=== PATIENT | male | born 1945 | race Caucasian/White ===

== ENCOUNTER → 2016-07-14 | Outpatient (CLI) | payer OTHER, BC ==
[~2016-07-14] MED LIST: CIME1TAB7 PO; HYDR1OIN TOP; LPR25 PO; LPT/40 PO; LSN20 PO; MULT-506 PO; TYLOTC500 PO
[2016-07-14 12:29] LABS: BASO % 0.2 %; BASO ABS # 0.01 K/uL (0-0.2); COMPLETE YES; EOS % 2.6 %; HEMATOCRIT 41.9 % (42-52); IG% 0.2 %; LYMPH ABS # 1.82 K/uL (1.2-3.4); MEAN CELL VOLUME 93.9 fL (80-100); MEAN CORPUSCULAR HEMOGLOBIN 30.7 pg (25-34); MEAN CORPUSCULAR HGB CONC 32.7 g/dl (32-36); MEAN PLATELET VOLUME 9.6 fL (7.4-10.4); MONO % 6.5 %; NEUT % 62.5 %; PLATELET COUNT 185 K/uL (130-400); RED BLOOD COUNT 4.46 M/uL (4.7-6.1); WHITE BLOOD COUNT 6.49 K/uL (4.8-10.8)
[2016-07-14 12:38] LABS: CALCIUM 9.2 mg/dl (8.5-10.1)
[2016-07-14 12:42] LABS: ALT/SGPT 37 U/L (12-78); AST/SGOT 33 U/L (15-37); BLOOD UREA NITROGEN 14 mg/dl (7-18); BUN/CREATININE RATIO 12.5 (10-20); CARBON DIOXIDE 32 mmol/L (21-32); CHLORIDE 106 mmol/L (98-107); CHOLESTEROL 112 mg/dl (0-200); GLUCOSE 79 mg/dl (70-99); POTASSIUM 5.4 mmol/L (3.5-5.1); SODIUM 142 mmol/L (136-145); TRIGLYCERIDES 92 mg/dl (0-150); VERY LOW DENSITY LIPOPROT CALC 18 mg/dl
[2016-07-14 12:47] LABS: ESTIMATED AVERAGE GLUCOSE 103 mg/dl; HA1C FLAG Normal (Normal)
[2016-07-14 12:53] LABS: CHOLESTEROL/HDL RATIO 2.2; HDL CHOLESTEROL 50 mg/dl; LDL CHOLESTEROL CALCULATED 44 mg/dl
--- NOTE | 2016-07-20 08:40 | CODING QUERY MEDICAL NECESSITY ---
SUPPORTING DIAGNOSIS NEEDED Dr. Jenkins, A supporting diagnosis is required for the test/procedure performed on this patient in order for us to be reimbursed by the patient's insurance. Please provide a supporting diagnosis for the following test/procedure listed below next to the test name along with your signature. *If there is no additional diagnosis for this patient that would support the following test/procedure please document that below next to the test/procedure. Test(s)/Procedure(s) that require a supporting diagnosis: * [id number] GLYCATED HEMOGLOBIN DIAGNOSIS: DATE OF SERVICE: 07/14/16 Provider Signature: Date: Thank you Kumar Parks [facility] Information Management Once completed, please kindly fax back to [phone] For questions please call [phone]
== END | disposition home or self-care (01) ==
LOC: C.LABBFT 09:41
PROVIDERS: ATTEND Internal Medicine
DX: Z00.00 Encounter for general adult medical examination without abnormal findings (principal); I10 Essential (primary) hypertension; E78.00 Pure hypercholesterolemia, unspecified; E74.39 Other disorders of intestinal carbohydrate absorption

== ENCOUNTER → 2017-01-15 | Outpatient (CLI) | payer OTHER, BC ==
[2017-01-15 12:58] LABS: BASO % 0.3 %; BASO ABS # 0.02 K/uL (0-0.2); COMPLETE YES; EOS % 2.5 %; HEMATOCRIT 41.5 % (42-52); LYMPH % 27.5 %; LYMPH ABS # 1.65 K/uL (1.2-3.4); MEAN CELL VOLUME 94.7 fL (80-100); MEAN CORPUSCULAR HGB CONC 33.7 g/dl (32-36); MEAN PLATELET VOLUME 9.7 fL (7.4-10.4); MONO % 5.7 %; PLATELET COUNT 185 K/uL (130-400); RED BLOOD COUNT 4.38 M/uL (4.7-6.1); WHITE BLOOD COUNT 5.99 K/uL (4.8-10.8)
[2017-01-15 14:18] LABS: ALT/SGPT 26 U/L (12-78); AST/SGOT 28 U/L (15-37); BLOOD UREA NITROGEN 13 mg/dl (7-18); BUN/CREATININE RATIO 11.9 (10-20); CALCIUM 9.2 mg/dl (8.5-10.1); CARBON DIOXIDE 31 mmol/L (21-32); CHLORIDE 105 mmol/L (98-107); CREATININE 1.06 mg/dl (0.60-1.40); GLUCOSE 78 mg/dl (70-99); HDL CHOLESTEROL 54 mg/dl; POTASSIUM 4.2 mmol/L (3.5-5.1); SODIUM 138 mmol/L (136-145)
[2017-01-15 14:24] LABS: CHOLESTEROL 96 mg/dl (0-200); CHOLESTEROL/HDL RATIO 1.8; LDL CHOLESTEROL CALCULATED 25 mg/dl; TRIGLYCERIDES 87 mg/dl (0-150); VERY LOW DENSITY LIPOPROT CALC 17 mg/dl
[2017-01-16 07:00] LABS: ESTIMATED AVERAGE GLUCOSE 94 mg/dl; HA1C FLAG Normal (Normal)
== END | disposition home or self-care (01) ==
LOC: C.LABBFT 09:23
PROVIDERS: ATTEND Physician Assistant
DX: R97.20 Elevated prostate specific antigen [PSA] (principal); N40.1 Benign prostatic hyperplasia with lower urinary tract symptoms; I10 Essential (primary) hypertension; E78.00 Pure hypercholesterolemia, unspecified

== ENCOUNTER 2022-01-25 01:19 | Inpatient (IN) ==
--- NOTE | 2022-01-25 01:32 | Emergency Department Note ---
History of Present Illness General Chief complaint: Fall Time Seen by Provider: 01/25/22 01:22 History of Present Illness 76-year-old male presents via EMS reportedly this patient has had multiple falls over the past few days. Was seen in our emergency department 3 hours prior and had a full evaluation at the time had a CAT scan of the brain which was negative was also found to be COVID-positive. Patient's blood cultures 1 bottle reportedly came back positive for staph on PCR. Patient was called by Dr. Tyree muñoz and the family stated that the patient would stay home and they would monitor for symptoms. Apparently approximately 30 minutes after this phone call the patient was going to the bathroom and was weak and had fallen again. EMS states that his legs may have given out. He did not strike his head there is no loss of consciousness he has no current complaints. Patient has significant dementia and is a very poor historian as to his presentation. Home Medications Medication Instructions Recorded Confirmed Type amoxicillin 500 mg capsule 2,000 mg PO ONCE PRN Pretreat 04/02/20 01/25/22 History Dental Appointments cholecalciferol (vitamin D3) 25 25 mcg PO DAILY 08/16/20 01/25/22 History mcg (1,000 unit) capsule finasteride 5 mg tablet (Proscar) 5 mg PO DAILY #90 tabs 08/04/21 01/25/22 Rx tamsulosin 0.4 mg capsule 0.4 mg PO DAILY #90 caps 08/04/21 01/25/22 Rx metoprolol succinate 100 mg 100 mg PO BID 90 days #180 tabs 11/01/21 01/25/22 Rx tablet,extended release 24 hr lisinopril 20 mg tablet 20 mg PO DAILY #90 tabs 01/04/22 01/25/22 Rx Allergies Allergy/AdvReac Type Severity Reaction Status Date / Time Sulfa (Sulfonamide Allergy Intermediate RASH Verified 01/25/22 01:50 Antibiotics) codeine Allergy Unknown unknown Verified 01/25/22 01:50 donepezil Allergy Unknown ? sycopal Verified 01/25/22 01:50 episode oxycodone AdvReac Severe hallucinati Verified 01/25/22 01:50 ons Past Med/Surg History Medical History Benign localized prostatic hyperplasia with lower urinary tract symptoms (LUTS) Cardiac pacemaker in situ interrogated 02/16/20 no issues Dementia Dyslipidemia Elevated PSA GERD (gastroesophageal reflux disease) Hearing loss Inguinal hernia of left side with obstruction Pneumothorax, left T9 vertebral fracture Surgical History H/O hernia repair History of left inguinal hernia repair Laparoscopic left inguinal hernia repair for incarceration with obstruction, Dr. Ramirez, 03 April 2020 History of rectal surgery Anal fistulectomy History of tonsillectomy Social History Smoking Status: Unknown if ever smoked Second Hand Exposure: No; Hx Alcohol Use: No Hx Substance Use: No Preferred Language: Zimbabwean Communication Ability: Effective marital status: Current Living Situation: Spouse current occupational status: retired Feels Safe at Home: Yes Assistive Devices: None Review of Systems Unobtainable due to cognitive status Physical Exam Vital Signs Vital Signs - 24 hr 01/25/22 01:27 01/25/22 01:35 01/25/22 01:30 Temperature 36.7 C Temperature Source Oral Pulse Rate 83 Pulse Rate [Apical] 86 Pulse Rate from SpO2 Sensor 83 Respiratory Rate 24 18 Respiratory Effort / Characteristics Non-Labored Spontaneous Respiratory Depth Normal Blood Pressure 140/80 Blood Pressure [Right Arm] 140/80 Blood Pressure Mean 100 Blood Pressure Mean [Right Arm] 100 Pulse Oximetry 97 97 Oxygen Delivery Method Room Air Room Air Sepsis Recent Fever Within 48 Hours No Sepsis New/Unexplained Change in Mental Status No Sepsis Action Taken by Nursing No Action Required 01/25/22 02:00 01/25/22 02:30 Temperature Temperature Source Pulse Rate 76 73 Pulse Rate [Apical] Pulse Rate from SpO2 Sensor 75 75 Respiratory Rate 20 19 Respiratory Effort / Characteristics Respiratory Depth Blood Pressure 134/69 Blood Pressure [Right Arm] Blood Pressure Mean 90 Blood Pressure Mean [Right Arm] Pulse Oximetry 95 98 Oxygen Delivery Method Room Air Room Air Sepsis Recent Fever Within 48 Hours Sepsis New/Unexplained Change in Mental Status Sepsis Action Taken by Nursing GENERAL: Patient is awake alert in no distress no obvious signs of trauma alert to person only EYES: The conjunctivae are clear. The pupils are round and reactive. EARS, NOSE, MOUTH AND THROAT: The nose is without any evidence of any deformity. Mucous membranes are moist. Tongue is midline. NECK: The neck is nontender and supple. Patient has a nontender cervical spine patient has their neck in a flexed position RESPIRATORY: Normal respiratory effort is noted there is no evidence of wheezing rhonchi or rales CARDIOVASCULAR: Regular rate and rhythm noted there no murmurs rubs or gallops normal S1 normal S2. GASTROINTESTINAL: The abdomen is soft. Abdomen is nontender. PELVIS: The Pelvis is stable. No tenderness to palpation is noted. BACK: No midline tenderness or or step-off noted range of motion in flexion extension as well as rotation no signs of muscle spasm noted MUSCULOSKELETAL/EXTREMITIES: There is no evidence of gross deformity full range of motion is noted in the hips and shoulders. SKIN: There is no obvious evidence of any rash. There are no petechiae, pallor or cyanosis noted. NEUROLOGIC: Patient is awake alert to person only Course Reevaluation(s) Reevaluation #1: Patient is resting in no distress on repeat examination Time: 01:54 Consultations Consultation #1: Spoke with the [facility] hospitalist for admission Time: 01:54 Medical Decision Making Medical Records Attestation: I reviewed the patient's medical records. Home Medications Current Medication List: was personally reviewed by me Laboratory Data Attestation: I reviewed the patient's lab results. ECG Data Attestation: I personally reviewed and interpreted this ECG as follows: Additional Comments: EKG interpreted by me paced rhythm rate of 86, no obvious ST segment elevation or depression normal axis prior EKG is a paced rhythm as interpreted by me MDM Narrative Medical decision making differential diagnosis weakness, COVID, gram-positive sepsis, metabolic derangement. Observe, prior records were reviewed, patient had a positive staph PCR in one of the 4 bottles of blood cultures. Impression & Plan Weakness, Fall, COVID-19 Discharge Plan Visit Data Chief Complaint: Fall ED Provider: John Elizondo Discharge Problem: Weakness, Fall, COVID-19 Patient Disposition: Being Evaluated by Hospitalist Discharge Instructions Interventions: ED Discharge Assessment Last Done: 01/25/22 02:51 Forms Stand Alone Forms: My [facility] Prescriptions Prescriptions: No Action finasteride [Proscar] 5 mg tablet 5 mg PO DAILY Qty: 90 3RF Rx Instructions: for enlarged prostate tamsulosin 0.4 mg capsule 0.4 mg PO DAILY Qty: 90 3RF Rx Instructions: for enlarged prostate lisinopril 20 mg tablet 20 mg PO DAILY Qty: 90 3RF cholecalciferol (vitamin D3) 25 mcg (1,000 unit) capsule 25 mcg PO DAILY metoprolol succinate 100 mg tablet extended release 24 hr 100 mg PO BID 90 Days Qty: 180 5RF amoxicillin 500 mg capsule 2,000 mg PO ONCE PRN (Reason: Pretreat Dental Appointments) Referrals Referrals: Kumar Rodriguez DO [Primary Care Provider] -
--- NOTE | 2022-01-25 02:02 | History & Physical Report ---
Date of Service January 25, 2022 Assessment & Plan (1) Fall: Plan: Patient having multiple falls at home. Likely his dementia is being influenced by his COVID infection and presenting with metabolic encephalopathy. Supportive care PT OT evaluation. CT head will be ordered on admission (2) COVID-19: Plan: Patient's had some upper respiratory symptoms with mild cough and low-grade fever at home which began on January 20, patient be on COVID isolation. He is not hypoxic therefore will not be candidate for steroids Denies significant respiratory component diarrhea we will not initiate re mdesivir He does not have any diarrhea or complaint of loss of taste or smell to his family (3) Blood bacterial culture positive: Plan: 1 of 4 blood cultures are positive that were taken without the patient being febrile. There is no defined source although he does have BPH we will check a urine culture if the patient develops infectious etiologies we will institute antibiotics likely vancomycin to start with. Patient will have procalcitonin added to morning labs and will follow look for leukocytosis (4) Hypertension: Plan: Patient takes metoprolol 100 and lisinopril 20. He will be on telemetry to monitor for arrhythmia Pt has pacemaker, will continue medications and follow blood pressures interrogate pace maker to correlate with falls patient has not had his pacemaker interrogated for 1 year typically follows with Dr. Joyce family feels he was told he had a few years left on the battery Initially pacemaker was placed due to syncope son feels that when he does fall which is usually a position change she does have a period of time afterwards where he is conscious but not quite all there (5) BPH (benign prostatic hyperplasia): Plan: Patient continues on tamsulosin and finasteride for his BPH blood pressure is robust without concern currently for orthostatic hypotension (6) Dementia: Plan: Patient's family feels his dementia has worsened since he had his COVID symptoms thus considering consistent with metabolic encephalopathy Plan Patient will be on Lovenox for DVT prevention Patient's family confirms he is a full code Previous history of T9 compression fracture Previous history of left-sided pneumothorax associated in the past with pacemaker placement History of Present Illness Primary Care Provider: Kumar Rodriguez, DO 76-year-old male who presents to the ER after a fall at home. The patient was in the emergency room earlier for multiple falls and was found to be COVID- positive without hypoxia or pneumonia. At that time serology was unrevealing for dyscrasias this included lactic acid and troponin during the ER visit the patient also had blood cultures drawn he was not febrile but 1 of 4 bottles grew gram-positive cocci in clusters. Interestingly after that result came back after the first ER visit ER attending called the patient's home and the family stated the patient was doing fine and then 20 minutes later he was brought back after a fall via EMS. Repeat visit did not include any additional work-up. His initial ER visit included a chest x-ray and an abdominal pelvis CT scan this did not reveal pathology or concern for infection did show some constipation. He was not discharged on antibiotics and no head imaging was performed although there was no recollection of trauma by the family urinalysis earlier on 12 D ecember was not significantly abnormal and the patient does not have a significant history of previous urinary tract infections Allergies Allergy/AdvReac Type Severity Reaction Status Date / Time Sulfa (Sulfonamide Allergy Intermediate RASH Verified 01/25/22 01:50 Antibiotics) codeine Allergy Unknown unknown Verified 01/25/22 01:50 donepezil Allergy Unknown ? sycopal Verified 01/25/22 01:50 episode oxycodone AdvReac Severe hallucinati Verified 01/25/22 01:50 ons Home Medications Medication Instructions Recorded Confirmed Type amoxicillin 500 mg capsule 2,000 mg PO ONCE PRN Pretreat 04/02/20 01/25/22 History Dental Appointments cholecalciferol (vitamin D3) 25 25 mcg PO DAILY 08/16/20 01/25/22 History mcg (1,000 unit) capsule finasteride 5 mg tablet (Proscar) 5 mg PO DAILY #90 tabs 08/04/21 01/25/22 Rx tamsulosin 0.4 mg capsule 0.4 mg PO DAILY #90 caps 08/04/21 01/25/22 Rx metoprolol succinate 100 mg 100 mg PO BID 90 days #180 tabs 11/01/21 01/25/22 Rx tablet,extended release 24 hr lisinopril 20 mg tablet 20 mg PO DAILY #90 tabs 01/04/22 01/25/22 Rx Past Med/Surg History Medical History Benign localized prostatic hyperplasia with lower urinary tract symptoms (LUTS) Cardiac pacemaker in situ interrogated 02/16/20 no issues Dementia Dyslipidemia Elevated PSA GERD (gastroesophageal reflux disease) Hearing loss Inguinal hernia of left side with obstruction Pneumothorax, left T9 vertebral fracture Surgical History H/O hernia repair History of left inguinal hernia repair Laparoscopic left inguinal hernia repair for incarceration with obstruction, Dr. Ramirez, 03 April 2020 History of rectal surgery Anal fistulectomy History of tonsillectomy Social History Smoking Status: Unknown if ever smoked Second Hand Exposure: No; Hx Alcohol Use: No Hx Substance Use: No Preferred Language: Filipino Communication Ability: Effective marital status: Current Living Situation: Spouse current occupational status: retired Feels Safe at Home: Yes Assistive Devices: None Review of Systems Review of Systems: Mild distress and fatigue no headache, no visual changes no speech or swallowing issues no chest pain, pressure or palpitations no shortness of breath, cough or wheezes no abdominal pain, nausea or vomiting, diarrhea or constipation no dysuria, hematuria or frequency no focal joint pain or swelling no back pain, CVA tenderness or radicular pain no bruising, bleeding or rashes no focal signs of weakness or numbness or altered sensation no complaints of anxiety or depression.. Physical Exam Physical Exam: The patient appeared well nourished and normally developed. Vital signs as documented. Head exam is normocephalic atraumatic Neck is without JVD, thyromegaly, or carotid bruits. Lungs are clear to auscultation, no focal loss of breath sounds Cardiac exam, Rhythm is regular.. No murmurs, rubs or gallops. Abdominal exam reveals normal bowel sounds, soft non tender, no masses Extremities are nonedematous and both pedal pulses are present Neurologic exam is alert and oriented, no focal loss of strength or sensation Skin is without bruises or rashes Psychologically is without concerns for anxiety or depression.. Results & Data Results & Data ([facility]) Vital Signs (Past 12 Hours) Vital Signs Temp Pulse Resp BP Pulse Ox O2 Del Method 01/25/22 01:35 98.1 F 01/25/22 01:27 86 24 140/80 97 Room Air Diagnostic Findings CT scan abdomen pelvis without oral or IV contrast 01/23/2022 Significant suboptimal examination as no contrast was administered, no acute infectious or inflammatory findings are identified within the abdomen or pelvis. Rectosigmoid fecal retention and moderate constipation. Cholelithiasis. Chest x-ray was without pneumonia or infiltrates PG Care Time/CCT Total # of Minutes Spent Total Time Spent with Patient: Total time spent is greater than 50% in coordination of care (as documented) at patient's floor/unit and/or counseling patient: Coding Level of Care Code 71608 Initial Inpt Care Lvl 3 Diagnoses Fall W19.XXXA COVID-19 U07.1 Blood bacterial culture positive R78.81 Hypertension I10 Hypertension type: primary hypertension BPH (benign prostatic hyperplasia) N40.0 Dementia F03.90 Dementia severity: severe Dementia type: vascular dementia (1) Dementia Dementia severity: severe Dementia type: vascular dementia (2) Hypertension Hypertension type: primary hypertension Qualified Code(s): I10 - Essential (primary) hypertension
[2022-01-25] MEDS ORDERED: SODIUM CHLORIDE 0.9% 1000ML 1,000 ML IV STA (02:42)
[2022-01-25] MEDS ORDERED: POLYETHYLENE (MIRALAX) 17 GM PACK PO PRN (03:36)
[2022-01-25] MEDS ORDERED: ALUMINUM/MAGNESIUM SUSP 30 ML UDC PO PRN (03:36)
[2022-01-25 06:14] LABS: Hematocrit (blood only) 42.6 % (40.1-51.0); Hemoglobin 14.5 g/dl (14.0-18.0); Mean Corpuscular Hemoglobin 31.6 pg (25.0-34.0); Mean Corpuscular Volume 92.8 fL (80.0-100.0); Mean Platelet Volume 9.1 fL (9.4-12.4); Platelet Count 147 K/uL (130-400); RDW Coefficient of Variation 12.5 % (11.5-14.5); RDW Standard Deviation 42.5 fL (36.4-46.3); Red Blood Count 4.59 M/uL (4.63-6.08); White Blood Count 5.57 K/ul (4.8-10.8)
[2022-01-25 06:51] LABS: BUN Creatinine Ratio 17.8 (10-20); Calcium 8.6 mg/dl (8.5-10.1); Creatinine Clr Calc Pharmacy 56.8 ml/min; Est GFR (African American) 83.4 ml/min; Est GFR (Non-African American) 71.9 ml/min; Potassium 3.6 mmol/L (3.5-5.1)
[2022-01-25] MEDS ORDERED: REMDESIVIR 200 MG in SODIUM CHLORIDE 0.9% 210 ML IV STA (07:30)
[2022-01-25] MEDS: ENOXAPARIN INJ 40 MG/0.4 ML SYR SQ SCH (08:26)
[2022-01-25] MEDS: TAMSULOSIN HCL 0.4 MG CAP PO SCH (08:28)
[2022-01-25] MEDS: METOPROLOL SUCC 50MG EXT REL TAB PO SCH ×2 (08:33→20:28)
[2022-01-25] MEDS: lisinopril 20 MG TAB PO SCH (08:34)
[2022-01-25] MEDS: FINASTERIDE 5 MG TAB PO SCH (08:34)
--- NOTE | 2022-01-25 08:45 | Electrocardiogram Report ---
Test Reason : Blood Pressure : / mmHG Vent. Rate : 086 BPM Atrial Rate : 086 BPM P-R Int : 186 ms QRS Dur : 162 ms QT Int : 418 ms P-R-T Axes : 000 -85 083 degrees QTc Int : 500 ms AV dual-paced rhythm Abnormal ECG When compared with ECG of 23-JAN-2022 18:30, Vent. rate has increased BY 13 BPM Atrial sensing, ventricular pacing no longer present Confirmed by Ryan Michel ([id number]) on 01/25/2022 8:44:56 AM Referred By: REFERRED SELF Confirmed By:Ryan Michel
--- NOTE | 2022-01-25 17:46 | History & Physical Bridge Note ---
Date of Service January 25, 2022 History & Physical Bridge Note I have examined the patient, reviewed the History & Physical and in the interval since the performance of the History & Physical I have noted the following changes of clinical significance: Pt continued to be quite restless all day and jumping out of bed, ripped out his IV and heart monitor. He is confused and this is at his baseline as per his 's description. He did move his bowels and is eating. BCxs show COag neg Staph, 1/4 bottles, l ikely contaminant. Repeat BCxs obtained. definitely on board with starting antipsychotic after review of risk and benefits. Will start Seroquel. She also reports she just cannot safely take care of him currently at home, concern for falls. Pt not able to answer any questions, answers "yup" to everything. Moving all extremities constantly wringing hands, kicking legs. RRR no mgr CTAB no wcr +BS soft NT ND Skin no rashes Will start Seroquel and if less agitated, will send for CT head although I told this is low yield. Brain MRI would be better for looking for CVA, but there is no way he would hold still for brain MRI given his constant motion and restlessness. Pacer interrogation not performed that I can tell-reordered but he has been paced on tele here, no arrhythmias since admission. -transfer off tele, no need for replacement of IV as he will likely rip it out again -started Remdesivir and received one dose but now witll stop POx is> 94% so no steroids indicated -start seroquel 12.5mg po hs PT/OT recommending 24/7 care or SNF--> would like referrals to [facility] ER
[2022-01-25] MEDS: QUEtiapine FUMARATE 25 MG TABLET PO SCH (18:09)
[2022-01-25] MEDS ORDERED: hydrALAZINE HCL 20 MG/ML VIAL IV STA (23:18)
[2022-01-26 07:34] LABS: Hematocrit (blood only) 44.3 % (40.1-51.0); Hemoglobin 15.3 g/dl (14.0-18.0); Mean Corpuscular Hemoglobin 31.4 pg (25.0-34.0); Mean Corpuscular Hgb Conc 34.5 g/dL (32.0-36.0); Mean Platelet Volume 9.5 fL (9.4-12.4); Platelet Count 176 K/uL (130-400); RDW Coefficient of Variation 12.2 % (11.5-14.5); RDW Standard Deviation 40.8 fL (36.4-46.3); Red Blood Count 4.87 M/uL (4.63-6.08)
[2022-01-26 08:07] LABS: BUN Creatinine Ratio 14.2 (10-20); Calcium 8.8 mg/dl (8.5-10.1); Creatinine Clr Calc Pharmacy 27.9 ml/min; Est GFR (African American) 35.6 ml/min; Est GFR (Non-African American) 30.7 ml/min; Magnesium 1.9 mg/dl (1.7-2.4); Potassium 4.2 mmol/L (3.5-5.1)
[2022-01-26] MEDS: ENOXAPARIN INJ 40 MG/0.4 ML SYR SQ SCH (08:23)
[2022-01-26] MEDS: METOPROLOL SUCC 50MG EXT REL TAB PO SCH ×2 (08:24→20:48)
[2022-01-26] MEDS: lisinopril 20 MG TAB PO SCH (08:24)
[2022-01-26] MEDS: FINASTERIDE 5 MG TAB PO SCH (08:24)
[2022-01-26] MEDS: TAMSULOSIN HCL 0.4 MG CAP PO SCH (08:24)
[2022-01-26] MEDS: LACTATED RINGER'S 1,000 ML IV SCH ×2 (10:15→22:32)
[2022-01-26] MEDS ORDERED: REMDESIVIR 100 MG in SODIUM CHLORIDE 0.9% 230 ML IV SCH ×2 (12:00→17:00)
[2022-01-26 14:55] LABS: Appearance Urine Clear (Clear); Bacteria Urine Automated Negative (Negative); Bilirubin Urine Negative (Negative); Blood Urine 3+ (Negative); Color Urine Yellow; Glucose Urine UA Negative (Negative); Ketones Urine Trace (Negative); Leukocyte Esterase Urine Negative (Negative); Nitrite Urine Negative (Negative); Protein Urine 1+ (Negative); RBC Urine Automated >30 /hpf (0-4); Specific Gravity Urine 1.014 (1.000-1.030); Urobilinogen Urine Negative (Negative)
--- NOTE | 2022-01-26 16:48 | Hospitalist Progress Note ---
Date of Service January 26, 2022 Assessment & Plan (1) Fall: Plan: Patient having multiple falls at home. Likely his dementia is being influenced by his COVID infection and presenting with metabolic encephalopathy. Supportive care PT OT evaluation. CT head ordered but not able to be completed due to agitation and restlessness of patient will try to get CT head once more calm pacer interrogation ordered but not yet completed? tele only with paced rhythm and has since been removed from tele suspect weakness due to COVID was cause of fall-he did not lose consciousness (2) COVID-19: Plan: Patient's had some upper respiratory symptoms with mild cough and low-grade fever at home which began on January 20, tested positive here on 01/23 He is not hypoxic therefore will not be candidate for steroids no further fevers here, no PNA on CXR, no diarrhea, is eating Gave one dose Remdesivir on 01/25 but then ripped out IV-->dcd it and now with ANNAMARIA cannot restart continue isolation precautions (3) ANNAMARIA (acute kidney injury): Plan: Predatory Hunter 1.0 on arrival and now up to 2.0 found to have urinary retention of 800mL on 01/26--> placed Haley CT abd/pel on admission without stones or hydronephrosis but with evidence of chronic REECE and enlarged prostate UA neg for infection, richards shave some blood but could be from trauma from Haley -continue to monitor BMP -give IVFs with LR x 2L -renally dose meds -maintain Haley for now -hold lisinopril-did receive dose on 01/26 (4) Urinary retention: Plan: as above, Haley placed on 01/26 continue Flomax and finasteride (5) Dementia: Plan: Chronic, progressing, answers "yes" to all questions, not able to carry on conversation generally restless, very active, multiple falls recently with COVID illness feels she cannot safely take care of him on her own at home for agitation here, started on Seroquel 12.5mg po hs as d/w on phone and seems to be helping tremendously -continue Seroquel 12.5mg hs (6) Blood bacterial culture positive: Plan: was seen in ER on 01/23 for fever and falls, found to be COVID positive BCxs growing 2/4 with Coag neg Staph but no longer having fevers Procal negative, UA neg for infection no abx started -repeat BCxs 01/25 NGTD-will follow (7) Hypertension: Plan: BPs elevated possibly due to agitation but now improved as agitation resolved continue home metoprolol hold lisinopril now due to ANNAMARIA (8) BPH (benign prostatic hyperplasia): Plan: with Haley placed for urine retention -continues on tamsulosin and finasteride Plan DVT proph-hold Lovenox and start heparin SQ due to ANNAMARIA Dispo-continued stay, PT/OT recommending rehab or 04/09 care. Referral made to [facility] as per Admission and Anticipated Discharge Date Admission Date: January 25, 2022 Subjective Pt apparently was much more calm and rested through the night, able to come off the 1:1 sitter today and has been very cooperative today, eating meals on his own as per RN. He is sleeping a lot. Overall much improved. He had ANNAMARIA on labs this AM and bladder scan revealed PVR 800mL and had Haley placed. IV restarted for IVFs and he is tolerating this. When I saw him, he was resting and only briefly opened his eyes and acknowledged me then fell back asleep. Review of Systems Review of Systems: Unobtainable due to cognitive status Physical Exam Constitutional: WD/WN, vitals as above Eyes: + anicteric sclerae Neck: trachea midline, no thyromegaly Respiratory: normal respiratory effort, lungs clear to auscultation Cardiovascular: RRR, no murmur, no edema Vessels: dorsalis pedis pulses present Chest (Breasts): Chest: normal inspection of chest Gastrointestinal (Abdomen): normal bowel sounds, soft, nontender, no hepatosplenomegaly Musculoskeletal: Extremities: extremities normal to inspection; no cyanosis and no clubbing Skin: no rashes, warm and dry Neurologic: moves all extremities and + confused; + not awake Genitourinary: Haley in place Lymphatic: no lymphedema Results & Data Results & Data ([facility]) Vital Signs (Past 12 Hours) Vital Signs Temp Pulse Resp BP Pulse Ox O2 Del Method 01/26/22 14:30 37.1 C 81 20 128/76 95 Room Air 01/26/22 10:17 81 160/94 H 01/26/22 08:20 36.7 C 93 H 16 185/109 H 96 Room Air 01/26/22 06:56 116 H 18 188/126 H Laboratory Results 01/26/22 01/26/22 01/26/22 Range/Units 14:40 07:03 07:03 WBC 7.20 (4.8-10.8) K/ul RBC 4.87 (4.63-6.08) M/uL Hgb 15.3 (14.0-18.0) g/dl Hct 44.3 (40.1-51.0) % MCV 91.0 (80.0-100.0) fL MCH 31.4 (25.0-34.0) pg MCHC 34.5 (32.0-36.0) g/dL RDW Std Deviation 40.8 (36.4-46.3) fL RDW Coeff of Coco 12.2 (11.5-14.5) % Plt Count 176 (130-400) K/uL MPV 9.5 (9.4-12.4) fL Sodium 137 (136-145) mmol/L Potassium 4.2 (3.5-5.1) mmol/L Chloride 100 (98-107) mmol/L Carbon Dioxide 25 (21-32) mmol/L Anion Gap 12 H (3-11) BUN 29 H (6-23) mg/dl Creatinine 2.04 H D (0.6-1.4) mg/dl Est Cr Clr Drug Dosing 27.9 ml/min Est GFR ( Amer) 35.6 ml/min Est GFR (Non-Af Amer) 30.7 ml/min BUN/Creatinine Ratio 14.2 (10-20) Glucose 118 H (70-99(Fasting)) mg/dl Calcium 8.8 (8.5-10.1) mg/dl Magnesium 1.9 (1.7-2.4) mg/dl Urine Color Yellow Urine Appearance Clear (Clear) Urine pH 5.0 (4.5-7.5) Ur Specific Evans 1.014 (1.000-1.030) Urine Protein 1+ H (Negative) Urine Glucose (UA) Negative (Negative) Urine Ketones Trace H (Negative) Urine Blood 3+ H (Negative) Urine Nitrite Negative (Negative) Urine Bilirubin Negative (Negative) Urine Urobilinogen Negative (Negative) Ur Leukocyte Esterase Negative (Negative) Urine WBC (Auto) 1-5 (0-5) /hpf Urine RBC (Auto) >30 H (0-4) /hpf U Hyaline Cast (Auto) 1-5 (0-5) /lpf U Epithel Cells (Auto) 10-20 H (0-5) /lpf Urine Bacteria (Auto) Negative (Negative) PG Care Time/CCT Total # of Minutes Spent Total Time Spent with Patient: Total time spent is greater than 50% in coordination of care (as documented) at patient's floor/unit and/or counseling patient: Coding Level of Care Code 96033 Subseq Hosp Care Lvl 2 Diagnoses Fall W19.XXXA COVID-19 U07.1 ANNAMARIA (acute kidney injury) N17.9 Urinary retention R33.9 Dementia F03.90 Dementia severity: severe Dementia type: vascular dementia Blood bacterial culture positive R78.81 Hypertension I10 Hypertension type: primary hypertension BPH (benign prostatic hyperplasia) N40.0 (1) Hypertension Hypertension type: primary hypertension Qualified Code(s): I10 - Essential (primary) hypertension (2) Dementia Dementia severity: severe Dementia type: vascular dementia
[2022-01-26] MEDS: QUEtiapine FUMARATE 25 MG TABLET PO SCH (20:48)
[2022-01-27] MEDS: FINASTERIDE 5 MG TAB PO SCH (08:21)
[2022-01-27] MEDS: METOPROLOL SUCC 50MG EXT REL TAB PO SCH ×2 (08:21→20:59)
[2022-01-27] MEDS: TAMSULOSIN HCL 0.4 MG CAP PO SCH (08:21)
[2022-01-27 09:24] LABS: Hematocrit (blood only) 39.3 % (40.1-51.0); Hemoglobin 13.6 g/dl (14.0-18.0); Mean Corpuscular Hemoglobin 31.7 pg (25.0-34.0); Mean Corpuscular Hgb Conc 34.6 g/dL (32.0-36.0); Mean Corpuscular Volume 91.6 fL (80.0-100.0); Mean Platelet Volume 9.4 fL (9.4-12.4); Platelet Count 144 K/uL (130-400); RDW Coefficient of Variation 12.5 % (11.5-14.5); RDW Standard Deviation 41.4 fL (36.4-46.3); Red Blood Count 4.29 M/uL (4.63-6.08); White Blood Count 8.95 K/ul (4.8-10.8)
[2022-01-27 09:55] LABS: BUN Creatinine Ratio 23.1 (10-20); Calcium 8.5 mg/dl (8.5-10.1); Creatinine Clr Calc Pharmacy 47.2 ml/min; Est GFR (Non-African American) 57.8 ml/min; Magnesium 1.9 mg/dl (1.7-2.4); Potassium 4.1 mmol/L (3.5-5.1)
--- NOTE | 2022-01-27 16:24 | Hospitalist Progress Note ---
Date of Service January 27, 2022 Assessment & Plan (1) Fall: Plan: Patient having multiple falls at home. Likely his dementia is being influenced by his COVID infection and presenting with metabolic encephalopathy. Supportive care, PT OT evaluation. CT head ordered but not able to be completed due to agitation and restlessness of patient will try to get CT head once more calm-d/w nurse that this could be done today pacer interrogation ordered but not yet completed? Asked RN to please get this done today tele only with paced rhythm and has since been removed from tele suspect weakness due to COVID was cause of fall-he did not lose consciousness (2) COVID-19: Plan: Patient's had some upper respiratory symptoms with mild cough and low-grade fever at home which began on January 20, tested positive here on 01/23 He is not hypoxic therefore will not be candidate for steroids no further fevers here, no PNA on CXR, no diarrhea, is eating Gave one dose Remdesivir on 01/25 but then ripped out IV-->dcd it and now with ANNAMARIA cannot restart continue isolation precautions (3) ANNAMARIA (acute kidney injury): 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 found to have urinary retention of 800mL on 01/26--> placed Haley CT abd/pel on admission without stones or hydronephrosis but with evidence of chronic REECE and enlarged prostate UA neg for infection, richards shave some blood but could be from trauma from Haley Gave 2 L of LR Tolerating po Well Site Drilling Engineer now much improved, down to 1.2 -continue to monitor BMP -renally dose meds -maintain Haley for now -continue to hold lisinopril-did receive dose on 01/26 (4) Urinary retention: Plan: as above, Haley placed on 01/26 continue Flomax and finasteride (5) Dementia: Plan: Chronic, progressing, answers "yes" to all questions, not able to carry on conversation generally restless, very active, multiple falls recently with COVID illness feels she cannot safely take care of him on her own at home for agitation here, started on Seroquel 12.5mg po hs as d/w on phone and seems to be helping tremendously He is following commands, worked w/ PT, eats meals -continue Seroquel 12.5mg hs (6) Blood bacterial culture positive: Plan: was seen in ER on 01/23 for fever and falls, found to be COVID positive BCxs growing 2/4 with Coag neg Staph but no longer having fevers Procal negative, UA neg for infection no abx started -repeat BCxs 01/25 NGTD-will follow (7) Hypertension: Plan: BPs elevated possibly due to agitation but now improved as agitation resolved continue home metoprolol hold lisinopril now due to ANNAMARIA can add amlodipine if needed (8) BPH (benign prostatic hyperplasia): Plan: with Haley placed for urine retention -continues on tamsulosin and finasteride Plan DVT proph-ok to restart Lovenox rather than heparin SQ as ANNAMARIA improved Dispo-continued stay, PT/OT recommending rehab or 04/09 care. Referral made to [facility] as per Admission and Anticipated Discharge Date Admission Date: January 25, 2022 Subjective Pt has been calm all night and all day again as per nursing. He is eating all meals but did need to be fed today. Urine draining from Haley. He does briefly wake up to loud verbal stimulus and says "yup" but not able to answer any other questions. Review of Systems Review of Systems: All systems reviewed & are unremarkable except as noted in HPI & below Physical Exam Constitutional: WD/WN, vitals as above Eyes: + anicteric sclerae Neck: trachea midline, no thyromegaly Respiratory: normal respiratory effort, lungs clear to auscultation Cardiovascular: RRR, no murmur, no edema Vessels: dorsalis pedis pulses present Chest (Breasts): Chest: normal inspection of chest Gastrointestinal (Abdomen): normal bowel sounds, soft, nontender, no hepatosplenomegaly Musculoskeletal: Extremities: extremities normal to inspection; no cyanosis and no clubbing Skin: no rashes, warm and dry Neurologic: moves all extremities and + confused Lymphatic: no lymphedema Results & Data Results & Data ([facility]) Vital Signs (Past 12 Hours) Vital Signs Temp Pulse Resp BP Pulse Ox O2 Del Method 01/27/22 15:22 36.9 C 95 H 19 158/87 H 93 Room Air 01/27/22 08:09 37.1 C 72 16 137/75 94 Room Air PG Care Time/CCT Total # of Minutes Spent Total Time Spent with Patient: Total time spent is greater than 50% in coordination of care (as documented) at patient's floor/unit and/or counseling patient: Coding Level of Care Code 85084 Subseq Hosp Care Lvl 2 Diagnoses Fall W19.XXXA COVID-19 U07.1 ANNAMARIA (acute kidney injury) N17.9 Urinary retention R33.9 Dementia F03.90 Dementia severity: severe Dementia type: vascular dementia Blood bacterial culture positive R78.81 Hypertension I10 Hypertension type: primary hypertension BPH (benign prostatic hyperplasia) N40.0 (1) Dementia Dementia severity: severe Dementia type: vascular dementia (2) Hypertension Hypertension type: primary hypertension Qualified Code(s): I10 - Essential (primary) hypertension
--- NOTE | 2022-01-27 17:18 | CT Scan Report ---
CT OF THE HEAD WITHOUT CONTRAST CLINICAL HISTORY: Altered mental status. COMPARISON STUDY: Head CT May 30, 2014. CT DOSE: 921.40 mGy.cm TECHNIQUE: Helical axial images of the head were obtained without IV contrast. Automated exposure con trol was utilized for the study. A dose lowering technique was utilized adhering to the principles o f ALARA. FINDINGS: No acute intracranial hemorrhage, midline shift or mass effect is present. When matter hypo density suggests small vessel disease. Mild atrophy is present. The ventricular system is unremarkabl e. The basal cisterns are patent. No extra-axial collections are present. There are no findings to hawkins ggest acute dural sinus thrombosis or acute territorial infarct. No significant calvarial abnormaliti es are present. IMPRESSION: No acute intracranial findings. ACT 112: Negative or not required by law. Electronically signed by: Manish Almendarez M.D. 01/27/2022 5:16 PM
[2022-01-27] MEDS: ENOXAPARIN INJ 40 MG/0.4 ML SYR SQ SCH (18:02)
[2022-01-27] MEDS: QUEtiapine FUMARATE 25 MG TABLET PO SCH (20:58)
[2022-01-28 07:21] LABS: BUN Creatinine Ratio 26.5 (10-20); Calcium 7.9 mg/dl (8.5-10.1); Creatinine Clr Calc Pharmacy 68.9 ml/min; Est GFR (African American) 99.1 ml/min; Est GFR (Non-African American) 85.5 ml/min; Potassium 3.5 mmol/L (3.5-5.1)
[2022-01-28] MEDS: TAMSULOSIN HCL 0.4 MG CAP PO SCH (10:02)
[2022-01-28] MEDS: FINASTERIDE 5 MG TAB PO SCH (10:02)
[2022-01-28] MEDS: METOPROLOL SUCC 50MG EXT REL TAB PO SCH ×2 (10:02→20:23)
[2022-01-28] MEDS: ENOXAPARIN INJ 40 MG/0.4 ML SYR SQ SCH (18:07)
--- NOTE | 2022-01-28 18:23 | Hospitalist Progress Note ---
Date of Service January 28, 2022 Assessment & Plan (1) Fall: Plan: Patient having multiple falls at home. Likely his dementia is being influenced by his COVID infection and presenting with metabolic encephalopathy. Supportive care, PT OT evaluation. CT head initially not able to be completed due to agitation and restlessness of patient, but after a couple day sof Seroquel at bedtime, got head CT on 01/27 and negative pacer interrogation shows no events tele only with paced rhythm and has since been removed from tele suspect weakness due to COVID was cause of fall-he did not lose consciousness (2) COVID-19: Plan: Patient's had some upper respiratory symptoms with mild cough and low-grade fever at home which began on January 20, tested positive here on 01/23 He is not hypoxic therefore will not be candidate for steroids no further fevers here, no PNA on CXR, no diarrhea, is eating, doing well Gave one dose Remdesivir on 01/25 but then ripped out IV-->dcd it and then with ANNAMARIA did not restart continue isolation precautions (3) ANNAMARIA (acute kidney injury): Plan: 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 found to have urinary retention of 800mL on 01/26--> placed Haley CT abd/pel on admission without stones or hydronephrosis but with evidence of chronic REECE and enlarged prostate UA neg for infection, does have some blood but could be from trauma from Haley Gave 2 L of LR Tolerating po Field Counsel now much improved, down to 0.83 -continue to monitor BMP -renally dose meds -maintain Haley for now -continue to hold lisinopril-did receive last dose on 01/26 (4) Urinary retention: Plan: as above, Haley placed on 01/26 continue Flomax and finasteride (5) Dementia: Plan: Chronic, progressing, answers "yes" to almost all questions, not able to carry on conversation generally restless, very active, multiple falls recently with COVID illness feels she cannot safely take care of him on her own at home for agitation here, started on Seroquel 12.5mg po hs as d/w on phone and seems to be helping tremendously He is following commands, worked w/ PT, eats all meals and feeds himself sometimes, but some excessive drowsiness at times -continue Seroquel 12.5mg hs (6) Blood bacterial culture positive: Plan: was seen in ER on 01/23 for fever and falls, found to be COVID positive BCxs growing 2/ with Coag neg Staph but no longer having fevers Procal negative, UA neg for infection no abx started -repeat BCxs 01/25 NGTD-will follow (7) Hypertension: Plan: BPs elevated possibly due to agitation but now improved as agitation resolved continue home metoprolol hold lisinopril now due to ANNAMARIA can add amlodipine if needed (8) BPH (benign prostatic hyperplasia): Plan: with Haley placed for urine retention -continues on tamsulosin and finasteride Plan DVT proph-continue SQ Lovenox Dispo-continued stay, PT/OT recommending rehab or 04/09 care. Referral made to [facility] as per CM Discussed care with on phone Admission and Anticipated Discharge Date Admission Date: January 25, 2022 Subjective Doing very well today. Cooperative, follows some commands. Did feed himself some meals, had to be fed dinner but is eating and drinking. No BM. Haley in place and draining. He says "yup" to almost every question but then did actually state "nope" when I pressed on his belly and asked if he had pain. Review of Systems Review of Systems: Unobtainable due to cognitive status Physical Exam Constitutional: WD/WN, vitals as above Eyes: + anicteric sclerae Neck: trachea midline, no thyromegaly Respiratory: normal respiratory effort, lungs clear to auscultation Cardiovascular: RRR, no murmur, no edema Chest (Breasts): Chest: normal inspection of chest Gastrointestinal (Abdomen): normal bowel sounds, soft, nontender, no hepatosplenomegaly Musculoskeletal: Extremities: extremities normal to inspection; no cyanosis and no clubbing Skin: no rashes, warm and dry Neurologic: moves all extremities and awake Psychiatric: Orientation: alert and cooperative; + not oriented x 3 Lymphatic: no lymphedema Results & Data Results & Data ([facility]) Vital Signs (Past 12 Hours) Vital Signs Temp Pulse Resp BP Pulse Ox O2 Del Method 01/28/22 15:22 36.8 C 73 16 128/79 94 Room Air 01/28/22 08:09 37 C 75 16 147/82 H 94 Room Air Laboratory Results 01/28/22 Range/Units 05:49 Sodium 137 (136-145) mmol/L Potassium 3.5 (3.5-5.1) mmol/L Chloride 104 (98-107) mmol/L Carbon Dioxide 28 (21-32) mmol/L Anion Gap 5 (3-11) BUN 22 (6-23) mg/dl Creatinine 0.83 D (0.6-1.4) mg/dl Est Cr Clr Drug Dosing 68.9 ml/min Est GFR ( Amer) 99.1 ml/min Est GFR (Non-Af Amer) 85.5 ml/min BUN/Creatinine Ratio 26.5 H (10-20) Glucose 91 (70-99(Fasting)) mg/dl Calcium 7.9 L (8.5-10.1) mg/dl PG Care Time/CCT Total # of Minutes Spent Total Time Spent with Patient: Total time spent is greater than 50% in coordination of care (as documented) at patient's floor/unit and/or counseling patient: Coding Level of Care Code 53652 Subseq Hosp Care Lvl 2 Diagnoses Fall W19.XXXA COVID-19 U07.1 ANNAMARIA (acute kidney injury) N17.9 Urinary retention R33.9 Dementia F03.90 Dementia severity: severe Dementia type: vascular dementia Blood bacterial culture positive R78.81 Hypertension I10 Hypertension type: primary hypertension BPH (benign prostatic hyperplasia) N40.0 (1) Dementia Dementia severity: severe Dementia type: vascular dementia (2) Hypertension Hypertension type: primary hypertension Qualified Code(s): I10 - Essential (primary) hypertension
[2022-01-28] MEDS: QUEtiapine FUMARATE 25 MG TABLET PO SCH (20:23)
[2022-01-28] MEDS: POLYETHYLENE (MIRALAX) 17 GM PACK PO SCH (20:23)
[2022-01-28] MEDS: DOCUSATE SODIUM/SENNA 50/8.6MG TAB PO SCH (20:24)
[2022-01-29 08:30] LABS: BUN Creatinine Ratio 26.3 (10-20); Creatinine Clr Calc Pharmacy 75.2 ml/min; Est GFR (African American) 102.7 ml/min; Est GFR (Non-African American) 88.6 ml/min; Potassium 3.4 mmol/L (3.5-5.1)
[2022-01-29] MEDS: DOCUSATE SODIUM/SENNA 50/8.6MG TAB PO SCH (08:48)
[2022-01-29] MEDS: METOPROLOL SUCC 50MG EXT REL TAB PO SCH ×2 (08:49→20:31)
[2022-01-29] MEDS: FINASTERIDE 5 MG TAB PO SCH (08:49)
[2022-01-29] MEDS: TAMSULOSIN HCL 0.4 MG CAP PO SCH (08:49)
[2022-01-29] MEDS: POLYETHYLENE (MIRALAX) 17 GM PACK PO SCH (08:49)
[2022-01-29] MEDS: POTASSIUM CHLORIDE CRTAB 20 MEQ TABCR PO SCH ×3 (10:52→20:31)
--- NOTE | 2022-01-29 11:05 | Hospitalist Progress Note ---
Date of Service January 29, 2022 Assessment & Plan (1) Fall: Plan: Multiple falls prior to admission - likely were due to weakness from brewing COVID infection. CT head negative. No other obvious injuries (abrasion/skin tear right elbow noted). PT, OT. needs rehab (2) COVID-19: Plan: Initial symptoms 01/20 tested + 01/23 at [facility] Patient's illness appears largely resolved no evidence of pneumonia steroids/Remdesivir deferred PT, OT supportive care now with COVID at home but doing ok (3) ANNAMARIA (acute kidney injury): Plan: Peak Creatinine 2 on 01/26/22 this may have been due to obstruction - found to have urinary retention of 800mL on 01/26--> placed Perdomo at that time CT abd/pel on admission without stones or hydronephrosis but with evidence of chronic REECE and enlarged prostate Creatinine now normal Cont perdomo SAMUEL still on hold but if BMP tomorrow is wnl will resume as BPs are high (4) Urinary retention: Plan: Perdomo placed on 01/26 continue Flomax and finasteride for BPH (5) Dementia: Plan: Chronic, progressing Continue Seroquel 12.5mg hs for agitation/sundowning Tolerating well; nights have been calm (6) Blood bacterial culture positive: Plan: was seen in ER on 01/23 for fever and falls, found to be COVID positive BCxs 2/ with Coag neg Staph but no longer having fevers Procal negative, UA neg for infection no abx started repeat BCxs 01/25 negative 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 (7) Hypertension: Plan: cont BB resume SAMUEL tomorrow (8) BPH (benign prostatic hyperplasia): Plan: continues on tamsulosin and finasteride perdomo placed 01/26 leave for 1 week at minimum then trial of void (9) Fecal impaction: Plan: as seen on admission CT a/p s/p dulcolax suppos today with very large BM per staff now with bowel maintenance needed (10) Hypokalemia: Plan: replace repeat BMP wnl most recent mag level wnl Plan DVT proph-Lovenox updated pt's this evening she is recovering herself from COVID plan is still [facility] ( desires this) Admission and Anticipated Discharge Date Admission Date: January 25, 2022 Subjective unable to contribute significantly to any meaningful history or ROS says "yup" multiple times to various questions staff report he was able to feed himself breakfast this am no bowel movement since admission no other concerns per staff Review of Systems Review of Systems: Unobtainable due to cognitive status Physical Exam Physical Exam: gen - NAD, pleasantly confused mouth - MMM neck - no JVD heart - RRR,s1,s2, no murmur lungs- CTA b/l abd - mildly distended, bS+, NT ext - no edema, pulses 2+ b/l psych - alert, oriented to person only - perdomo in place, clear yellow urine in bag skin - healing skin tear/ulcer right elbow Results & Data Results & Data ([facility]) Vital Signs (Past 12 Hours) Vital Signs Temp Pulse Resp BP Pulse Ox O2 Del Method 01/29/22 07:42 36.5 C 77 20 165/95 H 95 Room Air 01/28/22 23:08 37.3 C 93 H 18 149/70 H 96 Room Air Laboratory Results Laboratory Results - last 24 hr 01/29/22 07:17 Sodium 141 Potassium 3.4 L Chloride 107 Carbon Dioxide 28 Anion Gap 6 BUN 20 Creatinine 0.76 Est Cr Clr Drug Dosing 75.2 Est GFR ( Amer) 102.7 Est GFR (Non-Af Amer) 88.6 BUN/Creatinine Ratio 26.3 H Glucose 87 Calcium 8.0 L PG Care Time/CCT Total # of Minutes Spent Total Time Spent with Patient: Total time spent is greater than 50% in coordination of care (as documented) at patient's floor/unit and/or counseling patient: Coding Level of Care Code 86124 Subseq Hosp Care Lvl 2 Diagnoses Fall W19.XXXA COVID-19 U07.1 ANNAMARIA (acute kidney injury) N17.9 Urinary retention R33.9 Dementia F03.90 Dementia severity: severe Dementia type: vascular dementia Blood bacterial culture positive R78.81 Hypertension I10 Hypertension type: primary hypertension BPH (benign prostatic hyperplasia) N40.0 Fecal impaction K56.41 Hypokalemia E87.6 (1) Dementia Dementia severity: severe Dementia type: vascular dementia (2) Hypertension Hypertension type: primary hypertension Qualified Code(s): I10 - Essential (primary) hypertension
[2022-01-29] MEDS ORDERED: MINERAL OIL ENEMA 133 ML BTL PR PRN (11:06)
[2022-01-29] MEDS ORDERED: bisacodyL 10 MG SUPP PR STA (11:06)
[2022-01-29] MEDS: ENOXAPARIN INJ 40 MG/0.4 ML SYR SQ SCH (17:00)
[2022-01-29] MEDS: QUEtiapine FUMARATE 25 MG TABLET PO SCH (20:31)
[2022-01-30] MEDS ORDERED: MELATONIN 3 MG TAB PO STA (02:40)
[2022-01-30 06:21] LABS: Hematocrit (blood only) 40.8 % (40.1-51.0); Hemoglobin 14.2 g/dl (14.0-18.0); Mean Corpuscular Hemoglobin 31.5 pg (25.0-34.0); Mean Corpuscular Hgb Conc 34.8 g/dL (32.0-36.0); Mean Corpuscular Volume 90.5 fL (80.0-100.0); Mean Platelet Volume 9.9 fL (9.4-12.4); Platelet Count 199 K/uL (130-400); RDW Coefficient of Variation 11.9 % (11.5-14.5); RDW Standard Deviation 39.5 fL (36.4-46.3); Red Blood Count 4.51 M/uL (4.63-6.08); White Blood Count 9.57 K/ul (4.8-10.8)
[2022-01-30 06:29] LABS: BUN Creatinine Ratio 18.6 (10-20); Calcium 8.5 mg/dl (8.5-10.1); Creatinine Clr Calc Pharmacy 66.5 ml/min; Est GFR (African American) 97.6 ml/min; Est GFR (Non-African American) 84.2 ml/min; Potassium 3.8 mmol/L (3.5-5.1)
[2022-01-30] MEDS: METOPROLOL SUCC 50MG EXT REL TAB PO SCH ×2 (08:55→20:29)
[2022-01-30] MEDS: TAMSULOSIN HCL 0.4 MG CAP PO SCH (08:56)
[2022-01-30] MEDS: FINASTERIDE 5 MG TAB PO SCH (08:56)
[2022-01-30] MEDS: DOCUSATE SODIUM/SENNA 50/8.6MG TAB PO SCH (08:56)
[2022-01-30] MEDS: POLYETHYLENE (MIRALAX) 17 GM PACK PO SCH (09:00)
[2022-01-30] MEDS: lisinopril 20 MG TAB PO SCH (10:11)
[2022-01-30] MEDS: ENOXAPARIN INJ 40 MG/0.4 ML SYR SQ SCH (16:13)
[2022-01-30] MEDS: ACETAMINOPHEN 325 MG TAB PO PRN (16:14)
--- NOTE | 2022-01-30 19:47 | Hospitalist Progress Note ---
Date of Service January 30, 2022 Assessment & Plan (1) Fever: Plan: developing UTI? bacterial superinfection/pneumonia? bacteremia? other? despite the fever he looks very good today check blood cx's x 2 sets (does have pacer device - ensure no bacteremia) check u/a and urine cx consider cxr although he remains clear and o2 sats are wnl (2) Fall: Plan: Multiple falls prior to admission - likely were due to weakness from brewing COVID infection. CT head negative. No other obvious injuries (abrasion/skin tear right elbow noted). PT, OT. needs rehab (3) COVID-19: Plan: Initial symptoms 01/20 tested + 01/23 at [facility] Patient's illness appears largely resolved no evidence of pneumonia steroids/Remdesivir deferred now with acute fever - see #1 above PT, OT supportive care now with COVID at home but doing ok (4) ANNAMARIA (acute kidney injury): Plan: Peak Creatinine 2 on 01/26/22 this may have been due to obstruction - found to have urinary retention of 800mL on 01/26--> placed Perdomo at that time CT abd/pel on admission without stones or hydronephrosis but with evidence of chronic REECE and enlarged prostate Creatinine now normal Cont perdomo resume SAMUEL today - lisinopril 20mg daily (5) Urinary retention: Plan: Perdomo placed on 01/26 continue Flomax and finasteride for BPH check u/a and urine cx due to #1 above (6) Dementia: Plan: Chronic, progressing Continue Seroquel but increase to 25mg hs for agitation/sundowning - cont to sleep poorly at HS Add melatonin 3mg HS scheduled (7) Blood bacterial culture positive: Plan: was seen in ER on 01/23 for fever and falls, found to be COVID positive BCxs 2/ with Coag neg Staph but no longer having fevers Procal negative, UA neg for infection no abx started repeat BCxs 01/25 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 however, now with new fever (see #1) - repeat blood cx's today (8) Hypertension: Plan: cont BB resume SAMUEL today (9) BPH (benign prostatic hyperplasia): Plan: continues on tamsulosin and finasteride perdomo placed 01/26 leave for 1 week at minimum then trial of void (10) Fecal impaction: Plan: as seen on admission CT a/p s/p dulcolax suppos today with very large BM per staff now with bowel maintenance needed (11) Hypokalemia: Plan: replaced resolved Plan DVT proph-Lovenox updated pt's this evening by phone she is recovering herself from COVID plan is still [facility] ( desires this) fever will delay discharge Admission and Anticipated Discharge Date Admission Date: January 25, 2022 Subjective patient with low-grade fever this afternoon despite such he was smiling, very talkative during my bedside rounds this afternoon in fact he was watching the TV and said "look how beautiful" he even said hello staff report very poor liquid intake appetite fair at best he continues to play with his perdomo Review of Systems Review of Systems: Unobtainable due to cognitive status Physical Exam Physical Exam: gen - NAD, pleasantly confused, smiling, talkative today mouth - MMM neck - no JVD heart - RRR,s1,s2, no murmur lungs- CTA b/l abd - mildly distended, bS+, NT ext - no edema, pulses 2+ b/l psych - alert, oriented to person only - perdomo in place, clear yellow urine in bag skin - healing skin tear/ulcer right elbow - no surrounding cellulitis noted Results & Data Results & Data ([facility]) Vital Signs (Past 12 Hours) Vital Signs Temp Pulse Resp BP BP Pulse Ox O2 Del Method 01/30/22 16:30 37.7 C H 109 H 19 155/92 H 96 Room Air 01/30/22 10:13 37.0 C 97 H 19 168/90 H 95 Room Air 01/30/22 09:39 Room Air 01/30/22 08:14 37.1 C 110 H 20 168/96 H 95 Room Air Laboratory Results Laboratory Results - last 24 hr 01/30/22 01/30/22 01/30/22 05:35 05:35 05:35 WBC 9.57 RBC 4.51 L Hgb 14.2 Hct 40.8 MCV 90.5 MCH 31.5 MCHC 34.8 RDW Std Deviation 39.5 RDW Coeff of Coco 11.9 Plt Count 199 MPV 9.9 Sodium 140 Potassium 3.8 Chloride 105 Carbon Dioxide 27 Anion Gap 8 BUN 16 Creatinine 0.86 Est Cr Clr Drug Dosing 66.5 Est GFR ( Amer) 97.6 Est GFR (Non-Af Amer) 84.2 BUN/Creatinine Ratio 18.6 Glucose 100 H Calcium 8.5 C-Reactive Protein 3.08 H Procalcitonin 01/30/22 05:37 WBC RBC Hgb Hct MCV MCH MCHC RDW Std Deviation RDW Coeff of Coco Plt Count MPV Sodium Potassium Chloride Carbon Dioxide Anion Gap BUN Creatinine Est Cr Clr Drug Dosing Est GFR ( Amer) Est GFR (Non-Af Amer) BUN/Creatinine Ratio Glucose Calcium C-Reactive Protein Procalcitonin 0.12 PG Care Time/CCT Total # of Minutes Spent Total Time Spent with Patient: Total time spent is greater than 50% in coordination of care (as documented) at patient's floor/unit and/or counseling patient: Coding Level of Care Code 38684 Subseq Hosp Care Lvl 2 Diagnoses Fever R50.9 Fall W19.XXXA COVID-19 U07.1 ANNAMARIA (acute kidney injury) N17.9 Urinary retention R33.9 Dementia F03.90 Dementia severity: severe Dementia type: vascular dementia Blood bacterial culture positive R78.81 Hypertension I10 Hypertension type: primary hypertension BPH (benign prostatic hyperplasia) N40.0 Fecal impaction K56.41 Hypokalemia E87.6 (1) Dementia Dementia severity: severe Dementia type: vascular dementia (2) Hypertension Hypertension type: primary hypertension Qualified Code(s): I10 - Essential (primary) hypertension
[2022-01-30] MEDS: MELATONIN 3 MG TAB PO SCH (20:29)
[2022-01-30] MEDS: QUEtiapine FUMARATE 25 MG TABLET PO SCH (21:15)
[2022-01-31] MEDS: ACETAMINOPHEN 325 MG TAB PO PRN (02:03)
[2022-01-31 07:05] LABS: Appearance Urine Cloudy (Clear); Bacteria Urine Automated 1+ (Negative); Bilirubin Urine Negative (Negative); Blood Urine Negative (Negative); Cast Urine Automated 0 /lpf (0-5); Color Urine Yellow; Glucose Urine UA Negative (Negative); Ketones Urine 1+ (Negative); Leukocyte Esterase Urine Negative (Negative); Nitrite Urine Negative (Negative); Protein Urine 2+ (Negative); RBC Urine Automated 0-4 /hpf (0-4); Specific Gravity Urine 1.017 (1.000-1.030); Urobilinogen Urine Positive (Negative); WBC Urine Automated 0 /hpf (0-5)
[2022-01-31] MEDS: METOPROLOL SUCC 50MG EXT REL TAB PO SCH ×2 (08:58→20:43)
[2022-01-31] MEDS: TAMSULOSIN HCL 0.4 MG CAP PO SCH (08:59)
[2022-01-31] MEDS: DOCUSATE SODIUM/SENNA 50/8.6MG TAB PO SCH (08:59)
[2022-01-31] MEDS: POLYETHYLENE (MIRALAX) 17 GM PACK PO SCH (09:00)
[2022-01-31] MEDS: FINASTERIDE 5 MG TAB PO SCH (09:00)
[2022-01-31] MEDS: lisinopril 20 MG TAB PO SCH (09:00)
--- NOTE | 2022-01-31 14:44 | Hospitalist Progress Note ---
Date of Service January 31, 2022 Assessment & Plan (1) Fever: Plan: developing UTI? bacterial superinfection/pneumonia? bacteremia? other? no fever in 24+ hours urine cx thus far neg blood cx's from yestserrday neg cxr today - despite the sputum - neg for infiltrates with stable O2 sats cont to monitor (2) Fall: Plan: Multiple falls prior to admission - likely were due to weakness from brewing COVID infection. CT head negative. No other obvious injuries (abrasion/skin tear right elbow noted). PT, OT. needs rehab (3) COVID-19: Plan: Initial symptoms 01/20 tested + 01/23 at [facility] Patient's illness appears largely resolved no evidence of pneumonia clinically or radiographically steroids/Remdesivir deferred now with acute fever - see #1 above PT, OT supportive care now with COVID at home but doing ok (4) ANNAMARIA (acute kidney injury): Plan: Peak Creatinine 2 on 01/26/22 this may have been due to obstruction - found to have urinary retention of 800mL on 01/26--> placed Perdomo at that time CT abd/pel on admission without stones or hydronephrosis but with evidence of chronic REECE and enlarged prostate Creatinine now normal Cont perdomo resumed SAMUEL (5) Urinary retention: Plan: Perdomo placed on 01/26 self-removed overnight placed back in at that time continue Flomax and finasteride for BPH await urine cx (6) Dementia: Plan: Chronic, progressive Continue Seroquel 25mg hs for agitation/owning Cont melatonin 3mg HS scheduled (7) Blood bacterial culture positive: Plan: was seen in ER on 01/23 for fever and falls, found to be COVID positive BCxs 2/4 with Coag neg Staph but no longer having fevers Procal negative, UA neg for infection no abx started repeat BCxs 01/25 negative the [employer] was likely contamination however, now with new fever (see #1) yesterday repeat blood cx's from 01/30 thus far negative (8) Hypertension: Plan: cont BB cont SAMUEL (9) BPH (benign prostatic hyperplasia): Plan: cont flomax & finasteride await urine cx (10) Fecal impaction: Plan: as seen on admission CT a/p s/p dulcolax suppos today with very large BM per staff now with bowel maintenance needed (11) Hypokalemia: Plan: replaced resolved Plan DVT proph-Lovenox poor PO intake - 2nd to COVID in setting of advanced dementia he looks volume depleted again -- resume IV fluids repeat BMP am update his tomorrow on 02/01 Admission and Anticipated Discharge Date Admission Date: January 25, 2022 Subjective no events per staff except he did self-remove his perdomo overnight and it had to be placed back in due to retention eating poorly drinking poorly urine output sluggish today/low and urine in perdomo bag very concentrated despite the above - during my visit - he was pleasantly confused; said a few words, smiled and laughed once Review of Systems Review of Systems: Unobtainable due to cognitive status Physical Exam Physical Exam: gen - NAD, pleasantly confused; while examining him he coughed up a large amount of yellow-tinged sputum mouth - MM dry neck - no JVD heart - RRR,s1,s2, no murmur lungs- CTA b/l abd - mildly distended, bS+, NT ext - no edema, pulses 2+ b/l psych - alert, oriented to person only - perdomo in place,; urine - concentrated skin - healing skin tear/ulcer right elbow - no surrounding cellulitis noted; left elbow skin tear - no cellulitis Results & Data Results & Data ([facility]) Vital Signs (Past 12 Hours) Vital Signs Temp Pulse Resp BP Pulse Ox O2 Del Method 01/31/22 14:33 37.2 C 87 18 118/80 93 Room Air 01/31/22 08:43 37.1 C 82 18 134/66 96 Room Air Laboratory Results Laboratory Results - last 24 hr 01/30/22 01/30/22 01/31/22 05:35 05:37 Unknown C-Reactive Protein 3.08 H Procalcitonin 0.12 Urine Color Yellow Urine Appearance Cloudy A Urine pH 7.0 Ur Specific Fithian 1.017 Urine Protein 2+ H Urine Glucose (UA) Negative Urine Ketones 1+ H Urine Blood Negative Urine Nitrite Negative Urine Bilirubin Negative Urine Urobilinogen Positive H Ur Leukocyte Esterase Negative Urine WBC (Auto) 0 Urine RBC (Auto) 0-4 U Hyaline Cast (Auto) 0 U Epithel Cells (Auto) 5-10 H Urine Bacteria (Auto) 1+ H Diagnostic Findings cxr this evening - no infiltrates PG Care Time/CCT Total # of Minutes Spent Total Time Spent with Patient: Total time spent is greater than 50% in coordination of care (as documented) at patient's floor/unit and/or counseling patient: Coding Level of Care Code 17485 Subseq Hosp Care Lvl 2 Diagnoses Fever R50.9 Fall W19.XXXA COVID-19 U07.1 ANNAMARIA (acute kidney injury) N17.9 Urinary retention R33.9 Dementia F03.90 Dementia severity: severe Dementia type: vascular dementia Blood bacterial culture positive R78.81 Hypertension I10 Hypertension type: primary hypertension BPH (benign prostatic hyperplasia) N40.0 Fecal impaction K56.41 Hypokalemia E87.6 (1) Dementia Dementia severity: severe Dementia type: vascular dementia (2) Hypertension Hypertension type: primary hypertension Qualified Code(s): I10 - Essential (primary) hypertension
[2022-01-31] MEDS: ENOXAPARIN INJ 40 MG/0.4 ML SYR SQ SCH (15:41)
[2022-01-31] MEDS: D5W AND 1/2NSS + 20MEQ KCL 20 MEQ/1,000 ML BAG IV SCH (15:41)
--- NOTE | 2022-01-31 20:13 | XRay Report ---
XR chest 1V portable CLINICAL HISTORY: cough, recent fever, COVID+ TECHNIQUE: Single frontal radiograph of the chest was obtained. Comparison: Comparison is made to chest radiograph 01/23/2022 FINDINGS: Dual lead pacemaker is seen. The cardiomediastinal silhouette is normal. The lungs are clear. No evid ence of pleural effusion or pneumothorax. IMPRESSION: No acute chest disease. ACT 112: Negative or not required by law. Electronically signed by: Luis Carlisle M.D. 01/31/2022 8:11 PM
[2022-01-31] MEDS: QUEtiapine FUMARATE 25 MG TABLET PO SCH (20:43)
[2022-01-31] MEDS: MELATONIN 3 MG TAB PO SCH (20:43)
[2022-02-01] MEDS: D5W AND 1/2NSS + 20MEQ KCL 20 MEQ/1,000 ML BAG IV SCH (03:28)
[2022-02-01 08:33] LABS: BUN Creatinine Ratio 24.2 (10-20); Calcium 8.2 mg/dl (8.5-10.1); Creatinine Clr Calc Pharmacy 61.6 ml/min; Est GFR (African American) 94.5 ml/min; Est GFR (Non-African American) 81.6 ml/min; Potassium 3.9 mmol/L (3.5-5.1)
[2022-02-01] MEDS: DOCUSATE SODIUM/SENNA 50/8.6MG TAB PO SCH (08:47)
[2022-02-01] MEDS: lisinopril 20 MG TAB PO SCH (08:47)
[2022-02-01] MEDS: METOPROLOL SUCC 50MG EXT REL TAB PO SCH ×2 (08:47→22:05)
[2022-02-01] MEDS: POLYETHYLENE (MIRALAX) 17 GM PACK PO SCH (08:48)
[2022-02-01] MEDS: FINASTERIDE 5 MG TAB PO SCH (08:48)
[2022-02-01] MEDS: TAMSULOSIN HCL 0.4 MG CAP PO SCH (08:48)
[2022-02-01] MEDS: AMOXICILLIN 500 MG CAP PO SCH ×3 (11:52→22:06)
[2022-02-01] MEDS ORDERED: HALOPERIDOL LACTATE 5 MG/ML 1 ML VIAL IM STA (15:40)
[2022-02-01] MEDS: ENOXAPARIN INJ 40 MG/0.4 ML SYR SQ SCH (15:44)
[2022-02-01] MEDS: QUEtiapine FUMARATE 25 MG TABLET PO SCH (18:02)
--- NOTE | 2022-02-01 20:22 | Hospitalist Progress Note ---
Date of Service February 01, 2022 Assessment & Plan (1) Fever: Plan: likely 2nd to enterococcal UTI amoxicillin 500mg TID started await final culture blood cx's neg cxr neg pneumonia no further fever; none in nearly 2 days (2) Fall: Plan: Multiple falls prior to admission - likely were due to weakness from brewing COVID infection. CT head negative. No other obvious injuries (abrasion/skin tear right elbow noted). PT, OT. needs rehab (3) COVID-19: Plan: Initial symptoms 01/20 tested + 01/23 at [facility] Patient's illness appears largely resolved no evidence of pneumonia clinically or radiographically steroids/Remdesivir deferred now with acute fever - see #1 above - likely due to UTI PT, OT supportive care now with COVID at home but doing ok cont airborne precautions for now (4) ANNAMARIA (acute kidney injury): Plan: Peak Creatinine 2 on 01/26/22 this may have been due to obstruction - found to have urinary retention of 800mL on 01/26--> placed Haley at that time CT abd/pel on admission without stones or hydronephrosis but with evidence of chronic REECE and enlarged prostate Creatinine now normal Resumed SAMUEL (5) Urinary retention: Plan: Haley placed on 01/26 Has self-removed multiple catheters since that time period Hopefully we can get by without a new one continue Flomax and finasteride for BPH treat UTI (6) Dementia: Plan: Chronic, progressive Continue Seroquel 25mg hs for agitation/sundowning Cont melatonin 3mg HS scheduled (7) Blood bacterial culture positive: Plan: was seen in ER on 01/23 for fever and falls, found to be COVID positive BCxs 2/ with Coag neg Staph but no longer having fevers Procal negative, UA neg for infection no abx started repeat BCxs 01/25 negative the TREE [employer] was likely contamination repeat blood cx's from 01/30 cont to remain negative (8) Hypertension: Plan: cont BB cont SAMUEL (9) BPH (benign prostatic hyperplasia): Plan: cont flomax & finasteride await final urine cx (10) Fecal impaction: Plan: as seen on admission CT a/p resolved 2 large BMs today (11) Hypokalemia: Plan: replaced resolved Plan DVT proph-Lovenox poor PO intake - 2nd to COVID in setting of advanced dementia gave IV fluids yesterday - volume status a little better updated his this evening Admission and Anticipated Discharge Date Admission Date: January 25, 2022 Subjective patient agitated this afternoon requiring use of haldol IM due to concern for injury (was pulling at IVs/tubes, trying to get out of bed, etc) haldol ineffective ultimately gave his HS seroquel early and this helped him appetite fair at best liquid intake poor during my visit he did say "thank you" and we sang Alban garcia per staff had 2 large BMs this afternoon Review of Systems Review of Systems: Unobtainable due to cognitive status Physical Exam Physical Exam: gen - NAD, pleasantly confused, tremulous mouth - MM a little more moist today neck - no JVD heart - RRR,s1,s2, no murmur lungs- CTA b/l abd - soft NT ND BS+ ext - no edema, pulses 2+ b/l psych - alert, oriented to person only skin - healing skin tear/ulcer right elbow - no surrounding cellulitis noted; left elbow skin tear - no cellulitis Results & Data Results & Data ([facility]) Vital Signs (Past 12 Hours) Vital Signs Temp Pulse Resp BP Pulse Ox O2 Del Method 02/01/22 18:09 36.8 C 101 H 20 146/86 H 96 Room Air 02/01/22 09:00 Room Air Laboratory Results Laboratory Results - last 24 hr 02/01/22 07:55 Sodium 142 Potassium 3.9 Chloride 108 H Carbon Dioxide 30 Anion Gap 4 BUN 22 Creatinine 0.91 Est Cr Clr Drug Dosing 61.6 Est GFR ( Amer) 94.5 Est GFR (Non-Af Amer) 81.6 BUN/Creatinine Ratio 24.2 H Glucose 93 Calcium 8.2 L Magnesium 2.0 Diagnostic Findings urine cx - enterococcus PG Care Time/CCT Total # of Minutes Spent Total Time Spent with Patient: Total time spent is greater than 50% in coordination of care (as documented) at patient's floor/unit and/or counseling patient: Coding Level of Care Code 89899 Subseq Hosp Care Lvl 2 Diagnoses Fever R50.9 Fall W19.XXXA COVID-19 U07.1 ANNAMARIA (acute kidney injury) N17.9 Urinary retention R33.9 Dementia F03.90 Dementia severity: severe Dementia type: vascular dementia Blood bacterial culture positive R78.81 Hypertension I10 Hypertension type: primary hypertension BPH (benign prostatic hyperplasia) N40.0 Fecal impaction K56.41 Hypokalemia E87.6 (1) Dementia Dementia severity: severe Dementia type: vascular dementia (2) Hypertension Hypertension type: primary hypertension Qualified Code(s): I10 - Essential (primary) hypertension
[2022-02-01] MEDS: MELATONIN 3 MG TAB PO SCH (22:05)
[2022-02-02] MEDS: POLYETHYLENE (MIRALAX) 17 GM PACK PO SCH (08:06)
[2022-02-02] MEDS: METOPROLOL SUCC 50MG EXT REL TAB PO SCH ×2 (08:06→20:07)
[2022-02-02] MEDS: lisinopril 20 MG TAB PO SCH (08:08)
[2022-02-02] MEDS: DOCUSATE SODIUM/SENNA 50/8.6MG TAB PO SCH (08:08)
[2022-02-02] MEDS: AMOXICILLIN 500 MG CAP PO SCH ×3 (08:08→20:08)
[2022-02-02] MEDS: TAMSULOSIN HCL 0.4 MG CAP PO SCH (08:08)
[2022-02-02] MEDS: FINASTERIDE 5 MG TAB PO SCH (08:08)
[2022-02-02] MEDS: ENOXAPARIN INJ 40 MG/0.4 ML SYR SQ SCH (16:53)
[2022-02-02] MEDS: MELATONIN 3 MG TAB PO SCH (20:06)
[2022-02-02] MEDS: QUEtiapine FUMARATE 25 MG TABLET PO SCH (20:08)
--- NOTE | 2022-02-02 21:32 | Hospitalist Progress Note ---
Date of Service February 02, 2022 Assessment & Plan (1) Catheter-associated urinary tract infection: Plan: likely cause of fever a few days ago UTI 2nd to enterococcus perdomo now removed blood cx's negative plan 7 days of Rx with amoxicillin 500 TID consider PSA check and if high then would extend course out longer to cover for prostatitis (2) Fall: Plan: Multiple falls prior to admission - likely were due to weakness from brewing COVID infection. CT head negative. No other obvious injuries (abrasion/skin tear right elbow noted). PT, OT. needs rehab (3) COVID-19: Plan: Initial symptoms 01/20 tested + 01/23 at [facility] Patient's illness appears largely resolved no evidence of pneumonia clinically or radiographically steroids/Remdesivir deferred now with acute fever - see #1 above - likely due to UTI PT, OT supportive care now with COVID at home but doing ok COVID precautions now d/c (4) ANNAMARIA (acute kidney injury): Plan: Peak Creatinine 2 on 01/26/22 this may have been due to obstruction - found to have urinary retention of 800mL on 01/26--> placed Perdomo at that time CT abd/pel on admission without stones or hydronephrosis but with evidence of chronic REECE and enlarged prostate Creatinine now normal Resumed SAMUEL (5) Urinary retention: Plan: Perdomo placed on 01/26 Has self-removed multiple catheters since that time period Hopefully we can get by without a new one continue Flomax and finasteride for BPH treat UTI (6) Dementia: Plan: Chronic, progressive Continue Seroquel 25mg hs for agitation/sundowning Cont melatonin 3mg HS scheduled (7) Blood bacterial culture positive: Plan: was seen in ER on 01/23 for fever and falls, found to be COVID positive BCxs 2/4 with Coag neg Staph but no longer having fevers Procal negative, UA neg for infection no abx started repeat BCxs 01/25 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 SNF? Admission and Anticipated Discharge Date Admission Date: January 25, 2022 Subjective no events during my visit he was resting in bed TV was off he ate fair during the day no other issues as per usual he is unable to give any history or ROS he did say "hello" today Review of Systems Review of Systems: Unobtainable due to cognitive status Physical Exam Physical Exam: gen - NAD, pleasantly confused mouth - MMM neck - no JVD heart - RRR,s1,s2, no murmur lungs- CTA b/l abd - soft NT ND BS+ ext - no edema, pulses 2+ b/l psych - alert, oriented to person only Results & Data Results & Data ([facility]) Vital Signs (Past 12 Hours) Vital Signs Temp Pulse Resp BP Pulse Ox O2 Del Method 02/02/22 17:48 Room Air 02/02/22 16:41 37.0 C 90 19 150/82 H 95 Room Air Laboratory Results urine cx - pansensitive enterococcus PG Care Time/CCT Total # of Minutes Spent Total Time Spent with Patient: Total time spent is greater than 50% in coordination of care (as documented) at patient's floor/unit and/or counseling patient: Coding Level of Care Code 31439 Subseq Hosp Care Lvl 2 Diagnoses Catheter-associated urinary tract infection T83.511A; N39.0 Fall W19.XXXA COVID-19 U07.1 ANNAMARIA (acute kidney injury) N17.9 Urinary retention R33.9 Dementia F03.90 Dementia severity: severe Dementia type: vascular dementia Blood bacterial culture positive R78.81 Hypertension I10 Hypertension type: primary hypertension BPH (benign prostatic hyperplasia) N40.0 Fecal impaction K56.41 Hypokalemia E87.6 (1) Dementia Dementia severity: severe Dementia type: vascular dementia (2) Hypertension Hypertension type: primary hypertension Qualified Code(s): I10 - Essential (primary) hypertension
[2022-02-03] MEDS: lisinopril 20 MG TAB PO SCH (08:09)
[2022-02-03] MEDS: METOPROLOL SUCC 50MG EXT REL TAB PO SCH ×2 (08:09→20:19)
[2022-02-03] MEDS: FINASTERIDE 5 MG TAB PO SCH (08:09)
[2022-02-03] MEDS: AMOXICILLIN 500 MG CAP PO SCH ×3 (08:09→20:19)
[2022-02-03] MEDS: TAMSULOSIN HCL 0.4 MG CAP PO SCH (08:10)
[2022-02-03] MEDS: DOCUSATE SODIUM/SENNA 50/8.6MG TAB PO SCH (08:10)
[2022-02-03] MEDS: POLYETHYLENE (MIRALAX) 17 GM PACK PO SCH (08:10)
[2022-02-03] MEDS: ENOXAPARIN INJ 40 MG/0.4 ML SYR SQ SCH (16:50)
[2022-02-03] MEDS: QUEtiapine FUMARATE 25 MG TABLET PO SCH (20:18)
[2022-02-03] MEDS: MELATONIN 3 MG TAB PO SCH (20:18)
--- NOTE | 2022-02-03 20:32 | Hospitalist Progress Note ---
Date of Service February 03, 2022 Assessment & Plan (1) Catheter-associated urinary tract infection: Plan: UTI 2nd to enterococcus perdomo now removed but requiring straight cathing 2-3x's / day blood cx's negative plan 7 days of Rx with amoxicillin 500 TID - however, check PSA in am if high then would extend course out longer to cover for prostatitis cont finasteride & flomax (2) Fall: Plan: Multiple falls prior to admission - likely were due to weakness from brewing COVID infection. CT head negative. No other obvious injuries (abrasion/skin tear right and left elbows noted but stable/healing). cont PT, OT. needs rehab (3) COVID-19: Plan: clinically resolved Initial symptoms 01/20 tested + 01/23 at [facility] no evidence of pneumonia clinically or radiographically steroids/Remdesivir deferred this stay cont PT, OT supportive care now with COVID at home but improving COVID precautions now d/c (4) ANNAMARIA (acute kidney injury): Plan: Peak Creatinine 2 on 01/26/22 this may have been due to obstruction - found to have urinary retention of 800mL on 01/26--> placed Perdomo at that time CT abd/pel on admission without stones or hydronephrosis but with evidence of chronic REECE and enlarged prostate Creatinine now normal Resumed SAMUEL (5) Urinary retention: Plan: Perdomo placed on 01/26 Has self-removed multiple perdomo catheters since that time period unfortunately continues to require straight cathing intermittently continue Flomax and finasteride for BPH treat UTI check PSA (6) Dementia: Plan: Chronic, progressive Continue Seroquel 25mg hs for agitation/sundowning Cont melatonin 3mg HS scheduled (7) Blood bacterial culture positive: Plan: was seen in ER on 01/23 for fever and falls, found to be COVID positive BCxs 2/4 with Coag neg Staph but no longer having fevers Procal negative, UA neg for infection no abx started repeat BCxs 01/25 negative the [employer] was likely contamination repeat blood cx's from 01/30 cont to remain negative (8) Hypertension: Plan: cont BB cont SAMUEL (9) BPH (benign prostatic hyperplasia): Plan: severe cont with urinary retention cont flomax & finasteride treat UTI check PSA (10) Fecal impaction: Plan: as seen on admission CT a/p resolved cont bowel maintenance (11) Hypokalemia: Plan: replaced resolved recheck BMP am Plan DVT proph-Lovenox PO intake finally improved updated 02/03 to rehab next week hopefully Admission and Anticipated Discharge Date Admission Date: January 25, 2022 Subjective continues to require straight cathing multiple times each day he will go 6-8 hours or more without voiding bladder scans prior to cathing -- 300cc or more each time he ate 100% of meals today continues to be pleasantly confused no other issues per staff Review of Systems Review of Systems: Unobtainable due to cognitive status Physical Exam Physical Exam: gen - NAD, pleasantly confused mouth - MMM neck - no JVD heart - RRR,s1,s2, no murmur lungs- CTA b/l abd - soft NT ND BS+ ext - no edema, pulses 2+ b/l psych - oriented to person only; he is saying more words and phrases than at any point during the stay; he will sing [employer] songs with you Results & Data Results & Data ([facility]) Vital Signs (Past 12 Hours) Vital Signs Temp Pulse Resp BP Pulse Ox O2 Del Method 02/03/22 15:31 36.8 C 93 H 18 144/96 H 96 Room Air PG Care Time/CCT Total # of Minutes Spent Total Time Spent with Patient: Total time spent is greater than 50% in coordination of care (as documented) at patient's floor/unit and/or counseling patient: Coding Level of Care Code 80245 Subseq Hosp Care Lvl 2 Diagnoses Catheter-associated urinary tract infection T83.511A; N39.0 Fall W19.XXXA COVID-19 U07.1 ANNAMARIA (acute kidney injury) N17.9 Urinary retention R33.9 Dementia F03.90 Dementia severity: severe Dementia type: vascular dementia Blood bacterial culture positive R78.81 Hypertension I10 Hypertension type: primary hypertension BPH (benign prostatic hyperplasia) N40.0 Fecal impaction K56.41 Hypokalemia E87.6 (1) Dementia Dementia severity: severe Dementia type: vascular dementia (2) Hypertension Hypertension type: primary hypertension Qualified Code(s): I10 - Essential (primary) hypertension
[2022-02-04] MEDS: lisinopril 20 MG TAB PO SCH (07:52)
[2022-02-04] MEDS: METOPROLOL SUCC 50MG EXT REL TAB PO SCH ×2 (07:52→20:05)
[2022-02-04] MEDS: DOCUSATE SODIUM/SENNA 50/8.6MG TAB PO SCH (07:52)
[2022-02-04] MEDS: FINASTERIDE 5 MG TAB PO SCH (07:52)
[2022-02-04] MEDS: POLYETHYLENE (MIRALAX) 17 GM PACK PO SCH (07:52)
[2022-02-04] MEDS: AMOXICILLIN 500 MG CAP PO SCH ×3 (07:52→20:04)
[2022-02-04] MEDS: TAMSULOSIN HCL 0.4 MG CAP PO SCH (07:52)
[2022-02-04 08:08] LABS: BUN Creatinine Ratio 26.4 (10-20); Calcium 8.4 mg/dl (8.5-10.1); Creatinine Clr Calc Pharmacy 61.6 ml/min; Est GFR (African American) 94.5 ml/min; Est GFR (Non-African American) 81.6 ml/min; Potassium 3.8 mmol/L (3.5-5.1)
[2022-02-04] MEDS: ENOXAPARIN INJ 40 MG/0.4 ML SYR SQ SCH (17:03)
[2022-02-04] MEDS: QUEtiapine FUMARATE 25 MG TABLET PO SCH (20:05)
[2022-02-04] MEDS: MELATONIN 3 MG TAB PO SCH (20:09)
--- NOTE | 2022-02-04 20:11 | Hospitalist Progress Note ---
Date of Service February 04, 2022 Assessment & Plan (1) Catheter-associated urinary tract infection: Plan: UTI 2nd to enterococcus perdomo now removed but requiring straight cathing 2-3x's / day blood cx's negative PSA is elevated at 15 - could have element of prostatitis ; previous PSA was 3 in 2020 consider 3-4 week course of amox for UTI/prostatitis cont finasteride & flomax cont straight cath 2x's/day (2) Fall: Plan: Multiple falls prior to admission - likely were due to weakness from brewing COVID infection. CT head negative. No other obvious injuries (abrasion/skin tear right and left elbows noted but stable/healing). cont PT, OT. needs rehab (3) COVID-19: Plan: clinically resolved Initial symptoms 01/20 tested + 01/23 at [facility] no evidence of pneumonia clinically or radiographically steroids/Remdesivir deferred this stay cont PT, OT supportive care now with COVID at home but improving COVID precautions now d/c (4) ANNAMARIA (acute kidney injury): Plan: Peak Creatinine 2 on 01/26/22 this may have been due to obstruction - found to have urinary retention of 800mL on 01/26--> placed Perdomo at that time CT abd/pel on admission without stones or hydronephrosis but with evidence of chronic REECE and enlarged prostate Creatinine now normal Resumed SAMUEL (5) Urinary retention: Plan: Perdomo placed on 01/26 Has self-removed multiple perdomo catheters since that time period unfortunately continues to require straight cathing intermittently continue Flomax and finasteride for BPH treat UTI ?prostatitis I do not think it is safe to place indwelling perdomo - I believe this will cause urinary tract trauma (again multiple self-removals of perdomo) cont straight cathing (6) Dementia: Plan: Chronic, progressive Continue Seroquel 25mg hs for agitation/sundowning Cont melatonin 3mg HS scheduled (7) Blood bacterial culture positive: Plan: was seen in ER on 01/23 for fever and falls, found to be COVID positive BCxs 2/4 with Coag neg Staph but no longer having fevers Procal negative, UA neg for infection no abx started repeat BCxs 01/25 negative 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 repeat blood cx's from 01/30 cont to remain negative (8) Hypertension: Plan: cont BB cont SAMUEL (9) BPH (benign prostatic hyperplasia): Plan: severe cont with urinary retention cont flomax & finasteride treat UTI PSA 15 noted (10) Fecal impaction: Plan: as seen on admission CT a/p resolved cont bowel maintenance (11) Hypokalemia: Plan: replaced resolved Plan DVT proph-Lovenox PO intake finally improved as of 2 days ago updated 02/03 to rehab next week hopefully Admission and Anticipated Discharge Date Admission Date: January 25, 2022 Subjective still requiring straight cathing about 2x's each day amount ranges 350-450cc each time he is cathed he is not spontaneously voiding he has pulled out multiple perdomo catheters during this stay he was watching a [employer] movie during my visit I said Ashleigh Phoenix and he said Ashleigh Phoenix in return, and then "thank you" eating about 25% of meals liquid intake is poor no acute issues Review of Systems Review of Systems: Unobtainable due to cognitive status Physical Exam Physical Exam: gen - NAD, pleasantly confused mouth - MMM neck - no JVD heart - RRR,s1,s2, no murmur lungs- CTA b/l abd - soft NT ND BS+ ext - no edema, pulses 2+ b/l psych - oriented to person only; very talkative today; smiling Results & Data Results & Data ([facility]) Vital Signs (Past 12 Hours) Vital Signs Temp Pulse Resp BP Pulse Ox O2 Del Method 02/04/22 15:06 36.6 C 85 16 150/88 H 96 Room Air 02/04/22 11:47 36.6 C 87 18 142/72 H 97 Room Air 02/04/22 09:57 Room Air Laboratory Results Laboratory Results - last 24 hr 02/04/22 02/04/22 07:27 07:27 Sodium 143 Potassium 3.8 Chloride 109 H Carbon Dioxide 29 Anion Gap 5 BUN 24 H Creatinine 0.91 Est Cr Clr Drug Dosing 61.6 Est GFR ( Amer) 94.5 Est GFR (Non-Af Amer) 81.6 BUN/Creatinine Ratio 26.4 H Glucose 89 Calcium 8.4 L Prostate Specific Ag 15.163 H PG Care Time/CCT Total # of Minutes Spent Total Time Spent with Patient: Total time spent is greater than 50% in coordination of care (as documented) at patient's floor/unit and/or counseling patient: Coding Level of Care Code 77297 Subseq Hosp Care Lvl 2 Diagnoses Catheter-associated urinary tract infection T83.511A; N39.0 Fall W19.XXXA COVID-19 U07.1 ANNAMARIA (acute kidney injury) N17.9 Urinary retention R33.9 Dementia F03.90 Dementia severity: severe Dementia type: vascular dementia Blood bacterial culture positive R78.81 Hypertension I10 Hypertension type: primary hypertension BPH (benign prostatic hyperplasia) N40.0 Fecal impaction K56.41 Hypokalemia E87.6 (1) Dementia Dementia severity: severe Dementia type: vascular dementia (2) Hypertension Hypertension type: primary hypertension Qualified Code(s): I10 - Essential (primary) hypertension
[2022-02-05] MEDS: FINASTERIDE 5 MG TAB PO SCH (09:02)
[2022-02-05] MEDS: METOPROLOL SUCC 50MG EXT REL TAB PO SCH ×2 (09:02→22:21)
[2022-02-05] MEDS: lisinopril 20 MG TAB PO SCH (09:02)
[2022-02-05] MEDS: AMOXICILLIN 500 MG CAP PO SCH ×3 (09:02→22:22)
[2022-02-05] MEDS: TAMSULOSIN HCL 0.4 MG CAP PO SCH (09:02)
[2022-02-05] MEDS: DOCUSATE SODIUM/SENNA 50/8.6MG TAB PO SCH (09:04)
[2022-02-05] MEDS: POLYETHYLENE (MIRALAX) 17 GM PACK PO SCH (09:04)
[2022-02-05] MEDS: ENOXAPARIN INJ 40 MG/0.4 ML SYR SQ SCH (17:24)
--- NOTE | 2022-02-05 20:22 | Hospitalist Progress Note ---
Date of Service February 05, 2022 Assessment & Plan (1) Catheter-associated urinary tract infection: Plan: UTI 2nd to enterococcus madrid now removed but requiring straight cathing 2-3x's / day blood cx's negative PSA is elevated at 15 - could have element of prostatitis ; previous PSA was 3 in 2020 consider 3-4 week course of amox for UTI/prostatitis cont finasteride & flomax cont straight cath 2x's/day AVOID MADRID CATHETER --- HE SELF-REMOVED MULTIPLE MADRID CATHETERS OVER THE LAST WEEK RISK OF SELF-INJURY IS HIGH WITH INDWELLING CATHETER THUS AVOID cont straight cathing by staff (2) Fall: Plan: Multiple falls prior to admission - likely were due to weakness from brewing COVID infection. CT head negative. No other obvious injuries (abrasion/skin tear right and left elbows noted but stable/healing). cont PT, OT. needs rehab (3) COVID-19: Plan: clinically resolved Initial symptoms 01/20 tested + 01/23 at [facility] no evidence of pneumonia clinically or radiographically steroids/Remdesivir deferred this stay cont PT, OT supportive care now with COVID at home but improving COVID precautions now d/c (4) ANNAMARIA (acute kidney injury): Plan: Peak Creatinine 2 on 01/26/22 this may have been due to obstruction - found to have urinary retention of 800mL on 01/26--> placed [place] at that time CT abd/pel on admission without stones or hydronephrosis but with evidence of chronic REECE and enlarged prostate Creatinine now normal Resumed SAMUEL (5) Urinary retention: Plan: [place] placed on 01/26 Has self-removed multiple madrid catheters since that time period unfortunately continues to require straight cathing intermittently continue Flomax and finasteride for BPH treat UTI ?prostatitis I do not think it is safe to place indwelling madrid - I believe this will cause urinary tract trauma (again multiple self-removals of madrid) cont straight cathing (6) Dementia: Plan: Chronic, progressive Continue Seroquel 25mg hs for agitation/sundowning Cont melatonin 3mg HS scheduled (7) Blood bacterial culture positive: Plan: was seen in ER on 01/23 for fever and falls, found to be COVID positive BCxs 2/4 with Coag neg Staph but no longer having fevers Procal negative, UA neg for infection no abx started repeat BCxs 01/25 negative 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 repeat blood cx's from 01/30 cont to remain negative (8) Hypertension: Plan: cont BB cont SAMUEL (9) BPH (benign prostatic hyperplasia): Plan: severe cont with urinary retention cont flomax & finasteride treat UTI PSA 15 noted (10) Fecal impaction: Plan: as seen on admission CT a/p resolved cont bowel maintenance (11) Hypokalemia: Plan: replaced resolved Plan DVT proph-Lovenox updated 02/03 and today, 02/05 to rehab next week hopefully - uncertain if [facility] / acute rehab is best option due to advanced dementia; SNF level of rehab likely best option I told pt's this Admission and Anticipated Discharge Date Admission Date: January 25, 2022 Subjective no events continues to require cathing about twice daily by staff not spontaneously voiding during the visit he was watching a [employer] movie, pointing at the TV, when I said Ashleigh Tariq he responded by saying "thank you" and "Ashleigh Xmrupinder" per staff no events and no new issues eating fair at best -- <50% of meals Review of Systems Review of Systems: Unobtainable due to cognitive status Physical Exam Physical Exam: gen - NAD, pleasantly confused, looks good mouth - MMM neck - no JVD heart - RRR, s1,s2, no murmur lungs- CTA b/l abd - soft NT ND BS+ ext - no edema, pulses 2+ b/l psych - oriented to person only; again very talkative today and interactive; smiling Results & Data Results & Data ([facility]) Vital Signs (Past 12 Hours) Vital Signs Temp Pulse Resp BP Pulse Ox O2 Del Method 02/05/22 19:43 36.9 C 89 20 184/96 H 99 Room Air 02/05/22 14:14 95 H 16 138/82 Room Air PG Care Time/CCT Total # of Minutes Spent Total Time Spent with Patient: Total time spent is greater than 50% in coordination of care (as documented) at patient's floor/unit and/or counseling patient: Coding Level of Care Code 31832 Subseq Hosp Care Lvl 1 Diagnoses Catheter-associated urinary tract infection T83.511A; N39.0 Fall W19.XXXA COVID-19 U07.1 ANNAMARIA (acute kidney injury) N17.9 Urinary retention R33.9 Dementia F03.90 Dementia severity: severe Dementia type: vascular dementia Blood bacterial culture positive R78.81 Hypertension I10 Hypertension type: primary hypertension BPH (benign prostatic hyperplasia) N40.0 Fecal impaction K56.41 Hypokalemia E87.6 (1) Dementia Dementia severity: severe Dementia type: vascular dementia (2) Hypertension Hypertension type: primary hypertension Qualified Code(s): I10 - Essential (primary) hypertension
[2022-02-05] MEDS: QUEtiapine FUMARATE 25 MG TABLET PO SCH (22:21)
[2022-02-05] MEDS: MELATONIN 3 MG TAB PO SCH (22:21)
[2022-02-06] MEDS: METOPROLOL SUCC 50MG EXT REL TAB PO SCH ×2 (09:15→22:00)
[2022-02-06] MEDS: AMOXICILLIN 500 MG CAP PO SCH ×3 (09:15→21:58)
[2022-02-06] MEDS: lisinopril 20 MG TAB PO SCH (09:15)
[2022-02-06] MEDS: TAMSULOSIN HCL 0.4 MG CAP PO SCH (09:15)
[2022-02-06] MEDS: FINASTERIDE 5 MG TAB PO SCH (09:15)
[2022-02-06] MEDS: POLYETHYLENE (MIRALAX) 17 GM PACK PO SCH (09:19)
[2022-02-06] MEDS: DOCUSATE SODIUM/SENNA 50/8.6MG TAB PO SCH (09:20)
[2022-02-06] MEDS: ENOXAPARIN INJ 40 MG/0.4 ML SYR SQ SCH (16:53)
[2022-02-06] MEDS: MELATONIN 3 MG TAB PO SCH (21:59)
[2022-02-06] MEDS: QUEtiapine FUMARATE 25 MG TABLET PO SCH (22:00)
--- NOTE | 2022-02-06 22:21 | Hospitalist Progress Note ---
Date of Service February 06, 2022 Assessment & Plan (1) Catheter-associated urinary tract infection: Plan: UTI 2nd to enterococcus perdomo now removed but requiring straight cathing 2-3x's / day blood cx's negative PSA is elevated at 15 - could have element of prostatitis ; previous PSA was 3 in 2020 consider 3-4 week course of amox for UTI/prostatitis cont finasteride & flomax cont straight cath 2x's/day AVOID PERDOMO CATHETER --- HE SELF-REMOVED MULTIPLE PERDOMO CATHETERS OVER THE LAST WEEK RISK OF SELF-INJURY IS HIGH WITH INDWELLING CATHETER THUS AVOID cont straight cathing by staff Awaiting placement. (2) Fall: Plan: Multiple falls prior to admission - likely were due to weakness from brewing COVID infection. CT head negative. No other obvious injuries (abrasion/skin tear right and left elbows noted but stable/healing). cont PT, OT. needs rehab (3) COVID-19: Plan: clinically resolved Initial symptoms 01/20 tested + 01/[address] [facility] no evidence of pneumonia clinically or radiographically steroids/Remdesivir deferred this stay cont PT, OT supportive care now with COVID at home but improving COVID precautions now d/c (4) ANNAMARIA (acute kidney injury): Plan: Peak Creatinine 2 on 01/26/22 this may have been due to obstruction - found to have urinary retention of 800mL on 01/26--> placed Perdomo at that time CT abd/pel on admission without stones or hydronephrosis but with evidence of chronic REECE and enlarged prostate Creatinine now normal Resumed SAMUEL (5) Urinary retention: Plan: Perdomo placed on 01/26 Has self-removed multiple perdomo catheters since that time period unfortunately continues to require straight cathing intermittently continue Flomax and finasteride for BPH treat UTI ?prostatitis I do not think it is safe to place indwelling perdomo - I believe this will cause urinary tract trauma (again multiple self-removals of perdomo) cont straight cathing (6) Dementia: Plan: Chronic, progressive Continue Seroquel 25mg hs for agitation/sundowning Cont melatonin 3mg HS scheduled (7) Blood bacterial culture positive: Plan: was seen in ER on 01/23 for fever and falls, found to be COVID positive BCxs 2/4 with Coag neg Staph but no longer having fevers Procal negative, UA neg for infection no abx started repeat BCxs 01/25 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 repeat blood cx's from 01/30 cont to remain negative (8) Hypertension: Plan: cont BB cont SAMUEL (9) BPH (benign prostatic hyperplasia): Plan: severe cont with urinary retention cont flomax & finasteride treat UTI PSA 15 noted (10) Fecal impaction: Plan: as seen on admission CT a/p resolved cont bowel maintenance (11) Hypokalemia: Plan: replaced resolved Plan DVT proph-Lovenox updated 02/03 and 02/05 to rehab next week hopefully - uncertain if [facility] / acute rehab is best option due to advanced dementia; SNF level of rehab likely best option I Admission and Anticipated Discharge Date Admission Date: January 25, 2022 Subjective 76 yo male reports no new symptoms. Review of Systems Review of Systems: All systems reviewed & are unremarkable except as noted in HPI & below Physical Exam Physical Exam: gen - NAD, pleasantly confused, looks good mouth - MMM neck - no JVD heart - RRR, s1,s2, no murmur lungs- CTA b/l abd - soft NT ND BS+ ext - no edema, pulses 2+ b/l psych - oriented to person only; again very talkative today and interactive; smiling Results & Data Results & Data ([facility]) Vital Signs (Past 12 Hours) Vital Signs Temp Pulse Resp BP Pulse Ox O2 Del Method O2 Flow Rate 02/06/22 22:02 36.4 C L 75 18 183/79 H 97 Room Air 02/06/22 16:28 37.0 C 77 20 164/83 H 92 Room Air 02/06/22 14:41 36.3 C L 59 L 18 108/67 95 Nasal Cannula 2 PG Care Time/CCT Total # of Minutes Spent Total Time Spent with Patient: Total time spent is greater than 50% in coordination of care (as documented) at patient's floor/unit and/or counseling patient: Coding Level of Care Code 50356 Subseq Hosp Care Lvl 2 Diagnoses Catheter-associated urinary tract infection T83.511A; N39.0 Fall W19.XXXA COVID-19 U07.1 ANNAMARIA (acute kidney injury) N17.9 Urinary retention R33.9 Dementia F03.90 Dementia severity: severe Dementia type: vascular dementia Blood bacterial culture positive R78.81 Hypertension I10 Hypertension type: primary hypertension BPH (benign prostatic hyperplasia) N40.0 Fecal impaction K56.41 Hypokalemia E87.6 Time Spent (min) 25 (1) Dementia Dementia severity: severe Dementia type: vascular dementia (2) Hypertension Hypertension type: primary hypertension Qualified Code(s): I10 - Essential (primary) hypertension
[2022-02-07 07:51] LABS: Hematocrit (blood only) 35.9 % (40.1-51.0); Hemoglobin 12.3 g/dl (14.0-18.0); Mean Corpuscular Hemoglobin 31.2 pg (25.0-34.0); Mean Corpuscular Hgb Conc 34.3 g/dL (32.0-36.0); Mean Corpuscular Volume 91.1 fL (80.0-100.0); Mean Platelet Volume 9.1 fL (9.4-12.4); Platelet Count 351 K/uL (130-400); RDW Coefficient of Variation 11.9 % (11.5-14.5); RDW Standard Deviation 39.4 fL (36.4-46.3); Red Blood Count 3.94 M/uL (4.63-6.08); White Blood Count 7.41 K/ul (4.8-10.8)
[2022-02-07 08:17] LABS: BUN Creatinine Ratio 28.4 (10-20); Calcium 8.7 mg/dl (8.5-10.1); Creatinine Clr Calc Pharmacy 63.7 ml/min; Est GFR (African American) 96.7 ml/min; Est GFR (Non-African American) 83.4 ml/min; Potassium 4.1 mmol/L (3.5-5.1)
[2022-02-07] MEDS: TAMSULOSIN HCL 0.4 MG CAP PO SCH (09:00)
[2022-02-07] MEDS: lisinopril 20 MG TAB PO SCH (09:00)
[2022-02-07] MEDS: AMOXICILLIN 500 MG CAP PO SCH ×3 (09:00→20:22)
[2022-02-07] MEDS: FINASTERIDE 5 MG TAB PO SCH (09:00)
[2022-02-07] MEDS: METOPROLOL SUCC 50MG EXT REL TAB PO SCH ×2 (09:01→20:23)
[2022-02-07] MEDS: DOCUSATE SODIUM/SENNA 50/8.6MG TAB PO SCH (09:08)
[2022-02-07] MEDS: POLYETHYLENE (MIRALAX) 17 GM PACK PO SCH (09:08)
[2022-02-07] MEDS: ENOXAPARIN INJ 40 MG/0.4 ML SYR SQ SCH (17:50)
[2022-02-07] MEDS: MELATONIN 3 MG TAB PO SCH (20:22)
[2022-02-07] MEDS: QUEtiapine FUMARATE 25 MG TABLET PO SCH (20:23)
--- NOTE | 2022-02-07 22:04 | Hospitalist Progress Note ---
Date of Service February 07, 2022 Assessment & Plan (1) Catheter-associated urinary tract infection: Plan: UTI 2nd to enterococcus perdomo now removed but requiring straight cathing 2-3x's / day blood cx's negative PSA is elevated at 15 - could have element of prostatitis ; previous PSA was 3 in 2020 consider 3-4 week course of amox for UTI/prostatitis today is day #7 of amox cont finasteride & flomax cont straight cath 2x's/day AVOID PERDOMO CATHETER --- HE SELF-REMOVED MULTIPLE PERDOMO CATHETERS OVER THE LAST WEEK RISK OF SELF-INJURY IS HIGH WITH INDWELLING CATHETER THUS AVOID cont straight cathing by staff twice daily (2) Fall: Plan: Multiple falls prior to admission - likely were due to weakness from brewing COVID infection. CT head negative. No other obvious injuries (abrasion/skin tear right and left elbows noted but stable/healing). cont PT, OT. needs rehab (3) COVID-19: Plan: resolved Initial symptoms 01/20 tested + 01/23 at [facility] no evidence of pneumonia clinically or radiographically steroids/Remdesivir deferred this stay cont PT, OT supportive care now with COVID at home but improving COVID precautions now d/c (4) ANNAMARIA (acute kidney injury): Plan: Peak Creatinine 2 on 01/26/22 this may have been due to obstruction - found to have urinary retention of 800mL on 01/26--> placed Perdomo at that time CT abd/pel on admission without stones or hydronephrosis but with evidence of chronic REECE and enlarged prostate Creatinine today wnl (5) Urinary retention: Plan: Perdomo placed on 01/26 Has self-removed multiple perdomo catheters since that time period unfortunately continues to require straight cathing intermittently continue Flomax and finasteride for BPH treat UTI ?prostatitis I do not think it is safe to place indwelling perdomo - I believe this will cause urinary tract trauma (again multiple self-removals of perdomo) cont straight cathing BID (6) Dementia: Plan: Chronic, progressive Continue Seroquel 25mg hs for agitation/sundowning Cont melatonin 3mg HS scheduled (7) Blood bacterial culture positive: Plan: was seen in ER on 01/23 for fever and falls, found to be COVID positive BCxs 2/4 with Coag neg Staph but no longer having fevers Procal negative, UA neg for infection no abx started repeat BCxs 01/25 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 Admission and Anticipated Discharge Date Admission Date: January 25, 2022 Subjective watching TV smiling saying "hello" and thank you drinking jj eduardo pleasant confusion last BM was today per staff still requiring I/O cath BID Review of Systems Review of Systems: Unobtainable due to cognitive status Physical Exam Physical Exam: gen - NAD, pleasantly confused, cooperative with the exam mouth - MMM neck - no JVD heart - RRR, s1,s2, no murmur lungs- CTA b/l abd - soft NT ND BS+ ext - no edema, pulses 2+ b/l psych - oriented to person only Results & Data Results & Data ([facility]) Vital Signs (Past 12 Hours) Vital Signs Temp Pulse Resp BP Pulse Ox O2 Del Method 02/07/22 20:16 36 C L 92 H 16 178/86 H 97 Room Air 02/07/22 14:31 36.6 C 80 16 155/79 H 100 Room Air Laboratory Results Laboratory Results - last 24 hr 02/07/22 02/07/22 07:08 07:08 WBC 7.41 RBC 3.94 L Hgb 12.3 L Hct 35.9 L MCV 91.1 MCH 31.2 MCHC 34.3 RDW Std Deviation 39.4 RDW Coeff of Coco 11.9 Plt Count 351 MPV 9.1 L Sodium 141 Potassium 4.1 Chloride 108 H Carbon Dioxide 28 Anion Gap 5 BUN 25 H Creatinine 0.88 Est Cr Clr Drug Dosing 63.7 Est GFR ( Amer) 96.7 Est GFR (Non-Af Amer) 83.4 BUN/Creatinine Ratio 28.4 H Glucose 85 Calcium 8.7 PG Care Time/CCT Total # of Minutes Spent Total Time Spent with Patient: Total time spent is greater than 50% in coordination of care (as documented) at patient's floor/unit and/or counseling patient: Coding Level of Care Code 23143 Subseq Hosp Care Lvl 1 Diagnoses Catheter-associated urinary tract infection T83.511A; N39.0 Fall W19.XXXA COVID-19 U07.1 ANNAMARIA (acute kidney injury) N17.9 Urinary retention R33.9 Dementia F03.90 Dementia severity: severe Dementia type: vascular dementia Blood bacterial culture positive R78.81 Hypertension I10 Hypertension type: primary hypertension BPH (benign prostatic hyperplasia) N40.0 Fecal impaction K56.41 Hypokalemia E87.6 (1) Dementia Dementia severity: severe Dementia type: vascular dementia (2) Hypertension Hypertension type: primary hypertension Qualified Code(s): I10 - Essential (primary) hypertension
[2022-02-08] MEDS: lisinopril 20 MG TAB PO SCH (08:35)
[2022-02-08] MEDS: DOCUSATE SODIUM/SENNA 50/8.6MG TAB PO SCH (08:35)
[2022-02-08] MEDS: TAMSULOSIN HCL 0.4 MG CAP PO SCH (08:35)
[2022-02-08] MEDS: AMOXICILLIN 500 MG CAP PO SCH ×3 (08:35→19:30)
[2022-02-08] MEDS: METOPROLOL SUCC 50MG EXT REL TAB PO SCH ×2 (08:35→19:30)
[2022-02-08] MEDS: FINASTERIDE 5 MG TAB PO SCH (08:35)
[2022-02-08] MEDS: POLYETHYLENE (MIRALAX) 17 GM PACK PO SCH (08:38)
[2022-02-08] MEDS: ENOXAPARIN INJ 40 MG/0.4 ML SYR SQ SCH (17:42)
[2022-02-08] MEDS: QUEtiapine FUMARATE 25 MG TABLET PO SCH (19:29)
[2022-02-08] MEDS: MELATONIN 3 MG TAB PO SCH (19:33)
--- NOTE | 2022-02-08 21:07 | Hospitalist Progress Note ---
Date of Service February 08, 2022 Assessment & Plan (1) Catheter-associated urinary tract infection: Plan: UTI 2nd to enterococcus had multiple foleys earlier in the stay now removed but requiring straight cathing twice a day typically blood cx's negative PSA is elevated at 15 - could have element of prostatitis ; previous PSA was 3 in 2020 consider 4 week course of amox for UTI/prostatitis today is day #8 of amox 500mg TID cont finasteride & flomax AVOID MADRID CATHETER --- HE SELF-REMOVED MULTIPLE MADRID CATHETERS OVER THE LAST WEEK RISK OF SELF-INJURY IS HIGH WITH INDWELLING CATHETER THUS AVOID cont straight cathing by staff twice daily; I did ask staff before obdulio's straight cathing, however, to put him on bedside commode and see if he can spontaneously void he will need urology f/u post-discharge (2) Fall: Plan: Multiple falls prior to admission - likely were due to weakness from brewing COVID infection. CT head negative. No other obvious injuries (abrasion/skin tear right and left elbows noted but stable/healing). cont PT, OT. needs rehab (3) COVID-19: Plan: resolved Initial symptoms 01/20 tested + 01/23 at [facility] never had evidence of pneumonia clinically or radiographically steroids/Remdesivir deferred this stay cont PT, OT supportive care had COVID at home as well COVID precautions d/c (4) ANNAMARIA (acute kidney injury): Plan: early in stay Peak Creatinine 2 on 01/26/22 this may have been due to obstruction - found to have urinary retention of 800mL on 01/26--> placed Madrid at that time CT abd/pel on admission without stones or hydronephrosis but with evidence of chronic REECE and enlarged prostate Creatinine 02/07 <1 (5) Urinary retention: Plan: Madrid placed on 01/26 Has self-removed multiple madrid catheters since that time period unfortunately continues to require straight cathing twice a day most days continue Flomax and finasteride for BPH treat UTI ?prostatitis I do not think it is safe to place indwelling madrid - I believe this will cause urinary tract trauma (again multiple self-removals of madrid) cont straight cathing BID (6) Dementia: Plan: Chronic, progressive Continue Seroquel 25mg hs for agitation/sundowning Cont melatonin 3mg HS scheduled (7) Blood bacterial culture positive: Plan: was seen in ER on 01/23 for fever and falls, found to be COVID positive BCxs 2/ with Coag neg Staph but no longer having fevers Procal negative, UA neg for infection no abx started repeat BCxs 01/25 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 repeat blood cx's from 01/30 cont to remain negative (8) Hypertension: Plan: cont BB cont SAMUEL (9) BPH (benign prostatic hyperplasia): Plan: severe cont with urinary retention cont flomax & finasteride treat UTI PSA 15 noted (10) Fecal impaction: Plan: as seen on admission CT a/p resolved cont bowel maintenance (11) Hypokalemia: Plan: replaced resolved Plan DVT proph-Lovenox updated 02/03 and 02/05 she apparently requested a podiatry consult for his toenails she specifically asked for Dr Evangelina Mallory but she is not available at this time perhaps could consult Dr Wilkes dispo - SNF - pending bed availability Admission and Anticipated Discharge Date Admission Date: January 25, 2022 Subjective like previous visits he was resting in bed watching TV smiling, making jokes offering his boost drink to me! he was calm and cooperative ate a good lunch today continues to need cathing twice daily I asked him today who his is and he said "Monae" Review of Systems Review of Systems: Unobtainable due to cognitive status Physical Exam Physical Exam: gen - NAD, pleasantly confused, cooperative mouth - MMM neck - no JVD heart - RRR, s1,s2, no murmur lungs- CTA b/l abd - soft NT ND BS+ ext - no edema, pulses 2+ b/l psych - oriented to person only neuro - mild tremor (baseline) Results & Data Results & Data ([facility]) Vital Signs (Past 12 Hours) Vital Signs Temp Pulse Resp BP BP Pulse Ox O2 Del Method 02/08/22 19:28 37.5 C 87 16 136/83 99 Room Air 02/08/22 15:17 37.1 C 81 18 137/77 99 Room Air PG Care Time/CCT Total # of Minutes Spent Total Time Spent with Patient: Total time spent is greater than 50% in coordination of care (as documented) at patient's floor/unit and/or counseling patient: Coding Level of Care Code 63858 Subseq Hosp Care Lvl 1 Diagnoses Catheter-associated urinary tract infection T83.511A; N39.0 Fall W19.XXXA COVID-19 U07.1 ANNAMARIA (acute kidney injury) N17.9 Urinary retention R33.9 Dementia F03.90 Dementia severity: severe Dementia type: vascular dementia Blood bacterial culture positive R78.81 Hypertension I10 Hypertension type: primary hypertension BPH (benign prostatic hyperplasia) N40.0 Fecal impaction K56.41 Hypokalemia E87.6 (1) Dementia Dementia severity: severe Dementia type: vascular dementia (2) Hypertension Hypertension type: primary hypertension Qualified Code(s): I10 - Essential (primary) hypertension
[2022-02-09] MEDS: AMOXICILLIN 500 MG CAP PO SCH ×3 (09:05→20:03)
[2022-02-09] MEDS: POLYETHYLENE (MIRALAX) 17 GM PACK PO SCH (09:05)
[2022-02-09] MEDS: DOCUSATE SODIUM/SENNA 50/8.6MG TAB PO SCH (09:05)
[2022-02-09] MEDS: lisinopril 20 MG TAB PO SCH (09:06)
[2022-02-09] MEDS: TAMSULOSIN HCL 0.4 MG CAP PO SCH (09:06)
[2022-02-09] MEDS: FINASTERIDE 5 MG TAB PO SCH (09:06)
[2022-02-09] MEDS: METOPROLOL SUCC 50MG EXT REL TAB PO SCH ×2 (09:06→20:02)
[2022-02-09] MEDS: ENOXAPARIN INJ 40 MG/0.4 ML SYR SQ SCH (17:48)
[2022-02-09] MEDS: QUEtiapine FUMARATE 25 MG TABLET PO SCH (20:01)
[2022-02-09] MEDS: MELATONIN 3 MG TAB PO SCH (20:06)
--- NOTE | 2022-02-09 22:18 | Hospitalist Progress Note ---
Date of Service February 09, 2022 Assessment & Plan (1) Catheter-associated urinary tract infection: Plan: UTI 2nd to enterococcus had multiple foleys earlier in the stay now removed but requiring straight cathing twice a day typically blood cx's negative PSA is elevated at 15 - could have element of prostatitis ; previous PSA was 3 in 2020 consider 4 week course of amox for UTI/prostatitis today is day #8 of amox 500mg TID cont finasteride & flomax AVOID MADRID CATHETER --- HE SELF-REMOVED MULTIPLE MADRID CATHETERS OVER THE LAST WEEK RISK OF SELF-INJURY IS HIGH WITH INDWELLING CATHETER THUS AVOID cont straight cathing by staff twice daily; I did ask staff before obdulio's straight cathing, however, to put him on bedside commode and see if he can spontaneously void he will need urology f/u post-discharge (2) Fall: Plan: Multiple falls prior to admission - likely were due to weakness from brewing COVID infection. CT head negative. No other obvious injuries (abrasion/skin tear right and left elbows noted but stable/healing). cont PT, OT. needs rehab (3) COVID-19: Plan: resolved Initial symptoms 01/20 tested + 01/23 at [facility] never had evidence of pneumonia clinically or radiographically steroids/Remdesivir deferred this stay cont PT, OT supportive care had COVID at home as well COVID precautions d/c (4) ANNAMARIA (acute kidney injury): Plan: early in stay Peak Creatinine 2 on 01/26/22 this may have been due to obstruction - found to have urinary retention of 800mL on 01/26--> placed Madrid at that time CT abd/pel on admission without stones or hydronephrosis but with evidence of chronic REECE and enlarged prostate Creatinine 02/07 <1 (5) Urinary retention: Plan: Madrid placed on 01/26 Has self-removed multiple madrid catheters since that time period unfortunately continues to require straight cathing twice a day most days continue Flomax and finasteride for BPH treat UTI ?prostatitis I do not think it is safe to place indwelling madrid - I believe this will cause urinary tract trauma (again multiple self-removals of madrid) cont straight cathing BID (6) Dementia: Plan: Chronic, progressive Continue Seroquel 25mg hs for agitation/sundowning Cont melatonin 3mg HS scheduled (7) Blood bacterial culture positive: Plan: was seen in ER on 01/23 for fever and falls, found to be COVID positive BCxs 2/ with Coag neg Staph but no longer having fevers Procal negative, UA neg for infection no abx started repeat BCxs 01/25 negative 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 repeat blood cx's from 01/30 cont to remain negative (8) Hypertension: Plan: cont BB cont SAMUEL (9) BPH (benign prostatic hyperplasia): Plan: severe cont with urinary retention cont flomax & finasteride treat UTI PSA 15 noted (10) Fecal impaction: Plan: as seen on admission CT a/p resolved cont bowel maintenance (11) Hypokalemia: Plan: replaced resolved Plan DVT proph-Lovenox updated 02/03 and 02/05 she apparently requested a podiatry consult for his toenails she specifically asked for Dr Evangelina Mallory but she is not available at this time perhaps could consult Dr Wilkes dispo - [facility] - pending bed availability Admission and Anticipated Discharge Date Admission Date: January 25, 2022 Subjective 76 yo male reports feeling well. He states no new complaints. Review of Systems Review of Systems: All systems reviewed & are unremarkable except as noted in HPI & below Physical Exam Physical Exam: gen - NAD, pleasantly confused, looks good mouth - MMM neck - no JVD heart - RRR, s1,s2, no murmur lungs- CTA b/l abd - soft NT ND BS+ ext - no edema, pulses 2+ b/l psych - oriented to person only; again very talkative today and interactive; smiling Results & Data Results & Data ([facility]) Vital Signs (Past 12 Hours) Vital Signs Temp Pulse Resp BP BP Pulse Ox O2 Del Method 02/09/22 19:58 36.6 C 75 18 133/84 97 Room Air 02/09/22 15:48 36.8 C 85 16 149/82 H 96 Room Air PG Care Time/CCT Total # of Minutes Spent Total Time Spent with Patient: Total time spent is greater than 50% in coordination of care (as documented) at patient's floor/unit and/or counseling patient: Coding Level of Care Code 38184 Subseq Hosp Care Lvl 2 Diagnoses Catheter-associated urinary tract infection T83.511A; N39.0 Fall W19.XXXA COVID-19 U07.1 ANNAMARIA (acute kidney injury) N17.9 Urinary retention R33.9 Dementia F03.90 Dementia severity: severe Dementia type: vascular dementia Blood bacterial culture positive R78.81 Hypertension I10 Hypertension type: primary hypertension BPH (benign prostatic hyperplasia) N40.0 Fecal impaction K56.41 Hypokalemia E87.6 (1) Dementia Dementia severity: severe Dementia type: vascular dementia (2) Hypertension Hypertension type: primary hypertension Qualified Code(s): I10 - Essential (primary) hypertension
[2022-02-10] MEDS: FINASTERIDE 5 MG TAB PO SCH (07:51)
[2022-02-10] MEDS: DOCUSATE SODIUM/SENNA 50/8.6MG TAB PO SCH (07:51)
[2022-02-10] MEDS: METOPROLOL SUCC 50MG EXT REL TAB PO SCH ×2 (07:52→19:37)
[2022-02-10] MEDS: lisinopril 20 MG TAB PO SCH (07:52)
[2022-02-10] MEDS: TAMSULOSIN HCL 0.4 MG CAP PO SCH (07:52)
[2022-02-10] MEDS: AMOXICILLIN 500 MG CAP PO SCH ×3 (07:52→19:38)
[2022-02-10] MEDS: POLYETHYLENE (MIRALAX) 17 GM PACK PO SCH (07:53)
[2022-02-10] MEDS: ENOXAPARIN INJ 40 MG/0.4 ML SYR SQ SCH (16:02)
[2022-02-10] MEDS: QUEtiapine FUMARATE 25 MG TABLET PO SCH (19:38)
[2022-02-10] MEDS: MELATONIN 3 MG TAB PO SCH (19:41)
--- NOTE | 2022-02-10 22:19 | Hospitalist Progress Note ---
Date of Service February 10, 2022 Assessment & Plan (1) Catheter-associated urinary tract infection: Plan: UTI 2nd to enterococcus had multiple foleys earlier in the stay now removed but requiring straight cathing twice a day typically blood cx's negative PSA is elevated at 15 - could have element of prostatitis ; previous PSA was 3 in 2020 consider 4 week course of amox for UTI/prostatitis today is day #8 of amox 500mg TID cont finasteride & flomax AVOID MADRID CATHETER --- HE SELF-REMOVED MULTIPLE MADRID CATHETERS OVER THE LAST WEEK RISK OF SELF-INJURY IS HIGH WITH INDWELLING CATHETER THUS AVOID cont straight cathing by staff twice daily; Staff will try to put him on bedside commode and see if he can spontaneously void he will need urology f/u post-discharge Discharge on Feb 13. (2) Fall: Plan: Multiple falls prior to admission - likely were due to weakness from brewing COVID infection. CT head negative. No other obvious injuries (abrasion/skin tear right and left elbows noted but stable/healing). cont PT, OT. needs rehab (3) COVID-19: Plan: resolved Initial symptoms 01/20 tested + 01/23 at [facility] never had evidence of pneumonia clinically or radiographically steroids/Remdesivir deferred this stay cont PT, OT supportive care had COVID at home as well COVID precautions d/c (4) ANNAMARIA (acute kidney injury): Plan: early in stay Peak Creatinine 2 on 01/26/22 this may have been due to obstruction - found to have urinary retention of 800mL on 01/26--> placed Madrid at that time CT abd/pel on admission without stones or hydronephrosis but with evidence of chronic REECE and enlarged prostate Creatinine 02/07 <1 (5) Urinary retention: Plan: Madrid placed on 01/26 Has self-removed multiple madrid catheters since that time period unfortunately continues to require straight cathing twice a day most days continue Flomax and finasteride for BPH treat UTI ?prostatitis I do not think it is safe to place indwelling madrid - I believe this will cause urinary tract trauma (again multiple self-removals of madrid) cont straight cathing BID (6) Dementia: Plan: Chronic, progressive Continue Seroquel 25mg hs for agitation/sundowning Cont melatonin 3mg HS scheduled (7) Blood bacterial culture positive: Plan: was seen in ER on 01/23 for fever and falls, found to be COVID positive BCxs 2/ with Coag neg Staph but no longer having fevers Procal negative, UA neg for infection no abx started repeat BCxs 01/25 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 repeat blood cx's from 01/30 cont to remain negative (8) Hypertension: Plan: cont BB cont SAMUEL (9) BPH (benign prostatic hyperplasia): Plan: severe cont with urinary retention cont flomax & finasteride treat UTI PSA 15 noted (10) Fecal impaction: Plan: as seen on admission CT a/p resolved cont bowel maintenance (11) Hypokalemia: Plan: replaced resolved Plan DVT proph-Lovenox apparently requested a podiatry consult for his toenails she specifically asked for Dr Evangelina Mallory but she is not available at this time perhaps could consult Dr Wilkes (Chung states he does not do this) dispo - SNF - pending bed availability (Feb 13) Admission and Anticipated Discharge Date Admission Date: January 25, 2022 Subjective 76 yo male reports no new symptoms. He is talkative and smiles. Review of Systems Review of Systems: All systems reviewed & are unremarkable except as noted in HPI & below Physical Exam Physical Exam: gen - NAD, pleasantly confused, looks good mouth - MMM neck - no JVD heart - RRR, s1,s2, no murmur lungs- CTA b/l abd - soft NT ND BS+ ext - no edema, pulses 2+ b/l psych - oriented to person only; again very talkative today and interactive; smiling Results & Data Results & Data ([facility]) Vital Signs (Past 12 Hours) Vital Signs Temp Pulse Resp BP BP Pulse Ox O2 Del Method 02/10/22 19:36 37.0 C 80 18 154/89 H 100 Room Air 02/10/22 14:44 37.0 C 84 18 180/85 H 192/94 H 99 Room Air PG Care Time/CCT Total # of Minutes Spent Total Time Spent with Patient: Total time spent is greater than 50% in coordination of care (as documented) at patient's floor/unit and/or counseling patient: Coding Level of Care Code 74985 Subseq Hosp Care Lvl 2 Diagnoses Catheter-associated urinary tract infection T83.511A; N39.0 Fall W19.XXXA COVID-19 U07.1 ANNAMARIA (acute kidney injury) N17.9 Urinary retention R33.9 Dementia F03.90 Dementia severity: severe Dementia type: vascular dementia Blood bacterial culture positive R78.81 Hypertension I10 Hypertension type: primary hypertension BPH (benign prostatic hyperplasia) N40.0 Fecal impaction K56.41 Hypokalemia E87.6 (1) Dementia Dementia severity: severe Dementia type: vascular dementia (2) Hypertension Hypertension type: primary hypertension Qualified Code(s): I10 - Essential (primary) hypertension
[2022-02-11] MEDS: DOCUSATE SODIUM/SENNA 50/8.6MG TAB PO SCH (08:16)
[2022-02-11] MEDS: POLYETHYLENE (MIRALAX) 17 GM PACK PO SCH (08:16)
[2022-02-11] MEDS: METOPROLOL SUCC 50MG EXT REL TAB PO SCH ×2 (08:34→19:56)
[2022-02-11] MEDS: TAMSULOSIN HCL 0.4 MG CAP PO SCH (08:34)
[2022-02-11] MEDS: lisinopril 20 MG TAB PO SCH (08:35)
[2022-02-11] MEDS: FINASTERIDE 5 MG TAB PO SCH (08:35)
[2022-02-11] MEDS: AMOXICILLIN 500 MG CAP PO SCH (08:36)
--- NOTE | 2022-02-11 15:34 | Hospitalist Progress Note ---
Date of Service February 11, 2022 Assessment & Plan (1) Catheter-associated urinary tract infection: Plan: UTI 2nd to enterococcus. Haley catheter has been removed. He still requires straight cath periodically. Today is day #9 of amox po 500mg TID . Cont finasteride & flomax . Will avoid reinsertion of Haley catheter if possible. Straight cath as needed. He will need urology follow-up after discharge (2) Fall: Plan: Multiple falls prior to admission - likely were due to weakness. CT head negative. Continue OT and P (3) COVID-19: Plan: resolved. (4) ANNAMARIA (acute kidney injury): Plan: Now resolved. Monitor intake and output. Serial labs Creatinine 02/07 <1 (5) Urinary retention: Plan: Haley catheter has been removed. We will try to avoid replacement. Straight cath as needed. Continue Flomax and finasteride for BPH . Treat UTI (6) Dementia: Plan: Chronic, progressive. Continue Seroquel 25mg hs for agitation/ing . Supportive care (7) Blood bacterial culture positive: Plan: Coag negative staph isolated. Likely contaminant. Repeat BCxs 01/25 negative (8) Hypertension: Plan: Controlled. Cont BB and ACEI (9) BPH (benign prostatic hyperplasia): Plan: With LUTS. Cont flomax & finasteride . Treat UTI. PSA 15 noted (10) Fecal impaction: Plan: as seen on admission CT a/p. Resolved. Cont bowel maintenance (11) Hypokalemia: Plan: replaced. Resolved Plan DVT proph-Lovenox SQ Disposition: Anticipate discharge to Center care on February 13 Admission and Anticipated Discharge Date Admission Date: January 25, 2022 Subjective Alert and oriented. No new problems. He remains on oral amoxicillin. Anticipate discharge to Center care on February 13 Review of Systems Review of Systems: Constitutional-no fever or chills ENT-no blurred vision, no double vision, no epistaxis, no sore throat Respiratory-no cough, no wheezing, no shortness of breath Cardiac-no palpitations, no chest pain, no syncope GI-no nausea, vomiting, diarrhea, melena, hematochezia -no urinary retention, no urinary incontinence, no dysuria, no hematuria Musculoskeletal-no joint pain, no muscle tenderness Skin-no bruising, no rashes, no pruritus Neuro-no isolated weakness, no paresthesia, no weakness Psych-no depression, no anxiety Physical Exam Physical Exam: General-alert and oriented x3, no fevers, no chills HEENT-head atraumatic and normocephalic, pupils equal and reactive to light, extraocular muscles intact Neck-no lymphadenopathy or thyromegaly, trachea midline Chest-clear to auscultation percussion. No rales wheezing or rhonchi Cardiac-regular rate and rhythm, normal S1 and S2 Abdomen-normal bowel sounds, nontender, no hepatosplenomegaly Extremities-no cyanosis, clubbing, or edema Neuro-cranial nerves II through XII intact, motor and sensory function within normal limits, strength symmetrical , no focal deficits Psych-normal affect, normal mood Results & Data Results & Data ([facility]) Vital Signs (Past 12 Hours) Vital Signs Temp Pulse Resp BP BP Pulse Ox O2 Del Method 02/11/22 14:47 36.8 C 86 18 125/84 97 Room Air 02/11/22 07:45 36.8 C 99 H 16 154/81 H 99 Room Air Laboratory Results 02/07/22 07:08 02/07/22 07:08 PG Care Time/CCT Total # of Minutes Spent Total Time Spent with Patient: Total time spent is greater than 50% in coordination of care (as documented) at patient's floor/unit and/or counseling patient: Coding Level of Care Code 77588 Subseq Hosp Care Lvl 3 Diagnoses Catheter-associated urinary tract infection T83.511A; N39.0 Fall W19.XXXA COVID-19 U07.1 ANNAMARIA (acute kidney injury) N17.9 Urinary retention R33.9 Dementia F03.90 Dementia severity: severe Dementia type: vascular dementia Blood bacterial culture positive R78.81 Hypertension I10 Hypertension type: primary hypertension BPH (benign prostatic hyperplasia) N40.0 Fecal impaction K56.41 Hypokalemia E87.6 (1) Dementia Dementia severity: severe Dementia type: vascular dementia (2) Hypertension Hypertension type: primary hypertension Qualified Code(s): I10 - Essential (primary) hypertension
[2022-02-11] MEDS: ENOXAPARIN INJ 40 MG/0.4 ML SYR SQ SCH (18:07)
[2022-02-11] MEDS: QUEtiapine FUMARATE 25 MG TABLET PO SCH (19:57)
[2022-02-11] MEDS: MELATONIN 3 MG TAB PO SCH (20:01)
[2022-02-12] MEDS: POLYETHYLENE (MIRALAX) 17 GM PACK PO SCH (07:27)
[2022-02-12] MEDS: DOCUSATE SODIUM/SENNA 50/8.6MG TAB PO SCH (07:27)
[2022-02-12] MEDS: FINASTERIDE 5 MG TAB PO SCH (08:25)
[2022-02-12] MEDS: TAMSULOSIN HCL 0.4 MG CAP PO SCH (08:25)
[2022-02-12] MEDS: lisinopril 20 MG TAB PO SCH (08:25)
[2022-02-12] MEDS: METOPROLOL SUCC 50MG EXT REL TAB PO SCH ×2 (08:25→20:31)
[2022-02-12] MEDS ORDERED: lisinopril 20 MG TAB PO STA (09:33)
--- NOTE | 2022-02-12 13:01 | Hospitalist Progress Note ---
Date of Service February 12, 2022 Assessment & Plan (1) Catheter-associated urinary tract infection: Plan: UTI 2nd to enterococcus. Haley catheter has been removed. He still requires straight cath periodically. Today is day #10 of amox po 500mg TID . Cont finasteride & flomax . Will avoid reinsertion of Haley catheter if possible. Straight cath as needed. He will need urology follow-up after discharge (2) Fall: Plan: Multiple falls prior to admission - likely were due to weakness. CT head negative. Continue OT and PT (3) COVID-19: Plan: resolved. (4) ANNAMARIA (acute kidney injury): Plan: Now resolved. Monitor intake and output. Serial labs (5) Urinary retention: Plan: Haley catheter has been removed. We will try to avoid replacement. Straight cath as needed. Continue Flomax and finasteride for BPH . (6) Dementia: Plan: Chronic, progressive. Continue Seroquel 25mg hs for agitation/ing . Supportive care (7) Blood bacterial culture positive: Plan: Coag negative staph isolated. Likely contaminant. Repeat BCxs 01/25 negative (8) Hypertension: Plan: Lisinopril dosage uptitrated today, February 12, for better blood pressure control. Cont BB therapy (9) BPH (benign prostatic hyperplasia): Plan: With LUTS. Cont flomax & finasteride . Treat UTI. PSA 15 noted (10) Fecal impaction: Plan: as seen on admission CT a/p. Resolved. Cont bowel maintenance program (11) Hypokalemia: Plan: replaced. Resolved Plan DVT proph-Lovenox SQ Disposition: Anticipate discharge to Center care on February 13 Admission and Anticipated Discharge Date Admission Date: January 25, 2022 Subjective Alert. Pleasantly confused. No new problems. He remains on oral amoxicillin, day 10. Lisinopril uptitrated today, February 12, to help with blood pressure c ontrol Review of Systems Review of Systems: Constitutional-no fever or chills ENT-no blurred vision, no double vision, no epistaxis, no sore throat Respiratory-no cough, no wheezing, no shortness of breath Cardiac-no palpitations, no chest pain, no syncope GI-no nausea, vomiting, diarrhea, melena, hematochezia -no urinary retention, no urinary incontinence, no dysuria, no hematuria Musculoskeletal-no joint pain, no muscle tenderness Skin-no bruising, no rashes, no pruritus Neuro-no isolated weakness, no paresthesia, no weakness Psych-no depression, no anxiety Physical Exam Physical Exam: General-alert and oriented x3, no fevers, no chills HEENT-head atraumatic and normocephalic, pupils equal and reactive to light, extraocular muscles intact Neck-no lymphadenopathy or thyromegaly, trachea midline Chest-clear to auscultation percussion. No rales wheezing or rhonchi Cardiac-regular rate and rhythm, normal S1 and S2 Abdomen-normal bowel sounds, nontender, no hepatosplenomegaly Extremities-no cyanosis, clubbing, or edema Neuro-cranial nerves II through XII intact, motor and sensory function within n ormal limits, strength symmetrical , no focal deficits Psych-normal affect, normal mood Results & Data Results & Data ([facility]) Vital Signs (Past 12 Hours) Vital Signs Temp Pulse Resp BP Pulse Ox O2 Del Method 02/12/22 07:42 36.7 C 70 16 167/94 H 99 Room Air Laboratory Results 02/07/22 07:08 02/07/22 07:08 PG Care Time/CCT Total # of Minutes Spent Total Time Spent with Patient: Total time spent is greater than 50% in coordination of care (as documented) at patient's floor/unit and/or counseling patient: Coding Level of Care Code 80837 Subseq Hosp Care Lvl 3 Diagnoses Catheter-associated urinary tract infection T83.511A; N39.0 Fall W19.XXXA COVID-19 U07.1 ANNAMARIA (acute kidney injury) N17.9 Urinary retention R33.9 Dementia F03.90 Dementia severity: severe Dementia type: vascular dementia Blood bacterial culture positive R78.81 Hypertension I10 Hypertension type: primary hypertension BPH (benign prostatic hyperplasia) N40.0 Fecal impaction K56.41 Hypokalemia E87.6 (1) Dementia Dementia severity: severe Dementia type: vascular dementia (2) Hypertension Hypertension type: primary hypertension Qualified Code(s): I10 - Essential (primary) hypertension
[2022-02-12] MEDS: ENOXAPARIN INJ 40 MG/0.4 ML SYR SQ SCH (17:06)
[2022-02-12] MEDS: MELATONIN 3 MG TAB PO SCH (20:31)
[2022-02-12] MEDS: QUEtiapine FUMARATE 25 MG TABLET PO SCH (20:31)
[2022-02-13] MEDS: DOCUSATE SODIUM/SENNA 50/8.6MG TAB PO SCH (08:09)
[2022-02-13] MEDS: POLYETHYLENE (MIRALAX) 17 GM PACK PO SCH (08:09)
[2022-02-13] MEDS: FINASTERIDE 5 MG TAB PO SCH (08:12)
[2022-02-13] MEDS: TAMSULOSIN HCL 0.4 MG CAP PO SCH (08:13)
[2022-02-13] MEDS: METOPROLOL SUCC 50MG EXT REL TAB PO SCH (08:13)
[2022-02-13] MEDS ORDERED: lisinopril 40 MG TAB PO SCH (09:00)
--- NOTE | 2022-02-13 10:32 | Discharge Summary ---
Date of Service February 13, 2022 Admission HPI Per Admitting Provider 76-year-old male who presents to the ER after a fall at home. The patient was in the emergency room earlier for multiple falls and was found to be COVID- positive without hypoxia or pneumonia. At that time serology was unrevealing for dyscrasias this included lactic acid and troponin during the ER visit the patient also had blood cultures drawn he was not febrile but 1 of 4 bottles grew gram-positive cocci in clusters. Interestingly after that result came back after the first ER visit ER attending called the patient's home and the family stated the patient was doing fine and then 20 minutes later he was brought back after a fall via EMS. Repeat visit did not include any additional work-up. His initial ER visit included a chest x-ray and an abdominal pelvis CT scan this did not reveal pathology or concern for infection did show some constipation. He was not discharged on antibiotics and no head imaging was performed although there was no recollection of trauma by the family urinalysis earlier on 23 January was not significantly abnormal and the patient does not have a significant history of previous urinary tract infections Principal Diagnosis Catheter associated urinary tract infection, poorly controlled essential hypertension Discharge Exam General-alert, baseline dementia, no fevers, no chills HEENT-head atraumatic and normocephalic, pupils equal and reactive to light, extraocular muscles intact Neck-no lymphadenopathy or thyromegaly, trachea midline Chest-clear to auscultation percussion. No rales wheezing or rhonchi Cardiac-regular rate and rhythm, normal S1 and S2 Abdomen-normal bowel sounds, nontender, no hepatosplenomegaly Extremities-no cyanosis, clubbing, or edema Neuro-cranial nerves II through XII intact, motor and sensory function within normal limits, strength symmetrical , no focal deficits Psych-normal affect, normal mood. Baseline dementia Discharge Data Allergies Allergy/AdvReac Type Severity Reaction Status Date / Time Sulfa (Sulfonamide Allergy Intermediate RASH Verified 01/25/22 01:50 Antibiotics) codeine Allergy Unknown unknown Verified 01/25/22 01:50 donepezil Allergy Unknown ? sycopal Verified 01/25/22 01:50 episode oxycodone AdvReac Severe hallucinati Verified 01/25/22 01:50 ons Consultations 01/25/22 01:51 ED Decision to Admit Stat 02/10/22 09:17 Consult Podiatry Routine Ordered Studies 01/27/22 16:38 CT head/brain wo con Routine Hospital Course (1) Catheter-associated urinary tract infection: UTI 2nd to enterococcus. Haley catheter has been removed. He still requires straight cath periodically. He completed his course of oral amoxicillin. Cont finasteride & flomax . Will avoid reinsertion of Haley catheter if possible. Straight cath as needed. He will need urology follow-up after discharge (2) Fall: Multiple falls prior to admission - likely were due to weakness. CT head negative. Continue OT and PT (3) COVID-19: resolved. (4) ANNAMARIA (acute kidney injury): Now resolved. Monitor intake and output. Serial labs (5) Urinary retention: Haley catheter has been removed. We will try to avoid replacement. Straight cath as needed. Continue Flomax and finasteride for BPH . (6) Dementia: Chronic, progressive. Continue Seroquel 25mg hs for agitation/owning . Supportive care (7) Blood bacterial culture positive: Coag negative staph isolated. Likely contaminant. Repeat BCxs 01/25 negative (8) Hypertension: Lisinopril dosage uptitrated on February 12. Blood pressure has improved. Cont BB therapy (9) BPH (benign prostatic hyperplasia): With LUTS. Cont flomax & finasteride . Treat UTI. PSA 15 noted (10) Fecal impaction: as seen on admission CT a/p. Resolved. Cont bowel maintenance program (11) Hypokalemia: replaced. Resolved Plan DVT proph-Lovenox SQ Disposition: discharge to [facility] care today, February 13 Total Time Total Time Spent Total Time Spent (In Minutes): 35 minutes Discharge Plan Discharge Items Patient Disposition: Transfer Nursing Home Fac Reason For Visit: FALLS, COVID, ENCENPHALOPTHY Discharge Diagnosis: Catheter associated urinary tract infection, poorly controlled essential hypertension Activity: Resume your previous activity Non-emergency contact: Primary Care Provider Call non-emergency contact if: you have any medication questions Follow-up/Referrals: Kumar Rodriguez, [Primary Care Provider] - Diet: Heart Healthy Addtl Attending Provider Instructions: Lisinopril dosage has been increased for better blood pressure control Pending Studies at Discharge: No Stand-Alone Forms: My [facility] Skilled Items Patient informed of condition?: Yes DNR: Yes Discharge Level of Care: Skilled Communicable Disease: No Discharge Prognosis: Stable Lines: None Urinary Catheter: No Medications and DC Order Prescriptions: New lisinopril [Zestril] 40 mg Tablet 40 mg PO QAM Qty: 10 0RF quetiapine 25 mg Tablet 25 mg PO HS Qty: 10 0RF Continued finasteride [Proscar] 5 mg tablet 5 mg PO DAILY Qty: 90 3RF Rx Instructions: for enlarged prostate tamsulosin 0.4 mg capsule 0.4 mg PO DAILY Qty: 90 3RF Rx Instructions: for enlarged prostate lisinopril 20 mg tablet 20 mg PO DAILY Qty: 90 3RF cholecalciferol (vitamin D3) 25 mcg (1,000 unit) capsule 25 mcg PO DAILY metoprolol succinate 100 mg tablet extended release 24 hr 100 mg PO BID 90 Days Qty: 180 5RF amoxicillin 500 mg capsule 2,000 mg PO ONCE PRN (Reason: Pretreat Dental Appointments) Discharge Orders: Discharge Order (Routine); Ordered 02/13/22 Ordered By: Rojas Elkins Admission Data Admit Date/Time: 01/25/22 02:06 Attending Provider: Rojas Elkins Admit Provider: Raphael Gray Primary Care Provider: Kumar Rodriguez Other Providers: Raphael Gray ; [place] ; [facility] ; Calixto Wilkes Coding Level of Care Code D/C DAY MANAGEMENT >30 MINS Diagnoses Catheter-associated urinary tract infection T83.511A; N39.0 Fall W19.XXXA COVID-19 U07.1 ANNAMARIA (acute kidney injury) N17.9 Urinary retention R33.9 Dementia F03.90 Dementia severity: severe Dementia type: vascular dementia Blood bacterial culture positive R78.81 Hypertension I10 Hypertension type: primary hypertension BPH (benign prostatic hyperplasia) N40.0 Fecal impaction K56.41 Hypokalemia E87.6
== END 2022-02-13 12:37 | DRG 177 ==
LOC: ED 01:19 → SUATTDRO 02:06 → 2W 02:06 → 3E 02-07 01:40

== ENCOUNTER 2022-06-07 17:44 | Inpatient (IN) ==
--- NOTE | 2022-06-07 18:31 | Emergency Department Note ---
Impression & Plan Abdominal pain, Abdominal distension ED Provider Note INFORMANT: Patient's ED PROVIDER(S): Calixto Tapia MD CHIEF COMPLAINT: Abdominal pain PLAN: Disposition: Admitted Condition: Good Outpatient prescription management: none Referral: None MEDICAL DECISION MAKING: Patient presented because of complaints of abdominal pain however he is doing well without obvious issues on initial examination. was concerned as he was not eating and drinking well. A work-up was initiated. It seemed that most of his symptoms will be postprandial. CT scan revealed moderate stool and cholelithiasis. The patient still has bilateral infiltrates. On further history the did note the patient did have a choking episode prior to this finding of pneumonia. He was treated with Augmentin however due to the issues today he was given dose of IV Zosyn. Patient's urinalysis was somewhat concerning. Patient had an unremarkable CBC and dehydration on chemistry panel. He had further imaging ordered. Right upper quadrant ultrasound imaging and CT angiography ordered. I discussed further management in the hospital since the patient is declining per the . She was in agreement. Consultation was made with the [facility] Hospitalist service. Patient was evaluated in the ER admitted for further management After review of the information above and other included data, I feel the patient requires admission. Triage Nursing notes reviewed and agree them. Vital Signs: reviewed and remarkable for no significant abnormalities Prior /Outside records reviewed: shelter records reviewed. Prior ED note reviewed. Differential diagnosis: Functional constipation, biliary pathology impaction, obstruction, volvulus, metabolic abnormality, infection, neurologic, mesenteric ischemia as well as other pathologies. Diagnostics, as interpreted by me: ECG: Twelve-lead ECG reveals paced rhythm at 101 bpm. Cardiac Monitoring: Cardiac monitoring ordered by me: The patient was placed on continuous cardiac monitoring and observed. It revealed a paced rhythm at 89 bpm. Medical decision rules: none Imaging studies: CT scan of the abdomen pelvis as noted above. HPI: The patient is a 76 year old male who presents to the Emergency Room with complaints of abdominal pain. This started last week and is worsening. Patient was seen in the ER about a week ago and diagnosed with pneumonia. He also had moderate stool burden on CT imaging but no other pathology noted. He was started on Augmentin and Zithromax. He was found to have a new oxygen requirement as well. is present helps with history. She notes that he has had decreased p.o. intake and increased abdominal distention. Patient has dementia and history is limited secondary to his mental status. No reported fev ers or vomiting. Staff at the nursing facility was concerned about decreased p.o. intake and increasing abdominal distention. He is reportedly having bowel movements. PAST MEDICAL HISTORY: See Below, dementia, pneumonia PAST SURGICAL HISTORY: See Below, SOCIAL HISTORY: See Below, HOME MEDICATIONS: See Below ALLERGIES: See Below VITALS: See Below PHYSICAL EXAMINATION: GENERAL: Awake, alert, uncomfortable-appearing, in no distress HENT: Normocephalic, atraumatic. Oropharynx unremarkable. EYES: Normal conjunctiva. Sclera non-icteric. NECK: Inspection normal. Non-tender. Supple. No nuchal rigidity. FROM. No masses. RESPIRATORY: Clear to auscultation. No wheezes. No rales. Normal respiratory effort. CARDIAC: Normal rate. Normal rhythm. No murmurs. No rubs. Extremities warm and well perfused. Pulses equal. No JVD. GI: Soft, moderately-distended. Generalized tenderness to palpation. No rebound or guarding. RECTAL: Deferred. MUSCULOSKELETAL: Atraumatic. Chest examination reveals no tenderness. The back is symmetrical on inspection without obvious abnormality. There is no CVA tenderness to palpation. No joint edema. LOWER EXTREMITIES: Calves are equal size bilaterally and non-tender. No edema. No discoloration. NEURO: Demented sensorium. Moving arms and legs independently. SKIN: No rash or jaundice noted. Past Med/Surg History Medical History (Updated 06/08/22 @ 03:49 by Giancarlo Sandoval MD) Abdominal pain Acute blood loss anemia Benign localized prostatic hyperplasia with lower urinary tract symptoms (LUTS) BPH (benign prostatic hyperplasia) Cardiac pacemaker in situ interrogated 02/16/20 no issues CHB (complete heart block) 12/2014 s/p pacer insertion COVID-19 Dementia Dyslipidemia Elevated AST (SGOT) Elevated bilirubin Elevated PSA Fecal impaction GERD (gastroesophageal reflux disease) Hearing loss History of prostatitis Hypertension Ileus, postoperative Inguinal hernia of left side with obstruction IPMN (intraductal papillary mucinous neoplasm) Pneumothorax, left T9 vertebral fracture Urinary retention Surgical History H/O hernia repair History of left inguinal hernia repair Laparoscopic left inguinal hernia repair for incarceration with obstruction, Dr. Ramirez, 03 April 2020 History of rectal surgery Anal fistulectomy History of tonsillectomy S/P left inguinal hernia repair (04/03/20) Laparoscopic left inguinal hernia repair, incarcerated Dr. 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 sycopal Verified 06/07/22 23:46 episode oxycodone AdvReac Severe hallucinati Verified 06/07/22 23:46 ons Home Meds Home Medications Medication Instructions Recorded Confirmed amoxicillin 500 mg capsule 2,000 mg PO ONCE PRN Pretreat 04/02/20 06/07/22 Dental Appointments cholecalciferol (vitamin D3) 25 25 mcg PO QAM 08/16/20 06/07/22 mcg (1,000 unit) capsule buspirone 5 mg tablet 5 mg PO TID 06/03/22 06/07/22 finasteride 5 mg tablet (Proscar) 5 mg PO QAM 06/03/22 06/07/22 lidocaine HCl 2 % mucosal jelly 5 ml topical Q6 PRN catheter 06/03/22 06/07/22 discomfort sennosides 8.6 mg-docusate sodium 1 tab-cap PO BID 06/03/22 06/07/22 50 mg tablet (Senokot-S) tamsulosin 0.4 mg capsule 0.4 mg PO QAM 06/03/22 06/07/22 Saccharomyces boulardii 250 mg 250 mg PO BID 06/07/22 06/07/22 capsule (Florastor) acetaminophen 325 mg tablet 650 mg PO Q6 PRN Fever Or Pain 06/07/22 06/07/22 (Tylenol) aluminum-mag hydroxide-simethicone 30 ml PO Q4 PRN .indigestion 06/07/22 06/07/22 400 mg-400 mg-40 mg/5 mL oral susp (Maalox Maximum Strength) metoprolol tartrate 100 mg tablet 100 mg PO BID 06/07/22 06/07/22 pantoprazole 40 mg granules 40 mg PO DAILY 06/07/22 06/07/22 delayed-release for susp in packet Previous Rx's Medication Instructions Recorded lisinopril 40 mg tablet (Zestril) 40 mg PO QAM #10 tabs 02/13/22 quetiapine 25 mg tablet 25 mg PO HS #10 tabs 02/13/22 amoxicillin 875 mg-potassium 1 tab PO Q12H #20 tabs 06/04/22 clavulanate 125 mg tablet azithromycin 250 mg tablet 250 mg PO DAILY 4 days #4 tabs 06/04/22 Results & Data (ED) Vital Signs Vital Signs - 24 hr 06/07/22 17:52 06/07/22 17:57 06/07/22 18:01 Temperature 36.9 C Temperature Source Axillary Pulse Rate 101 H 105 H 102 H Respiratory Rate 20 24 Blood Pressure 203/113 H 180/156 H Blood Pressure Mean 143 164 Blood Pressure Position Sitting Pulse Oximetry 95 94 Oxygen Delivery Method Nasal Cannula Room Air Oxygen Flow Rate 5 Sepsis Recent Fever Within 48 Hours No Sepsis New/Unexplained Change in Mental Status No Sepsis Action Taken by Nursing No Action Required 06/07/22 18:09 Temperature Temperature Source Pulse Rate 116 H Respiratory Rate 20 Blood Pressure Blood Pressure Mean Blood Pressure Position Pulse Oximetry 95 Oxygen Delivery Method Nasal Cannula Oxygen Flow Rate 5 Sepsis Recent Fever Within 48 Hours Sepsis New/Unexplained Change in Mental Status Sepsis Action Taken by Nursing Laboratory Data 06/07/22 18:06 06/07/22 18:06 Lab Results 06/07/22 06/07/22 06/07/22 Range/Units 18:06 18:06 18:38 WBC 9.25 (4.8-10.8) K/ul RBC 4.68 L (4.70-6.10) M/uL Hgb 14.1 (14.0-18.0) g/dl Hct 42.7 (42.0-52.0) % MCV 91.2 (80.0-100.0) fL MCH 30.1 (25.0-34.0) pg MCHC 33.0 (32.0-36.0) g/dL RDW Std Deviation 44.6 (36.4-46.3) fL RDW Coeff of Coco 13.4 (11.5-14.5) % Plt Count 168 (130-400) K/uL MPV 10.8 (9.4-12.4) fL Immature Gran % (Auto) 0.3 % Neut % (Auto) 64.0 % Lymph % (Auto) 25.3 % [place] % (Auto) 7.7 % Eos % (Auto) 2.4 % Baso % (Auto) 0.3 % Neut # (Auto) 5.92 (1.40-6.50) K/uL Lymph # (Auto) 2.34 (1.2-3.4) K/uL [place] # (Auto) 0.71 H (0.11-0.59) K/uL Eos # (Auto) 0.22 (0-0.50) K/uL Baso # (Auto) 0.03 (0-0.2) K/uL Immature Gran # (Auto) 0.03 (0.01-0.20) K/uL Sodium TNP Potassium TNP Chloride 109 H (98-107) mmol/L Carbon Dioxide 25 (21-32) mmol/L Anion Gap TNP BUN 28 H (6-23) mg/dl Creatinine 1.08 (0.6-1.4) mg/dl Est Cr Clr Drug Dosing 56.3 ml/min Est GFR ( Amer) 76.9 ml/min Est GFR (Non-Af Amer) 66.3 ml/min BUN/Creatinine Ratio 25.9 H (10-20) Glucose 81 (70-99(Fasting)) mg/dl Lactate 1.7 (0.4-2.0) mmol/L Calcium 9.3 (8.6-10.3) mg/dl Total Bilirubin 0.6 (0.2-1.0) mg/dl AST TNP ALT 10 (7-52) U/L Alkaline Phosphatase TNP Troponin I High Sens 15.7 (0-20) pg/ml Total Protein 7.5 (6.0-8.3) gm/dl Albumin TNP Globulin TNP Albumin/Globulin Ratio TNP Lipase 36 (11-82) U/L Urine Color Urine Appearance (Clear) Urine pH (4.5-7.5) Ur Specific Milo (1.000-1.030) Urine Protein (Negative) Urine Glucose (UA) (Negative) Urine Ketones (Negative) Urine Blood (Negative) Urine Nitrite (Negative) Urine Bilirubin (Negative) Urine Urobilinogen (Negative) Ur Leukocyte Esterase (Negative) Urine WBC (Auto) (0-5) /hpf Urine RBC (Auto) (0-4) /hpf U Hyaline Cast (Auto) (0-5) /lpf U Epithel Cells (Auto) (0-5) /lpf Urine Bacteria (Auto) (Negative) Urine Crystals Calcium Oxalate Crystal (None Prsent) SARS-CoV-2, RNA, NAAT (NEGATIVE) 06/07/22 06/07/22 06/07/22 Range/Units 19:00 20:25 21:21 WBC (4.8-10.8) K/ul RBC (4.70-6.10) M/uL Hgb (14.0-18.0) g/dl Hct (42.0-52.0) % MCV (80.0-100.0) fL MCH (25.0-34.0) pg MCHC (32.0-36.0) g/dL RDW Std Deviation (36.4-46.3) fL RDW Coeff of Coco (11.5-14.5) % Plt Count (130-400) K/uL MPV (9.4-12.4) fL Immature Gran % (Auto) % Neut % (Auto) % Lymph % (Auto) % [place] % (Auto) % Eos % (Auto) % Baso % (Auto) % Neut # (Auto) (1.40-6.50) K/uL Lymph # (Auto) (1.2-3.4) K/uL [place] # (Auto) (0.11-0.59) K/uL Eos # (Auto) (0-0.50) K/uL Baso # (Auto) (0-0.2) K/uL Immature Gran # (Auto) (0.01-0.20) K/uL Sodium 145 Potassium 4.2 Chloride (98-107) mmol/L Carbon Dioxide (21-32) mmol/L Anion Gap BUN (6-23) mg/dl Creatinine (0.6-1.4) mg/dl Est Cr Clr Drug Dosing ml/min Est GFR ( Amer) ml/min Est GFR (Non-Af Amer) ml/min BUN/Creatinine Ratio (10-20) Glucose (70-99(Fasting)) mg/dl Lactate (0.4-2.0) mmol/L Calcium (8.6-10.3) mg/dl Total Bilirubin (0.2-1.0) mg/dl AST 18 ALT (7-52) U/L Alkaline Phosphatase 77 Troponin I High Sens (0-20) pg/ml Total Protein (6.0-8.3) gm/dl Albumin 3.8 Globulin Albumin/Globulin Ratio Lipase (11-82) U/L Urine Color Yellow Urine Appearance Cloudy A (Clear) Urine pH 6.5 (4.5-7.5) Ur Specific Milo 1.020 (1.000-1.030) Urine Protein 1+ H (Negative) Urine Glucose (UA) Negative (Negative) Urine Ketones Negative (Negative) Urine Blood 3+ H (Negative) Urine Nitrite Negative (Negative) Urine Bilirubin Negative (Negative) Urine Urobilinogen Negative (Negative) Ur Leukocyte Esterase Trace H (Negative) Urine WBC (Auto) 10-30 H (0-5) /hpf Urine RBC (Auto) >30 H (0-4) /hpf U Hyaline Cast (Auto) 1-5 (0-5) /lpf U Epithel Cells (Auto) 10-20 H (0-5) /lpf Urine Bacteria (Auto) Negative (Negative) Urine Crystals Not Reportable Calcium Oxalate Crystal Present A (None Prsent) SARS-CoV-2, RNA, NAAT NEGATIVE (NEGATIVE) Administered Medications Acetaminophen (Acetaminophen 500 Mg Tab) 1,000 mg PO Q8H PRN PRN Reason: pain or fever Stop: 07/08/22 03:46 Last Admin: 06/08/22 03:58 Dose: 1,000 mg Documented By: NAB Buspirone HCl (Buspirone 5 Mg Tab) 5 mg PO TID JACKSON Stop: 07/08/22 08:59 Last Admin: 06/08/22 20:06 Dose: 5 mg Documented By: Admin: 04/27/23 14:17 Dose: 5 mg Documented By: Admin: 06/08/22 09:56 Dose: 5 mg Documented By: Heparin Sodium (Porcine) (Heparin Sod 5,000 Unit/0.5 Ml Vial) 5,000 units SQ Q8 JACKSON Stop: 07/08/22 21:59 Last Admin: 06/08/22 22:55 Dose: 5,000 units Documented By: ERNESTO Potassium Chloride/Sodium Chloride (Normal Saline W/20 Meq Kcl) 20 meq in 1,000 mls @ 60 mls/hr IV .[id number] [facility] Stop: 07/08/22 00:37 Last Admin: 06/08/22 20:11 Dose: 60 mls/hr Documented By: Infusion: 06/08/22 20:11 Dose: 60 mls/hr Documented By: Infusion: 06/08/22 15:00 Dose: 60 mls/hr Documented By: Infusion: 06/08/22 14:51 Dose: 0 mls/hr Documented By: Infusion: 06/08/22 11:11 Dose: 0 mls/hr Documented By: Infusion: 06/08/22 09:50 Dose: 60 mls/hr Documented By: Infusion: 06/08/22 08:42 Dose: 0 mls/hr Documented By: Admin: 06/08/22 01:24 Dose: 60 mls/hr Documented By: SUMEET Piperacillin Sod/Tazobactam (Sod 4.5 gm/ Dextrose) 120 mls @ 30 mls/hr IV Q8H [facility]; Protocol Stop: 06/18/22 03:59 Last Infusion: 06/09/22 00:12 Dose: 0 mls/hr Documented By: Admin: 06/08/22 20:12 Dose: 30 mls/hr Documented By: Infusion: 06/08/22 19:17 Dose: 0 mls/hr Documented By: Infusion: 06/08/22 15:00 Dose: 30 mls/hr Documented By: Infusion: 06/08/22 14:51 Dose: 0 mls/hr Documented By: Admin: 06/08/22 13:07 Dose: 30 mls/hr Documented By: Infusion: 06/08/22 07:52 Dose: 0 mls/hr Documented By: Admin: 06/08/22 03:37 Dose: 30 mls/hr Documented By: SUMEET Famotidine 20 mg/ Syringe 5 mls @ 2.5 mls/min IV BID JACKSON Stop: 07/08/22 20:59 Last Admin: 06/08/22 21:58 Dose: 2.5 mls/min Documented By: ERNESTO Lisinopril (Lisinopril 10 Mg Tab) 10 mg PO BID J[place]SON Stop: 07/08/22 20:59 Last Admin: 06/08/22 20:06 Dose: 10 mg Documented By: ERNESTO Metoprolol Tartrate (Metoprolol Tartrate 1 Mg/Ml Vial) 5 mg IV Q4 PRN PRN Reason: Hypertension Stop: 07/08/22 03:59 Last Admin: 06/08/22 20:03 Dose: 5 mg Documented By: Admin: 06/08/22 16:36 Dose: 5 mg Documented By: Metoprolol Tartrate (Metoprolol Tartrate 100 Mg Tab) 100 mg PO BID [place] Stop: 07/08/22 20:59 Last Admin: 06/08/22 20:06 Dose: 100 mg Documented By: ERNESTO Quetiapine Fumarate (Quetiapine Fumarate 25 Mg Tablet) 25 mg PO HS JACKSON Stop: 07/08/22 20:59 Last Admin: 06/08/22 20:06 Dose: 25 mg Documented By: ERNESTO Tamsulosin HCl (Tamsulosin Hcl 0.4 Mg Cap) 0.4 mg PO QAM [place] Stop: 07/08/22 08:59 Last Admin: 06/08/22 09:56 Dose: 0.4 mg Documented By: Discontinued Medications Hydralazine HCl (Hydralazine Hcl 20 Mg/Ml Vial) 5 mg IV NOW ONE Stop: 06/08/22 03:48 Last Admin: 06/08/22 03:59 Dose: 5 mg Documented By: SUMEET Hydralazine HCl (Hydralazine Hcl 20 Mg/Ml Vial) 5 mg IV NOW ONE Stop: 06/08/22 23:35 Last Admin: 06/08/22 23:40 Dose: 5 mg Documented By: ERNESTO Sodium Chloride (Nss 1000ml) 500 mls @ 999 mls/hr IV .Q31M ONE Stop: 06/07/22 19:45 Last Infusion: 06/07/22 20:14 Dose: 0 mls/hr Documented By: Admin: 06/07/22 19:39 Dose: 999 mls/hr Documented By: Sodium Chloride (Nss 1000ml) 1,000 mls @ 125 mls/hr IV .Q8H JACKSON Stop: 07/07/22 19:14 Last Infusion: 06/08/22 01:16 Dose: 0 mls/hr Documented By: Admin: 06/07/22 19:40 Dose: 125 mls/hr Documented By: Piperacillin Sod/Tazobactam Sod (Zosyn) 4.5 gm in 120 mls @ 240 mls/hr IV 2131 ONE Stop: 06/07/22 22:00 Last Infusion: 06/07/22 23:27 Dose: 0 mls/hr Documented By: Admin: 06/07/22 22:44 Dose: 240 mls/hr Documented By: QGV Sincalide 1.5 mcg/ Sodium (Chloride) 101.5 mls @ 200 mls/hr IV NOW ONE Stop: 06/08/22 12:30 Last Infusion: 06/08/22 12:31 Dose: 0 mls/hr Documented By: Admin: 06/08/22 12:00 Dose: 200 mls/hr Documented By: MITESH Ioversol (Optiray 320 500ml) 115 ml IV ONCE ONE Stop: 06/07/22 22:10 Last Admin: 06/07/22 22:09 Dose: 115 ml Documented By: ABHAY Labetalol HCl (Labetalol Hcl Iv 5 Mg/Ml 20ml) 10 mg IV NOW STA Stop: 06/07/22 19:45 Last Admin: 06/07/22 19:56 Dose: 10 mg Documented By: QGV Co-signed By: MAXIMUS Labetalol HCl (Labetalol Hcl Iv 5 Mg/Ml 20ml) 10 mg IV NOW STA Stop: 06/07/22 20:53 Last Admin: 06/07/22 21:18 Dose: 10 mg Documented By: QGV Co-signed By: Metoprolol Succinate (Metoprolol Succ 50mg Ext Rel Tab) 100 mg PO NOW STA Stop: 06/07/22 22:42 Last Admin: 06/07/22 23:11 Dose: 100 mg Documented By: QGV Quetiapine Fumarate (Quetiapine Fumarate 25 Mg Tablet) 25 mg PO ONE ONE Stop: 06/07/22 22:43 Last Admin: 06/07/22 23:11 Dose: 25 mg Documented By: QGV Discharge Plan Visit Data Chief Complaint: Abdominal Pain ED Provider: Calixto Tapia Discharge Problem: Abdominal pain, Abdominal distension Patient Disposition: Admitted As Inpatient Discharge Instructions Interventions: ED Discharge Assessment Last Done: 06/07/22 23:27
[2022-06-07 18:41] LABS: Alanine Aminotransferase 10 U/L (7-52); BUN Creatinine Ratio 25.9 (10-20); Bilirubin,Total 0.6 mg/dl (0.2-1.0); Blood Urea Nitrogen 28 mg/dl (6-23); Calcium 9.3 mg/dl (8.6-10.3); Carbon Dioxide 25 mmol/L (21-32); Chloride 109 mmol/L (98-107); Creatinine Clr Calc Pharmacy 56.3 ml/min; Est GFR (African American) 76.9 ml/min; Est GFR (Non-African American) 66.3 ml/min; Glucose 81 mg/dl (70-99(Fasting)); Lipase 36 U/L (11-82); Total Protein 7.5 gm/dl (6.0-8.3)
[2022-06-07 18:46] LABS: Troponin I High Sensitivity 15.7 pg/ml (0-20)
[2022-06-07 19:05] LABS: Basophils # (auto) 0.03 K/uL (0-0.2); Basophils % (auto) 0.3 %; Eosinophils # (auto) 0.22 K/uL (0-0.50); Eosinophils % (auto) 2.4 %; Hematocrit (blood only) 42.7 % (42.0-52.0); Hemoglobin 14.1 g/dl (14.0-18.0); Immature Granulocytes # (auto) 0.03 K/uL (0.01-0.20); Immature Granulocytes % (auto) 0.3 %; Lymphocytes # (auto) 2.34 K/uL (1.2-3.4); Lymphocytes % (auto) 25.3 %; Mean Corpuscular Hemoglobin 30.1 pg (25.0-34.0); Mean Corpuscular Volume 91.2 fL (80.0-100.0); Mean Platelet Volume 10.8 fL (9.4-12.4); Monocytes # (auto) 0.71 K/uL (0.11-0.59); Monocytes % (auto) 7.7 %; Neutrophils # (auto) 5.92 K/uL (1.40-6.50); Platelet Count 168 K/uL (130-400); RDW Coefficient of Variation 13.4 % (11.5-14.5); RDW Standard Deviation 44.6 fL (36.4-46.3); Red Blood Count 4.68 M/uL (4.70-6.10); White Blood Count 9.25 K/ul (4.8-10.8)
[2022-06-07] MEDS ORDERED: SODIUM CHLORIDE 0.9% 1000ML 1,000 ML IV SCH (19:15)
[2022-06-07] MEDS ORDERED: SODIUM CHLORIDE 0.9% 1000ML 500 ML IV ONE (19:15)
[2022-06-07 19:30] LABS: Albumin Level 3.8 gm/dl (3.4-5.0); Potassium 4.2 mmol/L (3.5-5.1)
[2022-06-07] MEDS ORDERED: LABETALOL HCL IV 5 MG/ML 20ML IV STA ×2 (19:44→20:52)
--- NOTE | 2022-06-07 20:14 | CT Scan Report ---
CT OF THE ABDOMEN AND PELVIS WITHOUT CONTRAST CLINICAL HISTORY: Abdominal pain. Evaluate for obstruction. COMPARISON STUDY: CT of the abdomen and pelvis June 03, 2022 and January 23, 2022. TECHNIQUE: Axial images of the abdomen and pelvis were obtained without IV contrast. Images were revi ewed in the axial, sagittal, and coronal planes. Automated exposure control was utilized for the bro dy. A dose lowering technique was utilized adhering to the principles of ALARA. FINDINGS: Small right and trace left pleural effusions are partially imaged on this exam. There are a ssociated subpleural opacities which are shown on prior CT. Evaluation of the abdomen and pelvis is s uboptimal on this unenhanced exam. There is no pneumatosis, free air or portal venous gas. Gallstones within the gallbladder are present. There is no evidence for acute cholecystitis. Spleen, adrenal gl ands, right kidney are unremarkable. There is a left renal cyst. There is no hydronephrosis. A modera te amount of poorly formed stool within the colon and rectum is present. Colonic diverticulosis is no bayron. No evidence for acute diverticulitis. There is no fluid collection. The prostate is enlarged and indents the bladder. A Haley balloon within the bladder is present. IMPRESSION: 1. No acute process within the abdomen or pelvis on unenhanced exam. 2. Moderate amount of poorly formed stool within the colon and rectum. No bowel obstruction. 3. Small right and trace left pleural effusions with subpleural opacities which could reflect consoli dation or atelectasis. 4. Cholelithiasis. ACT 112: Negative or not required by law. Electronically signed by: Manish Almendarez M.D. 06/07/2022 8:11 PM
[2022-06-07 20:50] LABS: Appearance Urine Cloudy (Clear); Bacteria Urine Automated Negative (Negative); Bilirubin Urine Negative (Negative); Blood Urine 3+ (Negative); Color Urine Yellow; Glucose Urine UA Negative (Negative); Ketones Urine Negative (Negative); Leukocyte Esterase Urine Trace (Negative); Nitrite Urine Negative (Negative); Protein Urine 1+ (Negative); RBC Urine Automated >30 /hpf (0-4); Urobilinogen Urine Negative (Negative); pH Urine 6.5 (4.5-7.5)
[2022-06-07 21:06] LABS: Calcium Oxalate Crystals Urine Present (None Prsent)
[2022-06-07] MEDS ORDERED: PIPERACILLIN/TAZOBACTAM 4.5 GM in DEXTROSE 5% 100 ML IV ONE (21:31)
[2022-06-07] MEDS ORDERED: PIPERACILLIN/TAZOBACTAM 4.5 GM/120 ML BAG IV ONE (21:31)
[2022-06-07] MEDS ORDERED: OPTIRAY 320 500ml IV ONE (22:09)
--- NOTE | 2022-06-07 22:29 | CT Scan Report ---
Exam(s): CTA ABDOMEN + PELVIS With Contrast IV Amt: 115ml Optiray 320 EXAM: CT Angiography Abdomen and Pelvis With Intravenous Contrast CLINICAL HISTORY: Reason for exam: post prandial pain. TECHNIQUE: Axial computed tomographic angiography images of the abdomen and pelvis with intravenous contrast. CTDI is 15.23 mGy and DLP is 846.88 mGy-cm. Automated exposure control was utilized for the study. A dose lowering technique was utilized adhering to the principles of ALARA. MIP reconstructed images were created and reviewed. CONTRAST: Patient received 115ml Optiray 320 of IV contrast COMPARISON: No relevant prior studies available. FINDINGS: VASCULATURE: Aorta: Atherosclerotic changes of the aorta a major branch vessels. No focal occlusion of the celiac axis or superior mesenteric artery. No abdominal aortic aneurysm. No dissection. Celiac trunk and mesenteric arteries: See above. Renal arteries: No acute findings. No occlusion or significant stenosis. Iliac arteries: No acute findings. No occlusion or significant stenosis. Lung bases: Airspace consolidations at the lung bases, correlate for aspiration pneumonia. Small right parapneumonic effusion. ABDOMEN: Liver: Unremarkable. No focal hepatic lesion. Gallbladder and bile ducts: Cholelithiasis. No ductal dilation. Pancreas: Unremarkable. No ductal dilation. No mass. Spleen: Unremarkable. No splenomegaly. Adrenals: Unremarkable. No mass. Kidneys and ureters: No hydronephrosis or delayed nephrogram. Large left lower pole renal cyst measures 7.7 x 7.7 cm. Stomach and bowel: Diverticulosis, without acute diverticulitis. No small bowel obstruction. No free intraperitoneal air. Small semisolid stool in the colon, correlate for diarrheal disease. PELVIS: Appendix: No findings to suggest acute appendicitis. Bladder: Haley catheter terminates in a decompressed urinary bladder, which demonstrates mild wall thickening. Correlate for UTI. Urinalysis recommended. Reproductive: Unremarkable as visualized. ABDOMEN and PELVIS: Intraperitoneal space: Unremarkable. No significant fluid collection. No free air. Bones/joints: Degenerative changes of the spine. No acute fracture. No dislocation. Soft tissues: Unremarkable. Lymph nodes: Unremarkable. No enlarged lymph nodes. IMPRESSION: 1. Atherosclerotic changes of the aorta a major branch vessels. No focal occlusion of the celiac axis or superior mesenteric artery. 2. Airspace consolidations at the lung bases, correlate for aspiration pneumonia. Small right parapneumonic effusion. 3. Haley catheter terminates in a decompressed urinary bladder, which demonstrates mild wall thickening. Correlate for UTI. Urinalysis recommended. 4. Diverticulosis, without acute diverticulitis. No small bowel obstruction. No free intraperitoneal air. 5. Cholelithiasis. 6. Small semisolid stool in the colon, correlate for diarrheal disease. Electronically signed by: Viraj Dalal MD 06/07/22 22:28 PM
[2022-06-07] MEDS ORDERED: METOPROLOL SUCC 50MG EXT REL TAB PO STA (22:41)
[2022-06-07] MEDS ORDERED: QUEtiapine FUMARATE 25 MG TABLET PO ONE (22:42)
--- NOTE | 2022-06-07 22:53 | History & Physical Report ---
Date of Service June 07, 2022 Assessment & Plan (1) Dementia: (2) Constipation: (3) Abdominal distension: (4) Benign localized prostatic hyperplasia with lower urinary tract symptoms (LUTS): (5) GERD (gastroesophageal reflux disease): (6) Abdominal pain: (7) History of prostatitis: (8) Cholelithiasis: (9) Weakness: (10) Hypertension: (11) Dementia: Plan Abdominal pain/history of prostatitis/cholelithiasis- Patient symptoms have been worsening with food intake CT scan notes cholelithiasis Ultrasound of abdomen pelvis has been ordered Will order HIDA scan Placed on Zosyn 4.5 g IV every 8 hours, to cover both cholecystitis and prostatitis Pantoprazole 40 mg IV daily NSS + KCl 20 mEq at 80 mils per hour Zofran 4 mg IV every 6 hours as needed Dementia- Patient has had some mild worsening of his mental status due to likely trigger of infection on top of underlying dementia We will continue his usual medications of: Buspirone 5 mg p.o. 3 times daily and quetiapine 25 mg at bedtime Hypertension- Hold lisinopril Give metoprolol succinate 100 mg dosing this evening, Continue metoprolol tartrate 100 mg p.o. twice daily Lopressor 5 mg IV every 4 hours as needed for systolic blood pressure greater than 160 BPH with LUTS/recent prostatitis- Follow urine culture and sensitivity Continue tamsulosin 0.4 mg daily History of Present Illness Chief Complaint: The patient presents to the emergency department as a referral from [facility], with his daughter, with complaint of abdominal discomfort worse with eating. Primary Care Provider: Tacos Richardson MD The patient is a 76-year-old male with a past medical history including dementia, constipation, prostatitis, catheter associated UTI, generalized weakness, COVID-19 infection 03/06, BPH with LUTS, dyslipidemia, pancreatic cyst, anemia, GERD, history of left inguinal hernia repair and hearing loss. Patient had been seen in the emergency department pneumonia. He was seen in the emergency department on 06/04/2022, and was diagnosed with pneumonia, fortunately he was started on Augmentin and Zithromax. His daughter also reports that he had been diagnosed with prostatitis a month or so ago. His daughter also reports that he said decreased oral intake and increased abdominal distention over the past week. Allergies Allergy/AdvReac Type Severity Reaction Status Date / Time Sulfa (Sulfonamide Allergy Intermediate RASH Verified 06/07/22 23:46 Antibiotics) codeine Allergy Unknown unknown Verified 06/07/22 23:46 donepezil Allergy Unknown ? sycopal Verified 06/07/22 23:46 episode oxycodone AdvReac Severe hallucinati Verified 06/07/22 23:46 ons Home Medications Medication Instructions Recorded Confirmed Type amoxicillin 500 mg capsule 2,000 mg PO ONCE PRN Pretreat 04/02/20 06/07/22 History Dental Appointments cholecalciferol (vitamin D3) 25 25 mcg PO QAM 08/16/20 06/07/22 History mcg (1,000 unit) capsule lisinopril 40 mg tablet (Zestril) 40 mg PO QAM #10 tabs 02/13/22 06/07/22 Rx quetiapine 25 mg tablet 25 mg PO HS #10 tabs 02/13/22 06/07/22 Rx buspirone 5 mg tablet 5 mg PO TID 06/03/22 06/07/22 History finasteride 5 mg tablet (Proscar) 5 mg PO QAM 06/03/22 06/07/22 History lidocaine HCl 2 % mucosal jelly 5 ml topical Q6 PRN catheter 06/03/22 06/07/22 History discomfort sennosides 8.6 mg-docusate sodium 1 tab-cap PO BID 06/03/22 06/07/22 History 50 mg tablet (Senokot-S) tamsulosin 0.4 mg capsule 0.4 mg PO QAM 06/03/22 06/07/22 History amoxicillin 875 mg-potassium 1 tab PO Q12H #20 tabs 06/04/22 06/07/22 Rx clavulanate 125 mg tablet azithromycin 250 mg tablet 250 mg PO DAILY 4 days #4 tabs 06/04/22 06/07/22 Rx Saccharomyces boulardii 250 mg 250 mg PO BID 06/07/22 06/07/22 History capsule (Florastor) acetaminophen 325 mg tablet 650 mg PO Q6 PRN Fever Or Pain 06/07/22 06/07/22 History (Tylenol) aluminum-mag hydroxide-simethicone 30 ml PO Q4 PRN .indigestion 06/07/22 06/07/22 History 400 mg-400 mg-40 mg/5 mL oral susp (Maalox Maximum Strength) metoprolol tartrate 100 mg tablet 100 mg PO BID 06/07/22 06/07/22 History pantoprazole 40 mg granules 40 mg PO DAILY 06/07/22 06/07/22 History delayed-release for susp in packet Past Med/Surg History Medical History (Updated 06/08/22 @ 03:49 by Giancarlo Sandoval MD) Abdominal pain Acute blood loss anemia Benign localized prostatic hyperplasia with lower urinary tract symptoms (LUTS) BPH (benign prostatic hyperplasia) Cardiac pacemaker in situ interrogated 02/16/20 no issues CHB (complete heart block) 12/2014 s/p pacer insertion COVID-19 Dementia Dyslipidemia Elevated AST (SGOT) Elevated bilirubin Elevated PSA Fecal impaction GERD (gastroesophageal reflux disease) Hearing loss History of prostatitis Hypertension Ileus, postoperative Inguinal hernia of left side with obstruction IPMN (intraductal papillary mucinous neoplasm) Pneumothorax, left T9 vertebral fracture Urinary retention Surgical History H/O hernia repair History of left inguinal hernia repair Laparoscopic left inguinal hernia repair for incarceration with obstruction, Dr. Ramirez, 03 April 2020 History of rectal surgery Anal fistulectomy History of tonsillectomy S/P left inguinal hernia repair (04/03/20) Laparoscopic left inguinal hernia repair, incarcerated Dr. 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 Beliefs That Will Affect Care: None marital status: Current Living Situation: Personal Care Facility current occupational status: retired Other Information That Helps Us Care for You: Yes (Dementia) Feels Safe at Home: Declines to Answer Assistive Devices: Glasses and Walker Review of Systems Review of Systems: The patient denies chest pain, palpitations, shortness of breath, dyspnea on exertion, cough, lower extremity swelling, sore throat, fevers, chills, sweats, vomiting, blood in urine or stool, dysuria, urinary frequency or urgency, lightheadedness, dizziness, headache, loss of consciousness, rash, abnormal bruising or bleeding, focal weakness, numbness or tingling in arms or legs, generalized arthralgias or myalgias, back or neck pain, or night sweats. The review of systems is otherwise negative other than for that already noted above, and at least 10 systems have been reviewed. Physical Exam Physical Exam: The patient is awake, alert and oriented 3, well developed and well nourished, normocephalic and atraumatic, lying in bed and in no acute distress. HEENT--PERRL, EOMI, mucous membranes and oropharynx dry. Neck--supple. No JVD. No bruits. Thyroid normal, trachea midline, no adenopathy. Heart--normal S1 and S2. No murmurs, rubs or gallops. Lungs--clear bilaterally, no respiratory distress, no accessory muscle use. Abdomen--normal bowel sounds and soft. Mildly distended and tympanitic. No hernias or masses, no organomegaly. Extremities--no cyanosis or clubbing. No edema. Dermatologic--normal skin turgor, normal color, no abnormal lymph nodes, no rash. Neurologic--cranial nerves II through XII grossly intact. Rheumatologic--normal range of motion. Psychiatric--normal affect. Results & Data Results & Data Vital Signs (Past 12 Hours) Vital Signs Temp Pulse Resp BP Pulse Ox O2 Del Method O2 Flow Rate 06/07/22 22:29 98 H 06/07/22 20:13 89 24 204/110 H 97 Nasal Cannula 3 06/07/22 20:00 94 H 22 204/103 H 97 Nasal Cannula 3 06/07/22 19:59 98 H 25 H 193/105 H 96 Nasal Cannula 3 06/07/22 20:00 95 Nasal Cannula 5 06/07/22 19:41 98 H 20 210/117 H 93 Nasal Cannula 5 06/07/22 19:38 99 H 18 216/127 H 96 Nasal Cannula 5 06/07/22 19:00 98 H 22 214/125 H 94 Nasal Cannula 5 06/07/22 18:30 95 H 22 206/114 H 97 Nasal Cannula 5 06/07/22 18:09 116 H 20 95 Nasal Cannula 5 06/07/22 18:01 102 H 24 180/156 H 94 Room Air 06/07/22 17:57 36.9 C 105 H 20 203/113 H 95 Nasal Cannula 5 06/07/22 17:52 101 H Laboratory Results Laboratory Results WBC 9.25 K/ul (4.8-10.8) 06/07/22 18:06 RBC 4.68 M/uL (4.70-6.10) L 06/07/22 18:06 Hgb 14.1 g/dl (14.0-18.0) 06/07/22 18:06 Hct 42.7 % (42.0-52.0) 06/07/22 18:06 MCV 91.2 fL (80.0-100.0) 06/07/22 18:06 MCH 30.1 pg (25.0-34.0) 06/07/22 18:06 MCHC 33.0 g/dL (32.0-36.0) 06/07/22 18:06 RDW Std Deviation 44.6 fL (36.4-46.3) 06/07/22 18:06 RDW Coeff of Coco 13.4 % (11.5-14.5) 06/07/22 18:06 Plt Count 168 K/uL (130-400) 06/07/22 18:06 MPV 10.8 fL (9.4-12.4) 06/07/22 18:06 Immature Gran % (Auto) 0.3 % 06/07/22 18:06 Neut % (Auto) 64.0 % 06/07/22 18:06 Lymph % (Auto) 25.3 % 06/07/22 18:06 [place] % (Auto) 7.7 % 06/07/22 18:06 Eos % (Auto) 2.4 % 06/07/22 18:06 Baso % (Auto) 0.3 % 06/07/22 18:06 Neut # (Auto) 5.92 K/uL (1.40-6.50) 06/07/22 18:06 Lymph # (Auto) 2.34 K/uL (1.2-3.4) 06/07/22 18:06 [place] # (Auto) 0.71 K/uL (0.11-0.59) H 06/07/22 18:06 Eos # (Auto) 0.22 K/uL (0-0.50) 06/07/22 18:06 Baso # (Auto) 0.03 K/uL (0-0.2) 06/07/22 18:06 Immature Gran # (Auto) 0.03 K/uL (0.01-0.20) 06/07/22 18:06 Sodium 145 mmol/L (136-145) 06/07/22 19:00 Potassium 4.2 mmol/L (3.5-5.1) 06/07/22 19:00 Chloride 109 mmol/L (98-107) H 06/07/22 18:06 Carbon Dioxide 25 mmol/L (21-32) 06/07/22 18:06 Anion Gap TNP 06/07/22 18:06 BUN 28 mg/dl (6-23) H 06/07/22 18:06 Creatinine 1.08 mg/dl (0.6-1.4) 06/07/22 18:06 Est Cr Clr Drug Dosing 56.3 ml/min 06/07/22 18:06 Est GFR ( Amer) 76.9 ml/min 06/07/22 18:06 Est GFR (Non-Af Amer) 66.3 ml/min 06/07/22 18:06 BUN/Creatinine Ratio 25.9 (10-20) H 06/07/22 18:06 Glucose 81 mg/dl (70-99(Fasting)) 06/07/22 18:06 Lactate 1.7 mmol/L (0.4-2.0) 06/07/22 18:38 Calcium 9.3 mg/dl (8.6-10.3) 06/07/22 18:06 Total Bilirubin 0.6 mg/dl (0.2-1.0) 06/07/22 18:06 AST 18 U/L (13-39) 06/07/22 19:00 ALT 10 U/L (7-52) 06/07/22 18:06 Alkaline Phosphatase 77 U/L (34-104) 06/07/22 19:00 Troponin I High Sens 15.7 pg/ml (0-20) 06/07/22 18:06 Total Protein 7.5 gm/dl (6.0-8.3) 06/07/22 18:06 Albumin 3.8 gm/dl (3.4-5.0) 06/07/22 19:00 Globulin TNP 06/07/22 18:06 Albumin/Globulin Ratio TNP 06/07/22 18:06 Lipase 36 U/L (11-82) 06/07/22 18:06 Urine Color Yellow 06/07/22 20:25 Urine Appearance Cloudy (Clear) A 06/07/22 20:25 Urine pH 6.5 (4.5-7.5) 06/07/22 20:25 Ur Specific [place] 1.020 (1.000-1.030) 06/07/22 20:25 Urine Protein 1+ (Negative) H 06/07/22 20:25 Urine Glucose (UA) Negative (Negative) 06/07/22 20:25 Urine Ketones Negative (Negative) 06/07/22 20:25 Urine Blood 3+ (Negative) H 06/07/22 20:25 Urine Nitrite Negative (Negative) 06/07/22 20:25 Urine Bilirubin Negative (Negative) 06/07/22 20:25 Urine Urobilinogen Negative (Negative) 06/07/22 20:25 Ur Leukocyte Esterase Trace (Negative) H 06/07/22 20:25 Urine WBC (Auto) 10-30 /hpf (0-5) H 06/07/22 20:25 Urine RBC (Auto) >30 /hpf (0-4) H 06/07/22 20:25 U Hyaline Cast (Auto) 1-5 /lpf (0-5) 06/07/22 20:25 U Epithel Cells (Auto) 10-20 /lpf (0-5) H 06/07/22 20:25 Urine Bacteria (Auto) Negative (Negative) 06/07/22 20:25 Urine Crystals Not Reportable 06/07/22 20:25 Calcium Oxalate Crystal Present (None Prsent) A 06/07/22 20:25 SARS-CoV-2, RNA, NAAT NEGATIVE (NEGATIVE) 06/07/22 21:21 Impressions Abdomen/Pelvis CT 06/07/22 18:10 CT OF THE ABDOMEN AND PELVIS WITHOUT CONTRAST CLINICAL HISTORY: Abdominal pain. Evaluate for obstruction. COMPARISON STUDY: CT of the abdomen and pelvis June 03, 2022 and January 23, 2022. TECHNIQUE: Axial images of the abdomen and pelvis were obtained without IV contrast. Images were reviewed in the axial, sagittal, and coronal planes. Automated exposure control was utilized for the study. A dose lowering technique was utilized adhering to the principles of ALARA. FINDINGS: Small right and trace left pleural effusions are partially imaged on this exam. There are associated subpleural opacities which are shown on prior CT. Evaluation of the abdomen and pelvis is suboptimal on this unenhanced exam. There is no pneumatosis, free air or portal venous gas. Gallstones within the gallbladder are present. There is no evidence for acute cholecystitis. Spleen, adrenal glands, right kidney are unremarkable. There is a left renal cyst. There is no hydronephrosis. A moderate amount of poorly formed stool within the colon and rectum is present. Colonic diverticulosis is noted. No evidence for acute diverticulitis. There is no fluid collection. The prostate is enlarged and indents the bladder. A Haley balloon within the bladder is present. IMPRESSION: 1. No acute process within the abdomen or pelvis on unenhanced exam. 2. Moderate amount of poorly formed stool within the colon and rectum. No bowel obstruction. 3. Small right and trace left pleural effusions with subpleural opacities which could reflect consolidation or atelectasis. 4. Cholelithiasis. ACT 112: Negative or not required by law. Electronically signed by: Manish Almendarez M.D. 06/07/2022 8:11 PM Abdomen/Pelvis CTA 06/07/22 21:29 Exam(s): CTA ABDOMEN + PELVIS With Contrast IV Amt: 115ml Optiray 320 EXAM: CT Angiography Abdomen and Pelvis With Intravenous Contrast CLINICAL HISTORY: Reason for exam: post prandial pain. TECHNIQUE: Axial computed tomographic angiography images of the abdomen and pelvis with intravenous contrast. CTDI is 15.23 mGy and DLP is 846.88 mGy-cm. Automated exposure control was utilized for the study. A dose lowering technique was utilized adhering to the principles of ALARA. MIP reconstructed images were created and reviewed. CONTRAST: Patient received 115ml Optiray 320 of IV contrast COMPARISON: No relevant prior studies available. FINDINGS: VASCULATURE: Aorta: Atherosclerotic changes of the aorta a major branch vessels. No focal occlusion of the celiac axis or superior mesenteric artery. No abdominal aortic aneurysm. No dissection. Celiac trunk and mesenteric arteries: See above. Renal arteries: No acute findings. No occlusion or significant stenosis. Iliac arteries: No acute findings. No occlusion or significant stenosis. Lung bases: Airspace consolidations at the lung bases, correlate for aspiration pneumonia. Small right parapneumonic effusion. ABDOMEN: Liver: Unremarkable. No focal hepatic lesion. Gallbladder and bile ducts: Cholelithiasis. No ductal dilation. Pancreas: Unremarkable. No ductal dilation. No mass. Spleen: Unremarkable. No splenomegaly. Adrenals: Unremarkable. No mass. Kidneys and ureters: No hydronephrosis or delayed nephrogram. Large left lower pole renal cyst measures 7.7 x 7.7 cm. Stomach and bowel: Diverticulosis, without acute diverticulitis. No small bowel obstruction. No free intraperitoneal air. Small semisolid stool in the colon, correlate for diarrheal disease. PELVIS: Appendix: No findings to suggest acute appendicitis. Bladder: Haley catheter terminates in a decompressed urinary bladder, which demonstrates mild wall thickening. Correlate for UTI. Urinalysis recommended. Reproductive: Unremarkable as visualized. ABDOMEN and PELVIS: Intraperitoneal space: Unremarkable. No significant fluid collection. No free air. Bones/joints: Degenerative changes of the spine. No acute fracture. No dislocation. Soft tissues: Unremarkable. Lymph nodes: Unremarkable. No enlarged lymph nodes. IMPRESSION: 1. Atherosclerotic changes of the aorta a major branch vessels. No focal occlusion of the celiac axis or superior mesenteric artery. 2. Airspace consolidations at the lung bases, correlate for aspiration pneumonia. Small right parapneumonic effusion. 3. Haley catheter terminates in a decompressed urinary bladder, which demonstrates mild wall thickening. Correlate for UTI. Urinalysis recommended. 4. Diverticulosis, without acute diverticulitis. No small bowel obstruction. No free intraperitoneal air. 5. Cholelithiasis. 6. Small semisolid stool in the colon, correlate for diarrheal disease. Electronically signed by: Viraj Dalal MD 06/07/22 22:28 PM Code Status & VTE Plan Code Status Full code VTE Prophylaxis Plan VTE Prophylaxis will be ordered: Yes PG Care Time/CCT Total # of Minutes Spent Total Time Spent with Patient: Total time spent is greater than 50% in coordination of care (as documented) at patient's floor/unit and/or counseling patient: Coding Level of Care Code 74559 INT INP/OBS CARE 3/75MIN Diagnoses Dementia F03.90 Constipation K59.00 Abdominal distension R14.0 Benign localized prostatic hyperplasia with lower urinary tract symptoms (LUTS) N40.1 GERD (gastroesophageal reflux disease) K21.9 Abdominal pain R10.9 History of prostatitis Z87.438 Cholelithiasis K80.20 Weakness R53.1 Hypertension I10 Hypertension type: primary hypertension (10) Hypertension Hypertension type: primary hypertension Qualified Code(s): I10 - Essential (primary) hypertension
[2022-06-08] MEDS ORDERED: ONDANSETRON INJ 2 MG/ML 2 ML VIAL IV PRN (00:38)
[2022-06-08] MEDS: NSS + 20MEQ KCL 20 MEQ/1,000 ML BAG IV SCH ×2 (01:24→20:11)
[2022-06-08] MEDS: PIPERACILLIN/TAZOBACTAM 4.5 GM in DEXTROSE 5% 100 ML IV SCH ×3 (03:37→20:12)
[2022-06-08] MEDS ORDERED: ACETAMINOPHEN 500 MG TAB PO PRN (03:47)
[2022-06-08] MEDS ORDERED: hydrALAZINE HCL 20 MG/ML VIAL IV ONE ×2 (03:47→23:34)
--- NOTE | 2022-06-08 04:00 | Billing Data ---
Date of Service June 08, 2022 Coding Level of Care Code 89315 INT INP/OBS CARE
[2022-06-08 08:02] LABS: Basophils # (auto) 0.03 K/uL (0-0.2); Basophils % (auto) 0.3 %; Eosinophils # (auto) 0.25 K/uL (0-0.50); Eosinophils % (auto) 2.6 %; Hematocrit (blood only) 41.9 % (42.0-52.0); Hemoglobin 13.8 g/dl (14.0-18.0); Immature Granulocytes # (auto) 0.05 K/uL (0.01-0.20); Immature Granulocytes % (auto) 0.5 %; Lymphocytes # (auto) 1.58 K/uL (1.2-3.4); Lymphocytes % (auto) 16.3 %; Mean Corpuscular Hemoglobin 29.4 pg (25.0-34.0); Mean Corpuscular Hgb Conc 32.9 g/dL (32.0-36.0); Mean Corpuscular Volume 89.1 fL (80.0-100.0); Mean Platelet Volume 9.3 fL (9.4-12.4); Monocytes % (auto) 7.2 %; Neutrophils # (auto) 7.07 K/uL (1.40-6.50); Neutrophils % (auto) 73.1 %; Platelet Count 197 K/uL (130-400); RDW Coefficient of Variation 13.2 % (11.5-14.5); RDW Standard Deviation 43.3 fL (36.4-46.3); White Blood Count 9.68 K/ul (4.8-10.8)
--- NOTE | 2022-06-08 08:03 | XRay Report ---
XR chest 1V portable HISTORY: Pneumonia. COMPARISON: Chest 06/04/2022. FINDINGS: There are low lung volumes. No pneumothorax. Patchy bibasilar densities are again noted. Th ere is mild central pulmonary vascular congestion without overt edema. Is left-sided dual-chamber pac emaker. The heart remains mildly enlarged. IMPRESSION: 1. Mild pulmonary vascular congestion without overt edema. 2. Patchy bibasilar densities persist. ACT 112: Negative or not required by law. Electronically signed by: Claudy Tristan M.D. 06/08/2022 8:01 AM
[2022-06-08 08:20] LABS: Albumin Globulin Ratio 1.1 (0.9-2); Albumin Level 3.5 gm/dl (3.4-5.0); BUN Creatinine Ratio 19.8 (10-20); Calcium 8.7 mg/dl (8.6-10.3); Creatinine Clr Calc Pharmacy 63.3 ml/min; Est GFR (African American) 88.6 ml/min; Est GFR (Non-African American) 76.5 ml/min; Globulin 3.3 gm/dl (2.5-4.0); Potassium 3.7 mmol/L (3.5-5.1); Total Protein 6.8 gm/dl (6.0-8.3)
[2022-06-08] MEDS: busPIRone 5 MG TAB PO SCH ×3 (09:56→20:06)
[2022-06-08] MEDS: TAMSULOSIN HCL 0.4 MG CAP PO SCH (09:56)
--- NOTE | 2022-06-08 10:04 | Ultrasound Report ---
ABDOMINAL ULTRASOUND, RIGHT UPPER QUADRANT HISTORY: post prandial pain, Cholelithiasis. COMPARISON: Abdomen and pelvis CT 06/07/2022. FINDINGS: Pancreas: There is a stable 1.7 cm cyst within the body the pancreas. Liver: Unremarkable. Gallbladder: Cholelithiasis. No gallbladder wall thickening. Negative sonographic Ball sign. CBD: 4 mm. Right kidney: No hydronephrosis. A few right renal cyst measuring up to 1.2 cm. IMPRESSION: 1. Cholelithiasis. No gallbladder wall thickening. 2. Right renal cyst. 3. A 1.7 cm cyst within the body of pancreas. One year follow-up recommended to ensure stability. ACT 112: Positive. There are findings on this exam that require communication between the performing entity and the patient following Patient Test Result Information Act ([place] Act 112) guidelines. Electronically signed by: Claudy Tristan M.D. 06/08/2022 10:02 AM
[2022-06-08] MEDS ORDERED: SINCALIDE 1.5 MCG in 0.9 % SODIUM CHLORIDE 100 ML IV ONE (12:00)
--- NOTE | 2022-06-08 13:04 | Nuclear Medicine Report ---
NUCLEAR MEDICINE HEPATOBILIARY SCAN WITH EJECTION FRACTION HISTORY: Cholelithiasis abdominal pain COMPARISON: Abdominal ultrasound 06/08/2022. TECHNIQUE: Immediately following the intravenous administration of 5.0 mCi Tc-99m Choletec, dynamic a nterior abdominal imaging pre/post 1.5 mcg of Kinevac was performed. FINDINGS: Uniform hepatic tracer accumulation is shown. Prompt intrahepatic biliary excretion is seen. The gall bladder, common bile duct, and small bowel are all visualized by 20 minutes. This appearance represen ts the normal sequence of biliary excretion. The gall bladder ejection fraction following administration of Kinevac was 82% (normal >35%). IMPRESSION: 1. No evidence for cystic duct obstruction. 2. Gallbladder ejection fraction calculated to be 82 %. ACT 112: Negative or not required by law. Electronically signed by: Claudy Tristan M.D. 06/08/2022 1:03 PM
[2022-06-08] MEDS: METOPROLOL TARTRATE 1 MG/ML VIAL IV PRN ×2 (16:36→20:03)
--- NOTE | 2022-06-08 19:41 | Hospitalist Progress Note ---
Date of Service June 08, 2022 Assessment & Plan (1) Abdominal distension: Plan: severe on exam this afternoon. having diarrhea, and CT a/p yesterday pm showed a large amount of "poorly formed stool" in the colon. suspect he has an intestinal infectious illness. checked c. diff given recent abx usage - negative. thus, send stool BioFire and treat appropriately. supportive care in meantime, IV fluids, and clears. he could have an element of ileus but this is considered much less likely. (2) Abdominal pain: Plan: was having abdominal pains over the last few days. LFTs, lipase all wnl. u/a and urine cx negative. CT a/p with gallstones and large amount of stool in colon but otherwise no acute findings. HIDA scan neg. RUQ u/s with gallstones but no findings to suggest acute cholecystitis. patient having fever and diarrhea. clinical picture suggestive of intestinal infectious process. c diff negative; thus, send stool BioFire. if BioFire is negative and fevers/diarrhea persist consider repeat COVID testing as some patients present with prominent GI symptoms from their COVID. (3) Dementia: Plan: advanced. now residing at [facility]. Cont HS seroquel. avoid benzos/sedatives if possible. (4) Benign localized prostatic hyperplasia with lower urinary tract symptoms (LUTS): Plan: cont flomax perdomo is in place need to check if this is chronic at the SNF (5) GERD (gastroesophageal reflux disease): Plan: add pepcid 20mg IV BID (6) History of prostatitis: Plan: noted was apparently treated for such recently at the SNF (7) Cholelithiasis: Plan: although CT and RUQ u/s show gallstones there are no features to suggest acute cholecystitis HIDA scan is negative as well his clinical picture is more c/w diarrheal illness rather than biliary tract disease LFTs and lipase wnl (8) Weakness: Plan: 2nd to suspected b/l basilar pneumonia and now GI tract illness will need PT/OT while here (9) Hypertension: Plan: resume metoprolol 100mg BID resume lisinopril - start with 10mg BID cont flomax daily (10) Pneumonia: Plan: 06/04 - dx with b/l basilar pneumonia given rocephin/zithromax here, then sent back to [facility] on augmentin/zithromax if he has ongoing pneumonia it is quite mild pulmonary exam is wnl, and o2 sats are wnl he is not coughing he was placed on zosyn yesterday pm will continue this cautiously while awaiting blood cx's, etc Plan DVT proph - add heparin SC extensively updated at bedside Admission and Anticipated Discharge Date Admission Date: June 07, 2022 Subjective patient with severe dementia - only able to say single words, occasionally a couple of words (Thank you, etc) no agitation during the visit at bedside per nursing he had a large, liquid stool this afternoon he was able to tolerate clear liquids for dinner this evening reports that several days ago and even yesterday he would attempt to eat and would hold his abdomen as if in pain seemed to be the lower abdomen that he would clutch has not heard him cough at all while she has been here today tele overnight - paced Review of Systems Review of Systems: Unobtainable due to cognitive status Physical Exam Physical Exam: gen - NAD, pleasant/smiles, no agitation, significant difficulty communicating due to dementia mouth - MM slightly dry neck - no JVD heart - tachy, s1 s2, no murmur lungs - scant rales bases, otherwise CTA b/l, no increased work of breathing abd - MARKED abdominal distension, tympanic to percussion, BS+ (high pitched), no obvious tenderness or rebound or peritoneal signs ext - no edema, pulses 2+ b/l psych - oriented x 0 Results & Data Results & Data Vital Signs (Past 12 Hours) Vital Signs Temp Pulse Pulse Resp BP BP Pulse Ox 06/08/22 07:45 06/08/22 16:36 99 H 190/140 H 06/08/22 16:27 37.1 C 99 H 24 190/104 H 95 06/08/22 15:40 92 H 06/08/22 08:28 36.9 C 87 20 167/94 H 93 06/08/22 08:03 85 O2 Del Method O2 Flow Rate 06/08/22 07:45 Room Air 06/08/22 16:36 06/08/22 16:27 Room Air 06/08/22 15:40 06/08/22 08:28 Nasal Cannula 2.0 06/08/22 08:03 Laboratory Results Laboratory Results - last 24 hr 06/07/22 06/07/22 06/08/22 20:25 21:21 04:11 WBC RBC Hgb Hct MCV MCH MCHC RDW Std Deviation RDW Coeff of Coco Plt Count MPV Immature Gran % (Auto) Neut % (Auto) Lymph % (Auto) [place] % (Auto) Eos % (Auto) Baso % (Auto) Neut # (Auto) Lymph # (Auto) [place] # (Auto) Eos # (Auto) Baso # (Auto) Immature Gran # (Auto) Sodium Potassium Chloride Carbon Dioxide Anion Gap BUN Creatinine Est Cr Clr Drug Dosing Est GFR ( Amer) Est GFR (Non-Af Amer) BUN/Creatinine Ratio Glucose Calcium Magnesium Total Bilirubin AST ALT Alkaline Phosphatase Total Protein Albumin Globulin Albumin/Globulin Ratio Urine Color Yellow Urine Appearance Cloudy A Urine pH 6.5 Ur Specific [place] 1.020 Urine Protein 1+ H Urine Glucose (UA) Negative Urine Ketones Negative Urine Blood 3+ H Urine Nitrite Negative Urine Bilirubin Negative Urine Urobilinogen Negative Ur Leukocyte Esterase Trace H Urine WBC (Auto) 10-30 H Urine RBC (Auto) >30 H U Hyaline Cast (Auto) 1-5 U Epithel Cells (Auto) 10-20 H Urine Bacteria (Auto) Negative Urine Crystals Not Reportable Calcium Oxalate Crystal Present A Nasal Screen MRSA (PCR) Negative Stl C. cayetanensis PCR Stool Rotavirus A PCR Stl Adenov F 40/41 PCR Stool Astrovirus (PCR) Stool Campylobacter PCR Stl C. diff Tox B Gene Stool Cryptosporidium PCR Stl E.coli Shiga Tox PCR Stl Enterotoxigenic E PCR Stool EAEC (PCR) Stl E. histolytica PCR Stool Giardia Lamblia PCR Stool Salmonella PCR Stool Sapovirus (PCR) Stl P. shigelloides PCR Stl Shigella/EIEC PCR St Y.enterocolitica PCR Stool Vibrio (PCR) Stl Vibrio cholerae PCR Stl Norovirus GI/GII PCR SARS-CoV-2, RNA, NAAT NEGATIVE 06/08/22 06/08/22 06/08/22 07:09 07:09 17:18 WBC 9.68 RBC 4.70 Hgb 13.8 L Hct 41.9 L MCV 89.1 MCH 29.4 MCHC 32.9 RDW Std Deviation 43.3 RDW Coeff of Coco 13.2 Plt Count 197 MPV 9.3 L Immature Gran % (Auto) 0.5 Neut % (Auto) 73.1 Lymph % (Auto) 16.3 [place] % (Auto) 7.2 Eos % (Auto) 2.6 Baso % (Auto) 0.3 Neut # (Auto) 7.07 H Lymph # (Auto) 1.58 [place] # (Auto) 0.70 H Eos # (Auto) 0.25 Baso # (Auto) 0.03 Immature Gran # (Auto) 0.05 Sodium 139 Potassium 3.7 Chloride 107 Carbon Dioxide 24 Anion Gap 8 BUN 19 Creatinine 0.96 Est Cr Clr Drug Dosing 63.3 Est GFR ( Amer) 88.6 Est GFR (Non-Af Amer) 76.5 BUN/Creatinine Ratio 19.8 Glucose 101 H Calcium 8.7 Magnesium 2.0 Total Bilirubin 1.0 AST 18 ALT 9 Alkaline Phosphatase 73 Total Protein 6.8 Albumin 3.5 Globulin 3.3 Albumin/Globulin Ratio 1.1 Urine Color Urine Appearance Urine pH Ur Specific [place] Urine Protein Urine Glucose (UA) Urine Ketones Urine Blood Urine Nitrite Urine Bilirubin Urine Urobilinogen Ur Leukocyte Esterase Urine WBC (Auto) Urine RBC (Auto) U Hyaline Cast (Auto) U Epithel Cells (Auto) Urine Bacteria (Auto) Urine Crystals Calcium Oxalate Crystal Nasal Screen MRSA (PCR) Stl C. cayetanensis PCR Stool Rotavirus A PCR Stl Adenov F 40/41 PCR Stool Astrovirus (PCR) Stool Campylobacter PCR Stl C. diff Tox B Gene Negative Cdiff Gene Stool Cryptosporidium PCR Stl E.coli Shiga Tox PCR Stl Enterotoxigenic E PCR Stool EAEC (PCR) Stl E. histolytica PCR Stool Giardia Lamblia PCR Stool Salmonella PCR Stool Sapovirus (PCR) Stl P. shigelloides PCR Stl Shigella/EIEC PCR St Y.enterocolitica PCR Stool Vibrio (PCR) Stl Vibrio cholerae PCR Stl Norovirus GI/GII PCR SARS-CoV-2, RNA, NAAT Diagnostic Findings Gallbladder Ultrasound 06/08/22 00:00 ABDOMINAL ULTRASOUND, RIGHT UPPER QUADRANT HISTORY: post prandial pain, Cholelithiasis. COMPARISON: Abdomen and pelvis CT 06/07/2022. FINDINGS: Pancreas: There is a stable 1.7 cm cyst within the body the pancreas. Liver: Unremarkable. Gallbladder: Cholelithiasis. No gallbladder wall thickening. Negative sonographic Ball sign. CBD: 4 mm. Right kidney: No hydronephrosis. A few right renal cyst measuring up to 1.2 cm. IMPRESSION: 1. Cholelithiasis. No gallbladder wall thickening. 2. Right renal cyst. 3. A 1.7 cm cyst within the body of pancreas. One year follow-up recommended to ensure stability. ACT 112: Positive. There are findings on this exam that require communication between the performing entity and the patient following Patient Test Result Information Act ([place] Act 112) guidelines. Electronically signed by: Claudy Tristan M.D. 06/08/2022 10:02 AM Hepatobiliary Scan Nuclear Medicine 06/08/22 03:51 NUCLEAR MEDICINE HEPATOBILIARY SCAN WITH EJECTION FRACTION HISTORY: Cholelithiasis abdominal pain COMPARISON: Abdominal ultrasound 06/08/2022. TECHNIQUE: Immediately following the intravenous administration of 5.0 mCi Tc- 99m Choletec, dynamic anterior abdominal imaging pre/post 1.5 mcg of Kinevac was performed. FINDINGS: Uniform hepatic tracer accumulation is shown. Prompt intrahepatic biliary excretion is seen. The gallbladder, common bile duct, and small bowel are all visualized by 20 minutes. This appearance represents the normal sequence of biliary excretion. The gall bladder ejection fraction following administration of Kinevac was 82% (normal >35%). IMPRESSION: 1. No evidence for cystic duct obstruction. 2. Gallbladder ejection fraction calculated to be 82 %. ACT 112: Negative or not required by law. Electronically signed by: Claudy Tristan M.D. 06/08/2022 1:03 PM PG Care Time/CCT Total # of Minutes Spent Total Time Spent with Patient: Total time spent is greater than 50% in coordination of care (as documented) at patient's floor/unit and/or counseling patient: Coding Level of Care Code 59180 SUB INP/OBS CARE 3/50MIN Diagnoses Abdominal distension R14.0 Abdominal pain R10.9 Dementia F03.90 Benign localized prostatic hyperplasia with lower urinary tract symptoms (LUTS) N40.1 GERD (gastroesophageal reflux disease) K21.9 History of prostatitis Z87.438 Cholelithiasis K80.20 Weakness R53.1 Hypertension I10 Hypertension type: primary hypertension Pneumonia J18.9 Laterality: bilateral Lung location: lower lobe of lung Pneumonia type: due to unspecified organism (9) Hypertension Hypertension type: primary hypertension Qualified Code(s): I10 - Essential (primary) hypertension (10) Pneumonia Laterality: bilateral Lung location: lower lobe of lung Pneumonia type: due to unspecified organism Qualified Code(s): J18.9 - Pneumonia, unspecified organism
[2022-06-08] MEDS: METOPROLOL TARTRATE 100 MG TAB PO SCH (20:06)
[2022-06-08] MEDS: lisinopril 10 MG TAB PO SCH (20:06)
[2022-06-08] MEDS: QUEtiapine FUMARATE 25 MG TABLET PO SCH (20:06)
[2022-06-08 21:18] LABS: Adenovirus F 40/41 PCR Not Detected (NotDetected); Astrovirus PCR Not Detected (NotDetected); Campylobacter PCR Not Detected (NotDetected); Cryptosporidium PCR Not Detected (NotDetected); Cyclospora cayetanensis PCR Not Detected (NotDetected); Entamoeba histolytica PCR Not Detected (NotDetected); Enteroaggregative E.coli(EAEC) Not Detected (NotDetected); Enteropathogenic E.coli (EPEC) Not Detected (NotDetected); Enterotoxigenic E.coli (ETEC) Not Detected (NotDetected); Giardia lamblia PCR Not Detected (NotDetected); Norovirus GI/GII PCR Not Detected (NotDetected); Plesiomonas shigelloides PCR Not Detected (NotDetected); Rotavirus A PCR Not Detected (NotDetected); Salmonella PCR Not Detected (NotDetected); Sapovirus PCR Not Detected (NotDetected); Shiga-like Toxin E.coli (STEC) Not Detected (NotDetected); Shigella/Enteroinvasive E.coli Not Detected (NotDetected); Vibrio cholerae PCR Not Detected (NotDetected); Vibrio species PCR Not Detected (NotDetected); Yersinia enterocolitica PCR Not Detected (NotDetected)
[2022-06-08] MEDS ORDERED: PIPERACILLIN/TAZOBACTAM 4.5 GM/120 ML BAG IV ONE (21:31)
[2022-06-08] MEDS: FAMOTIDINE 20 MG in SYRINGE 3 ML IV SCH (21:58)
--- NOTE | 2022-06-08 22:46 | Electrocardiogram Report ---
Test Reason : Blood Pressure : / mmHG Vent. Rate : 101 BPM Atrial Rate : 101 BPM P-R Int : 168 ms QRS Dur : 160 ms QT Int : 404 ms P-R-T Axes : 050 -86 081 degrees QTc Int : 523 ms Poor data quality, interpretation may be adversely affected Atrial-sensed ventricular-paced rhythm Abnormal ECG When compared with ECG of 03-JUN-2022 22:14, Vent. rate has increased BY 22 BPM Confirmed by Erickson Chadwick ([id number]) on 06/08/2022 10:45:51 PM Referred By: REFERRED SELF Confirmed By:Erickson Chadwick
[2022-06-08] MEDS: HEPARIN SOD 5,000 UNIT/0.5 ML VIAL SQ SCH (22:55)
[2022-06-09] MEDS: METOPROLOL TARTRATE 1 MG/ML VIAL IV PRN ×2 (03:46→12:35)
[2022-06-09] MEDS: PIPERACILLIN/TAZOBACTAM 4.5 GM in DEXTROSE 5% 100 ML IV SCH ×3 (03:47→19:56)
[2022-06-09] MEDS: HEPARIN SOD 5,000 UNIT/0.5 ML VIAL SQ SCH ×2 (06:10→12:36)
[2022-06-09 07:06] LABS: Albumin Globulin Ratio 1.1 (0.9-2); Albumin Level 3.6 gm/dl (3.4-5.0); BUN Creatinine Ratio 14.6 (10-20); Bilirubin,Total 1.3 mg/dl (0.2-1.0); Calcium 8.7 mg/dl (8.6-10.3); Creatinine Clr Calc Pharmacy 63.3 ml/min; Est GFR (African American) 88.6 ml/min; Est GFR (Non-African American) 76.5 ml/min; Globulin 3.4 gm/dl (2.5-4.0); Potassium 3.9 mmol/L (3.5-5.1)
--- NOTE | 2022-06-09 07:28 | XRay Report ---
XR chest 1V portable HISTORY: b/l basilar pneumonia, interval change COMPARISON: Chest 06/07/2022. FINDINGS: No pneumothorax. There are low lung volumes. There is a left-sided dual-chamber pacemaker. The heart remains enlarged. The left basilar airspace opacities have improved. A trace right pleural effusion and right basilar airspace opacities persist. No evidence for pulmonary edema. IMPRESSION: 1. No change in the trace right pleural effusion and right basilar airspace opacities. 2. Left basilar airspace opacities have improved. ACT 112: Negative or not required by law. Electronically signed by: Claudy Tristan M.D. 06/09/2022 7:27 AM
[2022-06-09] MEDS: lisinopril 10 MG TAB PO SCH ×2 (08:59→20:01)
[2022-06-09] MEDS: busPIRone 5 MG TAB PO SCH ×3 (08:59→20:01)
[2022-06-09] MEDS: TAMSULOSIN HCL 0.4 MG CAP PO SCH (08:59)
[2022-06-09] MEDS: METOPROLOL TARTRATE 100 MG TAB PO SCH ×2 (08:59→20:01)
[2022-06-09] MEDS: FAMOTIDINE 20 MG in SYRINGE 3 ML IV SCH ×2 (09:07→19:56)
[2022-06-09] MEDS: NSS + 20MEQ KCL 20 MEQ/1,000 ML BAG IV SCH (11:25)
[2022-06-09] MEDS ORDERED: amLODIPine BESYLATE 5 MG TAB PO ONE (15:45)
--- NOTE | 2022-06-09 18:57 | Ultrasound Report ---
BILATERAL LOWER EXTREMITY VENOUS DOPPLER CLINICAL HISTORY: edema, previous COVID infection, poor mobility COMPARISON STUDY: No previous studies for comparison. TECHNIQUE: Sonography of the deep venous system of the bilateral lower extremities was performed. Co mpression and augmentation were evaluated. FINDINGS: There is no deep venous thrombus within the right lower extremity. Note is made of deep ve nous thrombus within the left superficial femoral and posterior tibial veins. The bilateral calf vein s were difficult to assess given difficulty positioning. IMPRESSION: Positive study for deep venous thrombus within the left superficial femoral and posterior tibial veins. ACT 112: Negative or not required by law. Electronically signed by: Manish Almendarez M.D. 06/09/2022 6:56 PM
[2022-06-09] MEDS ORDERED: Heparin IV Adult Wt-Based Standard WITH Bolus Protocol IV STA (19:26)
--- NOTE | 2022-06-09 19:28 | Hospitalist Progress Note ---
Date of Service June 09, 2022 Assessment & Plan (1) Left leg DVT: Plan: Doppler + for LLE DVT. Pt's noted sometime recently that the left leg looked a little larger than the RLE; some very mild edema also had been present. Start heparin infusion - standard dosing w/ bolus. Patient has had "quiet tachypnea" while here - could consider CTA chest to r/o PE. Risk factors - COVID infection 01/2022; prolonged immobility during that stay (although was on appropriate DVT proph with lovenox per records); SNF residence; etc. (2) Abdominal distension: Plan: ongoing. cdiff negative. stool BioFire completely negative. COVID testing negative. abx-associated diarrhea? ileus? combination? keep on clears and IVF. reassess with xrays in am. (3) Abdominal pain: Plan: was having abdominal pains over the last few days prior to admission. LFTs, lipase all wnl. u/a and urine cx negative. CT a/p with gallstones and large amount of stool in colon but otherwise no acute findings. c diff neg. stool biofire neg. HIDA scan neg. RUQ u/s with gallstones but no findings to suggest acute cholecystitis. pain has resolved. continues with marked abdominal distension and loose stools. have to imagine that the distension/stool issue was the cause of his pain. (4) Dementia: Plan: advanced. now residing at [facility]. Cont HS seroquel. avoid benzos/sedatives if possible. (5) Benign localized prostatic hyperplasia with lower urinary tract symptoms (LUTS): Plan: cont flomax perdomo is in place perdomo is chronic; has failed past voiding trials (6) GERD (gastroesophageal reflux disease): Plan: cont pepcid 20mg IV BID (7) History of prostatitis: Plan: noted was apparently treated for such recently at the SNF (8) Cholelithiasis: Plan: although CT and RUQ u/s show gallstones there are no features to suggest acute cholecystitis HIDA scan is negative as well LFTs and lipase wnl although t.bili scantly elevated today will simply repeat LFTs in am (9) Weakness: Plan: 2nd to suspected b/l basilar pneumonia and now GI issues will need PT/OT while here (10) Hypertension: Plan: cont metoprolol 100mg BID cont lisinopril 10mg BID cont flomax daily add amlodipine 5mg daily (11) Pneumonia: Plan: 06/04 - dx with b/l basilar pneumonia given rocephin/zithromax here, then sent back to [facility] on augmentin/zithromax if he has ongoing pneumonia it is quite mild pulmonary exam is wnl, and o2 sats are wnl he is not coughing he is having intermittent tachypnea, however cxr today with L basilar infiltrates improved but cont with mild RLL infiltrates either way cont zosyn for now blood cx's remain negative Plan DVT proph - stop heparin SC now on heparin infusion extensively updated at bedside Admission and Anticipated Discharge Date Admission Date: June 07, 2022 Subjective tele stable overnight paced he was smiling, clapping his hands, very interactive/talkative today unable to understand, however, much of his speech (word salad) tolerating clears without N/V or abd pain 2 stools today - large, soft at bedside she mentions that for several weeks his left leg has been slightly swollen and larger than right leg Review of Systems Review of Systems: Unobtainable due to cognitive status Physical Exam Physical Exam: gen - NAD, pleasant/smiles, no agitation, word salad/significant difficulty communicating due to dementia mouth - MMM today neck - no JVD heart - RRR, s1 s2, no murmur lungs - scant rales right base, otherwise CTA b/l, no increased work of breathing but mild tachypnea noted abd - MARKED abdominal distension - maybe scantly better today; tympanic to percussion, BS+, no obvious tenderness or rebound or peritoneal signs ext - no edema, pulses 2+ b/l psych - oriented to person (inconsistently) Results & Data Results & Data Vital Signs (Past 12 Hours) Vital Signs Temp Pulse Pulse Resp BP BP BP 06/09/22 15:38 37.2 C 88 24 180/104 H 06/09/22 11:55 37.1 C 88 20 171/116 H 06/09/22 12:35 88 171/116 H 06/09/22 09:00 84 06/09/22 09:00 06/09/22 08:05 36.5 C 87 22 169/105 H Pulse Ox O2 Del Method 06/09/22 15:38 96 Room Air 06/09/22 11:55 95 Room Air 06/09/22 12:35 06/09/22 09:00 06/09/22 09:00 Room Air 06/09/22 08:05 94 Room Air Laboratory Results Laboratory Results - last 48 hr 06/08/22 06/08/22 06/08/22 07:09 07:09 17:18 WBC 9.68 RBC 4.70 Hgb 13.8 L Hct 41.9 L MCV 89.1 MCH 29.4 MCHC 32.9 RDW Std Deviation 43.3 RDW Coeff of Coco 13.2 Plt Count 197 MPV 9.3 L Immature Gran % (Auto) 0.5 Neut % (Auto) 73.1 Lymph % (Auto) 16.3 [place] % (Auto) 7.2 Eos % (Auto) 2.6 Baso % (Auto) 0.3 Neut # (Auto) 7.07 H Lymph # (Auto) 1.58 [place] # (Auto) 0.70 H Eos # (Auto) 0.25 Baso # (Auto) 0.03 Immature Gran # (Auto) 0.05 PT INR APTT PTT Ratio Sodium 139 Potassium 3.7 Chloride 107 Carbon Dioxide 24 Anion Gap 8 BUN 19 Creatinine 0.96 Est Cr Clr Drug Dosing 63.3 Est GFR ( Amer) 88.6 Est GFR (Non-Af Amer) 76.5 BUN/Creatinine Ratio 19.8 Glucose 101 H Calcium 8.7 Magnesium 2.0 Total Bilirubin 1.0 AST 18 ALT 9 Alkaline Phosphatase 73 Total Protein 6.8 Albumin 3.5 Globulin 3.3 Albumin/Globulin Ratio 1.1 Stl C. cayetanensis PCR Stool Rotavirus A PCR Stl Adenov F 40/41 PCR Stool Astrovirus (PCR) Stool Campylobacter PCR Stl C. diff Tox B Gene Negative Cdiff Gene Stool Cryptosporidium PCR Stl E.coli Shiga Tox PCR Stl Enterotoxigenic E PCR Stool EPEC (PCR) Stool EAEC (PCR) Stl E. histolytica PCR Stool Giardia Lamblia PCR Stool Salmonella PCR Stool Sapovirus (PCR) Stl P. shigelloides PCR Stl Shigella/EIEC PCR St Y.enterocolitica PCR Stool Vibrio (PCR) Stl Vibrio cholerae PCR Stl Norovirus GI/GII PCR 06/08/22 06/09/22 06/09/22 17:18 06:17 19:56 WBC RBC Hgb Hct MCV MCH MCHC RDW Std Deviation RDW Coeff of Coco Plt Count MPV Immature Gran % (Auto) Neut % (Auto) Lymph % (Auto) [place] % (Auto) Eos % (Auto) Baso % (Auto) Neut # (Auto) Lymph # (Auto) [place] # (Auto) Eos # (Auto) Baso # (Auto) Immature Gran # (Auto) PT 11.9 INR 1.1 APTT 30.8 PTT Ratio 1.1 Sodium 139 Potassium 3.9 Chloride 109 H Carbon Dioxide 21 Anion Gap 9 BUN 14 Creatinine 0.96 Est Cr Clr Drug Dosing 63.3 Est GFR ( Amer) 88.6 Est GFR (Non-Af Amer) 76.5 BUN/Creatinine Ratio 14.6 Glucose 93 Calcium 8.7 Magnesium Total Bilirubin 1.3 H AST 15 ALT 8 Alkaline Phosphatase 73 Total Protein 7.0 Albumin 3.6 Globulin 3.4 Albumin/Globulin Ratio 1.1 Stl C. cayetanensis PCR Not Detected Stool Rotavirus A PCR Not Detected Stl Adenov F 40/41 PCR Not Detected Stool Astrovirus (PCR) Not Detected Stool Campylobacter PCR Not Detected Stl C. diff Tox B Gene Stool Cryptosporidium PCR Not Detected Stl E.coli Shiga Tox PCR Not Detected Stl Enterotoxigenic E PCR Not Detected Stool EPEC (PCR) Not Detected Stool EAEC (PCR) Not Detected Stl E. histolytica PCR Not Detected Stool Giardia Lamblia PCR Not Detected Stool Salmonella PCR Not Detected Stool Sapovirus (PCR) Not Detected Stl P. shigelloides PCR Not Detected Stl Shigella/EIEC PCR Not Detected St Y.enterocolitica PCR Not Detected Stool Vibrio (PCR) Not Detected Stl Vibrio cholerae PCR Not Detected Stl Norovirus GI/GII PCR Not Detected Diagnostic Findings Chest X-Ray 06/09/22 08:00 XR chest 1V portable HISTORY: b/l basilar pneumonia, interval change COMPARISON: Chest 06/07/2022. FINDINGS: No pneumothorax. There are low lung volumes. There is a left-sided dual-chamber pacemaker. The heart remains enlarged. The left basilar airspace opacities have improved. A trace right pleural effusion and right basilar airspace opacities persist. No evidence for pulmonary edema. IMPRESSION: 1. No change in the trace right pleural effusion and right basilar airspace opacities. 2. Left basilar airspace opacities have improved. ACT 112: Negative or not required by law. Electronically signed by: Claudy Tristan M.D. 06/09/2022 7:27 AM Venous Doppler Study 06/09/22 17:40 BILATERAL LOWER EXTREMITY VENOUS DOPPLER CLINICAL HISTORY: edema, previous COVID infection, poor mobility COMPARISON STUDY: No previous studies for comparison. TECHNIQUE: Sonography of the deep venous system of the bilateral lower extremities was performed. Compression and augmentation were evaluated. FINDINGS: There is no deep venous thrombus within the right lower extremity. Note is made of deep venous thrombus within the left superficial femoral and posterior tibial veins. The bilateral calf veins were difficult to assess given difficulty positioning. IMPRESSION: Positive study for deep venous thrombus within the left superficial femoral and posterior tibial veins. ACT 112: Negative or not required by law. Electronically signed by: Manish Almendarez M.D. 06/09/2022 6:56 PM PG Care Time/CCT Total # of Minutes Spent Total Time Spent with Patient: Total time spent is greater than 50% in coordination of care (as documented) at patient's floor/unit and/or counseling patient: Coding Level of Care Code 46043 SUB INP/OBS CARE 3/50MIN Diagnoses Left leg DVT I82.402 Abdominal distension R14.0 Abdominal pain R10.9 Dementia F03.90 Benign localized prostatic hyperplasia with lower urinary tract symptoms (LUTS) N40.1 GERD (gastroesophageal reflux disease) K21.9 History of prostatitis Z87.438 Cholelithiasis K80.20 Weakness R53.1 Hypertension I10 Hypertension type: primary hypertension Pneumonia J18.9 Laterality: bilateral Lung location: lower lobe of lung Pneumonia type: due to unspecified organism (10) Hypertension Hypertension type: primary hypertension Qualified Code(s): I10 - Essential (primary) hypertension (11) Pneumonia Laterality: bilateral Lung location: lower lobe of lung Pneumonia type: due to unspecified organism Qualified Code(s): J18.9 - Pneumonia, unspecified organism
[2022-06-09] MEDS ORDERED: HEPARIN SOD (PORCINE) 1000 UNIT/ML IV ONE (19:41)
[2022-06-09] MEDS: QUEtiapine FUMARATE 25 MG TABLET PO SCH (20:00)
[2022-06-09 21:12] LABS: INR 1.1 (0.9-1.1); Partial Thromboplastin Ratio 1.1; Partial Thromboplastin Time 30.8 Seconds (21.0-31.0); Prothrombin Time 11.9 Seconds (9.0-12.0)
[2022-06-09] MEDS: HEPARIN SODIUM/DEXTROSE 25,000 UNITS/500 ML BAG IV SCH (21:25)
[2022-06-10] MEDS: METOPROLOL TARTRATE 1 MG/ML VIAL IV PRN (03:15)
[2022-06-10 03:43] LABS: Albumin Level 3.5 gm/dl (3.4-5.0); BUN Creatinine Ratio 13.6 (10-20); Bilirubin,Total 0.9 mg/dl (0.2-1.0); Calcium 8.6 mg/dl (8.6-10.3); Creatinine Clr Calc Pharmacy 55.3 ml/min; Est GFR (African American) 75.2 ml/min; Est GFR (Non-African American) 64.9 ml/min; Globulin 3.5 gm/dl (2.5-4.0)
[2022-06-10] MEDS: PIPERACILLIN/TAZOBACTAM 4.5 GM in DEXTROSE 5% 100 ML IV SCH ×3 (04:06→19:44)
[2022-06-10] MEDS: NSS + 20MEQ KCL 20 MEQ/1,000 ML BAG IV SCH ×2 (04:07→22:09)
[2022-06-10 04:53] LABS: Partial Thromboplastin Ratio > 4.9
[2022-06-10 05:06] LABS: Partial Thromboplastin Time > 139.0 Seconds (21.0-31.0)
[2022-06-10] MEDS: TAMSULOSIN HCL 0.4 MG CAP PO SCH (07:57)
[2022-06-10] MEDS: busPIRone 5 MG TAB PO SCH ×4 (07:57→20:03)
[2022-06-10] MEDS: METOPROLOL TARTRATE 100 MG TAB PO SCH ×3 (07:57→20:03)
[2022-06-10] MEDS: lisinopril 10 MG TAB PO SCH ×3 (07:57→20:03)
[2022-06-10 08:19] LABS: Partial Thromboplastin Ratio 2.2
[2022-06-10 08:24] LABS: Partial Thromboplastin Time 60.9 Seconds (21.0-31.0)
[2022-06-10] MEDS: amLODIPine BESYLATE 5 MG TAB PO SCH (08:24)
[2022-06-10] MEDS: FAMOTIDINE 20 MG in SYRINGE 3 ML IV SCH ×2 (08:46→20:00)
--- NOTE | 2022-06-10 08:58 | XRay Report ---
ABDOMEN 2 VIEWS CLINICAL HISTORY: Abdominal distention. FINDINGS: Supine and erect abdominal radiographs are correlated with abdominal CT dated 06/07/2022. Th ere is a nonobstructive abdominal bowel gas pattern. There is mild gaseous distention of the colon. N o evidence of intraperitoneal free air is seen. There is no radiographic evidence of nephrolithiasis. Phleboliths are seen in the pelvis. The heart is enlarged and a cardiac pacemaker is in place. A rig ht pleural effusion is noted. The skeletal structures are osteopenic and appear intact. IMPRESSION: 1. There is gaseous distention of the colon with no radiographic evidence of bowel obstruction. 2. No intraperitoneal free air is seen. 3. Right pleural effusion. Electronically signed by: Arsalan Valverde M.D. 06/10/2022 8:56 AM
--- NOTE | 2022-06-10 15:30 | Hospitalist Progress Note ---
Date of Service June 10, 2022 Assessment & Plan (1) Left leg DVT: Plan: Doppler + for LLE DVT (left superficial femoral and posterior tibial veins). Pt's noted sometime recently that the left leg looked a little larger than the RLE; some very mild edema also had been present. Cont heparin infusion. Patient has had "quiet tachypnea" while hospitalized. Likely due to #2 below. See #2 beow. Risk factors for VTE - COVID infection 01/2022; prolonged immobility during that stay (although was on appropriate DVT proph with lovenox per records); SNF residence; etc. (2) Pulmonary emboli: Plan: I corresponded with radiology today. Prior CTA a/p was re-reviewed; there appears to be b/l basilar PEs. This would explain some of his tachypnea. Perhaps even explains some of the upper abdominal discomfort he was having recently. Will obtain dedicated CTA chest to further eval the PEs. Check for pulmonary infarction; possible that some of the recent pulmonary f indings on imaging were due to infarction rather than infection. Cont heparin infusion. Convert to PO Eliquis next 1-2 days. (3) Acute metabolic encephalopathy: Plan: By report felt he was worse from mental status standpoint, having hallucinations etc. Increase seroquel to 37.5mg HS. Add melatonin 3mg HS. (4) Pneumonia: Plan: 06/03 - dx with b/l basilar pneumonia given rocephin/zithromax in [facility] ER on 06/03/22, then sent back to [facility] on augmentin/zithromax upon admission 06/07/22 placed on IV zosyn has been on such since that time he has had 7+ days of IV/PO abx over the last week once CTA chest returns - depending on CT findings - can likely d/c zosyn blood cx's remain negative (5) Abdominal distension: Plan: ongoing but slowly improving. cdiff negative. stool BioFire completely negative. COVID testing negative. abx-associated diarrhea? ileus? combination? x-rays today with gaseous distension of colon but no obstruction; small bowel looks ok. passing stool passing flatus no N/V tolerating diet cont full liquids depending on how he examines tomorrow consider low fiber diet (6) Abdominal pain: Plan: was having abdominal pains over the last few days prior to admission. LFTs, lipase all wnl. u/a and urine cx negative. CT a/p with gallstones and large amount of stool in colon but otherwise no acute findings. c diff neg. stool biofire neg. HIDA scan neg. RUQ u/s with gallstones but no findings to suggest acute cholecystitis. pain has resolved. continues with marked abdominal distension and loose stools although both are improving. pain could have been due to abd distension; perhaps even PEs. cont to monitor. (7) Dementia: Plan: advanced. now residing at [facility]. Cont HS seroquel. Increase dose as above. avoid benzos/sedatives if possible. (8) Benign localized prostatic hyperplasia with lower urinary tract symptoms (LUTS): Plan: cont flomax perdomo is in place perdomo is chronic; has failed past voiding trials (9) GERD (gastroesophageal reflux disease): Plan: cont pepcid 20mg IV BID (10) History of prostatitis: Plan: noted was apparently treated for such recently at the SNF (11) Cholelithiasis: Plan: although CT and RUQ u/s show gallstones there are no features to suggest acute cholecystitis HIDA scan is negative as well LFTs and lipase wnl although t.bili scantly elevated yesterday repeat LFTs today completely wnl (12) Weakness: Plan: 2nd to suspected b/l basilar pneumonia, DVT/suspected PEs, and GI issues will need PT/OT while here (13) Hypertension: Plan: cont metoprolol 100mg BID cont lisinopril 10mg BID cont flomax daily cont recently instituted amlodipine but increase to 10mg daily BPs improved with addition of amlodipine Plan DVT proph - heparin infusion extensively updated at bedside yesterday left message for on home voicemail this evening Admission and Anticipated Discharge Date Admission Date: June 07, 2022 Subjective tele overnight - pacing; episodes of tachycardia per staff was up much of the night last pm, falling asleep about 0500 he spent some time out of bed today staff report he has been clapping his hands, smiling, etc took fair breakfast, and better lunch; tolerated the full liquids passing copious flatus large soft BM today during my visit he was resting comfortably Review of Systems Review of Systems: Unobtainable due to cognitive status Physical Exam Physical Exam: gen - NAD, resting comfortably in bed, pleasant/smiling, no agitation, signific ant difficulty communicating due to dementia mouth - MMM neck - no JVD heart - RRR, s1 s2, no murmur lungs - still with mild tachypnea, but otherwise CTA b/l abd - improved abdominal distension, BS+, no obvious tenderness or peritoneal signs ext - no edema, pulses 2+ b/l psych - awake Results & Data Results & Data Vital Signs (Past 12 Hours) Vital Signs Temp Pulse Pulse Resp BP BP Pulse Ox 06/10/22 11:34 36.6 C 83 17 158/86 H 93 06/10/22 09:00 77 06/10/22 09:00 06/10/22 07:53 37.3 C 89 20 189/112 H 94 O2 Del Method 06/10/22 11:34 Room Air 06/10/22 09:00 06/10/22 09:00 Room Air 06/10/22 07:53 Room Air Laboratory Results Laboratory Results - last 24 hr 06/09/22 06/10/22 06/10/22 19:56 03:15 03:15 PT 11.9 INR 1.1 APTT 30.8 > 139.0 H* PTT Ratio 1.1 > 4.9 Sodium 140 Potassium 4.0 Chloride 111 H Carbon Dioxide 22 Anion Gap 7 BUN 15 Creatinine 1.10 Est Cr Clr Drug Dosing 55.3 Est GFR ( Amer) 75.2 Est GFR (Non-Af Amer) 64.9 BUN/Creatinine Ratio 13.6 Glucose 103 H Calcium 8.6 Total Bilirubin 0.9 AST 17 ALT 9 Alkaline Phosphatase 72 Total Protein 7.0 Albumin 3.5 Globulin 3.5 Albumin/Globulin Ratio 1.0 06/10/22 07:20 PT INR APTT 60.9 H* PTT Ratio 2.2 Sodium Potassium Chloride Carbon Dioxide Anion Gap BUN Creatinine Est Cr Clr Drug Dosing Est GFR ( Amer) Est GFR (Non-Af Amer) BUN/Creatinine Ratio Glucose Calcium Total Bilirubin AST ALT Alkaline Phosphatase Total Protein Albumin Globulin Albumin/Globulin Ratio Diagnostic Findings Abdomen X-Ray 06/10/22 07:24 ABDOMEN 2 VIEWS CLINICAL HISTORY: Abdominal distention. FINDINGS: Supine and erect abdominal radiographs are correlated with abdominal CT dated 06/07/2022. There is a nonobstructive abdominal bowel gas pattern. There is mild gaseous distention of the colon. No evidence of intraperitoneal free air is seen. There is no radiographic evidence of nephrolithiasis. Phleboliths are seen in the pelvis. The heart is enlarged and a cardiac pacemaker is in place. A right pleural effusion is noted. The skeletal structures are osteopenic and appear intact. IMPRESSION: 1. There is gaseous distention of the colon with no radiographic evidence of bowel obstruction. 2. No intraperitoneal free air is seen. 3. Right pleural effusion. Electronically signed by: Arsalan Valverde M.D. 06/10/2022 8:56 AM PG Care Time/CCT Total # of Minutes Spent Total Time Spent with Patient: Total time spent is greater than 50% in coordination of care (as documented) at patient's floor/unit and/or counseling patient: Coding Level of Care Code 63575 SUB INP/OBS CARE 3/50MIN Diagnoses Left leg DVT I82.402 Pulmonary emboli I26.99 Acute metabolic encephalopathy G93.41 Pneumonia J18.9 Laterality: bilateral Lung location: lower lobe of lung Pneumonia type: due to unspecified organism Abdominal distension R14.0 Abdominal pain R10.9 Dementia F03.90 Benign localized prostatic hyperplasia with lower urinary tract symptoms (LUTS) N40.1 GERD (gastroesophageal reflux disease) K21.9 History of prostatitis Z87.438 Cholelithiasis K80.20 Weakness R53.1 Hypertension I10 Hypertension type: primary hypertension (4) Pneumonia Laterality: bilateral Lung location: lower lobe of lung Pneumonia type: due to unspecified organism Qualified Code(s): J18.9 - Pneumonia, unspecified organism (13) Hypertension Hypertension type: primary hypertension Qualified Code(s): I10 - Essential (primary) hypertension
[2022-06-10 16:25] LABS: Partial Thromboplastin Ratio 1.5
[2022-06-10 16:34] LABS: Partial Thromboplastin Time 42.6 Seconds (21.0-31.0)
[2022-06-10] MEDS: MELATONIN 3 MG TAB PO SCH ×2 (20:01→20:02)
[2022-06-10] MEDS: QUEtiapine FUMARATE 25 MG TABLET PO SCH (20:01)
[2022-06-11] MEDS: HEPARIN SODIUM/DEXTROSE 25,000 UNITS/500 ML BAG IV SCH (01:12)
[2022-06-11] MEDS: PIPERACILLIN/TAZOBACTAM 4.5 GM in DEXTROSE 5% 100 ML IV SCH ×3 (07:22→19:54)
[2022-06-11 07:40] LABS: Basophils # (auto) 0.03 K/uL (0-0.2); Basophils % (auto) 0.4 %; Eosinophils # (auto) 0.39 K/uL (0-0.50); Eosinophils % (auto) 4.7 %; Hematocrit (blood only) 40.4 % (42.0-52.0); Hemoglobin 13.2 g/dl (14.0-18.0); Immature Granulocytes # (auto) 0.04 K/uL (0.01-0.20); Immature Granulocytes % (auto) 0.5 %; Lymphocytes # (auto) 1.51 K/uL (1.2-3.4); Lymphocytes % (auto) 18.3 %; Mean Corpuscular Hemoglobin 29.3 pg (25.0-34.0); Mean Corpuscular Hgb Conc 32.7 g/dL (32.0-36.0); Mean Corpuscular Volume 89.6 fL (80.0-100.0); Mean Platelet Volume 9.2 fL (9.4-12.4); Monocytes # (auto) 0.57 K/uL (0.11-0.59); Monocytes % (auto) 6.9 %; Neutrophils % (auto) 69.2 %; Platelet Count 210 K/uL (130-400); RDW Coefficient of Variation 13.3 % (11.5-14.5); RDW Standard Deviation 43.7 fL (36.4-46.3); Red Blood Count 4.51 M/uL (4.70-6.10); White Blood Count 8.24 K/ul (4.8-10.8)
[2022-06-11 08:06] LABS: BUN Creatinine Ratio 13.5 (10-20); Creatinine Clr Calc Pharmacy 63.3 ml/min; Est GFR (African American) 88.6 ml/min; Est GFR (Non-African American) 76.5 ml/min; Potassium 3.7 mmol/L (3.5-5.1)
[2022-06-11 08:24] LABS: Partial Thromboplastin Ratio 1.8
[2022-06-11 08:26] LABS: Partial Thromboplastin Time 49.8 Seconds (21.0-31.0)
[2022-06-11] MEDS: amLODIPine BESYLATE 5 MG TAB PO SCH (08:26)
[2022-06-11] MEDS: TAMSULOSIN HCL 0.4 MG CAP PO SCH (08:27)
[2022-06-11] MEDS: FAMOTIDINE 20 MG in SYRINGE 3 ML IV SCH ×2 (10:10→19:55)
--- NOTE | 2022-06-11 11:45 | Hospitalist Progress Note ---
Date of Service June 11, 2022 Assessment & Plan (1) Left leg DVT: Plan: Doppler + for LLE DVT (left superficial femoral and posterior tibial veins). Pt's noted sometime recently that the left leg looked a little larger than the RLE; some very mild edema also had been present. Leg remains stable on exam. Cont heparin infusion. Can likely transition to PO Eliquis 10mg BID x 1 week, then 5mg BID thereafter. Plan 6 months of Rx. Patient has had "quiet tachypnea" while hospitalized. Likely due to #2 below. See #2 below. Risk factors for VTE - COVID infection 01/2022; prolonged immobility during that stay (although was on appropriate DVT proph with lovenox per records); SNF residence; etc. (2) Pulmonary emboli: Plan: Prior CTA a/p was re-reviewed by radiology on 06/10; this showed b/l basilar PEs. This would explain some of his tachypnea. Perhaps even explains some of the upper abdominal discomfort he was having recently. Will obtain dedicated CTA chest to further eval the PEs. 18gu IV is finally in; will attempt to obtain this afternoon. Check for pulmonary infarction; possible that some of the recent pulmonary findings on imaging were due to infarction rather than infection. Cont heparin infusion. Convert to PO Eliquis - likely tonight. he remains hemodynamically stable. (3) Acute metabolic encephalopathy: Plan: +/- improved. Tolerated increased dose of seroquel 37.5mg last pm; continue. Cont melatonin 3mg HS. (4) Pneumonia: Plan: 06/03 - dx with b/l basilar pneumonia given rocephin/zithromax in [facility] ER on 06/03/22, then sent back to [facility] on augmentin/zithromax upon admission 06/07/22 placed on IV zosyn; augmentin/zithromax stopped has been on zosyn since 06/07/22 he has had 7+ days of IV/PO abx over the last week once CTA chest returns - depending on CT findings - can likely d/c zosyn today blood cx's remain negative (5) Abdominal distension: Plan: ongoing but cont to improve a little each day. cdiff negative. stool BioFire completely negative. COVID testing negative. abx-associated diarrhea? ileus? combination? suspect both. x-rays 4/29 with gaseous distension of colon but no obstruction; small bowel looks ok. cont to pass flatus and stool no N/V tolerating diet cont full liquids maybe consider low fiber diet later today (6) Abdominal pain: Plan: was having abdominal pains prior to admission. LFTs, lipase all wnl. u/a and urine cx negative. CT a/p with gallstones and large amount of stool in colon but otherwise no acute findings. c diff neg. stool biofire neg. HIDA scan neg. RUQ u/s with gallstones but no findings to suggest acute cholecystitis. pain has resolved. although he has had abd distension and what appears to be a colonic ileus all symptoms/signs are gradually improving and he is stooling. pain could have been due to abd distension; perhaps even PEs. cont to monitor. (7) Dementia: Plan: advanced. now residing at [facility]. Cont HS seroquel. Increased dose as above. avoid benzos/sedatives if possible. (8) Benign localized prostatic hyperplasia with lower urinary tract symptoms (LUTS): Plan: cont flomax perdomo is in place perdomo is chronic; has failed past voiding trials (9) GERD (gastroesophageal reflux disease): Plan: cont pepcid 20mg BID but convert to PO today (10) History of prostatitis: Plan: noted was apparently treated for such recently at the SNF (11) Cholelithiasis: Plan: although CT and RUQ u/s show gallstones there are no features to suggest acute cholecystitis HIDA scan is negative as well LFTs and lipase wnl although t.bili scantly elevated yesterday repeat LFTs 06/10 wnl (12) Weakness: Plan: 2nd to suspected b/l basilar pneumonia, DVT/suspected PEs, and GI issues will need PT/OT while here (13) Hypertension: Plan: cont metoprolol 100mg BID cont lisinopril 10mg BID cont flomax daily cont amlodipine 10mg daily BPs improved with addition of amlodipine this admission Plan DVT proph - heparin infusion with likely transition to PO Eliquis later today left message for on home voicemail 06/10 will try to update her today can likely d/c tele and move to med/surg later today Admission and Anticipated Discharge Date Admission Date: June 07, 2022 Subjective no events overnight per nursing he slept well did not take much breakfast this am did have bowel movement already today no emesis by report patient was sleeping during my visit/exam he awoke towards the end of my exam as previous he said "Yup" to all questions however, when asked, "Do you have pain?" he said "No" smiled and was pleasant during the visit tele - paced Review of Systems Review of Systems: Unobtainable due to cognitive status Physical Exam Physical Exam: gen - NAD, pleasant/smiling, pointing at things in the room, no agitation, significant difficulty communicating due to dementia (baseline) mouth - MMM neck - no JVD heart - RRR, s1 s2, no murmur lungs - tachypnea improved; CTA b/l anterior chest abd - mildly improved abdominal distension, BS+, no obvious tenderness or peritoneal signs, no HSM ext - no edema, pulses 2+ b/l psych / neuro - awake, alert, pointing at things, moves both arms Results & Data Results & Data Vital Signs (Past 12 Hours) Vital Signs Temp Pulse Pulse Resp BP Pulse Ox Pulse Ox 06/11/22 11:13 71 06/11/22 08:07 36.6 C 83 20 143/93 H 97 06/11/22 00:00 95 06/11/22 02:52 36.6 C 77 18 148/88 H 94 O2 Del Method O2 Del Method 06/11/22 11:13 06/11/22 08:07 Room Air 06/11/22 00:00 Room Air 06/11/22 02:52 Room Air Laboratory Results Laboratory Results - last 24 hr 06/10/22 06/11/22 06/11/22 15:05 06:46 06:46 WBC 8.24 RBC 4.51 L Hgb 13.2 L Hct 40.4 L MCV 89.6 MCH 29.3 MCHC 32.7 RDW Std Deviation 43.7 RDW Coeff of Coco 13.3 Plt Count 210 MPV 9.2 L Immature Gran % (Auto) 0.5 Neut % (Auto) 69.2 Lymph % (Auto) 18.3 Clayton % (Auto) 6.9 Eos % (Auto) 4.7 Baso % (Auto) 0.4 Neut # (Auto) 5.70 Lymph # (Auto) 1.51 Clayton # (Auto) 0.57 Eos # (Auto) 0.39 Baso # (Auto) 0.03 Immature Gran # (Auto) 0.04 APTT 42.6 H* 49.8 H* PTT Ratio 1.5 1.8 Sodium Potassium Chloride Carbon Dioxide Anion Gap BUN Creatinine Est Cr Clr Drug Dosing Est GFR ( Amer) Est GFR (Non-Af Amer) BUN/Creatinine Ratio Glucose Calcium 06/11/22 06:46 WBC RBC Hgb Hct MCV MCH MCHC RDW Std Deviation RDW Coeff of Coco Plt Count MPV Immature Gran % (Auto) Neut % (Auto) Lymph % (Auto) Clayton % (Auto) Eos % (Auto) Baso % (Auto) Neut # (Auto) Lymph # (Auto) Clayton # (Auto) Eos # (Auto) Baso # (Auto) Immature Gran # (Auto) APTT PTT Ratio Sodium 139 Potassium 3.7 Chloride 111 H Carbon Dioxide 21 Anion Gap 7 BUN 13 Creatinine 0.96 Est Cr Clr Drug Dosing 63.3 Est GFR ( Amer) 88.6 Est GFR (Non-Af Amer) 76.5 BUN/Creatinine Ratio 13.5 Glucose 87 Calcium 8.0 L PG Care Time/CCT Total # of Minutes Spent Total Time Spent with Patient: Total time spent is greater than 50% in coordination of care (as documented) at patient's floor/unit and/or counseling patient: Coding Level of Care Code 19144 SUB INP/OBS CARE 2/35MIN Diagnoses Left leg DVT I82.402 Pulmonary emboli I26.99 Acute metabolic encephalopathy G93.41 Pneumonia J18.9 Laterality: bilateral Lung location: lower lobe of lung Pneumonia type: due to unspecified organism Abdominal distension R14.0 Abdominal pain R10.9 Dementia F03.90 Benign localized prostatic hyperplasia with lower urinary tract symptoms (LUTS) N40.1 GERD (gastroesophageal reflux disease) K21.9 History of prostatitis Z87.438 Cholelithiasis K80.20 Weakness R53.1 Hypertension I10 Hypertension type: primary hypertension (4) Pneumonia Laterality: bilateral Lung location: lower lobe of lung Pneumonia type: due to unspecified organism Qualified Code(s): J18.9 - Pneumonia, unspecified organism (13) Hypertension Hypertension type: primary hypertension Qualified Code(s): I10 - Essential (primary) hypertension
[2022-06-11] MEDS ORDERED: OPTIRAY 320 500ml IV ONE (11:58)
--- NOTE | 2022-06-11 13:11 | CT Scan Report ---
CHEST CTA for PULMONARY ARTERIES CT DOSE: 616.81 mGy.cm HISTORY: PEs on CT abd; recent pneumonia; eval infarct etc TECHNIQUE: Multiaxial CT images of the chest were performed following the intravenous administration of contrast to evaluate the pulmonary arteries. Maximal intensity projection images were also obtaine d. A dose lowering technique was utilized adhering to the principles of ALARA. COMPARISON STUDY: Abdomen and pelvis CTA 06/07/2022. FINDINGS: Suboptimal evaluation of the segmental and subsegmental pulmonary arteries due to the motio n artifact. Linear filling defect seen within the distal left main pulmonary artery and extending int o the upper lobe and lower lobe pulmonary arteries as well as the left lower lobe segmental pulmonary arteries. This is consistent with a pulmonary embolus. The patient's right lower lobe segmental/subs egmental pulmonary embolus seen on the prior abdominal CT is not well visualized due to the motion ar tifact but likely located in image 77. Normal caliber thoracic aorta with no evidence for dissection. No evidence for right-sided heart strain. The heart is mildly enlarged. Left-sided pacemaker is note d. Small right pleural effusion again noted. No mediastinal or hilar lymphadenopathy. Normal esophagu s. Limited views of the upper abdomen demonstrate normal liver and spleen. There are low lung volumes . No acute fractures identified. No pneumothorax. There is a new 3 mm nodule within the right lung ap ex on image 215. This may represent an area of scarring. Additional subcentimeter nodules within the right lung apex remain stable. A stable 5 mm subpleural nodule within the right middle lobe on image 73. Therefore, these nodules are likely benign. A stable benign 3 mm nodule within the left upper lob e on image 180. Consolidation within the bilateral lower lobes, right greater than left. This could r epresent atelectasis or a pneumonia. IMPRESSION: 1. Bilateral pulmonary emboli as described above, left greater than right. No evidence for right-side d heart strain. 2. Small right pleural effusion and bilateral lower lobe consolidation persists. This could represent atelectasis or pneumonia. 3. Bilateral pulmonary nodules. These are likely benign given the long-term stability. ACT 112: Negative or not required by law. Electronically signed by: Claudy Tristan M.D. 06/11/2022 1:09 PM
[2022-06-11] MEDS: busPIRone 5 MG TAB PO SCH ×2 (15:33→19:55)
[2022-06-11] MEDS: NSS + 20MEQ KCL 20 MEQ/1,000 ML BAG IV SCH (17:36)
[2022-06-11] MEDS: QUEtiapine FUMARATE 25 MG TABLET PO SCH (19:04)
[2022-06-11] MEDS: METOPROLOL TARTRATE 100 MG TAB PO SCH (19:56)
[2022-06-11] MEDS: lisinopril 10 MG TAB PO SCH (19:56)
[2022-06-12] MEDS: HEPARIN SODIUM/DEXTROSE 25,000 UNITS/500 ML BAG IV SCH (05:01)
[2022-06-12] MEDS: METOPROLOL TARTRATE 1 MG/ML VIAL IV PRN (05:48)
[2022-06-12 07:23] LABS: BUN Creatinine Ratio 9.9 (10-20); Calcium 8.5 mg/dl (8.6-10.3); Creatinine Clr Calc Pharmacy 60.2 ml/min; Est GFR (African American) 83.4 ml/min; Est GFR (Non-African American) 71.9 ml/min; Potassium 3.8 mmol/L (3.5-5.1)
[2022-06-12 08:16] LABS: Partial Thromboplastin Ratio 1.6
[2022-06-12] MEDS: busPIRone 5 MG TAB PO SCH ×3 (08:18→20:42)
[2022-06-12] MEDS: METOPROLOL TARTRATE 100 MG TAB PO SCH ×2 (08:18→20:40)
[2022-06-12] MEDS: TAMSULOSIN HCL 0.4 MG CAP PO SCH (08:18)
[2022-06-12] MEDS: amLODIPine BESYLATE 5 MG TAB PO SCH (08:18)
[2022-06-12] MEDS: lisinopril 10 MG TAB PO SCH ×2 (08:18→20:43)
[2022-06-12] MEDS: FAMOTIDINE 20 MG in SYRINGE 3 ML IV SCH (08:19)
[2022-06-12 08:21] LABS: Partial Thromboplastin Time 46.2 Seconds (21.0-31.0)
[2022-06-12] MEDS: APIXABAN 5 MG TABLET PO SCH ×2 (11:26→20:42)
--- NOTE | 2022-06-12 12:37 | Hospitalist Progress Note ---
Date of Service June 12, 2022 Assessment & Plan (1) Abdominal distension: Plan: ongoing but not worse on exam. still no vomiting. tolerating full liquids. over the last few days had very large BMs each day. despite the above his KUB continues to show colonic distension - slightly worse radiographically. colonic ileus?? if so, ileus due to recent illness/pneumonia? no obstruction clinically or radiographically. cdiff negative. stool BioFire completely negative. COVID testing negative. despite supportive care the distension continues. will ask [facility] to weigh in on this before advancing his diet. defer any additional w/u to GI. appreciate their consult. (2) Left leg DVT: Plan: Doppler + for LLE DVT (left superficial femoral and posterior tibial veins). Also with PEs. Pt's noted sometime recently that the left leg looked a little larger than the RLE; some very mild edema also had been present. Leg remains stable on exam. Stop heparin infusion. Transition to PO Eliquis 10mg BID x 1 week, then 5mg BID thereafter. Plan at least 6 months of Rx. Risk factors for VTE - COVID infection 01/2022; prolonged immobility during that stay (although was on appropriate DVT proph with lovenox per records); SNF residence with limited mobility; etc. (3) Pulmonary emboli: Plan: Prior CTA a/p was re-reviewed by radiology on 06/10; this showed b/l basilar PEs. This would explain some of his tachypnea. Perhaps even explains some of the upper abdominal discomfort he was having recently. Obtained dedicated CTA chest which confirmed multiple b/l PEs. No right heart strain findings. No obvious signs of pulmonary infarction. Has not required any NC O2 since admission. Stop heparin infusion. Convert to PO Eliquis as above. Plan at least 6 months of Rx. remains hemodynamically stable. (4) Acute metabolic encephalopathy: Plan: +/- improved. Has tolerated increased dose of seroquel 37.5mg HS. Cont melatonin 3mg HS. (5) Pneumonia: Plan: clinically resolved initial dx on 06/03 in the [facility] ER given rocephin/zithromax in [facility] ER, then sent back to [facility] SNF on augmentin/zithromax upon admission 06/07/22 placed on IV zosyn; augmentin/zithromax stopped had been on zosyn since 06/07/22 has had 7+ days of IV/PO abx over the last week -- all abx discontinued blood cx's remain negative (6) Abdominal pain: Plan: was having abdominal pains prior to admission. LFTs, lipase all wnl. u/a and urine cx negative. CT a/p with gallstones and large amount of stool in colon but otherwise no acute findings. c diff neg. stool biofire neg. HIDA scan neg. RUQ u/s with gallstones but no findings to suggest acute cholecystitis. pain has resolved. although he has had abd distension and what appears to be a colonic ileus all symptoms/signs are gradually improving and he is stooling. pain could have been due to abd distension; perhaps even his b/l PEs. cont to monitor for recurrent pain. (7) Dementia: Plan: advanced. now residing at [facility]. Cont HS seroquel. Increased dose as above. avoid benzos/sedatives if possible. (8) Benign localized prostatic hyperplasia with lower urinary tract symptoms (LUTS): Plan: cont flomax perdomo is in place perdomo is chronic; has failed past voiding trials has seen [facility] for this issue (9) GERD (gastroesophageal reflux disease): Plan: cont pepcid 20mg BID (10) History of prostatitis: Plan: noted was apparently treated for such recently at the SNF (11) Cholelithiasis: Plan: although CT and RUQ u/s show gallstones there are NO features to suggest acute cholecystitis HIDA scan is negative as well LFTs and lipase wnl (12) Weakness: Plan: 2nd to suspected b/l basilar pneumonia, DVT/PEs, and GI issues ordered PT/OT (13) Hypertension: Plan: cont metoprolol 100mg BID cont lisinopril 10mg BID cont flomax daily cont amlodipine 10mg daily BPs improved with addition of amlodipine this admission of note - BPs spike when he is restless/agitated; would not treat these high numbers during times of agitation Plan DVT proph - Eliquis 10mg BID updated pt's by phone this evening can d/c tele - move to med/surg d/c back to SNF depends on abdominal distension and ability to advance diet await GI eval Admission and Anticipated Discharge Date Admission Date: June 07, 2022 Subjective no events does have episodes of mild agitation/restlessness - his HR rises during these episodes, BPs also rise tele overnight - pacing per staff slept well overnight this am at breakfast took about 50% of the meal no vomiting per staff no BM since yesterday Review of Systems Review of Systems: Unobtainable due to cognitive status Physical Exam Physical Exam: gen - NAD, pleasant/smiling, comfortable, no agitation, only says an occasional single word that is intelligible otherwise just says "yup" over and over mouth - MMM neck - no JVD heart - RRR, s1 s2, no murmur lungs - CTA b/l abd - abdominal distension unchanged; tympanic with percussion; BS+, no obvious tenderness or peritoneal signs, no HSM ext - no edema RLE; trace LLE edema, pulses 2+ b/l psych / neuro - awake, alert, pointing at things, moves both arms - but not oriented x 3 Results & Data Results & Data Vital Signs (Past 12 Hours) Vital Signs Temp Pulse Pulse Resp BP BP Pulse Ox 06/12/22 08:00 75 06/12/22 07:34 36.7 C 90 18 169/81 H 94 06/12/22 05:49 86 167/93 H 06/12/22 02:37 36.7 C 87 18 167/103 H 95 O2 Del Method 06/12/22 08:00 06/12/22 07:34 Room Air 06/12/22 05:49 06/12/22 02:37 Room Air Laboratory Results Laboratory Results - last 24 hr 06/12/22 06/12/22 06:33 06:33 APTT 46.2 H* PTT Ratio 1.6 Sodium 140 Potassium 3.8 Chloride 110 H Carbon Dioxide 23 Anion Gap 7 BUN 10 Creatinine 1.01 Est Cr Clr Drug Dosing 60.2 Est GFR ( Amer) 83.4 Est GFR (Non-Af Amer) 71.9 BUN/Creatinine Ratio 9.9 L Glucose 87 Calcium 8.5 L Diagnostic Findings KUB X-Ray 06/12/22 12:37 KUB HISTORY: Acute generalized abdominal pain with distention ongoing abd distension COMPARISON: KUB 06/10/2022 FINDINGS: Nonobstructive bowel gas pattern. Gaseous distention of the large bowel is again noted with transverse colon measuring up to 6.5 cm, previously 6 cm. Primary megaureter with partially imaged pacer leads. Right pleural effusion. No renal calculi. No ureteral calculi. No pneumoperitoneum or pneumatosis. No fracture. IMPRESSION: 1. Nonobstructive bowel gas pattern. 2. Persistent gaseous distention of the large bowel. ACT 112: Negative or not required by law. The above report was generated using voice recognition software. It may contain grammatical, syntax or spelling errors. Electronically signed by: Sj Garcia M.D. 06/12/2022 2:21 PM PG Care Time/CCT Total # of Minutes Spent Total Time Spent with Patient: Total time spent is greater than 50% in coordination of care (as documented) at patient's floor/unit and/or counseling patient: Coding Level of Care Code 18774 SUB INP/OBS CARE 2/35MIN Diagnoses Abdominal distension R14.0 Left leg DVT I82.402 Pulmonary emboli I26.99 Acute metabolic encephalopathy G93.41 Pneumonia J18.9 Laterality: bilateral Lung location: lower lobe of lung Pneumonia type: due to unspecified organism Abdominal pain R10.9 Dementia F03.90 Benign localized prostatic hyperplasia with lower urinary tract symptoms (LUTS) N40.1 GERD (gastroesophageal reflux disease) K21.9 History of prostatitis Z87.438 Cholelithiasis K80.20 Weakness R53.1 Hypertension I10 Hypertension type: primary hypertension (5) Pneumonia Laterality: bilateral Lung location: lower lobe of lung Pneumonia type: due to unspecified organism Qualified Code(s): J18.9 - Pneumonia, unspecified organism (13) Hypertension Hypertension type: primary hypertension Qualified Code(s): I10 - Essential (primary) hypertension
--- NOTE | 2022-06-12 14:22 | XRay Report ---
KUB HISTORY: Acute generalized abdominal pain with distention ongoing abd distension COMPARISON: KUB 06/10/2022 FINDINGS: Nonobstructive bowel gas pattern. Gaseous distention of the large bowel is again noted with transverse colon measuring up to 6.5 cm, previously 6 cm. Primary megaureter with partially imaged p acer leads. Right pleural effusion. No renal calculi. No ureteral calculi. No pneumoperitoneum or pn eumatosis. No fracture. IMPRESSION: 1. Nonobstructive bowel gas pattern. 2. Persistent gaseous distention of the large bowel. ACT 112: Negative or not required by law. The above report was generated using voice recognition software. It may contain grammatical, syntax o r spelling errors. Electronically signed by: Sj Garcia M.D. 06/12/2022 2:21 PM
[2022-06-12] MEDS: PANTOprazole 40 MG TAB PO SCH (19:13)
[2022-06-12] MEDS: QUEtiapine FUMARATE 25 MG TABLET PO SCH (20:41)
[2022-06-12] MEDS: MELATONIN 3 MG TAB PO SCH (20:42)
[2022-06-13] MEDS: TAMSULOSIN HCL 0.4 MG CAP PO SCH (08:21)
[2022-06-13] MEDS: busPIRone 5 MG TAB PO SCH (08:22)
[2022-06-13] MEDS: lisinopril 10 MG TAB PO SCH (08:22)
[2022-06-13] MEDS: METOPROLOL TARTRATE 100 MG TAB PO SCH (08:23)
[2022-06-13] MEDS: APIXABAN 5 MG TABLET PO SCH (08:24)
[2022-06-13] MEDS: amLODIPine BESYLATE 5 MG TAB PO SCH (08:24)
[2022-06-13] MEDS: PANTOprazole 40 MG TAB PO SCH (09:05)
--- NOTE | 2022-06-13 10:30 | Gastrointestinal Consultation ---
Date of Consultation June 13, 2022 Assessment & Plan (1) Dementia: (2) Constipation: (3) Abdominal distension: Plan 1. Okay to advance diet. 2. Recommend a bowel regimen upon discharge per institution policy. 3. Supportive care per primary team. Thank you for allowing us to participate in the care of this patient. If you have any questions or concerns, please do not hesitate to contact us. Supervising Physician Co-Signing Physician Notes Agree with GEOVANI Apodaca as above Patient was discharged prior to my evaluation History of Present Illness Reason for Consultation: Colonic distention Requesting Physician: Dr. Chen Attending Physician: Sheng Simmons History of Present Illness Patient is a 76 y.o. male with dementia admitted with abdominal pain which has resolved. He has had ongoing abdominal distention, however, despite passing 2 large bowel movements yesterday. From review of imaging, it appears there is a colonic dilation of the transverse colon measuring 6.5 cm. Also KUB with gaseous distention. CT a/p from 06/07 demonstrated moderate constipation and review of past imaging over time has consistently demonstrated constipation. C Diff and Biofire were negative. He is tolerating a full liquid diet. No n/v. No overt GIB. Per nursing, he is planned for discharge back to SNF today and GI has been consulted to discuss diet advancement. Allergies Allergy/AdvReac Type Severity Reaction Status Date / Time Sulfa (Sulfonamide Allergy Intermediate RASH Verified 06/07/22 23:46 Antibiotics) codeine Allergy Unknown unknown Verified 06/07/22 23:46 donepezil Allergy Unknown ? sycopal Verified 06/07/22 23:46 episode oxycodone AdvReac Severe hallucinati Verified 06/07/22 23:46 ons Home Medications Medication Instructions Recorded Confirmed Type amoxicillin 500 mg capsule 2,000 mg PO ONCE PRN Pretreat 04/02/20 06/07/22 History Dental Appointments cholecalciferol (vitamin D3) 25 25 mcg PO QAM 08/16/20 06/07/22 History mcg (1,000 unit) capsule buspirone 5 mg tablet 5 mg PO TID 06/03/22 06/07/22 History finasteride 5 mg tablet (Proscar) 5 mg PO QAM 06/03/22 06/07/22 History lidocaine HCl 2 % mucosal jelly 5 ml topical Q6 PRN catheter 06/03/22 06/07/22 History discomfort sennosides 8.6 mg-docusate sodium 1 tab-cap PO BID 06/03/22 06/07/22 History 50 mg tablet (Senokot-S) tamsulosin 0.4 mg capsule 0.4 mg PO QAM 06/03/22 06/07/22 History Saccharomyces boulardii 250 mg 250 mg PO BID 06/07/22 06/07/22 History capsule (Florastor) acetaminophen 325 mg tablet 650 mg PO Q6 PRN Fever Or Pain 06/07/22 06/07/22 History (Tylenol) aluminum-mag hydroxide-simethicone 30 ml PO Q4 PRN .indigestion 06/07/22 06/07/22 History 400 mg-400 mg-40 mg/5 mL oral susp (Maalox Maximum Strength) metoprolol tartrate 100 mg tablet 100 mg PO BID 06/07/22 06/07/22 History pantoprazole 40 mg granules 40 mg PO DAILY 06/07/22 06/07/22 History delayed-release for susp in packet amlodipine 5 mg tablet (Norvasc) 5 mg PO QAM #30 tabs 06/13/22 Rx apixaban 5 mg tablet (Eliquis) See Rx Instructions .Route 06/13/22 Rx .COMPLEX #60 tabs lisinopril 40 mg tablet (Zestril) 20 mg PO PM #30 tabs 06/13/22 Rx melatonin 3 mg tablet 3 mg PO HS PRN insomnia #30 tabs 06/13/22 Rx polyethylene glycol 3350 17 17 g PO BID #119 grams 06/13/22 Rx gram/dose oral powder (Miralax) quetiapine 25 mg tablet 37.5 mg PO HS #10 tabs 06/13/22 06/07/22 Rx Patient History Medical History Abdominal pain Acute blood loss anemia Benign localized prostatic hyperplasia with lower urinary tract symptoms (LUTS) BPH (benign prostatic hyperplasia) Cardiac pacemaker in situ interrogated 02/16/20 no issues CHB (complete heart block) 12/2014 s/p pacer insertion COVID-19 Dementia Dyslipidemia Elevated AST (SGOT) Elevated bilirubin Elevated PSA Fecal impaction GERD (gastroesophageal reflux disease) Hearing loss History of prostatitis Hypertension Ileus, postoperative Inguinal hernia of left side with obstruction IPMN (intraductal papillary mucinous neoplasm) Pneumothorax, left T9 vertebral fracture Urinary retention Surgical History H/O hernia repair History of left inguinal hernia repair Laparoscopic left inguinal hernia repair for incarceration with obstruction, Dr. Ramirez, 03 April 2020 History of rectal surgery Anal fistulectomy History of tonsillectomy S/P left inguinal hernia repair (04/03/20) Laparoscopic left inguinal hernia repair, incarcerated Dr. 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: No Beliefs That Will Affect Care: None marital status: Current Living Situation: Personal Care Facility current occupational status: retired Feels Safe at Home: Declines to Answer Assistive Devices: Walker Review of Systems Review of Systems: Unobtainable due to cognitive status Physical Exam Constitutional: WD/WN, vitals as above Respiratory: normal respiratory effort, lungs clear to auscultation Cardiovascular: RRR, no murmur, no edema Gastrointestinal (Abdomen): Inspection/Auscultation: + abdomen distended and normal bowel sounds Percussion/Palpation: abdomen soft; no guarding and abdomen not rigid Psychiatric: A+Ox3, euthymic affect Results & Data Vital Signs (Past 12 Hours) Vital Signs Temp Pulse Resp BP Pulse Ox O2 Del Method 06/13/22 09:09 71 16 133/76 93 Room Air 06/13/22 07:19 37.1 C 92 H 18 164/82 H 93 Room Air 06/13/22 01:47 Room Air PG Care Time/CCT Total # of Minutes Spent Total Time Spent with Patient: Total time spent is greater than 50% in coordination of care (as documented) at patient's floor/unit and/or counseling patient: Coding Level of Care Code 10830 IN/OBS CONSULT LVL 3,45M Diagnoses Dementia F03.90 Constipation K59.00 Abdominal distension R14.0
--- NOTE | 2022-06-13 13:09 | Discharge Summary ---
Date of Service June 13, 2022 Admission HPI Per Admitting Provider The patient is a 76-year-old male with a past medical history including dementia, constipation, prostatitis, catheter associated UTI, generalized weakness, COVID-19 infection 03/06, BPH with LUTS, dyslipidemia, pancreatic cyst, anemia, GERD, history of left inguinal hernia repair and hearing loss. Patient had been seen in the emergency department pneumonia. He was seen in the emergency department on 06/04/2022, and was diagnosed with pneumonia, fortunately he was started on Augmentin and Zithromax. His daughter also reports that he had been diagnosed with prostatitis a month or so ago. His daughter also reports that he said decreased oral intake and increased abdominal distention over the past week. Principal Diagnosis PNEUMONIA Discharge Exam gen - NAD, pleasant/smiling, comfortable, no agitation, only says "yup" mouth - MMM neck - no JVD heart - RRR, s1 s2, no murmur lungs - CTA b/l abd - abdominal distension; tympanic with percussion; BS+, no obvious tenderness or peritoneal signs, no HSM ext - no edema RLE; trace LLE edema, pulses 2+ b/l psych / neuro - awake, alert, pointing at things, moves both arms - but not oriented x 3 Discharge Data Allergies Allergy/AdvReac Type Severity Reaction Status Date / Time Sulfa (Sulfonamide Allergy Intermediate RASH Verified 06/07/22 23:46 Antibiotics) codeine Allergy Unknown unknown Verified 06/07/22 23:46 donepezil Allergy Unknown ? sycopal Verified 06/07/22 23:46 episode oxycodone AdvReac Severe hallucinati Verified 06/07/22 23:46 ons Consultations 06/07/22 21:31 ED Decision to Admit Stat 06/12/22 14:54 Consult Gastroenterology Routine Ordered Studies 06/07/22 18:10 CT Abd and Pelvis [CT abd pelvis wo con] Stat 06/07/22 21:29 CT angio abdomen pelvis w con Stat 06/08/22 US gallbladder Stat 06/09/22 17:40 US venous doppler LE BI Stat 06/10/22 15:28 CT angio chest PE protocol Routine Hospital Course (1) Abdominal distension: ongoing but not worse on exam. still no vomiting. tolerating full liquids. over the last few days had very large BMs each day. despite the above his KUB continues to show colonic distension - slightly worse radiographically. colonic ileus?? if so, ileus due to recent illness/pneumonia? no obstruction clinically or radiographically. cdiff negative. stool BioFire completely negative. COVID testing negative. APPEARS TO BE CHRONIC reviewing past imaging as per GI, GI recommends bowel regimen and t advance diet. Low fiber diet ordered as patient has slow motility. WIll discharge on miralax BID with 1-2 BM per day. (2) Left leg DVT: Doppler + for LLE DVT (left superficial femoral and posterior tibial veins). Also with PEs. Pt's noted sometime recently that the left leg looked a little larger than the RLE; some very mild edema also had been present. Leg remains stable on exam. Stop heparin infusion. Transition to PO Eliquis 10mg BID x 1 week, then 5mg BID thereafter. Plan at least 6 months of Rx. will need 11 more doses of Eliquis 10 mg PO BID then transition to 5 mg PO BID Risk factors for VTE - COVID infection 01/2022; prolonged immobility during that stay (although was on appropriate DVT proph with lovenox per records); SNF residence with limited mobility; etc. (3) Pulmonary emboli: Prior CTA a/p was re-reviewed by radiology on 06/10; this showed b/l basilar PEs. This would explain some of his tachypnea. Perhaps even explains some of the upper abdominal discomfort he was having recently. Obtained dedicated CTA chest which confirmed multiple b/l PEs. No right heart strain findings. No obvious signs of pulmonary infarction. Has not required any NC O2 since admission. Stop heparin infusion. Convert to PO Eliquis as above. Plan at least 6 months of Rx. remains hemodynamically stable. (4) Acute metabolic encephalopathy: +/- improved. Has tolerated increased dose of seroquel 37.5mg HS. Cont melatonin 3mg HS. (5) Pneumonia: clinically resolved initial dx on 06/03 in the [facility] ER given rocephin/zithromax in [facility] ER, then sent back to [facility] on augmentin/zithromax upon admission 06/07/22 placed on IV zosyn; augmentin/zithromax stopped had been on zosyn since 06/07/22 has had 7+ days of IV/PO abx over the last week -- all abx discontinued blood cx's remain negative (6) Abdominal pain: was having abdominal pains prior to admission. LFTs, lipase all wnl. u/a and urine cx negative. CT a/p with gallstones and large amount of stool in colon but otherwise no acute findings. c diff neg. stool biofire neg. HIDA scan neg. RUQ u/s with gallstones but no findings to suggest acute cholecystitis. pain has resolved. although he has had abd distension and what appears to be a colonic ileus all symptoms/signs are gradually improving and he is stooling. pain could have been due to abd distension; perhaps even his b/l PEs. (7) Dementia: advanced. now residing at [facility]. Cont HS seroquel. Increased dose as above. avoid benzos/sedatives if possible. (8) Benign localized prostatic hyperplasia with lower urinary tract symptoms (LUTS): cont flomax perdomo is in place perdomo is chronic; has failed past voiding trials has seen [facility] for this issue (9) GERD (gastroesophageal reflux disease): cont pepcid 20mg BID (10) History of prostatitis: noted was apparently treated for such recently at the SNF (11) Cholelithiasis: although CT and RUQ u/s show gallstones there are NO features to suggest acute cholecystitis HIDA scan is negative as well LFTs and lipase wnl (12) Weakness: 2nd to suspected b/l basilar pneumonia, DVT/PEs, and GI issues ordered PT/OT (13) Hypertension: on metoprolol 100mg BID lisinopril 10mg BID flomax daily amlodipine 10mg daily BPs improved with addition of amlodipine this admission As amlodipine takes tie to obtain full effect, will titrate down to 5 mg PO daily, and switch lisinopril to 20 mg PO PM. Plan DVT proph - Eliquis 10mg BID Total Time Total Time Spent Total Time Spent (In Minutes): 32 Discharge Plan Discharge Items Patient Disposition: Transfer Shelter Fac Reason For Visit: CONFUSION Discharge Diagnosis: confusion Activity: Resume your previous activity Non-emergency contact: Primary Care Provider Call non-emergency contact if: you have any medication questions Follow-up/Referrals: Tacos Richardson III, MD [Primary Care Provider] - Diet: Low Fiber Diet Texture: Easy to Chew Addtl Attending Provider Instructions: The abdominal distention appears to be chronic, will recommend miralax BID to maintain a goal fo 1-2 BM per day. Will continue eliquis as stated below for Pulmonary emboli. F/U with PCP in 1-2 weeks Pending Studies at Discharge: No Stand-Alone Forms: My [facility] Skilled Items Patient informed of condition?: Yes DNR: No Discharge Level of Care: Skilled Communicable Disease: No Discharge Prognosis: Stable Lines: None Urinary Catheter: Yes (chronic perdomo) Medications and DC Order Prescriptions: New Eliquis 5 mg Tablet See Rx Instructions .ROUTE .COMPLEX Qty: 60 0RF Rx Instructions: Continue 10 mg twice PO for 11 more doses, then cut back to 5 mg PO twice a day. 5mg dose will be ongoing. amlodipine [Norvasc] 5 mg Tablet 5 mg PO QAM Qty: 30 0RF polyethylene glycol 3350 [Miralax] 17 gram/dose powder 17 g PO BID Qty: 119 0RF Rx Instructions: Goal 1-2 BM per day melatonin 3 mg Tablet 3 mg PO HS PRN (Reason: insomnia) Qty: 30 0RF Continued cholecalciferol (vitamin D3) 25 mcg (1,000 unit) capsule 25 mcg PO QAM amoxicillin 500 mg capsule 2,000 mg PO ONCE PRN (Reason: Pretreat Dental Appointments) Rx Instructions: give 1 hour prior to dental procedures tamsulosin 0.4 mg capsule 0.4 mg PO QAM Rx Instructions: for enlarged prostate finasteride [Proscar] 5 mg tablet 5 mg PO QAM Rx Instructions: for enlarged prostate sennosides-docusate sodium [Senokot-S] 8.6-50 mg Tablet 1 tab-cap PO BID buspirone 5 mg tablet 5 mg PO TID lidocaine HCl 2 % Jelly 5 ml TOPICAL Q6 PRN (Reason: catheter discomfort) Rx Instructions: also to be applied during catheter changes acetaminophen [Tylenol] 325 mg Tablet 650 mg PO Q6 PRN (Reason: Fever Or Pain) metoprolol tartrate 100 mg tablet 100 mg PO BID alum-mag hydroxide-simeth [Maalox Maximum Strength] 400-400-40 mg/5 mL Suspens ion 30 ml PO Q4 PRN (Reason: .indigestion) Saccharomyces boulardii [Florastor] 250 mg Capsule 250 mg PO BID Rx Instructions: give for 10 days. Stop 06/14/2022 [address] for susp in packet 40 mg PO DAILY Changed quetiapine 25 mg Tablet 37.5 mg PO HS Qty: 10 0RF lisinopril [Zestril] 40 mg Tablet 20 mg PO PM Qty: 30 0RF Discontinued amoxicillin-pot clavulanate 875-125 mg tablet 1 tab PO Q12H Qty: 20 0RF Rx Instructions: end 06/14/2022 azithromycin 250 mg tablet 250 mg PO DAILY 4 Days Qty: 4 0RF Rx Instructions: start on day 2 of therapy, end 06/09/2022 Discharge Orders: Discharge Order (Routine); Ordered 06/13/22 Ordered By: Sheng Beatty/Other Patient Handouts: DVT Complications Admission Data Admit Date/Time: 06/07/22 22:52 Attending Provider: Sheng Simmons Admit Provider: Giancarlo Sandoval Primary Care Provider: Tacos Richardson III Other Providers: [facility] ; Giancarlo Sandoval ; Rowdy Chavez Other Interventions: Discharge Summary Assessment (RN) Last Done: 06/13/22 13:12 Coding Level of Care Code 49577 INP/OBS DISCH >30 MIN Diagnoses Abdominal distension R14.0 Left leg DVT I82.402 Pulmonary emboli I26.99 Acute metabolic encephalopathy G93.41 Pneumonia J18.9 Laterality: bilateral Lung location: lower lobe of lung Pneumonia type: due to unspecified organism Abdominal pain R10.9 Dementia F03.90 Benign localized prostatic hyperplasia with lower urinary tract symptoms (LUTS) N40.1 GERD (gastroesophageal reflux disease) K21.9 History of prostatitis Z87.438 Cholelithiasis K80.20 Weakness R53.1 Hypertension I10 Hypertension type: primary hypertension
== END 2022-06-13 13:28 | DRG 444 ==
LOC: ED 17:44 → SUATTDRO 22:52 → 2E 22:52 → 3E 06-12 18:35

== ENCOUNTER 2023-07-24 18:38 | Inpatient (IN) ==
--- NOTE | 2023-07-24 19:41 | Emergency Department Note ---
Impression & Plan Closed right hip fracture, Dementia, Fall, Abrasion of elbow, right ED Provider Note NAME: IFEOMA ROD Jr AGE: 77 SEX: Male INFORMANT: Patient's ED PROVIDER(S): Calixto Tapia MD CHIEF COMPLAINT: Fall PLAN: Disposition: Admitted Outpatient prescription management: none Referral: None MEDICAL DECISION MAKING: Patient presented because of a fall. X-ray imaging was performed and he has a right femoral neck fracture. Blood work, urinalysis, chest x-ray, EKG and CT of the head ordered as well. Patient was given Dilaudid for pain management. Discussed with the patient's and she notes that she would like everything done for him as he was ambulating despite his severe dementia prior to the accident. Consultation was placed with orthopedics, Dr. Sage. He has for the patient be made n.p.o. after midnight and will consult on him. CBC showed a leukocytosis and no sginificant anemia. Consultation was made with Dr. Giancarlo Sandoval of the [facility] service. Patient was evaluated in the ER for further management. 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 Vital Signs: reviewed and remarkable for hypertension Additional History obtained from: Patient's . She notes his dementia is significant however he does have the ability to ambulate baseline. Chronic Medical/Social Conditions affecting care: Dementia Prior/ Outside/ External records reviewed: none Differential Diagnosis: Fracture, dislocation, neurovascular compromise, compartment syndrome, soft tissue injury, as well as other pathologies. Diagnostics, independently interpreted by me: EC Lead ECG performed and revealed a paced rhythm at 77 BPM. No dysrhythmia. Cardiac Monitoring: Cardiac monitoring ordered by me: The patient was placed on continuous cardiac monitoring and observed. It revealed a paced rhythm at 74 bpm without evidence of dysrhythmia. Medical decision rules: none Imaging studies: CT head negative for trauma. XR imaging of the right hip reveal a femoral neck fracture. I refer you to the EMR for further details. HPI: 77 year old Male arrives for evaluation of a fall. This occurred just prior to arrival. is present and helps with the history. She states that he is unstable when he first gets up but is able to ambulate. He reportedly fell onto his right side. There was right hip pain and EMS was summoned. Patient was brought in for evaluation. Patient does have history of DVT but is not currently on anticoagulation. History is limited secondary to the patient's severe dementia and ability to answer questions.. PAST MEDICAL HISTORY: See Below, dementia PAST SURGICAL HISTORY: See Below, SOCIAL HISTORY: See Below, HOME MEDICATIONS: See Below ALLERGIES: See Below VITALS: See Below PHYSICAL EXAMINATION: GENERAL: Awake, alert, uncomfortable-appearing, in no distress HENT: Normocephalic, atraumatic. Oropharynx unremarkable. EYES: Normal conjunctiva. Sclera non-icteric. NECK: Inspection normal. Non-tender. Supple. No nuchal rigidity. FROM. No masses. RESPIRATORY: Clear to auscultation. No wheezes. No rales. Normal respiratory effort. CARDIAC: Normal rate. Normal rhythm. No murmurs. No rubs. Extremities warm and well perfused. Pulses equal. No JVD. GI: Soft, non-distended. No tenderness to palpation. No rebound or guarding. No masses. MUSCULOSKELETAL: There is an abrasion/skin tear in the right elbow. No bony deformity. Good range of motion. Patient has no obvious pain or significant issues in the upper extremities. Left lower extremity is atraumatic. There is a good pulse in the right lower extremity but range of motion is limited secondary to right hip pain. Externally rotated. . Chest examination reveals no tenderness. LOWER EXTREMITIES: Calves are equal size bilaterally and non-tender. No edema. No discoloration. NEURO: Demented sensorium. No focal sensory or motor deficits noted. SKIN: No rash or jaundice noted. PROCEDURES: none CRITICAL CARE: none OBSERVATION NOTE: none Past Med/Surg History Problem List Abrasion of elbow, right (Acute) Fall (Acute) Closed right hip fracture (Acute) Cardiac pacemaker in situ interrogated 02/16/20 no issues Acute metabolic encephalopathy Pulmonary emboli Left leg DVT Hypertension Dementia (Acute) Cholelithiasis History of prostatitis Abdominal pain (Acute) Abdominal distension (Acute) Elevated PSA Urinary retention Catheter-associated urinary tract infection Hypokalemia ANNAMARIA (acute kidney injury) Blood bacterial culture positive Weakness (Acute) Fall (Acute) Weakness COVID-19 (Acute) Encounter to establish care Toenail fungus Benign localized prostatic hyperplasia with lower urinary tract symptoms (LUTS) (Chronic) Dyslipidemia (Chronic) Pancreatic cyst (Chronic) Anemia (Chronic) GERD (gastroesophageal reflux disease) (Chronic) Hypoalbuminemia Anemia (Acute) Sinus node dysfunction Hearing loss (Chronic) Nocturia (Chronic) Inguinal hernia (Chronic) Medical History Fecal impaction BPH (benign prostatic hyperplasia) COVID-19 Urinary retention IPMN (intraductal papillary mucinous neoplasm) Ileus, postoperative Acute blood loss anemia Elevated bilirubin Elevated AST (SGOT) Inguinal hernia of left side with obstruction Elevated PSA T9 vertebral fracture Pneumothorax, left CHB (complete heart block) 12/2014 s/p pacer insertion Surgical History S/P left inguinal hernia repair (04/03/20) Laparoscopic left inguinal hernia repair, incarcerated Dr. Ramirez 04/03/2020 History of tonsillectomy H/O hernia repair History of rectal surgery Anal fistulectomy Social History Smoking Status: Unknown if ever smoked Second Hand Exposure: No; Do You Dip or Chew Tobacco: No; Hx Substance Use: No Preferred Language: Ecuadorean Communication Ability: Effective Communication Ability Comment: does not speak Order Entry Specialist Required: No Beliefs That Will Affect Care: None marital status: Current Living Situation: Personal Care Facility current occupational status: retired Feels Safe at Home: Yes Assistive Devices: None Allergies Allergies Allergy/AdvReac Type Severity Reaction Status Date / Time Sulfa (Sulfonamide Allergy Intermediate RASH Verified 07/24/23 20:08 Antibiotics) codeine Allergy Unknown unknown Verified 07/24/23 20:08 donepezil Allergy Unknown ? sycopal Verified 07/24/23 20:08 episode oxycodone AdvReac Severe hallucinati Verified 07/24/23 20:08 ons Home Meds Home Medications Medication Instructions Recorded Confirmed aluminum-mag hydroxide-simethicone 30 ml PO Q4 PRN Dyspepsia 07/24/23 07/24/23 400 mg-400 mg-40 mg/5 mL oral susp amlodipine 5 mg tablet 5 mg PO QAM 07/24/23 07/24/23 amoxicillin 500 mg tablet 2,000 mg PO DIRECTED 07/24/23 07/24/23 buspirone 5 mg tablet 5 mg PO AMHS 07/24/23 07/24/23 cholecalciferol (vitamin D3) 25 25 mcg PO DAILY 07/24/23 07/24/23 mcg (1,000 unit) tablet (Vitamin D3) finasteride 5 mg tablet 5 mg PO QAM 07/24/23 07/24/23 lisinopril 20 mg tablet 20 mg PO QPM 07/24/23 07/24/23 metoprolol tartrate 100 mg tablet 100 mg PO AMHS 07/24/23 07/24/23 pantoprazole 40 mg granules 40 mg PO DAILY 07/24/23 07/24/23 delayed-release for susp in packet polyethylene glycol 3350 17 gram 17 g PO BID 07/24/23 07/24/23 oral powder packet (Miralax) sennosides 8.6 mg-docusate sodium 1 tab-cap PO BID 07/24/23 07/24/23 50 mg tablet (Senokot-S) tamsulosin 0.4 mg capsule 0.4 mg PO QAM 07/24/23 07/24/23 Previous Rx's Medication Instructions Recorded acetaminophen 325 mg tablet 1,000 mg (3.0769 x 325 mg) PO Q8H 07/27/23 (Tylenol) Fever Or Pain #0 tabs amoxicillin 875 mg-potassium 1 tab PO BID 5 days #10 tabs 07/27/23 clavulanate 125 mg tablet apixaban 2.5 mg tablet (Eliquis) 2.5 mg PO BID 6 weeks #84 tabs 07/27/23 Results & Data (ED) Vital Signs Vital Signs - 24 hr 07/24/23 18:45 07/24/23 18:45 07/24/23 18:48 Temperature 36.5 C Temperature Source Axillary Pulse Rate 104 H 85 Pulse Rate [Apical] 101 H Pulse Rhythm Regular Pulse Strength Normal Respiratory Rate 20 17 Respiratory Effort / Characteristics Non-Labored Spontaneous Respiratory Depth Normal Respiratory Pattern Regular Blood Pressure 191/121 H Blood Pressure [Right Arm] 185/123 H Blood Pressure Mean 144 Blood Pressure Mean [Right Arm] 143 Blood Pressure Position Semi-fowlers Pulse Oximetry 96 Oxygen Delivery Method Room Air Sepsis Recent Fever Within 48 Hours No Sepsis New/Unexplained Change in Mental Status N/A Sepsis Action Taken by Nursing No Action Required Laboratory Data 07/27/23 09:01 07/27/23 07:13 Lab Results 07/24/23 Range/Units 19:55 WBC 15.44 H (4.8-10.8) K/ul RBC 4.85 (4.70-6.10) M/uL Hgb 14.8 (14.0-18.0) g/dl Hct 43.4 (42.0-52.0) % MCV 89.5 (80.0-100.0) fL MCH 30.5 (25.0-34.0) pg MCHC 34.1 (32.0-36.0) g/dL RDW Std Deviation 40.9 (36.4-46.3) fL RDW Coeff of Coco 12.5 (11.5-14.5) % Plt Count 244 (130-400) K/uL MPV 9.1 L (9.4-12.4) fL Immature Gran % (Auto) 0.5 % Neut % (Auto) 87.3 % Lymph % (Auto) 7.4 % Ector % (Auto) 4.0 % Eos % (Auto) 0.5 % Baso % (Auto) 0.3 % Neut # (Auto) 13.49 H (1.40-6.50) K/uL Lymph # (Auto) 1.14 L (1.20-3.40) K/uL Ector # (Auto) 0.61 H (0.11-0.59) K/uL Eos # (Auto) 0.07 (0.00-0.50) K/uL Baso # (Auto) 0.05 (0.00-0.20) K/uL Immature Gran # (Auto) 0.08 (0.01-0.20) K/uL PT 10.9 (9.0-12.0) Seconds INR 1.0 (0.9-1.1) APTT 26 (21-31) Seconds PTT Ratio 1.0 Sodium 138 (136-145) mmol/L Potassium 3.7 (3.5-5.1) mmol/L Chloride 104 (98-107) mmol/L Carbon Dioxide 26 (21-32) mmol/L Anion Gap 8 (3-11) BUN 18 (6-23) mg/dl Creatinine 1.10 (0.6-1.4) mg/dl Est Cr Clr Drug Dosing 54.4 ml/min Est GFR ( Amer) 74.7 ml/min Est GFR (Non-Af Amer) 64.4 ml/min BUN/Creatinine Ratio 16.4 (10-20) Glucose 153 H (70-99(Fasting)) mg/dl Calcium 9.6 (8.6-10.3) mg/dl Total Bilirubin 0.7 (0.2-1.0) mg/dl AST 17 (13-39) U/L ALT 9 (7-52) U/L Alkaline Phosphatase 117 H (34-104) U/L Total Protein 7.8 (6.0-8.3) gm/dl Albumin 4.3 (3.4-5.0) gm/dl Globulin 3.5 (2.5-4.0) gm/dl Albumin/Globulin Ratio 1.2 (0.9-2) Administered Medications Discontinued Medications Acetaminophen (Acetaminophen 500 Mg Tab) 1,000 mg PO Q8H PRN PRN Reason: Pain Stop: 08/26/23 13:39 Last Admin: 07/27/23 14:29 Dose: 1,000 mg Documented By: ELISE Amlodipine Besylate (Amlodipine Besylate 5 Mg Tab) 5 mg PO QAM [facility] Stop: 08/24/23 08:59 Last Admin: 07/27/23 10:32 Dose: 5 mg Documented By: Admin: 07/26/23 08:45 Dose: 5 mg Documented By: Admin: 07/25/23 10:13 Dose: 5 mg Documented By: HENRY Apixaban (Apixaban 2.5 Mg Tab) 2.5 mg PO BID [facility] Stop: 08/25/23 20:59 Last Admin: 07/27/23 09:18 Dose: 2.5 mg Documented By: Admin: 07/26/23 19:49 Dose: 2.5 mg Documented By: CLIFFORD Aspirin (Aspirin 81 Mg Ectab) 81 mg PO BID [facility] Stop: 08/24/23 20:59 Last Admin: 07/26/23 08:44 Dose: 81 mg Documented By: Admin: 07/25/23 22:19 Dose: 81 mg Documented By: ZENA Buspirone HCl (Buspirone 5 Mg Tab) 5 mg PO AMHS [facility] Stop: 08/24/23 08:59 Last Admin: 07/27/23 09:17 Dose: 5 mg Documented By: Admin: 07/26/23 19:50 Dose: 5 mg Documented By: Admin: 07/26/23 08:45 Dose: 5 mg Documented By: Admin: 07/25/23 22:20 Dose: 5 mg Documented By: Admin: 07/25/23 10:13 Dose: 5 mg Documented By: HENRY Clonidine HCl (Clonidine Hcl 0.1 Mg/24 Hr Transderm Sys) 1 patch TD Q7D@2300 [facility] Stop: 08/23/23 22:59 Last Admin: 07/25/23 00:37 Dose: 1 patch Documented By: CAIT Finasteride (Finasteride 5 Mg Tab) 5 mg PO QAM [facility] Stop: 08/24/23 08:59 Last Admin: 07/27/23 09:18 Dose: 5 mg Documented By: Admin: 07/26/23 08:44 Dose: 5 mg Documented By: Admin: 07/25/23 10:12 Dose: 5 mg Documented By: HENRY Furosemide (Furosemide Inj 20 Mg/2 Ml Vial) 10 mg IV ONE ONE Stop: 07/26/23 10:15 Last Admin: 07/26/23 11:23 Dose: 10 mg Documented By: DANIEL Furosemide (Furosemide 20 Mg Tab) 20 mg PO ONE ONE Stop: 07/27/23 13:31 Last Admin: 07/27/23 14:30 Dose: 20 mg Documented By: ELISE Hydromorphone HCl (Hydromorphone Inj 0.5 Mg/0.5 Ml Syr) 0.5 mg IV Q20M PRN PRN Reason: Severe Pain (Rating 7,8,9,10) Stop: 08/07/23 19:12 Last Admin: 07/24/23 19:56 Dose: 0.5 mg Documented By: TAO Hydromorphone HCl (Hydromorphone Inj 0.5 Mg/0.5 Ml Syr) 0.5 mg IV Q3H PRN PRN Reason: Pain (5+) Stop: 08/07/23 21:05 Last Admin: 07/25/23 00:40 Dose: 0.5 mg Documented By: Admin: 07/24/23 21:37 Dose: 0.5 mg Documented By: TAO Sodium Chloride (Nss) 1,000 mls @ 75 mls/hr IV .[id number] [facility] Stop: 07/25/23 08:34 Last Infusion: 07/25/23 01:26 Dose: Infused Documented By: Admin: 07/24/23 19:56 Dose: 75 mls/hr Documented By: TAO Acetaminophen (Ofirmev) 1,000 mg in 100 mls @ 400 mls/hr IV Q8H [facility] Stop: 07/27/23 21:59 Last Admin: 07/27/23 14:26 Dose: Not Given Documented By: Infusion: 07/27/23 05:42 Dose: Infused Documented By: Admin: 07/27/23 05:23 Dose: 400 mls/hr Documented By: Infusion: 07/26/23 21:34 Dose: Infused Documented By: Admin: 07/26/23 21:07 Dose: 400 mls/hr Documented By: Infusion: 07/26/23 14:18 Dose: Infused Documented By: Admin: 07/26/23 13:51 Dose: 400 mls/hr Documented By: Infusion: 07/26/23 05:36 Dose: Infused Documented By: Admin: 07/26/23 05:21 Dose: 400 mls/hr Documented By: Infusion: 07/25/23 22:39 Dose: Infused Documented By: Admin: 07/25/23 22:24 Dose: 400 mls/hr Documented By: Admin: 07/25/23 15:06 Dose: Not Given Documented By: Infusion: 07/25/23 06:28 Dose: Infused Documented By: Admin: 07/25/23 05:58 Dose: 400 mls/hr Documented By: Infusion: 07/24/23 22:15 Dose: Infused Documented By: Admin: 07/24/23 21:36 Dose: 400 mls/hr Documented By: TAO Lactated Ringer's (Lr) 1,000 mls @ 80 mls/hr IV .[id number] [facility] Stop: 07/25/23 22:14 Last Admin: 07/25/23 10:16 Dose: Not Given Documented By: Infusion: 07/25/23 10:11 Dose: Infused Documented By: Admin: 07/24/23 21:35 Dose: 80 mls/hr Documented By: TAO Piperacillin Sod/Tazobactam (Sod 4.5 gm/ Dextrose) 100 mls @ 25 mls/hr IV Q8H [facility]; Protocol Stop: 08/01/23 15:59 Last Infusion: 07/27/23 12:32 Dose: Infused Documented By: Admin: 07/27/23 08:27 Dose: 25 mls/hr Documented By: Infusion: 07/27/23 03:08 Dose: Infused Documented By: Admin: 07/26/23 23:08 Dose: 25 mls/hr Documented By: TKAlvin Infusion: 07/26/23 20:04 Dose: Infused Documented By: TKAlvin Admin: 07/26/23 16:01 Dose: 25 mls/hr Documented By: Infusion: 07/26/23 11:57 Dose: Infused Documented By: Admin: 07/26/23 07:35 Dose: 25 mls/hr Documented By: Infusion: 07/26/23 05:05 Dose: Infused Documented By: Admin: 07/26/23 01:07 Dose: 25 mls/hr Documented By: Infusion: 07/25/23 19:30 Dose: Infused Documented By: Admin: 07/25/23 16:36 Dose: 25 mls/hr Documented By: [facility] [place]perac[place] Sod/Tazobactam (Sod 4.5 gm/ Dextrose) 100 mls @ 200 mls/hr IV NOW ONE; Protocol Stop: 07/25/23 10:59 Last Infusion: 07/25/23 12:31 Dose: Infused Documented By: Admin: 07/25/23 11:46 Dose: 200 mls/hr Documented By: HENRY Lactated Ringer's (Lr) 1,000 mls @ 0 mls/hr IV .Q0M [facility] Stop: 08/24/23 15:44 Last Infusion: 07/26/23 13:40 Dose: Infused Documented By: Admin: 07/25/23 15:33 Dose: 15 mls/hr Documented By: TDAbdulaziz Cefazolin Sodium (Ancef 2000mg) 2,000 mg in 15 mls @ 3.75 mls/min IV Q8H [facility]; Protocol Stop: 07/26/23 07:48 Last Admin: 07/26/23 07:34 Dose: 3.75 mls/min Documented By: Admin: 07/25/23 23:57 Dose: 3.75 mls/min Documented By: ZENA Sodium Chloride (Nss) 1,000 mls @ 80 mls/hr IV .[id number] [facility] Stop: 07/26/23 18:44 Last Infusion: 07/26/23 13:41 Dose: Infused Documented By: Admin: 07/26/23 07:31 Dose: 80 mls/hr Documented By: Infusion: 07/26/23 07:28 Dose: Infused Documented By: Admin: 07/25/23 18:58 Dose: 80 mls/hr Documented By: HENRY Lansoprazole (Lansoprazole 30 Mg Soltab) 30 mg PO DAILY [facility] Stop: 08/24/23 08:59 Last Admin: 07/27/23 09:17 Dose: 30 mg Documented By: Admin: 07/26/23 08:44 Dose: 30 mg Documented By: Admin: 07/25/23 10:15 Dose: 30 mg Documented By: HENRY Lisinopril (Lisinopril 20 Mg Tab) 20 mg PO QPM [facility] Stop: 08/24/23 20:59 Last Admin: 07/26/23 19:50 Dose: 20 mg Documented By: Admin: 07/25/23 22:20 Dose: 20 mg Documented By: ZENA Metoprolol Tartrate (Metoprolol Tartrate 100 Mg Tab) 100 mg PO AMHS [facility] Stop: 08/24/23 08:59 Last Admin: 07/27/23 09:17 Dose: 100 mg Documented By: Admin: 07/26/23 19:50 Dose: 100 mg Documented By: Admin: 07/26/23 08:45 Dose: 100 mg Documented By: Admin: 07/25/23 22:20 Dose: 100 mg Documented By: Admin: 07/25/23 10:12 Dose: 100 mg Documented By: HENRY Miscellaneous (Remove Clonidine Patch) 1 each N/A Q7D@2513 [facility] Stop: 08/23/23 22:58 Last Admin: 07/25/23 00:38 Dose: Not Given Documented By: CAIT Miscellaneous (Check Clonidine Patch Placement) 1 each N/A QS [facility] Stop: 08/24/23 00:00 Last Admin: 07/27/23 07:47 Dose: 1 each Documented By: Admin: 07/26/23 23:08 Dose: 1 each Documented By: Admin: 07/26/23 15:57 Dose: 1 each Documented By: Admin: 07/26/23 07:35 Dose: 1 each Documented By: Admin: 07/25/23 23:58 Dose: 1 each Documented By: Admin: 07/25/23 19:01 Dose: 1 each Documented By: Admin: 07/25/23 10:11 Dose: 1 each Documented By: Admin: 07/25/23 00:37 Dose: 1 each Documented By: CAIT Senna/Docusate Sodium (Docusate Sodium/Senna 50/8.6mg Tab) 1 tab PO BID [facility] Stop: 08/24/23 08:59 Last Admin: 07/27/23 09:17 Dose: 1 tab Documented By: Admin: 07/26/23 19:49 Dose: 1 tab Documented By: Admin: 07/26/23 08:45 Dose: 1 tab Documented By: Admin: 07/25/23 22:20 Dose: 1 tab Documented By: Admin: 07/25/23 10:15 Dose: 1 tab Documented By: HENRY Tamsulosin HCl (Tamsulosin Hcl 0.4 Mg Cap) 0.4 mg PO QAM [facility] Stop: 08/24/23 08:59 Last Admin: 07/27/23 09:18 Dose: 0.4 mg Documented By: Admin: 07/26/23 09:13 Dose: 0.4 mg Documented By: Admin: 07/25/23 10:14 Dose: 0.4 mg Documented By: HENRY Discharge Plan Visit Data Chief Complaint: Hip Pain ED Provider: Calixto Tapia Discharge Problem: Closed right hip fracture, Dementia, Fall, Abrasion of elbow, right Patient Disposition: Admitted As Inpatient Discharge Instructions Interventions: ED Discharge Assessment Last Done: 07/24/23 22:14
[2023-07-24] MEDS: HYDROmorphone INJ 0.5 MG/0.5 ML SYR IV PRN ×2 (19:56→21:37)
[2023-07-24] MEDS: SODIUM CHLORIDE 0.9% 1,000 ML IV SCH (19:56)
[2023-07-24 20:19] LABS: Basophils # (auto) 0.05 K/uL (0.00-0.20); Basophils % (auto) 0.3 %; Eosinophils # (auto) 0.07 K/uL (0.00-0.50); Eosinophils % (auto) 0.5 %; Hematocrit (blood only) 43.4 % (42.0-52.0); Hemoglobin 14.8 g/dl (14.0-18.0); Immature Granulocytes # (auto) 0.08 K/uL (0.01-0.20); Immature Granulocytes % (auto) 0.5 %; Lymphocytes # (auto) 1.14 K/uL (1.20-3.40); Lymphocytes % (auto) 7.4 %; Mean Corpuscular Hemoglobin 30.5 pg (25.0-34.0); Mean Corpuscular Hgb Conc 34.1 g/dL (32.0-36.0); Mean Corpuscular Volume 89.5 fL (80.0-100.0); Mean Platelet Volume 9.1 fL (9.4-12.4); Monocytes # (auto) 0.61 K/uL (0.11-0.59); Neutrophils # (auto) 13.49 K/uL (1.40-6.50); Neutrophils % (auto) 87.3 %; Platelet Count 244 K/uL (130-400); RDW Coefficient of Variation 12.5 % (11.5-14.5); RDW Standard Deviation 40.9 fL (36.4-46.3); Red Blood Count 4.85 M/uL (4.70-6.10); White Blood Count 15.44 K/ul (4.8-10.8)
[2023-07-24 20:37] LABS: Albumin Globulin Ratio 1.2 (0.9-2); Albumin Level 4.3 gm/dl (3.4-5.0); BUN Creatinine Ratio 16.4 (10-20); Bilirubin,Total 0.7 mg/dl (0.2-1.0); Calcium 9.6 mg/dl (8.6-10.3); Creatinine Clr Calc Pharmacy 54.4 ml/min; Est GFR (African American) 74.7 ml/min; Est GFR (Non-African American) 64.4 ml/min; Globulin 3.5 gm/dl (2.5-4.0); Potassium 3.7 mmol/L (3.5-5.1); Total Protein 7.8 gm/dl (6.0-8.3)
--- NOTE | 2023-07-24 20:38 | CT Scan Report ---
CT head/brain wo con CLINICAL HISTORY: fall Technique: Contiguous axial CT images of the head were acquired from the base of the skull to the nathaniel jaciel without intravenous contrast administration. Images were viewed in brain, subdural and bone [facility]. Automated dose lowering techniques and/or adjustment according to patient size were utilized for this exam. Comparison: Comparison is made to CT head 01/27/2022 Findings: Old encephalomalacia in the right occipital lobe is seen. Imaged portions of the paranasal sinuses and mastoid air cells are clear. The orbits appear normal. There are no acute fractures of the calvaria or scalp swelling. Impression: No acute intracranial hemorrhage, skull fractures, or scalp swelling. ACT 112: Negative or not required by law. Electronically signed by: Luis Carlisle M.D. 07/24/2023 8:36 PM
[2023-07-24 20:46] LABS: Partial Thromboplastin Time 26 Seconds (21-31); Prothrombin Time 10.9 Seconds (9.0-12.0)
--- NOTE | 2023-07-24 20:46 | History & Physical Report ---
Date of Service July 24, 2023 Assessment & Plan (1) Closed right hip fracture: Plan: Admit to Med/urg Currently stable, nontoxic-appearing, and resting comfortably at the time of admission Presented to the ED via EMS from [facility] after he sustained an unwitnessed fall earlier today Patient found to have closed right hip fracture At this time his would like patient's hip to be repaired, the ED did speak with orthopedics who is aware the patient will see them tomorrow No other acute trauma on exam Will continue pain control with scheduled Tylenol and as needed Dilaudid for severe pain Bedrest for now Will need to follow-up with UA once obtained in the ER Bilateral SCDs for DVT prophylaxis Orthopedic consult placed will keep the patient n.p.o. at midnight in case of OR tomorrow Start light IV LR for hydration overnight A.m. CBC, BMP, mag, PT/INR PT/OT consults placed (2) Fall: Plan: Report from EMS was that the patient had been a chair in his room and only unattended for a few minutes after staff at [facility] found him on the ground CT of the head/brain without contrast was read as negative for acute changes Right hip fracture as above Final read on chest x-ray is in process, however, on my review it does not appear that he has signs of acute trauma Rest of care per right hip fracture plan (3) Hypertension: Plan: Initially hypertensive on arrival at 185/123 Blood pressure is improving after pain control in the ER Continue pain control per hip fracture Will continue his home amlodipine, isinopril, and metoprolol (4) Dementia: Plan: Patient with severe dementia at baseline Currently sleeping comfortably in bed Continue home buspirone Patient may require antipsychotics if becomes agitated or aggressive's during his admission, would be in agreement with antipsychotics if needed for patient/staff safety Plan The patient was discussed with Dr. Sandoval at the time of the admission History of Present Illness Chief Complaint: Fall, right hip pain Primary Care Provider: Eileen Vanegas is a 76-year-old male with past medical history including dementia, Previous left lower extremity DVT and PEs in June 2022 (Completed course of Eliquis), and hypertension who presented to the [facility] emergency department from [facility] after he sustained an unwitnessed fall and was found on the ground by staff with new right hip pain. On arrival to the emergency department he was noted to be Hypertensive at 185/123, tachycardic at 101, but otherwise stable. Labs were significant for a leukocytosis of 15 with neutrophil predominance of 13, otherwise they were unremarkable. CT of the head/brain without contrast was read as no acute intracranial hemorrhage, skull fractures, or scalp swelling. Prior to admission the patient was given 0.5 mg IV Dilaudid and was started on 1 L normal saline at 75 mL an hour. Patient was sleeping at the time of exam with his /POA at bedside history was obtained from patient's due to his history of severe dementia. She confirms the patient was found down in his room earlier today his fall was unwitnessed. He was complaining of severe right hip pain and was very agitated. At this time she would like his hip to be surgically repaired. She explains that his baseline mental status is waxing and waning interactions, he is in the dementia unit at [facility]. She states that when he gets very anxious or agitated he will start to shake violently this is normal for him. We discussed CODE STATUS, due to his ongoing clinical decline with his dementia he is now a DNR/DNI. When asked, patient's confirms that he is no longer on anticoagulation as he completed his course of Eliquis after his DVT and PEs diagnosed last year. Please refer to Dr. Sandoval's attestation for any changes to the treatment plan. Allergies Allergy/AdvReac Type Severity Reaction Status Date / Time Sulfa (Sulfonamide Allergy Intermediate RASH Verified 07/24/23 20:08 Antibiotics) codeine Allergy Unknown unknown Verified 07/24/23 20:08 donepezil Allergy Unknown ? sycopal Verified 07/24/23 20:08 episode oxycodone AdvReac Severe hallucinati Verified 07/24/23 20:08 ons Home Medications Medication Instructions Recorded Confirmed Type acetaminophen 325 mg tablet 650 mg PO Q6 PRN Fever Or Pain 07/24/23 07/24/23 History (Tylenol) aluminum-mag hydroxide-simethicone 30 ml PO Q4 PRN Dyspepsia 07/24/23 07/24/23 History 400 mg-400 mg-40 mg/5 mL oral susp amlodipine 5 mg tablet 5 mg PO QAM 07/24/23 07/24/23 History amoxicillin 500 mg tablet 2,000 mg PO DIRECTED 07/24/23 07/24/23 History buspirone 5 mg tablet 5 mg PO AMHS 07/24/23 07/24/23 History cholecalciferol (vitamin D3) 25 25 mcg PO DAILY 07/24/23 07/24/23 History mcg (1,000 unit) tablet (Vitamin D3) finasteride 5 mg tablet 5 mg PO QAM 07/24/23 07/24/23 History lisinopril 20 mg tablet 20 mg PO QPM 07/24/23 07/24/23 History metoprolol tartrate 100 mg tablet 100 mg PO AMHS 07/24/23 07/24/23 History pantoprazole 40 mg granules 40 mg PO DAILY 07/24/23 07/24/23 History delayed-release for susp in packet polyethylene glycol 3350 17 gram 17 g PO BID 07/24/23 07/24/23 History oral powder packet (Miralax) sennosides 8.6 mg-docusate sodium 1 tab-cap PO BID 07/24/23 07/24/23 History 50 mg tablet (Senokot-S) tamsulosin 0.4 mg capsule 0.4 mg PO QAM 07/24/23 07/24/23 History Past Med/Surg History Problem List Abrasion of elbow, right (Acute) Fall (Acute) Closed right hip fracture (Acute) Cardiac pacemaker in situ interrogated 02/16/20 no issues Acute metabolic encephalopathy Pulmonary emboli Left leg DVT Hypertension Dementia (Acute) Cholelithiasis History of prostatitis Abdominal pain (Acute) Abdominal distension (Acute) Elevated PSA Urinary retention Catheter-associated urinary tract infection Hypokalemia ANNAMARIA (acute kidney injury) Blood bacterial culture positive Weakness (Acute) Fall (Acute) Weakness COVID-19 (Acute) Encounter to establish care Toenail fungus Benign localized prostatic hyperplasia with lower urinary tract symptoms (LUTS) (Chronic) Dyslipidemia (Chronic) Pancreatic cyst (Chronic) Anemia (Chronic) GERD (gastroesophageal reflux disease) (Chronic) Hypoalbuminemia Anemia (Acute) Sinus node dysfunction Hearing loss (Chronic) Nocturia (Chronic) Inguinal hernia (Chronic) Medical History Fecal impaction BPH (benign prostatic hyperplasia) COVID-19 Urinary retention IPMN (intraductal papillary mucinous neoplasm) Ileus, postoperative Acute blood loss anemia Elevated bilirubin Elevated AST (SGOT) Inguinal hernia of left side with obstruction Elevated PSA T9 vertebral fracture Pneumothorax, left CHB (complete heart block) 12/2014 s/p pacer insertion Surgical History S/P left inguinal hernia repair (04/03/20) Laparoscopic left inguinal hernia repair, incarcerated Dr. Ramirez 04/03/2020 History of tonsillectomy H/O hernia repair History of rectal surgery Anal fistulectomy Social History Smoking Status: Unknown if ever smoked Second Hand Exposure: No; Do You Dip or Chew Tobacco: No; Hx Substance Use: No Preferred Language: Nepali Communication Ability: Effective Communication Ability Comment: does not speak Roller Required: No Beliefs That Will Affect Care: None marital status: Current Living Situation: Personal Care Facility current occupational status: retired Feels Safe at Home: Yes Assistive Devices: None Physical Exam Physical Exam: Physical Exam: General: In no acute distress, stated age, well-nourished, non-toxic appearing HEENT: Normocephalic, atraumatic, no scleral icterus, pupils around round, symmetrical, and reactive to light, moist mucus membranes, trachea midline, no thyromegaly Chest/Pulm: No respiratory distress, symmetrical chest expansion, clear breath sounds throughout Cardiac: RRR, no murmurs noted Abdomen: Negative for ascites and bruising, normoactive bowel sounds, soft, non-tender to palpation throughout Musculoskeletal: RLE is currently shortened and externally rotated, significant pain with palpation of the right hip, otherwise no acute trauma on exam Extremities: Radial, dorsalis pedis, and posterior tibial pulses are intact and symmetrical, no edema noted in the BL LE's Skin: Warm, dry, no rashes , lesions, or scars noted Neuro: Currently sleeping comfortable at the time of the exam, explains that his baseline mental status is essentially oriented to person only, no focal decfects on exam Psych: Sleeping comfortably Results & Data Results & Data Vital Signs (Past 12 Hours) Vital Signs Temp Pulse Pulse Resp BP BP Pulse Ox 07/24/23 18:48 36.5 C 85 17 191/121 H 96 07/24/23 18:45 104 H 07/24/23 18:45 101 H 20 185/123 H O2 Del Method 07/24/23 18:48 Room Air 07/24/23 18:45 07/24/23 18:45 Laboratory Results Abnormal lab results 07/24/23 Range/Units 19:55 WBC 15.44 H (4.8-10.8) K/ul MPV 9.1 L (9.4-12.4) fL Neut # (Auto) 13.49 H (1.40-6.50) K/uL Lymph # (Auto) 1.14 L (1.20-3.40) K/uL Izard # (Auto) 0.61 H (0.11-0.59) K/uL Glucose 153 H (70-99(Fasting)) mg/dl Alkaline Phosphatase 117 H (34-104) U/L Diagnostic Findings Head CT 07/24/23 19:13 CT head/brain wo con CLINICAL HISTORY: fall Technique: Contiguous axial CT images of the head were acquired from the base of the skull to the vertex without intravenous contrast administration. Images were viewed in brain, subdural and bone windows. Automated dose lowering techniques and/or adjustment according to patient size were utilized for this exam. Comparison: Comparison is made to CT head 01/27/2022 Findings: Old encephalomalacia in the right occipital lobe is seen. Imaged portions of the paranasal sinuses and mastoid air cells are clear. The orbits appear normal. There are no acute fractures of the calvaria or scalp swelling. Impression: No acute intracranial hemorrhage, skull fractures, or scalp swelling. ACT 112: Negative or not required by law. Electronically signed by: Luis Carlisle M.D. 07/24/2023 8:36 PM ECG Additional Comments: Will obtain at the time of admission Code Status & VTE Plan Code Status DNR/DNI VTE Prophylaxis Plan VTE Prophylaxis will be ordered: Yes Supervising Physician Co-Signing Physician Notes Attending addendum: I have physically seen this patient, have supervised the GARETT's activities, and agree with the H&P unless as otherwise noted. Assessment and Plan: Closed right hip fracture- Admit to [facility] Orthopedic surgery has been consulted N.p.o. after midnight Geriatric hip fracture protocol Pain control as noted with Tylenol, and escalating doses of Dilaudid LR at 80 MLS per hour Hypertension- Holding metoprolol, lisinopril and amlodipine Start Catapres TTS1 patch Hydralazine 10 mg IV every 4 hours as needed for systolic blood pressure greater than 160 BPH with LUTS- Holding tamsulosin and finasteride Haley catheter PG Care Time/CCT Total # of Minutes Spent Total Time Spent with Patient: Total time spent is greater than 50% in coordination of care (as documented) at patient's floor/unit and/or counseling patient: Coding [place] [address] INT INP/OBS CARE 2/55MIN Patient Type Established Medical Decision Making Moderate Complexity Diagnoses Closed right hip fracture S72.001A Fall W19.XXXA Primary hypertension I10 Hypertension type: primary hypertension Dementia F03.90 (3) Hypertension Hypertension type: primary hypertension Qualified Code(s): I10 - Essential (primary) hypertension
--- NOTE | 2023-07-24 20:48 | Communication Note ---
Date of Service: July 24, 2023 imaging reviewed, plan for hip hemiarthroplasty on 07/24
[2023-07-24] MEDS ORDERED: MAGNESIUM HYDROXIDE SUSP 30 ML UDC PO PRN (21:06)
[2023-07-24] MEDS ORDERED: bisacodyL 10 MG SUPP PR PRN (21:06)
[2023-07-24] MEDS ORDERED: NALOXONE HCL 0.4 MG/1 ML VIAL/CARP IV PRN (21:06)
[2023-07-24] MEDS: LACTATED RINGER'S 1,000 ML IV SCH (21:35)
[2023-07-24] MEDS: ACETAMINOPHEN 1,000 MG/100 ML VIAL IV SCH (21:36)
--- NOTE | 2023-07-24 21:45 | XRay Report ---
XR hip RT min 2V CLINICAL HISTORY: R hip pain TECHNIQUE: 2 views of the right hip and single frontal view of the pelvis were obtained. Comparison: Comparison is made to CT abdomen pelvis 06/07/2022 FINDINGS: Acute fracture of the right hip, likely intratrochanteric. Joint spaces are well-preserved. Soft tiss ue swelling is seen. IMPRESSION: Intertrochanteric right hip fracture. ACT 112: Negative or not required by law. Electronically signed by: Luis Carlisle M.D. 07/24/2023 9:44 PM
--- NOTE | 2023-07-24 21:46 | XRay Report ---
XR chest 1V portable CLINICAL HISTORY: hip fx TECHNIQUE: Single frontal radiograph of the chest was obtained. Comparison: Comparison is made to chest radiograph 08/09/2022 FINDINGS: An implanted pacemaker is seen. Calcified aortic knob is seen. Lungs are underinflated but clear. No evidence of pleural effusion or pneumothorax. IMPRESSION: No acute chest disease. ACT 112: Negative or not required by law. Electronically signed by: Luis Carlisle M.D. 07/24/2023 9:44 PM
[2023-07-24] MEDS ORDERED: hydrALAZINE HCL 20 MG/ML VIAL IV PRN (21:56)
[2023-07-24] MEDS ORDERED: cloNIDine HCL 0.1 MG/24 HR TRANSDERM SYS TD SCH (22:15)
[2023-07-24] MEDS ORDERED: ALUMINUM/MAGNESIUM/SIMETH (MAALOX MAX) 30 ML UDC PO PRN (23:37)
[2023-07-25] MEDS: cloNIDine HCL 0.1 MG/24 HR TRANSDERM SYS TD SCH (00:37)
[2023-07-25] MEDS: CHECK CLONIDINE PATCH PLACEMENT SCH ×2 (00:37→10:11)
[2023-07-25 07:27] LABS: Hematocrit (blood only) 42.1 % (42.0-52.0); Hemoglobin 14.1 g/dl (14.0-18.0); Mean Corpuscular Hemoglobin 30.1 pg (25.0-34.0); Mean Corpuscular Hgb Conc 33.5 g/dL (32.0-36.0); Mean Corpuscular Volume 89.8 fL (80.0-100.0); Mean Platelet Volume 9.1 fL (9.4-12.4); Platelet Count 251 K/uL (130-400); RDW Coefficient of Variation 12.8 % (11.5-14.5); RDW Standard Deviation 41.5 fL (36.4-46.3); Red Blood Count 4.69 M/uL (4.70-6.10); White Blood Count 13.76 K/ul (4.8-10.8)
[2023-07-25 07:46] LABS: BUN Creatinine Ratio 18.8 (10-20); Calcium 9.3 mg/dl (8.6-10.3); Creatinine Clr Calc Pharmacy 62.3 ml/min; Est GFR (Non-African American) 75.9 ml/min; Potassium 3.9 mmol/L (3.5-5.1)
[2023-07-25 07:49] LABS: Prothrombin Time 11.1 Seconds (9.0-12.0)
[2023-07-25 07:55] LABS: Basophils # (auto) 0.01 K/uL (0.00-0.20); Basophils % (auto) 0.1 %; Immature Granulocytes # (auto) 0.05 K/uL (0.01-0.20); Immature Granulocytes % (auto) 0.4 %; Lymphocytes # (auto) 0.69 K/uL (1.20-3.40); Monocytes # (auto) 0.57 K/uL (0.11-0.59); Monocytes % (auto) 4.1 %; Neutrophils # (auto) 12.44 K/uL (1.40-6.50); Neutrophils % (auto) 90.4 %
--- NOTE | 2023-07-25 08:07 | Hospitalist Progress Note ---
Date of Service July 25, 2023 Assessment & Plan (1) Closed right hip fracture: Plan: Presented to the ED via EMS from [facility] after he sustained an unwitnessed fall earlier today at [facility] and found to have Intertrochanteric right hip fracture on imaging WBC ELEVATED on admission to 15k, 13.7k on repeat CT head negative for acute CVA (encephalomalacia noted) UA ordered, CXR w/o acute process ON ADMISSION Orthopedics consulted, planning for surgery 07/24 NPO for OR today IVF ordered x 2 L, hypoxic and req 2 L today and obtained CXR CXR noted:1. Hypoinflation.2. Cardiomegaly with pulmonary vascular congestion and mild nonspecific bibasilar consolidation. IVF STOPPED, does not appear dehydrated on exam to prevent overload Will avoid lasix for now given NPO status/OR, supplemental O2 to maintain sats and can consider dose in AM if needed ?underlying aspiration ( denied issues w/ feeding at [facility] and has been feeding, takes pills in carrier) Aspiration precautions ordered, speech eval placed Given leukocytosis on admission w/ CXR findings, will START on ZOSYN IV for aspiration pneumonia coverage. UA/cx pending Biofire also ordered given from [facility] and reports illness has been going around -- NEGATIVE Pain control, antiemetics, bowel regimen as needed Therapy evals to be undertaken post-op DVT proph: SCDs for now, chemoproph JOSE given hx DVT/PE last year and completed 6 months eliquis ( reports was 2nd to COVID-19 infection) Monitor labs/exam in AM (2) Fall: Plan: Report from EMS was that the patient had been a chair in his room and only unattended for a few minutes after staff at [facility] found him on the ground CT of the head/brain without contrast was read as negative for acute changes Right hip fracture as above CXR w/o acute process initially however repeated today given hypoxia and appears w/ possible aspiration pneumonia +/- pulmonary vascular congestion and IVF being held as above and monitor on repeat (3) Hypertension: Plan: BP on arrival elevated 185/123 in setting of pain, improved on repeat Continues on home metoprolol, lisinopril, amlodipine Monitor (4) Dementia: Plan: Patient with severe dementia at baseline Currently sleeping comfortably in bed Continue home buspirone Patient may require antipsychotics if becomes agitated or aggressive's during his admission, would be in agreement with antipsychotics if needed for patient/staff safety Plan continued inpatient stay NPO for OR with Dr Sage this afternoon Zosyn IV abx for pulm (also can cover for urine) Updated via phone this morning 07/24 Admission and Anticipated Discharge Date Admission Date: July 24, 2023 Supervising Physician Co-Signing Physician Notes The patient was not seen by me. The chart was reviewed. Case discussed with AIMEE Henley. Agree with assessment and plan Subjective Evaluated this morning, resting in bed, does not appear to be in any acute distress. On 2L, no cough but lung diminished/coarse in the bases and given WBC and taking pills crushed in carrier plan to place on Zosyn for aspiration/pneumonia coverage and stop IVF for now given evidence for volume overload. Able to short answer questions yes/no, but dementia at baseline. Updated , would visit everyday at [facility]. She would help with feeding him, he could take a couple bites by himself. She does note that this past week at memory care unit, 28 residents there and there has been something going around in there which has lead to some pneumonias in some of the people/coughs lasting several weeks. She does report he has some flat affect at times, staring ahead at times (not unusual, has been going on for a while) but after he's there for a while he starts to recognize who she is and is more engaging with her. She also notes that he got a cat scan of his head last evening. Has been off AC for about December after completing treatment. Reports he was falling a lot at home at that time and in January 2022 and went to [facility] Feb 2022 and was in hospital in May. Physical Exam Physical Exam: General: 77yo male laying flat in bed, not very verbal, occasional yes/no answers, NAD Head atraumatic, normocephalic, mmm, trachea midline Resp: diminished in the bases with associated crackles, expiratory wheezing, on 2L, no tachypnea, occasional cough CV: RRR, no significant m/r/g, trace pedal edema GI: +BS, slight distension, soft/nontender : condom cath in place MSK/Neuro: dementia at baseline, answers yes/no, no facial droop, RLE shortened/externally rotated, pulses present, no calf tenderness/grimmacing on exam Psych; alert to person, not able to follow commands at times, dementia at baseline per Results & Data Results & Data Vital Signs (Past 12 Hours) Vital Signs Temp Pulse Resp BP Pulse Ox O2 Del Method O2 Flow Rate 07/25/23 06:56 36.6 C 98 H 17 158/79 H 97 Nasal Cannula 2 07/24/23 23:00 Nasal Cannula 2.5 07/24/23 23:00 36.4 C L 88 16 179/91 H 96 Nasal Cannula 2.5 07/24/23 22:17 98 Nasal Cannula 2 07/24/23 22:09 81 17 150/87 H 97 Room Air 07/24/23 21:40 88 L Room Air 07/24/23 21:00 36.5 C 80 16 176/87 H 97 Room Air Laboratory Results 07/25/23 07/25/23 07/24/23 Range/Units Unknown 06:37 19:55 WBC 13.76 H 15.44 H (4.8-10.8) K/ul RBC 4.69 L 4.85 (4.70-6.10) M/uL Hgb 14.1 14.8 (14.0-18.0) g/dl Hct 42.1 43.4 (42.0-52.0) % MCV 89.8 89.5 (80.0-100.0) fL MCH 30.1 30.5 (25.0-34.0) pg MCHC 33.5 34.1 (32.0-36.0) g/dL RDW Std Deviation 41.5 40.9 (36.4-46.3) fL RDW Coeff of Coco 12.8 12.5 (11.5-14.5) % Plt Count 251 244 (130-400) K/uL MPV 9.1 L 9.1 L (9.4-12.4) fL Immature Gran % (Auto) 0.4 0.5 % Neut % (Auto) 90.4 87.3 % Lymph % (Auto) 5.0 7.4 % Meigs % (Auto) 4.1 4.0 % Eos % (Auto) 0.0 0.5 % Baso % (Auto) 0.1 0.3 % Neut # (Auto) 12.44 H 13.49 H (1.40-6.50) K/uL Lymph # (Auto) 0.69 L 1.14 L (1.20-3.40) K/uL Meigs # (Auto) 0.57 0.61 H (0.11-0.59) K/uL Eos # (Auto) 0.00 0.07 (0.00-0.50) K/uL Baso # (Auto) 0.01 0.05 (0.00-0.20) K/uL Immature Gran # (Auto) 0.05 0.08 (0.01-0.20) K/uL PT 11.1 10.9 (9.0-12.0) Seconds INR 1.0 1.0 (0.9-1.1) APTT 26 (21-31) Seconds PTT Ratio 1.0 Sodium 139 138 (136-145) mmol/L Potassium 3.9 3.7 (3.5-5.1) mmol/L Chloride 104 104 (98-107) mmol/L Carbon Dioxide 25 26 (21-32) mmol/L Anion Gap 10 8 (3-11) BUN 18 18 (6-23) mg/dl Creatinine 0.96 1.10 (0.6-1.4) mg/dl Est Cr Clr Drug Dosing 62.3 54.4 ml/min Est GFR ( Amer) 88.0 74.7 ml/min Est GFR (Non-Af Amer) 75.9 64.4 ml/min BUN/Creatinine Ratio 18.8 16.4 (10-20) Glucose 149 H 153 H (70-99(Fasting)) mg/dl Calcium 9.3 9.6 (8.6-10.3) mg/dl Magnesium 2.0 (1.7-2.4) mg/dl Total Bilirubin 0.7 (0.2-1.0) mg/dl AST 17 (13-39) U/L ALT 9 (7-52) U/L Alkaline Phosphatase 117 H (34-104) U/L Total Protein 7.8 (6.0-8.3) gm/dl Albumin 4.3 (3.4-5.0) gm/dl Globulin 3.5 (2.5-4.0) gm/dl Albumin/Globulin Ratio 1.2 (0.9-2) Nasal Screen MRSA (PCR) Pending Diagnostic Findings Hip X-Ray 07/24/23 18:44 XR hip RT min 2V CLINICAL HISTORY: R hip pain TECHNIQUE: 2 views of the right hip and single frontal view of the pelvis were obtained. Comparison: Comparison is made to CT abdomen pelvis 06/07/2022 FINDINGS: Acute fracture of the right hip, likely intratrochanteric. Joint spaces are well-preserved. Soft tissue swelling is seen. IMPRESSION: Intertrochanteric right hip fracture. ACT 112: Negative or not required by law. Electronically signed by: Luis Carlisle M.D. 07/24/2023 9:44 PM Chest X-Ray 07/24/23 19:13 XR chest 1V portable CLINICAL HISTORY: hip fx TECHNIQUE: Single frontal radiograph of the chest was obtained. Comparison: Comparison is made to chest radiograph 08/09/2022 FINDINGS: An implanted pacemaker is seen. Calcified aortic knob is seen. Lungs are underinflated but clear. No evidence of pleural effusion or pneumothorax. IMPRESSION: No acute chest disease. ACT 112: Negative or not required by law. Electronically signed by: Luis Carlisle M.D. 07/24/2023 9:[address] 07/24/23 19:13 CT head/brain wo con CLINICAL HISTORY: fall Technique: Contiguous axial CT images of the head were acquired from the base of the skull to the vertex without intravenous contrast administration. Images were viewed in brain, subdural and bone windows. Automated dose lowering techniques and/or adjustment according to patient size were utilized for this exam. Comparison: Comparison is made to CT head 01/27/2022 Findings: Old encephalomalacia in the right occipital lobe is seen. Imaged portions of the paranasal sinuses and mastoid air cells are clear. The orbits appear normal. There are no acute fractures of the calvaria or scalp swelling. Impression: No acute intracranial hemorrhage, skull fractures, or scalp swelling. ACT 112: Negative or not required by law. Electronically signed by: Luis Carlisle M.D. 07/24/2023 8:36 PM Chest X-Ray 07/25/23 08:08 XR chest 1V portable HISTORY: 77 years-old Male eval volume overload acute shortness of breath COMPARISON: 07/24/2023 TECHNIQUE: AP view of the chest FINDINGS: Cardiac silhouette is enlarged. Pulmonary vascular congestion with progressive interstitial coarsening. Dual lead left subclavian pacer. No pneumothorax. Hypoinflation. Blunting the lateral costophrenic angles. Progressive bibasilar opacities. Bones appear grossly intact. IMPRESSION: 1. Hypoinflation. 2. Cardiomegaly with pulmonary vascular congestion and mild nonspecific bibasilar consolidation. ACT 112: Negative or not required by law. The above report was generated using voice recognition software. It may contain grammatical, syntax or spelling errors. Electronically signed by: Sj Garcia M.D. 07/25/2023 9:51 AM PG Care Time/CCT Total # of Minutes Spent Total Time Spent with Patient: Total time spent is greater than 50% in coordination of care (as documented) at patient's floor/unit and/or counseling patient: Coding Level of Care Code 72936 SUB INP/OBS CARE 3/50MIN Diagnoses Closed right hip fracture S72.001A Fall W19.XXXA Primary hypertension I10 Hypertension type: primary hypertension Dementia F03.90 (3) Hypertension Hypertension type: primary hypertension Qualified Code(s): I10 - Essential (primary) hypertension
--- NOTE | 2023-07-25 09:52 | XRay Report ---
XR chest 1V portable HISTORY: 77 years-old Male eval volume overload acute shortness of breath COMPARISON: 07/24/2023 TECHNIQUE: AP view of the chest FINDINGS: Cardiac silhouette is enlarged. Pulmonary vascular congestion with progressive interstitial coarsenin g. Dual lead left subclavian pacer. No pneumothorax. Hypoinflation. Blunting the lateral costophrenic angles. Progressive bibasilar opacities. Bones appear grossly intact. IMPRESSION: 1. Hypoinflation. 2. Cardiomegaly with pulmonary vascular congestion and mild nonspecific bibasilar consolidation. ACT 112: Negative or not required by law. The above report was generated using voice recognition software. It may contain grammatical, syntax o r spelling errors. Electronically signed by: Sj Garcia M.D. 07/25/2023 9:51 AM
--- NOTE | 2023-07-25 09:54 | Electrocardiogram Report ---
Test Reason : Blood Pressure : / mmHG Vent. Rate : 077 BPM Atrial Rate : 077 BPM P-R Int : 168 ms QRS Dur : 172 ms QT Int : 436 ms P-R-T Axes : 050 -83 082 degrees QTc Int : 493 ms Atrial-sensed ventricular-paced rhythm Abnormal ECG When compared with ECG of 07-JUN-2022 18:48, Vent. rate has decreased BY 24 BPM Confirmed by Rolando Kendall ([id number]) on 07/25/2023 9:53:55 AM Referred By: [facility] Confirmed By:Ramón Kendall
[2023-07-25] MEDS: METOPROLOL TARTRATE 100 MG TAB PO SCH (10:12)
[2023-07-25] MEDS: FINASTERIDE 5 MG TAB PO SCH (10:12)
[2023-07-25 10:13] LABS: Appearance Urine Clear (Clear); Bacteria Urine Automated None Seen (None Seen); Bilirubin Urine Negative (Negative); Blood Urine Trace (Negative); Cast Urine Automated 0-2 /lpf (0-2); Color Urine Yellow; Epithelial Cell Urine Auto 0-2 /hpf (0-2); Glucose Urine UA Negative (Negative); Ketones Urine Trace (Negative); Leukocyte Esterase Urine 1+ (Negative); Nitrite Urine Negative (Negative); Protein Urine 1+ (Negative); Specific Gravity Urine 1.022 (1.000-1.030); Urobilinogen Urine Negative (Negative); WBC Urine Automated >50 /hpf (0-5)
[2023-07-25] MEDS: busPIRone 5 MG TAB PO SCH (10:13)
[2023-07-25] MEDS: amLODIPine BESYLATE 5 MG TAB PO SCH (10:13)
[2023-07-25] MEDS: TAMSULOSIN HCL 0.4 MG CAP PO SCH (10:14)
[2023-07-25] MEDS: DOCUSATE SODIUM/SENNA 50/8.6MG TAB PO SCH (10:15)
[2023-07-25] MEDS: LANSOPRAZOLE 30 MG SOLTAB PO SCH (10:15)
--- NOTE | 2023-07-25 10:28 | Anesthesiology Consultation ---
Date of Service July 25, 2023 Assessment & Plan Chart Review Chart Review: Acceptable Risk for Surgery and Patient NOT seen in Pre Admission Testing Consults Requested none History Surgery Operation Date: 07/25/23 07:00 Proposed Procedures p Right Hip Hemiarthroplasty - Sj Sage DO Height/Weight Height: 5 ft 8 in Weight: 77.3 kg Allergies Allergy/AdvReac Type Severity Reaction Status Date / Time Sulfa (Sulfonamide Allergy Intermediate RASH Verified 07/24/23 20:08 Antibiotics) codeine Allergy Unknown unknown Verified 07/24/23 20:08 donepezil Allergy Unknown ? sycopal Verified 07/24/23 20:08 episode oxycodone AdvReac Severe hallucinati Verified 07/24/23 20:08 ons Medications Home Medications Medication Instructions Recorded Confirmed Last Taken acetaminophen 325 mg tablet 650 mg PO Q6 PRN Fever Or Pain 07/24/23 07/24/23 Unknown (Tylenol) aluminum-mag hydroxide-simethicone 30 ml PO Q4 PRN Dyspepsia 07/24/23 07/24/23 Unknown 400 mg-400 mg-40 mg/5 mL oral susp amlodipine 5 mg tablet 5 mg PO QAM 07/24/23 07/24/23 Unknown amoxicillin 500 mg tablet 2,000 mg PO DIRECTED 07/24/23 07/24/23 Unknown buspirone 5 mg tablet 5 mg PO AMHS 07/24/23 07/24/23 Unknown cholecalciferol (vitamin D3) 25 25 mcg PO DAILY 07/24/23 07/24/23 Unknown mcg (1,000 unit) tablet (Vitamin D3) finasteride 5 mg tablet 5 mg PO QAM 07/24/23 07/24/23 Unknown lisinopril 20 mg tablet 20 mg PO QPM 07/24/23 07/24/23 Unknown metoprolol tartrate 100 mg tablet 100 mg PO AMHS 07/24/23 07/24/23 Unknown pantoprazole 40 mg granules 40 mg PO DAILY 07/24/23 07/24/23 Unknown delayed-release for susp in packet polyethylene glycol 3350 17 gram 17 g PO BID 07/24/23 07/24/23 Unknown oral powder packet (Miralax) sennosides 8.6 mg-docusate sodium 1 tab-cap PO BID 07/24/23 07/24/23 Unknown 50 mg tablet (Senokot-S) tamsulosin 0.4 mg capsule 0.4 mg PO QAM 07/24/23 07/24/23 Unknown Active Medications Generic Name Dose Route Start Last Admin Trade Name Yevgeniyq PRN Reason Stop Dose Admin Amlodipine Besylate 5 mg 07/25/23 09:00 07/25/23 10:13 Amlodipine Besylate 5 Mg Tab PO 08/24/23 08:59 5 mg QAM JACKSON Administration Buspirone HCl 5 mg 07/25/23 09:00 07/25/23 10:13 Buspirone 5 Mg Tab PO 08/24/23 08:59 5 mg AMHS JACKSON Administration Clonidine HCl 1 patch 07/24/23 23:00 07/25/23 00:37 Clonidine Hcl 0.1 Mg/24 Hr Transderm Sys TD 08/23/23 22:59 1 patch Q7D@1120 JACKSON Administration Finasteride 5 mg 07/25/23 09:00 07/25/23 10:12 Finasteride 5 Mg Tab PO 08/24/23 08:59 5 mg QAM JACKSON Administration Hydromorphone HCl 0.5 mg 07/24/23 21:06 07/25/23 00:40 Hydromorphone Inj 0.5 Mg/0.5 Ml Syr IV 08/07/23 21:05 0.5 mg Q3H PRN Administration Pain (5+) Acetaminophen 1,000 mg in 100 mls @ 400 mls/hr 07/24/23 22:00 07/25/23 06:28 Ofirmev IV 07/27/23 21:59 Infused Q8H JACKSON Infusion Lansoprazole 30 mg 07/25/23 09:00 07/25/23 10:15 Lansoprazole 30 Mg Soltab PO 08/24/23 08:59 30 mg DAILY JACKSON Administration Metoprolol Tartrate 100 mg 07/25/23 09:00 07/25/23 10:12 Metoprolol Tartrate 100 Mg Tab PO 08/24/23 08:59 100 mg AMHS JACKSON Administration Miscellaneous 1 each 07/24/23 22:59 07/25/23 00:38 Remove Clonidine Patch N/A 08/23/23 22:58 Not Given Q7D@9833 JACKSON Miscellaneous 1 each 07/25/23 00:00 07/25/23 10:11 Check Clonidine Patch Placement N/A 08/24/23 00:00 1 each QS JACKSON Administration Senna/Docusate Sodium 1 tab 07/25/23 09:00 07/25/23 10:15 Docusate Sodium/Senna 50/8.6mg Tab PO 08/24/23 08:59 1 tab BID JACKSON Administration Tamsulosin HCl 0.4 mg 07/25/23 09:00 07/25/23 10:14 Tamsulosin Hcl 0.4 Mg Cap PO 08/24/23 08:59 0.4 mg QAM JACKSON Administration Past Medical History Medical History Fecal impaction BPH (benign prostatic hyperplasia) COVID-19 Urinary retention IPMN (intraductal papillary mucinous neoplasm) Ileus, postoperative Acute blood loss anemia Elevated bilirubin Elevated AST (SGOT) Inguinal hernia of left side with obstruction Elevated PSA T9 vertebral fracture Pneumothorax, left CHB (complete heart block) 12/2014 s/p pacer insertion Past Surgical History Surgical History S/P left inguinal hernia repair (04/03/20) Laparoscopic left inguinal hernia repair, incarcerated Dr. Ramirez 04/03/2020 History of tonsillectomy H/O hernia repair History of rectal surgery Anal fistulectomy Social History Smoking Status: Unknown if ever smoked Do You Dip or Chew Tobacco: No Hx Substance Use: No substance use type: unknown Physical Exam Vital Signs Last Vital Signs Temp 36.6 C 07/25/23 06:56 Pulse 98 H 07/25/23 06:56 Resp 17 07/25/23 06:56 BP 158/79 H 07/25/23 06:56 Pulse Ox 97 07/25/23 06:56 O2 Del Method Nasal Cannula 07/25/23 06:56 O2 Flow Rate 2 07/25/23 06:56 Testing Laboratory Results 07/25/23 06:37 07/25/23 06:37 PT 11.1 Seconds (9.0-12.0) 07/25/23 06:37 INR 1.0 (0.9-1.1) 07/25/23 06:37 APTT 26 Seconds (21-31) 07/24/23 19:55 Urine Color Yellow 07/25/23 09:55 Urine Appearance Clear (Clear) 07/25/23 09:55 Urine pH 7.0 (4.5-7.5) 07/25/23 09:55 Ur Specific [place] 1.022 (1.000-1.030) 07/25/23 09:55 Urine Protein 1+ (Negative) H 07/25/23 09:55 Urine Glucose (UA) Negative (Negative) 07/25/23 09:55 Urine Ketones Trace (Negative) H 07/25/23 09:55 Urine Nitrite Negative (Negative) 07/25/23 09:55 Ur Leukocyte Esterase 1+ (Negative) H 07/25/23 09:55 Urine WBC (Auto) >50 /hpf (0-5) H 07/25/23 09:55 Urine RBC (Auto) 3-5 /hpf (0-2) H 07/25/23 09:55 U Hyaline Cast (Auto) 0-2 /lpf (0-2) 07/25/23 09:55 U Epithel Cells (Auto) 0-2 /hpf (0-2) 07/25/23 09:55 Urine Bacteria (Auto) None Seen (None Seen) 07/25/23 09:55 Electrocardiogram Date: 07/24/23 Atrial-sensed ventricular-paced rhythm Abnormal ECG When compared with ECG of 07-JUN-2022 18:48, Vent. rate has decreased BY 24 BPM Confirmed by Rolando Kendall ([id number]) on 07/25/2023 9:53:55 AM Chest X-Ray Date: 07/25/23 IMPRESSION: 1. Hypoinflation. 2. Cardiomegaly with pulmonary vascular congestion and mild nonspecific bibasilar consolidation. Echocardiogram Date: 12/13/14 EF: 60-65 Other Testing Medtronic pacemaker - dependent
[2023-07-25] MEDS: PIPER/TAZO 4.5g in D5W MINI-B 100 ML IV ONE (11:46)
[2023-07-25 12:09] LABS: Adenovirus PCR Not Detected (NotDetected); Bordetella parapertussis PCR Not Detected (NotDetected); Bordetella pertussis PCR Not Detected (NotDetected); Chlamydia pneumoniae PCR Not Detected (NotDetected); Coronavirus 229E PCR Not Detected (NotDetected); Coronavirus CoV-2 (COVID19)PCR Not Detected (NotDetected); Coronavirus HKU1 PCR Not Detected (NotDetected); Coronavirus NL63 PCR Not Detected (NotDetected); Coronavirus OC43PCR Not Detected (NotDetected); Human Metapneumovirus PCR Not Detected (NotDetected); Influenza A PCR Not Detected (NotDetected); Influenza B PCR Not Detected (NotDetected); Mycoplasma pneumoniae PCR Not Detected (NotDetected); Parainfluenza Virus 1 PCR Not Detected (NotDetected); Parainfluenza Virus 2 PCR Not Detected (NotDetected); Parainfluenza Virus 3 PCR Not Detected (NotDetected); Parainfluenza Virus 4 PCR Not Detected (NotDetected); Respiratory Syncytial VirusPCR Not Detected (NotDetected); Rhinovirus/Enterovirus PCR Not Detected (NotDetected)
[2023-07-25] MEDS ORDERED: LIDOCAINE 2% 2 ML VIAL/AMP(20MG/ML) INFIL ONE (14:02)
[2023-07-25] MEDS ORDERED: PROPOFOL IV EMULSION 10 MG/ML 20 ML VIAL IV ONE (14:02)
[2023-07-25] MEDS ORDERED: fentaNYL citrate PF 100 MCG/2 ML VIAL ONE ×2 (14:02→16:58)
[2023-07-25] MEDS ORDERED: ONDANSETRON INJ 2 MG/ML 2 ML VIAL ONE (14:02)
[2023-07-25] MEDS ORDERED: DEXAMETHASONE SOD INJ 4 MG/ML VIAL ONE (14:02)
[2023-07-25] MEDS ORDERED: MIDAZOLAM HCL 1 MG/ML 2ML VIAL ONE (14:03)
--- NOTE | 2023-07-25 15:17 | History & Physical Bridge Note ---
Date of Service July 25, 2023 History & Physical Bridge Note I have examined the patient, reviewed the History & Physical and in the interval since the performance of the History & Physical I have noted the following changes of clinical significance: no changes noted. Met with patient and his . we had a discussion about right hip hemiarthoplasty, risk and benefits discussed. elected to proceed with surgery and written consent was obtained.
[2023-07-25] MEDS: LACTATED RINGER'S 1,000 ML IV SCH (15:33)
[2023-07-25] MEDS ORDERED: ROCURONIUM BROMIDE 10 MG/ML 5 ML VIAL IV ONE ×2 (15:56→17:16)
--- NOTE | 2023-07-25 16:09 | Anesthesiology Consultation ---
Date of Service July 25, 2023 Assessment & Plan Chart Review Chart Review: Acceptable Risk for Surgery and Patient NOT seen in Pre Admission Testing Consults Requested none History Surgery Operation Date: 07/25/23 07:00 Proposed Procedures p Right Hip Hemiarthroplasty - Sj Sage DO Height/Weight Height: 5 ft 8 in Weight: 77.3 kg Allergies Allergy/AdvReac Type Severity Reaction Status Date / Time Sulfa (Sulfonamide Allergy Intermediate RASH Verified 07/24/23 20:08 Antibiotics) codeine Allergy Unknown unknown Verified 07/24/23 20:08 donepezil Allergy Unknown ? sycopal Verified 07/24/23 20:08 episode oxycodone AdvReac Severe hallucinati Verified 07/24/23 20:08 ons Medications Home Medications Medication Instructions Recorded Confirmed Last Taken acetaminophen 325 mg tablet 650 mg PO Q6 PRN Fever Or Pain 07/24/23 07/24/23 Unknown (Tylenol) aluminum-mag hydroxide-simethicone 30 ml PO Q4 PRN Dyspepsia 07/24/23 07/24/23 Unknown 400 mg-400 mg-40 mg/5 mL oral susp amlodipine 5 mg tablet 5 mg PO QAM 07/24/23 07/24/23 Unknown amoxicillin 500 mg tablet 2,000 mg PO DIRECTED 07/24/23 07/24/23 Unknown buspirone 5 mg tablet 5 mg PO AMHS 07/24/23 07/24/23 Unknown cholecalciferol (vitamin D3) 25 25 mcg PO DAILY 07/24/23 07/24/23 Unknown mcg (1,000 unit) tablet (Vitamin D3) finasteride 5 mg tablet 5 mg PO QAM 07/24/23 07/24/23 Unknown lisinopril 20 mg tablet 20 mg PO QPM 07/24/23 07/24/23 Unknown metoprolol tartrate 100 mg tablet 100 mg PO AMHS 07/24/23 07/24/23 Unknown pantoprazole 40 mg granules 40 mg PO DAILY 07/24/23 07/24/23 Unknown delayed-release for susp in packet polyethylene glycol 3350 17 gram 17 g PO BID 07/24/23 07/24/23 Unknown oral powder packet (Miralax) sennosides 8.6 mg-docusate sodium 1 tab-cap PO BID 07/24/23 07/24/23 Unknown 50 mg tablet (Senokot-S) tamsulosin 0.4 mg capsule 0.4 mg PO QAM 07/24/23 07/24/23 Unknown Active Medications Generic Name Dose Route Start Last Admin Trade Name Yevgeniyq PRN Reason Stop Dose Admin Amlodipine Besylate 5 mg 07/25/23 09:00 07/25/23 10:13 Amlodipine Besylate 5 Mg Tab PO 08/24/23 08:59 5 mg QAM JACKSON Administration Buspirone HCl 5 mg 07/25/23 09:00 07/25/23 10:13 Buspirone 5 Mg Tab PO 08/24/23 08:59 5 mg AMHS JACKSON Administration Clonidine HCl 1 patch 07/24/23 23:00 07/25/23 00:37 Clonidine Hcl 0.1 Mg/24 Hr Transderm Sys TD 08/23/23 22:59 1 patch Q7D@2300 JACKSON Administration Finasteride 5 mg 07/25/23 09:00 07/25/23 10:12 Finasteride 5 Mg Tab PO 08/24/23 08:59 5 mg QAM JACKSON Administration Hydromorphone HCl 0.5 mg 07/24/23 21:06 07/25/23 00:40 Hydromorphone Inj 0.5 Mg/0.5 Ml Syr IV 08/07/23 21:05 0.5 mg Q3H PRN Administration Pain (5+) Acetaminophen 1,000 mg in 100 mls @ 400 mls/hr 07/24/23 22:00 07/25/23 15:06 Ofirmev IV 07/27/23 21:59 Not Given Q8H JACKSON Lactated Ringer's 1,000 mls @ 0 mls/hr 07/25/23 15:45 07/25/23 15:33 Lr IV 08/24/23 15:44 15 mls/hr .Q0M JACKSON Administration KVO Lansoprazole 30 mg 07/25/23 09:00 07/25/23 10:15 Lansoprazole 30 Mg Soltab PO 08/24/23 08:59 30 mg DAILY JACKSON Administration Metoprolol Tartrate 100 mg 07/25/23 09:00 07/25/23 10:12 Metoprolol Tartrate 100 Mg Tab PO 08/24/23 08:59 100 mg AMHS JACKSON Administration Miscellaneous 1 each 07/24/23 22:59 07/25/23 00:38 Remove Clonidine Patch N/A 08/23/23 22:58 Not Given Q7D@2259 JACKSON Miscellaneous 1 each 07/25/23 00:00 07/25/23 10:11 Check Clonidine Patch Placement N/A 08/24/23 00:00 1 each QS JACKSON Administration Senna/Docusate Sodium 1 tab 07/25/23 09:00 07/25/23 10:15 Docusate Sodium/Senna 50/8.6mg Tab PO 08/24/23 08:59 1 tab BID JACKSON Administration Tamsulosin HCl 0.4 mg 07/25/23 09:00 07/25/23 10:14 Tamsulosin Hcl 0.4 Mg Cap PO 08/24/23 08:59 0.4 mg QAM JACKSON Administration NPO Date Last Intake of Fluids: 07/24/23 Time Last Intake of Fluids: 21:00 Date Last Intake of Solids: 07/24/23 Time Last Intake of Solids: 18:00 Past Medical History Medical History Fecal impaction BPH (benign prostatic hyperplasia) COVID-19 Urinary retention IPMN (intraductal papillary mucinous neoplasm) Ileus, postoperative Acute blood loss anemia Elevated bilirubin Elevated AST (SGOT) Inguinal hernia of left side with obstruction Elevated PSA T9 vertebral fracture Pneumothorax, left CHB (complete heart block) 12/2014 s/p pacer insertion Past Surgical History Surgical History S/P left inguinal hernia repair (04/03/20) Laparoscopic left inguinal hernia repair, incarcerated Dr. Ramirez 04/03/2020 History of tonsillectomy H/O hernia repair History of rectal surgery Anal fistulectomy Social History Smoking Status: Unknown if ever smoked Do You Dip or Chew Tobacco: No Hx Substance Use: No substance use type: unknown Physical Exam Vital Signs Last Vital Signs Temp 37 C 07/25/23 15:16 Pulse 92 H 07/25/23 15:16 Resp 20 07/25/23 15:16 BP 177/98 H 07/25/23 15:16 Pulse Ox 97 07/25/23 15:16 O2 Del Method Nasal Cannula 07/25/23 15:16 O2 Flow Rate 2 07/25/23 14:33 Constitutional no acute distress ENMT Mouth: no dentition abnormality Thyromental Distance: > or= 3.5 Finger Breadths Mallampati Class: II Neck normal visual inspection Respiratory normal respiratory effort; no respiratory distress Cardiovascular Rate/Rhythm: regular rate and regular rhythm Musculoskeletal Spine: normal cervical ROM Psychiatric Orientation: alert and oriented x 3 Testing Laboratory Results 07/25/23 06:37 07/25/23 06:37 PT 11.1 Seconds (9.0-12.0) 07/25/23 06:37 INR 1.0 (0.9-1.1) 07/25/23 06:37 APTT 26 Seconds (21-31) 07/24/23 19:55 Urine Color Yellow 07/25/23 09:55 Urine Appearance Clear (Clear) 07/25/23 09:55 Urine pH 7.0 (4.5-7.5) 07/25/23 09:55 Ur Specific [place] 1.022 (1.000-1.030) 07/25/23 09:55 Urine Protein 1+ (Negative) H 07/25/23 09:55 Urine Glucose (UA) Negative (Negative) 07/25/23 09:55 Urine Ketones Trace (Negative) H 07/25/23 09:55 Urine Nitrite Negative (Negative) 07/25/23 09:55 Ur Leukocyte Esterase 1+ (Negative) H 07/25/23 09:55 Urine WBC (Auto) >50 /hpf (0-5) H 07/25/23 09:55 Urine RBC (Auto) 3-5 /hpf (0-2) H 07/25/23 09:55 U Hyaline Cast (Auto) 0-2 /lpf (0-2) 07/25/23 09:55 U Epithel Cells (Auto) 0-2 /hpf (0-2) 07/25/23 09:55 Urine Bacteria (Auto) None Seen (None Seen) 07/25/23 09:55 Electrocardiogram Date: 07/24/23 Atrial-sensed ventricular-paced rhythm Abnormal ECG When compared with ECG of 07-JUN-2022 18:48, Vent. rate has decreased BY 24 BPM Confirmed by Rolando Kendall ([id number]) on 07/25/2023 9:53:55 AM Chest X-Ray Date: 07/25/23 IMPRESSION: 1. Hypoinflation. 2. Cardiomegaly with pulmonary vascular congestion and mild nonspecific bibasilar consolidation. Echocardiogram Date: 12/13/14 EF: 60-65 Other Testing Medtronic pacemaker - dependent
[2023-07-25] MEDS ORDERED: ePHEDrine sulfate 50 MG/ML AMP IV PRN (16:16)
[2023-07-25] MEDS ORDERED: fentaNYL citrate PF 100 MCG/2 ML VIAL IV PRN (16:16)
[2023-07-25] MEDS ORDERED: ATROPINE SULFATE 0.1 MG/ML 10ML SYR IV PRN (16:16)
[2023-07-25] MEDS: PIPERACILLIN/TAZOBACTAM 4.5 GM in DEXTROSE 5% MINI-B 100 ML IV SCH (16:36)
[2023-07-25] MEDS ORDERED: LARYING-O-JET KIT (LTA) ONE (17:17)
[2023-07-25] MEDS ORDERED: SUGAMMADEX SODIUM 200 MG/2 ML VIAL IV ONE (17:17)
--- NOTE | 2023-07-25 17:38 | Post Operative Brief Note ---
Immediate Post Op Note Date of Surgery July 25, 2023 Pre & Post Diagnosis Operation Date: 07/25/23 07:00 Pre-Op Diagnosis: Right hip fracture Post-Op Diagnosis: Right hip fracture I identified the patient and participated in the time-out.: Yes Procedure Operation Date: 07/25/23 07:00 Actual Procedures p Right Hip Hemiarthroplasty(Right) - Sj Sage DO Surgeon Sj Sage DO Wafer Fabrication Operator none Estimated Blood Loss 50 Findings Consistent with Post-Op Diagnosis see dictation Drains Haley Catheter (patient had condom catheter on upon arrival to unit) Complications none
--- NOTE | 2023-07-25 17:43 | Operative Report ---
Post Operative Report Pre & Post Diagnosis Operation Date: 07/25/23 07:00 Pre-Op Diagnosis: Right hip fracture Post-Op Diagnosis: Right hip fracture I identified the patient and participated in the time-out.: Yes Procedure Operation Date: 07/25/23 07:00 Actual Procedures p Right Hip Hemiarthroplasty(Right) - Sj Sage DO Surgeon Sj Sage DO Advertising Solicitor none Estimated Blood Loss 50 Findings Consistent with Post-Op Diagnosis see dictation Specimens femoral head Drains none Indications 77-year-old male with a history of dementia presenting after sustaining a fall onto his right side. Noted pain and inability to ambulate. Was taken to emergency department where he was found to have a displaced right femoral neck fracture. Patient was admitted to medical service and orthopedics was consulted for operative management. I met with the patient and his preoperatively. We had a lengthy discussion regarding risk benefits potential complications of right hip hemiarthroplasty. After reviewing these they elected to proceed with surgical intervention and written consent was obtained Description of Procedure Implants: Conrado Avenir standard offset stem size 3, 28 mm cobalt chrome inner head +0, 48 mm bipolar shell Procedure: Patient was appropriate marked and identified in the preoperative holding area. They were then taken back to the operative suite where they received anesthesia. They received antibiotics per protocol. They were then positioned in the lateral decubitus position with the right hip facing upwards. Patient was then prepped and draped in the standard orthopedic fashion a timeout was then performed. Posterior lateral incision was made with a scalpel. Electrocautery was used to dissect through the subcutaneous tissue down to the IT band and gluteal fascia which was then split in line with the incision. Charnley retractor was then placed. Short external rotators were then identified and tagged and reflected off the posterior capsule. T capsulotomy was then performed. There was a gush of fracture hematoma noted. The hip was then rotated and a femoral neck osteotomy was then made approximately 1 fingerbreadth above the lesser trochanter any residual bone fragments were then removed. A corkscrew was then placed in the femoral head and the femoral head was then removed. Femoral head was then sized on the back table. Acetabulum was checked for any interposed soft tissue. 48 mm trial shell was noted to have excellent fit. Attention was then turned to preparation of the femoral canal. Canal finder was then used followed by a lateralizing reamer. The canal was then sequentially broached up to a size 3 stem which was noted to have excellent fit and fill. A 48 mm +0 bipolar head with standard neck offset was then attached. The hip was then successfully reduced. Range of motion, leg lengths, and stability were then assessed and all noted to be satisfactory. At that point the hip was then successfully dislocated. All trial components were then removed. The hip was then copiously irrigated with dilute Betadine solution followed by normal saline solution. Femoral stem was then impacted into the femoral canal under visualization of the calcar. 48 mm +0 bipolar head was then inserted on the trunnion and the hip was then successfully reduced. Once again range of motion, stability, and leg lengths were assessed and noted to be satisfactory. Attention was then turned to capsular closure. Capsule was closed in a [id number] fashion using 1-0 Ticron suture. Charnley retractor was then removed and the hip was then copiously irrigated with dilute Betadine solution followed by normal saline solution. IT band and gluteal fascia was closed in a [id number]-gu-[id number] fashion using 1-0 Tycron suture followed by a running oh strata fix suture. Subcutaneous tissues were then copiously irrigated with dilute Betadine solution and normal saline solution. They were then closed using 2 oh STRATAFIX suture followed by eric for the skin. A sterile Silverlon dressing was placed. The patient tolerated the procedure well was taken to recovery room in hemodynamically stable condition. I attest to the content of the Intraoperative Record and any orders documented therein. Any exceptions are noted below.
--- NOTE | 2023-07-25 17:49 | Electrocardiogram Report ---
Test Reason : Blood Pressure : / mmHG Vent. Rate : 097 BPM Atrial Rate : 097 BPM P-R Int : 180 ms QRS Dur : 168 ms QT Int : 400 ms P-R-T Axes : 070 -82 074 degrees QTc Int : 508 ms Poor data quality, interpretation may be adversely affected Atrial-sensed ventricular-paced rhythm Abnormal ECG When compared with ECG of 24-JUL-2023 19:03, Vent. rate has increased BY 20 BPM Confirmed by Rolando Kendall ([id number]) on 07/25/2023 5:49:35 PM Referred By: [facility] Confirmed By:Ramón Kendall
--- NOTE | 2023-07-25 17:53 | Orthopedic Consultation ---
Date of Consultation July 25, 2023 Assessment & Plan (1) Closed right hip fracture: 77-year-old male with displaced right femoral neck fracture Pain control Nonweightbearing right lower extremity Medical management Plan for OR for right hip hemiarthroplasty History of Present Illness Attending Physician: Rojas Elkins MD History of Present Illness 77-year-old male presenting with a chief complaint of right hip pain. Patient has severe dementia and is nonverbal. He was noted to have right hip pain. Was taken to the emergency department and found to have a displaced right femoral neck fracture. Was admitted to medical service and orthopedics was consulted for operative management. Allergies Allergy/AdvReac Type Severity Reaction Status Date / Time Sulfa (Sulfonamide Allergy Intermediate RASH Verified 07/24/23 20:08 Antibiotics) codeine Allergy Unknown unknown Verified 07/24/23 20:08 donepezil Allergy Unknown ? sycopal Verified 07/24/23 20:08 episode oxycodone AdvReac Severe hallucinati Verified 07/24/23 20:08 ons Home Medications Medication Instructions Recorded Confirmed Type acetaminophen 325 mg tablet 650 mg PO Q6 PRN Fever Or Pain 07/24/23 07/24/23 History (Tylenol) aluminum-mag hydroxide-simethicone 30 ml PO Q4 PRN Dyspepsia 07/24/23 07/24/23 History 400 mg-400 mg-40 mg/5 mL oral susp amlodipine 5 mg tablet 5 mg PO QAM 07/24/23 07/24/23 History amoxicillin 500 mg tablet 2,000 mg PO DIRECTED 07/24/23 07/24/23 History buspirone 5 mg tablet 5 mg PO AMHS 07/24/23 07/24/23 History cholecalciferol (vitamin D3) 25 25 mcg PO DAILY 07/24/23 07/24/23 History mcg (1,000 unit) tablet (Vitamin D3) finasteride 5 mg tablet 5 mg PO QAM 07/24/23 07/24/23 History lisinopril 20 mg tablet 20 mg PO QPM 07/24/23 07/24/23 History metoprolol tartrate 100 mg tablet 100 mg PO AMHS 07/24/23 07/24/23 History pantoprazole 40 mg granules 40 mg PO DAILY 07/24/23 07/24/23 History delayed-release for susp in packet polyethylene glycol 3350 17 gram 17 g PO BID 07/24/23 07/24/23 History oral powder packet (Miralax) sennosides 8.6 mg-docusate sodium 1 tab-cap PO BID 07/24/23 07/24/23 History 50 mg tablet (Senokot-S) tamsulosin 0.4 mg capsule 0.4 mg PO QAM 07/24/23 07/24/23 History Patient History Medical History Fecal impaction BPH (benign prostatic hyperplasia) COVID-19 Urinary retention IPMN (intraductal papillary mucinous neoplasm) Ileus, postoperative Acute blood loss anemia Elevated bilirubin Elevated AST (SGOT) Inguinal hernia of left side with obstruction Elevated PSA T9 vertebral fracture Pneumothorax, left CHB (complete heart block) 12/2014 s/p pacer insertion Surgical History S/P left inguinal hernia repair (04/03/20) Laparoscopic left inguinal hernia repair, incarcerated Dr. Ramirez 04/03/2020 History of tonsillectomy H/O hernia repair History of rectal surgery Anal fistulectomy Social History Smoking Status: Unknown if ever smoked Second Hand Exposure: No; Do You Dip or Chew Tobacco: No; Hx Substance Use: No Preferred Language: Bahraini Communication Ability: Effective Communication Ability Comment: does not speak Public Speaking Instructor Required: No Beliefs That Will Affect Care: None marital status: Current Living Situation: Personal Care Facility current occupational status: retired Feels Safe at Home: Yes Assistive Devices: None Physical Exam Constitutional: Pleasantly demented, exam limited secondary to mental status Musculoskeletal: Right lower extremity -Shortened and externally rotated -Pain with logroll -Unable to assess neuromuscular exam sec ondary to mental status -Palpable dorsalis pedis and posterior t ibial pulses with brisk capillary refill Results & Data Vital Signs (Past 12 Hours) Vital Signs Temp Pulse Pulse Resp BP Pulse Ox O2 Del Method 07/25/23 17:03 Nasal Cannula 07/25/23 15:16 37 C 92 H 20 177/98 H 97 Nasal Cannula 07/25/23 14:33 36.8 C 82 17 168/87 H 92 Nasal Cannula 07/25/23 06:56 36.6 C 98 H 17 158/79 H 97 Nasal Cannula O2 Flow Rate 07/25/23 17:03 2 07/25/23 15:16 07/25/23 14:33 2 07/25/23 06:56 2 Diagnostic Findings Radiographs of the right hip demonstrate displaced right femoral neck fracture
--- NOTE | 2023-07-25 18:18 | Anesthesiology Progress Note ---
Date of Service July 25, 2023 Anesthesia Post Procedure Vital Signs Vital Signs: Temp Pulse Pulse Pulse Resp BP BP 07/25/23 18:05 72 17 167/93 H 07/25/23 17:55 68 14 158/85 H 07/25/23 17:45 36.2 C L 75 16 196/91 H 07/25/23 17:03 07/25/23 15:16 37 C 92 H 20 07/25/23 14:33 36.8 C 82 17 07/25/23 06:56 36.6 C 98 H 17 07/24/23 23:00 07/24/23 23:00 36.4 C L 88 16 07/24/23 22:17 07/24/23 22:09 81 17 07/24/23 21:40 07/24/23 21:00 36.5 C 80 16 07/24/23 18:48 36.5 C 85 17 191/121 H 07/24/23 18:45 104 H 07/24/23 18:45 101 H 20 BP Pulse Ox O2 Del Method O2 Flow Rate 07/25/23 18:05 94 Nasal Cannula 5 07/25/23 17:55 93 Oxymask 13 07/25/23 17:45 96 Oxymask 13 07/25/23 17:03 Nasal Cannula 2 07/25/23 15:16 177/98 H 97 Nasal Cannula 07/25/23 14:33 168/87 H 92 Nasal Cannula 2 07/25/23 06:56 158/79 H 97 Nasal Cannula 2 07/24/23 23:00 Nasal Cannula 2.5 07/24/23 23:00 179/91 H 96 Nasal Cannula 2.5 07/24/23 22:17 98 Nasal Cannula 2 07/24/23 22:09 150/87 H 97 Room Air 07/24/23 21:40 88 L Room Air 07/24/23 21:00 176/87 H 97 Room Air 07/24/23 18:48 96 Room Air 07/24/23 18:45 07/24/23 18:45 185/123 H Transfer of Care Handoff Completed per policy Notes Mental Status: see notes below (severe dementia at baseline) Patient Amnestic to Procedure: Yes Nausea / Vomiting: adequately controlled Pain: adequately controlled Airway Patency, RR, SpO2: stable & adequate BP & HR: stable & adequate Hydration State: stable & adequate Anesthetic Complications: no major complications apparent
--- NOTE | 2023-07-25 18:22 | XRay Report ---
XR hip RT 1V CLINICAL HISTORY: PACU - Post Surgical TECHNIQUE: 1 view of the right hip were obtained. Comparison: Comparison is made to right hip radiograph 07/24/2023 FINDINGS: Patient is status post total hip arthroplasty with expected postsurgical changes including soft tissu e swelling and subcutaneous emphysema. IMPRESSION: Expected postoperative appearance status post placement of total hip arthroplasty. ACT 112: Negative or not required by law. Electronically signed by: Luis Carlisle M.D. 07/25/2023 6:20 PM
[2023-07-25] MEDS: SODIUM CHLORIDE 0.9% 1,000 ML IV SCH (18:58)
[2023-07-25] MEDS: ASPIRIN 81 MG ECTAB PO SCH (22:19)
[2023-07-25] MEDS: lisinopril 20 MG TAB PO SCH (22:20)
[2023-07-25] MEDS: ceFAZolin 2000MG 2,000 MG/15 ML SYR IV SCH (23:57)
[2023-07-26 07:15] LABS: Basophils # (auto) 0.02 K/uL (0.00-0.20); Basophils % (auto) 0.1 %; Hematocrit (blood only) 38.7 % (42.0-52.0); Hemoglobin 13.3 g/dl (14.0-18.0); Immature Granulocytes # (auto) 0.09 K/uL (0.01-0.20); Immature Granulocytes % (auto) 0.6 %; Lymphocytes # (auto) 0.83 K/uL (1.20-3.40); Mean Corpuscular Hemoglobin 30.6 pg (25.0-34.0); Mean Corpuscular Hgb Conc 34.4 g/dL (32.0-36.0); Mean Corpuscular Volume 89.2 fL (80.0-100.0); Mean Platelet Volume 9.3 fL (9.4-12.4); Monocytes # (auto) 0.98 K/uL (0.11-0.59); Monocytes % (auto) 7.1 %; Neutrophils # (auto) 11.93 K/uL (1.40-6.50); Neutrophils % (auto) 86.2 %; Platelet Count 232 K/uL (130-400); RDW Coefficient of Variation 12.8 % (11.5-14.5); RDW Standard Deviation 41.6 fL (36.4-46.3); Red Blood Count 4.34 M/uL (4.70-6.10); White Blood Count 13.85 K/ul (4.8-10.8)
[2023-07-26 07:32] LABS: BUN Creatinine Ratio 15.9 (10-20); Calcium 8.8 mg/dl (8.6-10.3); Est GFR (African American) 72.3 ml/min; Est GFR (Non-African American) 62.4 ml/min; Magnesium 1.9 mg/dl (1.7-2.4)
[2023-07-26 07:36] LABS: INR 1.1 (0.9-1.1); Prothrombin Time 11.5 Seconds (9.0-12.0)
--- NOTE | 2023-07-26 07:56 | Hospitalist Progress Note ---
Date of Service July 26, 2023 Assessment & Plan (1) Closed right hip fracture: Plan: Presented to the ED via EMS from [facility] after he sustained an unwitnessed fall earlier today at [facility] and found to have Intertrochanteric right hip fracture on imaging WBC ELEVATED on admission to 15k, 13.7k on repeat CT head negative for acute CVA (encephalomalacia noted) UA ordered- cx w/ repeat collection recommended CXR w/o acute process ON ADMISSION 07/24 Orthopedics consulted, planning for surgery 07/24 NPO for OR IVF ordered x 2 L, hypoxic and req 2 L today and obtained CXR CXR noted:1. Hypoinflation.2. Cardiomegaly with pulmonary vascular congestion and mild nonspecific bibasilar consolidation. IVF STOPPED, does not appear dehydrated on exam to prevent overload Will avoid lasix for now given NPO status/OR, supplemental O2 to maintain sats and can consider dose in AM if needed ?underlying aspiration ( denied issues w/ feeding at 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 EBL reported none. Pain control, bowel regimen, antiemetics as needed Vit D wnl Pain control, antiemetics, bowel regimen as needed Therapy evals pending WBC trending down, remains on Zosyn IV. Afebrile CXR 07/25 w/ slight improvement in pulmonary vascular congestion, bibasilar opacities greater on the left (L ?pneumonia vs atelectasis, R basilar opacity favors atelectasis) Titrated from 13L oxymask post-op to 5L --> presently 4L NC. Unable to really participate w/ incentive spirometer. Nebs available as needed. IVF STOPPED pre- op and rec to avoid Lasix 10mg IV x 1 given poor ability to feed self however does appear a little congested REVIEW OF MEDS/IVF, ortho ordered additional 2L NSS @ 80cc/hr --> DISCONTINUE FURTHER IVF Speech therapy consulted to eval for any underlying aspiration. Aspiration precautions in place and has been feed w/ and staff and no reported issue at this time Supplemental O2 to maintain sats DVT proph: SCDs in place, ASA 81mg BID per Dr Sage however discussed w/ supervising provider and orthopedics given prior hx DVT/PE while was reportedly in setting of COVID-19 infection will plan to switch ASA 81mg PO BID to eliquis 2.5mg PO BID for DVT prevention given remote clot. No evidence for DVT at present time and tx w/ abx for suspected pneumonia/aspiratoin pna, speech consult pending (2) Fall: Plan: Report from EMS was that the patient had been a chair in his room and only unattended for a few minutes after [facility] found him on the ground CT of the head/brain without contrast was read as negative for acute changes Right hip fracture as above CXR w/o acute process initially however repeated today given hypoxia and appears w/ possible aspiration pneumonia +/- pulmonary vascular congestion and IVF being held as above and low dose lasix IV (3) Hypertension: Plan: elevation on arrival in setting of pain. ct head w/o acute process continues on home metoprolol, lisinopril, amlodipine BP acceptable 154/79 and will monitor (4) Dementia: Plan: Patient with severe dementia at baseline Currently sleeping comfortably in bed Continue home buspirone Patient may require antipsychotics if becomes agitated or aggressive's during his admission, would be in agreement with antipsychotics if needed for patient/staff safety --no agitation/aggressiveness at present time but review prior hospitalizations and SEROQUEL was effective in the past and can be used if needed Plan continued inpatient stay, therapy evals pending/CM to follow tx aspiration/pneumonia as above, speech consult pending and aspiration precautions in place (has been tolerating easy to chew diet at this time, but is a feed) Dispo: From [facility] memory unit and suspect pending therapy evals likely needing skilled prior to returning to prior level of care updated AM 6/12 and will plan to call again this evening w/ update Admission and Anticipated Discharge Date Admission Date: July 24, 2023 Supervising Physician Co-Signing Physician Notes The patient was not seen by me. The chart was reviewed. Case discussed with AIMEE Henley. Agree with assessment and plan Subjective Eval this morning, resting in bed. Not able to work with with therapy but did wake up a little for me. Reports having some pain to his hip, ok w/ some tylenol. Discussed oxygen and concerns for pneumonia. He reports breathing ok at this time. Is a feed and tolerating diet with nursing at present time. Continues on IV Zosyn for pneumonia coverage, speech to see. Will plan to update later this afternoon. Physical Exam Physical Exam: General: 77yo male laying flat in bed, more awake/alert today but not very verbal at baseline, did report some pain, trying to adjust his nasal cannula this morning, ice pack in place to his hip Head atraumatic, normocephalic, mmm, trachea midline Resp: diminished in the bases with associated crackles, expiratory wheezing improved but coarse in bases, on nasal cannula 4L, no further cough noted CV: RRR, no significant m/r/g, trace pedal edema GI: +BS, slight distension, soft/nontender : condom cath in place MSK/Neuro: dementia at baseline, answers yes/no, no facial droop, dressing to RIGHT hip c/d/i, minimal edema, +tenderness, calves supple, trace pedal edema, SCDs in place Psych; alert to person, not able to follow commands at times, dementia at baseli ne per more cooperative today, wanting some tylenol for pain Results & Data Results & Data Vital Signs (Past 12 Hours) Vital Signs Temp Pulse Resp BP Pulse Ox O2 Del Method O2 Flow Rate 07/26/23 03:00 37.0 C 83 18 171/115 H 95 Nasal Cannula 4 07/26/23 00:05 162/102 H 07/25/23 21:45 37.4 C 94 H 18 180/89 H 95 Nasal Cannula 4 07/25/23 20:50 37.4 C 85 18 163/83 H 95 Nasal Cannula 4 07/25/23 20:21 Nasal Cannula 4 Laboratory Results 07/26/23 Range/Units 06:54 WBC 13.85 H (4.8-10.8) K/ul RBC 4.34 L (4.70-6.10) M/uL Hgb 13.3 L (14.0-18.0) g/dl Hct 38.7 L (42.0-52.0) % MCV 89.2 (80.0-100.0) fL MCH 30.6 (25.0-34.0) pg MCHC 34.4 (32.0-36.0) g/dL RDW Std Deviation 41.6 (36.4-46.3) fL RDW Coeff of Coco 12.8 (11.5-14.5) % Plt Count 232 (130-400) K/uL MPV 9.3 L (9.4-12.4) fL Immature Gran % (Auto) 0.6 % Neut % (Auto) 86.2 % Lymph % (Auto) 6.0 % [place] % (Auto) 7.1 % Eos % (Auto) 0.0 % Baso % (Auto) 0.1 % Neut # (Auto) 11.93 H (1.40-6.50) K/uL Lymph # (Auto) 0.83 L (1.20-3.40) K/uL [place] # (Auto) 0.98 H (0.11-0.59) K/uL Eos # (Auto) 0.00 (0.00-0.50) K/uL Baso # (Auto) 0.02 (0.00-0.20) K/uL Immature Gran # (Auto) 0.09 (0.01-0.20) K/uL PT 11.5 (9.0-12.0) Seconds INR 1.1 (0.9-1.1) Sodium 135 L (136-145) mmol/L Potassium 4.0 (3.5-5.1) mmol/L Chloride 104 (98-107) mmol/L Carbon Dioxide 24 (21-32) mmol/L Anion Gap 7 (3-11) BUN 18 (6-23) mg/dl Creatinine 1.13 (0.6-1.4) mg/dl Est Cr Clr Drug Dosing 53.0 ml/min Est GFR ( Amer) 72.3 ml/min Est GFR (Non-Af Amer) 62.4 ml/min BUN/Creatinine Ratio 15.9 (10-20) Glucose 119 H (70-99(Fasting)) mg/dl Calcium 8.8 (8.6-10.3) mg/dl Magnesium 1.9 (1.7-2.4) mg/dl 25-OH Vitamin D Total 44.2 (30-100) ng/ml Diagnostic Findings Hip X-Ray 07/25/23 17:39 XR hip RT 1V CLINICAL HISTORY: PACU - Post Surgical TECHNIQUE: 1 view of the right hip were obtained. Comparison: Comparison is made to right hip radiograph 07/24/2023 FINDINGS: Patient is status post total hip arthroplasty with expected postsurgical changes including soft tissue swelling and subcutaneous emphysema. IMPRESSION: Expected postoperative appearance status post placement of total hip arthroplasty. ACT 112: Negative or not required by law. Electronically signed by: Luis Carlisle M.D. 07/25/2023 6:20 PM Chest X-Ray 07/26/23 07:56 XR chest 1V portable CLINICAL HISTORY: f/u pulm congestion, aspiration pneumonia COMPARISON STUDY: Chest CT June 11, 2022. Chest radiograph July 25, 2023. FINDINGS: Low lung volumes are unchanged. There is no pneumothorax or pleural effusion. Left subclavian pacer is in place. Bibasilar opacities are again noted. Left basilar opacity is slightly increased. There is pulmonary vascular congestion, slightly improved. Cardiomediastinal silhouette is stable. IMPRESSION: 1. Cardiomegaly with pulmonary vascular congestion, slightly improved since prior exam. 2. Bibasilar opacities, greater on the left. Left basilar opacity could reflect pneumonia or atelectasis. Right basilar opacity favors atelectasis. ACT 112: Negative or not required by law. Electronically signed by: Manish Almendarez M.D. 07/26/2023 8:52 AM PG Care Time/CCT Total # of Minutes Spent Total Time Spent with Patient: Total time spent is greater than 50% in coordination of care (as documented) at patient's floor/unit and/or counseling patient: Coding Level of Care Code 33359 SUB INP/OBS CARE 3/50MIN Diagnoses Closed right hip fracture S72.001A Fall W19.XXXA Primary hypertension I10 Hypertension type: primary hypertension Dementia F03.90 (3) Hypertension Hypertension type: primary hypertension Qualified Code(s): I10 - Essential (primary) hypertension
--- NOTE | 2023-07-26 08:54 | XRay Report ---
XR chest 1V portable CLINICAL HISTORY: f/u pulm congestion, aspiration pneumonia COMPARISON STUDY: Chest CT June 11, 2022. Chest radiograph July 25, 2023. FINDINGS: Low lung volumes are unchanged. There is no pneumothorax or pleural effusion. Left subclavi an pacer is in place. Bibasilar opacities are again noted. Left basilar opacity is slightly increased . There is pulmonary vascular congestion, slightly improved. Cardiomediastinal silhouette is stable. IMPRESSION: 1. Cardiomegaly with pulmonary vascular congestion, slightly improved since prior exam. 2. Bibasilar opacities, greater on the left. Left basilar opacity could reflect pneumonia or atelecta sis. Right basilar opacity favors atelectasis. ACT 112: Negative or not required by law. Electronically signed by: Manish Almendarez M.D. 07/26/2023 8:52 AM
[2023-07-26] MEDS: FUROSEMIDE INJ 20 MG/2 ML VIAL IV ONE (11:23)
[2023-07-26] MEDS ORDERED: traMADol HCL 50 MG TABLET PO PRN (12:41)
[2023-07-26 16:01] LABS: Appearance Urine Clear (Clear); Bacteria Urine Automated None Seen (None Seen); Bilirubin Urine Negative (Negative); Blood Urine Negative (Negative); Cast Urine Automated 0-2 /lpf (0-2); Color Urine Yellow; Epithelial Cell Urine Auto 0-2 /hpf (0-2); Glucose Urine UA Negative (Negative); Ketones Urine Negative (Negative); Leukocyte Esterase Urine Trace (Negative); Nitrite Urine Negative (Negative); Protein Urine Negative (Negative); RBC Urine Automated 0-2 /hpf (0-2); Specific Gravity Urine 1.011 (1.000-1.030); Urobilinogen Urine Negative (Negative); WBC Urine Automated 0-5 /hpf (0-5)
[2023-07-26] MEDS ORDERED: HYDROmorphone INJ 0.5 MG/0.5 ML SYR IV PRN (18:26)
[2023-07-26] MEDS: APIXABAN 2.5 MG TAB PO SCH (19:49)
--- NOTE | 2023-07-27 06:41 | Orthopedic Progress Note ---
Date of Service July 27, 2023 Assessment & Plan (1) Closed right hip fracture: Plan: 77-year-old male status post right hip hemiarthroplasty postoperative day #2 Pain controlled DVT prophylaxis PT/OT Medical management Stable from orthopedic standpoint. We will sign off. May follow-up as an outpatient in 10 to 14 days Admission and Anticipated Discharge Date Admission Date: July 24, 2023 Subjective Pt S+E. NAEO. Physical Exam Constitutional: Resting in bed, oriented to self Musculoskeletal: RLE - dressing c/d/i - exam limited 2/2 dementia Results & Data Vital Signs (Past 12 Hours) Vital Signs Temp Pulse Resp BP Pulse Ox O2 Del Method O2 Flow Rate 07/26/23 19:48 36.9 C 98 H 16 145/75 H 93 Nasal Cannula 2 07/26/23 19:45 Nasal Cannula 2 07/26/23 19:45 93 Nasal Cannula 2
[2023-07-27 08:06] LABS: Calcium 8.4 mg/dl (8.6-10.3); Potassium 3.9 mmol/L (3.5-5.1)
[2023-07-27 08:12] LABS: BUN Creatinine Ratio 18.3 (10-20); Creatinine Clr Calc Pharmacy 54.9 ml/min; Est GFR (African American) 75.5 ml/min; Est GFR (Non-African American) 65.1 ml/min
--- NOTE | 2023-07-27 09:02 | Hospitalist Progress Note ---
Date of Service July 27, 2023 Assessment & Plan (1) Closed right hip fracture: Plan: Presented to the ED via EMS from [facility] after he sustained an unwitnessed fall earlier today at [facility] and found to have Intertrochanteric right hip fracture on imaging WBC ELEVATED on admission to 15k, 13.7k on repeat CT head negative for acute CVA (encephalomalacia noted) UA ordered- cx w/ repeat collection recommended CXR w/o acute process ON ADMISSION (but subsequent w/ pulm congestion/concerns for pneumonia as well). Orthopedics consulted s/p Right Hip Hemiarthroplasty(Right) - Sj Sage, DO on 07/24. EBL reported none. Pain control, bowel regimen, antiemetics as needed Vit D wnl Pain control, antiemetics, bowel regimen as needed PT/OT evals, hopeful able to return to [facility] DVT proph: initially placed on ASA 81mg BID however given hx DVT/PE (in setting of covid), switched to eliquis 2.5mg PO BID and would continue for DVT prevention at this time Pneumonia/Pulmonary vascular congestion: CXR 07/25 w/ slight improvement in pulmonary vascular congestion, bibasilar opacities greater on the left (L ?pneumonia vs atelectasis, R basilar opacity favors atelectasis). Biofire negative Titrated from 13L oxymask post-op to 5L --> 4L NC. Unable to really participate w/ incentive spirometer. Nebs available as needed. IVF STOPPED pre-op and rec to avoid Lasix 10mg IV x 1 given poor ability to feed self however does appear a little congested REVIEW OF MEDS/IVF, ortho ordered additional 2L NSS @ 80cc/hr--> DISCONTINUE FURTHER IVF and would avoid Speech consulted, did well, continue aspiration precautions/easy to chew diet WBC trending down, remains on Zosyn IV. Afebrile Supplemental O2 --> presently to 2L NC CXR pending for this morning (2) Fall: Plan: Report from EMS was that the patient had been a chair in his room and only unattended for a few minutes after staff at [facility] found him on the ground CT of the head/brain without contrast was read as negative for acute changes Right hip fracture as above CXR w/o acute process initially however repeated today given hypoxia and appears w/ possible aspiration pneumonia +/- pulmonary vascular congestion and IVF being held as above and low dose lasix IV (3) Hypertension: Plan: elevation on arrival in setting of pain. ct head w/o acute process continues on home metoprolol, lisinopril, amlodipine BP acceptable 154/79 and will monitor (4) Dementia: Plan: Patient with severe dementia at baseline Currently sleeping comfortably in bed Continue home buspirone Patient may require antipsychotics if becomes agitated or aggressive's during his admission, would be in agreement with antipsychotics if needed for patient/staff safety --no agitation/aggressiveness at present time but review prior hospitalizations and SEROQUEL was effective in the past and can be used if needed Plan continued inpatient stay, therapy evals pending/CM to follow tx aspiration/pneumonia as above, speech consult pending and aspiration precautions in place (has been tolerating easy to chew diet at this time, but is a feed) Dispo: From [facility] memory unit and suspect pending therapy evals likely needing skilled prior to returning to prior level of care updated AM 07/24 and will plan to call again this evening w/ update Admission and Anticipated Discharge Date Admission Date: July 24, 2023 Results & Data Results & Data Vital Signs (Past 12 Hours) Vital Signs Temp Pulse Resp BP Pulse Ox O2 Del Method O2 Flow Rate 07/27/23 08:33 36.9 C 74 16 145/78 H 97 Nasal Cannula 2 Laboratory Results 07/27/23 07/26/23 Range/Units 07:13 15:25 WBC Cancelled RBC Cancelled Hgb Cancelled Hct Cancelled MCV Cancelled MCH Cancelled MCHC Cancelled RDW Std Deviation Cancelled RDW Coeff of Coco Cancelled Plt Count Cancelled MPV Cancelled Immature Gran % (Auto) Cancelled Neut % (Auto) Cancelled Lymph % (Auto) Cancelled [place] % (Auto) Cancelled Eos % (Auto) Cancelled Baso % (Auto) Cancelled Neut # (Auto) Cancelled Lymph # (Auto) Cancelled [place] # (Auto) Cancelled Eos # (Auto) Cancelled Baso # (Auto) Cancelled Immature Gran # (Auto) Cancelled Absolute Nucleated RBC Cancelled Nucleated RBC % (auto) Cancelled Neutrophils % (Manual) Cancelled Band Neutrophils % Cancelled Lymphocytes % (Manual) Cancelled Prolymphocyte % Cancelled Reactive Lymphs % (Man) Cancelled Monocytes % (Manual) Cancelled Eosinophils % (Manual) Cancelled Basophils % (Manual) Cancelled Metamyelocytes % (Man) Cancelled Myelocytes % (Man) Cancelled Promyelocytes % (Man) Cancelled Blast Cells % (Manual) Cancelled Plasma Cell % (Manual) Cancelled Other Cells % Cancelled Nucleated RBC % Cancelled Neutrophils # (Manual) Cancelled Band Neutrophils # Cancelled Total Absolute Neuts Cancelled Lymphocytes # (Manual) Cancelled Prolymphocyte # Cancelled Reactive Lymphs # Cancelled Total Abs Lymphocytes Cancelled Monocytes # (Manual) Cancelled Eosinophils # (Manual) Cancelled Basophils # (Manual) Cancelled Metamyelocytes # (Man) Cancelled Myelocytes # (Manual) Cancelled Promyelocytes # (Man) Cancelled Blast Cells # (Man) Cancelled Plasma Cell # (Manual) Cancelled Other Cells # Cancelled Nucleated RBCs # (Man) Cancelled Hypersegmented Neuts Cancelled Hyposegmented Neuts Cancelled Hypogranular Neuts Cancelled Large Granular Lymphs Cancelled # Lrg Granular Lymphs Cancelled Hairy Cells Cancelled Smudge Cells Cancelled Toxic Granulation Cancelled Toxic Vacuolation Cancelled Dohle Bodies Cancelled Aries Rods Cancelled Platelet Estimate Cancelled Hypogranular Platelets Cancelled Giant Platelets Cancelled Platelet Satelliting Cancelled RBC Morphology Cancelled Polychromasia Cancelled Hypochromasia Cancelled Poikilocytosis Cancelled Basophilic Stippling Cancelled Anisocytosis Cancelled Microcytosis Cancelled Macrocytosis Cancelled Spherocytes Cancelled Pappenheimer Bodies Cancelled Sickle Cells Cancelled Target Cells Cancelled Tear Drop Cells Cancelled Ovalocytes Cancelled Stomatocytes Cancelled [place] Bodies Cancelled Echinocytes Cancelled Acanthocytes (Spur) Cancelled Rouleaux Cancelled RBC Agglutinates Cancelled Schistocytes Cancelled [place] Cell Cancelled Sodium 135 L (136-145) mmol/L Potassium 3.9 (3.5-5.1) mmol/L Chloride 107 (98-107) mmol/L Carbon Dioxide 20 L (21-32) mmol/L Anion Gap 8 (3-11) BUN 20 (6-23) mg/dl Creatinine 1.09 (0.6-1.4) mg/dl Est Cr Clr Drug Dosing 54.9 ml/min Est GFR ( Amer) 75.5 ml/min Est GFR (Non-Af Amer) 65.1 ml/min BUN/Creatinine Ratio 18.3 (10-20) Glucose 95 (70-99(Fasting)) mg/dl Calcium 8.4 L (8.6-10.3) mg/dl Magnesium 2.0 (1.7-2.4) mg/dl Urine Color Yellow Urine Appearance Clear (Clear) Urine pH 5.0 (4.5-7.5) Ur Specific [place] 1.011 (1.000-1.030) Urine Protein Negative (Negative) Urine Glucose (UA) Negative (Negative) Urine Ketones Negative (Negative) Urine Blood Negative (Negative) Urine Nitrite Negative (Negative) Urine Bilirubin Negative (Negative) Urine Urobilinogen Negative (Negative) Ur Leukocyte Esterase Trace H (Negative) Urine WBC (Auto) 0-5 (0-5) /hpf Urine RBC (Auto) 0-2 (0-2) /hpf U Hyaline Cast (Auto) 0-2 (0-2) /lpf U Epithel Cells (Auto) 0-2 (0-2) /hpf Urine Bacteria (Auto) None Seen (None Seen) Blood Parasites ID Cancelled PG Care Time/CCT Total # of Minutes Spent Total Time Spent with Patient: Total time spent is greater than 50% in coordination of care (as documented) at patient's floor/unit and/or counseling patient: Coding Diagnoses Closed right hip fracture S72.001A Fall W19.XXXA Primary hypertension I10 Hypertension type: primary hypertension Dementia F03.90 (3) Hypertension Hypertension type: primary hypertension Qualified Code(s): I10 - Essential (primary) hypertension
[2023-07-27 09:22] LABS: Basophils # (auto) 0.02 K/uL (0.00-0.20); Basophils % (auto) 0.1 %; Eosinophils # (auto) 0.08 K/uL (0.00-0.50); Eosinophils % (auto) 0.6 %; Immature Granulocytes # (auto) 0.09 K/uL (0.01-0.20); Immature Granulocytes % (auto) 0.7 %; Lymphocytes # (auto) 1.51 K/uL (1.20-3.40); Lymphocytes % (auto) 11.3 %; Mean Corpuscular Hgb Conc 34.2 g/dL (32.0-36.0); Mean Corpuscular Volume 90.7 fL (80.0-100.0); Mean Platelet Volume 9.4 fL (9.4-12.4); Monocytes # (auto) 0.76 K/uL (0.11-0.59); Monocytes % (auto) 5.7 %; Neutrophils # (auto) 10.94 K/uL (1.40-6.50); Neutrophils % (auto) 81.6 %; Platelet Count 205 K/uL (130-400); RDW Coefficient of Variation 13.1 % (11.5-14.5); RDW Standard Deviation 42.7 fL (36.4-46.3); Red Blood Count 4.19 M/uL (4.70-6.10)
--- NOTE | 2023-07-27 10:27 | Discharge Summary ---
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 On arrival to the emergency department he was noted to be Hypertensive at 185/123, tachycardic at 101, but otherwise stable. Labs were significant for a leukocytosis of 15 with neutrophil predominance of 13, otherwise they were unremarkable. CT of the head/brain without contrast was read as no acute intracranial hemorrhage, skull fractures, or scalp swelling. Prior to admission the patient was given 0.5 mg IV Dilaudid and was started on 1 L normal saline at 75 mL an hour. Patient was sleeping at the time of exam with his /POA at bedside history was obtained from patient's due to his history of severe dementia. She confirms the patient was found down in his room earlier today his fall was unwitnessed. He was complaining of severe right hip pain and was very agitated. At this time she would like his hip to be surgically repaired. She explains that his baseline mental status is waxing and waning interactions, he is in the dementia unit at [facility]. She states that when he gets very anxious or agitated he will start to shake violently this is normal for him. We discussed CODE STATUS, due to his ongoing clinical decline with his dementia he is now a DNR/DNI. When asked, patient's confirms that he is no longer on anticoagulation as he completed his course of Eliquis after his DVT and PEs diagnosed last year. Please refer to Dr. Sandoval's attestation for any changes to the treatment plan. Admission Exam Per Admitting Provider Physical Exam: General: In no acute distress, stated age, well-nourished, non-toxic appearing HEENT: Normocephalic, atraumatic, no scleral icterus, pupils around round, symmetrical, and reactive to light, moist mucus membranes, trachea midline, no thyromegaly Chest/Pulm: No respiratory distress, symmetrical chest expansion, clear breath sounds throughout Cardiac: RRR, no murmurs noted Abdomen: Negative for ascites and bruising, normoactive bowel sounds, soft, non- tender to palpation throughout Musculoskeletal: RLE is currently shortened and externally rotated, significant pain with palpation of the right hip, otherwise no acute trauma on exam Extremities: Radial, dorsalis pedis, and posterior tibial pulses are intact and symmetrical, no edema noted in the BL LE's Skin: Warm, dry, no rashes , lesions, or scars noted Neuro: Currently sleeping comfortable at the time of the exam, explains that his baseline mental status is essentially oriented to person only, no focal decfects on exam Psych: Sleeping comfortably Principal Diagnosis L Hip fracture, pneumonia Discharge Exam General: 77yo male sitting up in chair today, improvement with ability to work with therapy, NAD, on room air this morning HEENT: mmm, trachea midline Resp: diminished in the bases, decreased bibasilar crackles, faint exp wheeze, on room air, no tachypnea CV: RRR, no significant m/r/g, trace pedal edema GI: +BS, slight distension, soft/nontender : condom cath in place, yellow urine MSK/Neuro: dementia at baseline, answers yes/no, no facial droop, dressing to RIGHT hip c/d/i, minimal edema, no significant tenderness, calves supple, trace pedal edema, SCDs in place Psych; alert to person, not able to follow commands at times, dementia at baseline per more cooperative today, awake/alert to person this morning Discharge Data Allergies Allergy/AdvReac Type Severity Reaction Status Date / Time Sulfa (Sulfonamide Allergy Intermediate RASH Verified 07/24/23 20:08 Antibiotics) codeine Allergy Unknown unknown Verified 07/24/23 20:08 donepezil Allergy Unknown ? sycopal Verified 07/24/23 20:08 episode oxycodone AdvReac Severe hallucinati Verified 07/24/23 20:08 ons Consultations 07/24/23 21:08 Consult Orthopedic Surgery Routine 07/24/23 22:06 ED Decision to Admit Stat Procedures Performed Operation Date: 07/25/23 07:00 Actual Procedures p Right Hip Hemiarthroplasty(Right) - Sj Sage, DO Ordered Studies Hip X-Ray 07/24/23 18:44 XR hip RT min 2V CLINICAL HISTORY: R hip pain TECHNIQUE: 2 views of the right hip and single frontal view of the pelvis were obtained. Comparison: Comparison is made to CT abdomen pelvis 06/07/2022 FINDINGS: Acute fracture of the right hip, likely intratrochanteric. Joint spaces are well-preserved. Soft tissue swelling is seen. IMPRESSION: Intertrochanteric right hip fracture. ACT 112: Negative or not required by law. Electronically signed by: Luis Carlisle M.D. 07/24/2023 9:44 PM Chest X-Ray 07/24/23 19:13 XR chest 1V portable CLINICAL HISTORY: hip fx TECHNIQUE: Single frontal radiograph of the chest was obtained. Comparison: Comparison is made to chest radiograph 08/09/2022 FINDINGS: An implanted pacemaker is seen. Calcified aortic knob is seen. Lungs are underinflated but clear. No evidence of pleural effusion or pneumothorax. IMPRESSION: No acute chest disease. ACT 112: Negative or not required by law. Electronically signed by: Luis Carlisle M.D. 07/24/2023 9:[address] 07/24/23 19:13 CT head/brain wo con CLINICAL HISTORY: fall Technique: Contiguous axial CT images of the head were acquired from the base of the skull to the vertex without intravenous contrast administration. Images were viewed in brain, subdural and bone windows. Automated dose lowering techniques and/or adjustment according to patient size were utilized for this exam. Comparison: Comparison is made to CT head 01/27/2022 Findings: Old encephalomalacia in the right occipital lobe is seen. Imaged portions of the paranasal sinuses and mastoid air cells are clear. The orbits appear normal. There are no acute fractures of the calvaria or scalp swelling. Impression: No acute intracranial hemorrhage, skull fractures, or scalp swelling. ACT 112: Negative or not required by law. Electronically signed by: Luis Carlisle M.D. 07/24/2023 8:36 PM Chest X-Ray 07/25/23 08:08 XR chest 1V portable HISTORY: 77 years-old Male eval volume overload acute shortness of breath COMPARISON: 07/24/2023 TECHNIQUE: AP view of the chest FINDINGS: Cardiac silhouette is enlarged. Pulmonary vascular congestion with progressive interstitial coarsening. Dual lead left subclavian pacer. No pneumothorax. Hypoinflation. Blunting the lateral costophrenic angles. Progressive bibasilar opacities. Bones appear grossly intact. IMPRESSION: 1. Hypoinflation. 2. Cardiomegaly with pulmonary vascular congestion and mild nonspecific bibasilar consolidation. ACT 112: Negative or not required by law. The above report was generated using voice recognition software. It may contain grammatical, syntax or spelling errors. Electronically signed by: Sj Garcia M.D. 07/25/2023 9:51 AM Hip X-Ray 07/25/23 17:39 XR hip RT 1V CLINICAL HISTORY: PACU - Post Surgical TECHNIQUE: 1 view of the right hip were obtained. Comparison: Comparison is made to right hip radiograph 07/24/2023 FINDINGS: Patient is status post total hip arthroplasty with expected postsurgical changes including soft tissue swelling and subcutaneous emphysema. IMPRESSION: Expected postoperative appearance status post placement of total hip arthroplasty. ACT 112: Negative or not required by law. Electronically signed by: Luis Carlisle M.D. 07/25/2023 6:20 PM Chest X-Ray 07/26/23 07:56 XR chest 1V portable CLINICAL HISTORY: f/u pulm congestion, aspiration pneumonia COMPARISON STUDY: Chest CT June 11, 2022. Chest radiograph July 25, 2023. FINDINGS: Low lung volumes are unchanged. There is no pneumothorax or pleural effusion. Left subclavian pacer is in place. Bibasilar opacities are again noted. Left basilar opacity is slightly increased. There is pulmonary vascular congestion, slightly improved. Cardiomediastinal silhouette is stable. IMPRESSION: 1. Cardiomegaly with pulmonary vascular congestion, slightly improved since prior exam. 2. Bibasilar opacities, greater on the left. Left basilar opacity could reflect pneumonia or atelectasis. Right basilar opacity favors atelectasis. ACT 112: Negative or not required by law. Electronically signed by: Manish Almendarez M.D. 07/26/2023 8:52 AM Hospital Course (1) Closed right hip fracture: Presented to the ED via EMS from [facility] after he sustained an unwitnessed fall earlier today at [facility] and found to have Intertrochanteric right hip fracture on imaging WBC ELEVATED on admission to 15k CT head negative for acute CVA (encephalomalacia noted) UA ordered- cx w/ repeat collection recommended CXR initially negative but concerns for PNA/congestion on repeat Orthopedics consulted s/p Right Hip Hemiarthroplasty(Right) - Sj Sage, DO on 07/24. EBL reported none. Vit D wnl Pain control, bowel regimen (+BM 07/26). Pain controlled on Tylenol alone. PT/OT consulted and able to return to [facility]. DVT proph: ASA 81mg BID initially however given prior hx DVT/PE discussed w/ ortho and supervising provider and switched to eliquis 2.5mg PO BID and continued at dc for DVT proph Outpt orthopedics f/u in 10-14 days Of note, also tx for pneumonia w/ Zosyn IV while inpatient. Did get IVF while NPO for surgery and was stopped given congestion on prior imaging however IVF were resumed post-op for additional 2L which were stopped/lasix 10mg IV provided w/ improvement and able to titrate to RA prior to dc. To complete course for PNA w/ Augmentin. Was also seen by speech given concerns for aspiration but no choking (is a feed) and did well on easy to chew diet/no issues w/ aspiration however precautions maintained. Unable to participate w/ incentive spirometer. Was also provided additional small dose 20mg PO lasix however do not suspect needing ongoing diuretics and more from iatrogenic cause from excessive IVF provided while inpatient. WBC trending down on repeat, afebrile and on RA 93% prior to dc. Did NOT require any antipsychotic medications for agitation/aggression while inpatient either. (2) Fall: Report from EMS was that the patient had been a chair in his room and only unattended for a few minutes after staff [facility] found him on the ground CT of the head/brain without contrast was read as negative for acute changes R Hip fx as above CXR as discussed and tx for possible pna. biofire negative (sick contacts in the memory unit per , could have had prior to developing bacterial pna) (3) Hypertension: elevation on admit 2nd to pain from fall/fracture. ct head negative for acute cva continued home meds w/ metoprolol, lisinopril, amlodipine Tylenol effective for pain and switched to PO prior to dc BP 145/78 prior to dc (4) Dementia: Patient with severe dementia at baseline, but remained stable while inpatient and continued home buspar. Prior had to use Seroquel for agitation but did not require any agents while inpatient Plan Discharged back to [facility]. To f/u orthopedics at in, eliquis for DVT proph. Complete augmentin for PNA coverage Total Time Total Time Spent Total Time Spent (In Minutes): 45 Discharge Plan Discharge Items Patient Disposition: Transfer Shelter Fac Reason For Visit: FALL, RIGHT HIP FRACTURE Discharge Diagnosis: Fall, Right hip fracture, pneumonia Goals: You have been hospitalized for an urgent problem which required surgery. During your stay at [facility], we have made an effort to correct the problem that brought you to the hospital while keeping you as comfortable as possible. Surgery and medications were used to bring your condition under control and your discharge instructions will include directions for any medications you should take after leaving the hospital. Please make sure to follow the advice of your surgeon regarding follow up with the surgeon and with your primary care provider. Activity: As commented below Activity Comment: WBAT with walker Non-emergency contact: Primary Care Provider and Surgeon Call non-emergency contact if: you have any medication questions, your symptoms worsen, your pain is not controlled and you have a fever Follow-up/Referrals: [facility] [Primary Care Provider] - Sj Sage, DO [Surgeon] - (10 days) Diet: Regular Diet Texture: Easy to Chew Addtl Attending Provider Instructions: You have been hospitalized for a fall and found to have RIGHT hip fracture. Orthopedics was consulted and you underwent surgery to fix this issue. You are to continue tylenol 1000mg every 8 hours for ongoing pain control as this seeems to be effective. You are being sent on low dose eliquis 2.5mg by mouth twice daily to prevent blood clots given your history of such. You were also found to have possible pneumonia on imaging given elevated white count and chest xray findings. Speech saw you and you did fine for them and to continue easy to chew diet. You have been given IV antibiotics while in the hospital with improvement and back on room air and should continue augmentin to complete the course for pneumonia. You should follow up with orthopedics in 10-14 days. Please follow up with primary care provider in the next week to monitor your status. Please return to the ER with any fever/chills, chest pain, shortness of breath, uncontrolled pain or for any other issues concerning for you. Pending Studies at Discharge: No Stand-Alone Forms: My [facility] Skilled Items Patient informed of condition?: Yes DNR: Yes Discharge Level of Care: Skilled Communicable Disease: No Discharge Prognosis: Stable Lines: None Urinary Catheter: No Medications and DC Order Prescriptions: New Eliquis 2.5 mg Tablet 2.5 mg PO BID 42 Days Qty: 84 0RF amoxicillin-pot clavulanate 875-125 mg tablet 1 tab PO BID 5 Days Qty: 10 0RF Continued buspirone 5 mg tablet 5 mg PO AMHS polyethylene glycol 3350 [Miralax] 17 gram Powder In Packet 17 g PO BID metoprolol tartrate 100 mg tablet 100 mg PO AMHS lisinopril 20 mg tablet 20 mg PO QPM sennosides-docusate sodium [Senokot-S] 8.6-50 mg Tablet 1 tab-cap PO BID amlodipine 5 mg tablet 5 mg PO QAM amoxicillin 500 mg tablet 2,000 mg PO DIRECTED Rx Instructions: TAKE 1 HR PRIOR TO DENTIST APT. tamsulosin 0.4 mg capsule 0.4 mg PO QAM finasteride 5 mg tablet 5 mg PO QAM alum-mag hydroxide-simeth 400-400-40 mg/5 mL Suspension 30 ml PO Q4 PRN (Reason: Dyspepsia) cholecalciferol (vitamin D3) [Vitamin D3] 25 mcg (1,000 unit) Tablet 25 mcg PO DAILY pantoprazole [address] for susp in packet 40 mg PO DAILY Rx Instructions: MUST HAVE CRUSHABLE MED Changed acetaminophen [Tylenol] 325 mg Tablet 1,000 mg PO Q8H Qty: 0 0RF Discharge Orders: Discharge Order (Routine); Ordered 07/27/23 Ordered By: Tessy Beatty/Other Patient Handouts: DVT Post Op Prevention Admission Data Admit Date/Time: 07/24/23 21:05 Attending Provider: Rojas Elkins Admit Provider: Giancarlo Sandoval Primary Care Provider: [facility] Other Providers: Sj Sage; Giancarlo Sandoval Other Interventions: Discharge Summary Assessment (RN) Last Done: 07/27/23 14:45 Supervising Physician Co-Signing Physician Notes The patient was not seen by me. The chart was reviewed. Case discussed with AIMEE Henley. Agree with assessment and plan Coding Level of Care Code 00556 INP/OBS DISCH >30 MIN Diagnoses Closed right hip fracture S72.001A Fall W19.XXXA Primary hypertension I10 Hypertension type: primary hypertension Dementia F03.90
--- NOTE | 2023-07-27 11:22 | XRay Report ---
SINGLE VIEW CHEST CLINICAL HISTORY: Follow-up chest congestion. FINDINGS: An AP, portable, upright chest radiograph is compared to study dated 07/26/2023 and correlat ed with chest CT dated 06/11/2022. A 2-lead cardiac pacemaker is unchanged in position and partially o bscures the left lower chest. The heart is enlarged noting atherosclerotic calcification of the thora cic aorta. Pulmonary vascular congestion has improved from previous. Chronic interstitial thickening is similar to previous. There are small pleural effusions with dependent airspace opacities. No pneum othorax is seen. The skeletal structures are osteopenic. The bony thorax is grossly intact. IMPRESSION: 1. Cardiomegaly and cardiac pacemaker. Pulmonary vascular congestion has improved from previous. 2. Small pleural effusions with dependent airspace opacities. ACT 112: Negative or not required by law. Electronically signed by: Arsalan Valverde M.D. 07/27/2023 11:21 AM
[2023-07-27] MEDS: ACETAMINOPHEN 500 MG TAB PO PRN (14:29)
[2023-07-27] MEDS: FUROSEMIDE 20 MG TAB PO ONE (14:30)
== END 2023-07-27 15:15 | DRG 521 ==
LOC: ED 18:38 → 3W 21:05 → SUATTDRO 21:05 → 3W 22:14

== ENCOUNTER 2023-10-11 14:02 | Inpatient (IN) ==
--- NOTE | 2023-10-11 14:11 | Emergency Department Note ---
Impression & Plan Closed fracture of left hip, Dementia, Fall ED Provider Note NAME: IFEOMA ROD Jr AGE: 78 SEX: M : 1945 ARRIVES VIA: Ambulance INFORMANT: Patient, EMS/nursing report ED PROVIDER(S): Rudy Santo MD CHIEF COMPLAINT: Fall MEDICAL DECISION MAKING: Patient presents due to concern for fall. The patient does have left lower extremity leg length discrepancy and does have abdominal distention. IV was established and blood work was obtained along with an EKG. Left hip and pelvis x-rays obtained. Bladder scan was performed which showed 790 so a Haley catheter was placed and urinalysis was sent. CT and cervical spine negative. The patient's left hip x-ray does show a hip fracture. Patient's blood work does show a white count of 16 with a hemoglobin of 13.5. Patient did have a Haley catheter placed given the concern for the urinary retention. Urinalysis does not show evidence of obvious infection so CT abdomen pelvis was ordered. I did inform the at bedside of the findings and she is comfortable with plan of care. CT shows superior endplate deformity as well as the left femur fracture. I did speak the on-call hospitalist AVILA Ponce PA-C and Dr. Sorensen. I also did speak with Dr. Coleman who would evaluate the patient for hip fracture. They did report that they will choose nonoperative management at this time. Patient was admitted to medicine service. Discussion w/ other healthcare providers: AVILA Ponce PA-C and Dr. Sorensen inpatient medicine service Dr. Coleman orthopedics Prior /Outside records reviewed: I reviewed part of a discharge summary from Tessy Mena from July 27, 2023. Known history of dementia left lower extremity DVT and PEs status post course of Eliquis and hypertension who presented to concern for unwitnessed fall. Patient is DNR/DNI patient was noted to have a right-sided intertrochanteric hip fracture at that time. Patient did undergo right hip hemiarthroplasty by Dr. Sage. Patient was also treated for pneumonia while inpatient. Patient was to be on a course of Eliquis status post hip surgery for prophylaxis And had a prescription for the next 42 days postdischarge. Differential diagnosis: Fracture, dislocation, contusion, strain, sprain, ICH, hemothorax, intra- abdominal injury, anemia among other causes were considered. Diagnostics, as interpreted by me: ECG: A sensed V paced rhythm, rate of 101, wide QRS, Cardiac monitoring: An order was placed for continuous cardiac monitoring. The monitor shows a rate of 95 with paced rhythm. Patient was placed on pulse oximetry Medical decision rules: None Imaging studies: I informally interpreted the patient's left hip x-ray does show concern for hip fracture with formal report to follow. HPI: Patient presents from [facility] due to concern for fall. The patient typically does get around just seated in a wheelchair and reportedly fell to his left side. Patient may have had head strike but this was unwitnessed. Not on blood thinners he is currently at his neurologic baseline and has a history of dementia per staff. History is limited given the patient's dementia and virtually nonverbal status. The patient does appear to have pain with palpation of the left lower extremity. PAST MEDICAL HISTORY: See Below PAST SURGICAL HISTORY: See Below SOCIAL HISTORY: See Below HOME MEDICATIONS: See Below ALLERGIES: See Below VITALS: See Below PHYSICAL EXAMINATION: GENERAL: NAD, non-toxic. EYE EXAM: Normal conjunctiva. PERRL, no anisocoria and EOM's grossly intact w/o pain. OROPHARYNX: Moist mucus membranes, grossly normal dentition. NECK: Trachea midline, no stridor. LUNGS: Clear to auscultation. Normal chest wall mechanics. HEART: NSR, no MRG. ABDOMEN: Abdominal distention, no masses, no rebound or guarding. : Circumcised, bilateral testicles descended, no rash or crepitus. BACK: No CVA TTP. No midline thoracic or lumbar step-offs. SKIN: No rashes and no bruising. UPPER EXTREMITIES: Upper extremities are grossly normal. LOWER EXTREMITIES: Grossly normal, no edema. NEURO EXAM: Awake and alert does not follow commands moves all 4 extremities. Past Med/Surg History Problem List (Updated 10/11/23 @ 22:14 by Rudy Santo MD) Fall (Acute) Closed fracture of left hip (Acute) Fracture of femoral neck, left Abrasion of elbow, right (Acute) Fall (Acute) Cardiac pacemaker in situ interrogated 02/16/20 no issues Acute metabolic encephalopathy Pulmonary emboli Left leg DVT Hypertension Dementia (Acute) Cholelithiasis History of prostatitis Abdominal pain (Acute) Abdominal distension (Acute) Elevated PSA Urinary retention Catheter-associated urinary tract infection Hypokalemia ANNAMARIA (acute kidney injury) Blood bacterial culture positive Weakness (Acute) Fall (Acute) Weakness COVID-19 (Acute) Encounter to establish care Toenail fungus Benign localized prostatic hyperplasia with lower urinary tract symptoms (LUTS) (Chronic) Dyslipidemia (Chronic) Pancreatic cyst (Chronic) Anemia (Chronic) GERD (gastroesophageal reflux disease) (Chronic) Hypoalbuminemia Anemia (Acute) Sinus node dysfunction Hearing loss (Chronic) Nocturia (Chronic) Inguinal hernia (Chronic) Medical History Closed right hip fracture Fecal impaction BPH (benign prostatic hyperplasia) COVID-19 Urinary retention IPMN (intraductal papillary mucinous neoplasm) Ileus, postoperative Acute blood loss anemia Elevated bilirubin Elevated AST (SGOT) Inguinal hernia of left side with obstruction Elevated PSA T9 vertebral fracture Pneumothorax, left CHB (complete heart block) 12/2014 s/p pacer insertion Surgical History S/P left inguinal hernia repair (04/03/20) Laparoscopic left inguinal hernia repair, incarcerated Dr. Ramirez 04/03/2020 History of tonsillectomy H/O hernia repair History of rectal surgery Anal fistulectomy Social History Smoking Status: Unknown if ever smoked Second Hand Exposure: No; Do You Dip or Chew Tobacco: No; Hx Substance Use: No Preferred Language: Algerian Communication Ability: Effective Communication Ability Comment: does not speak [employer] Required: No Beliefs That Will Affect Care: None marital status: Current Living Situation: Personal Care Facility current occupational status: retired Feels Safe at Home: Yes Assistive Devices: None Allergies Allergies Allergy/AdvReac Type Severity Reaction Status Date / Time Sulfa (Sulfonamide Allergy Intermediate RASH Verified 10/11/23 16:22 Antibiotics) codeine Allergy Unknown unknown Verified 10/11/23 16:22 oxycodone AdvReac Severe hallucinati Verified 10/11/23 16:22 ons donepezil AdvReac Intermediate ? sycopal Verified 10/11/23 16:22 episode Home Meds Home Medications Medication Instructions Recorded Confirmed aluminum-mag hydroxide-simethicone 30 ml PO Q4 PRN Dyspepsia 07/24/23 10/11/23 400 mg-400 mg-40 mg/5 mL oral susp amlodipine 5 mg tablet 5 mg PO QAM 07/24/23 10/11/23 amoxicillin 500 mg tablet 2,000 mg PO DIRECTED 07/24/23 10/11/23 buspirone 5 mg tablet 5 mg PO AMHS 07/24/23 10/11/23 cholecalciferol (vitamin D3) 25 25 mcg PO DAILY 07/24/23 10/11/23 mcg (1,000 unit) tablet (Vitamin D3) finasteride 5 mg tablet 5 mg PO QAM 07/24/23 10/11/23 lisinopril 20 mg tablet 20 mg PO QPM 07/24/23 10/11/23 metoprolol tartrate 100 mg tablet 100 mg PO AMHS 07/24/23 10/11/23 pantoprazole 40 mg granules 40 mg PO DAILY 07/24/23 10/11/23 delayed-release for susp in packet polyethylene glycol 3350 17 gram 17 g PO BIDM 07/24/23 10/11/23 oral powder packet (Miralax) sennosides 8.6 mg-docusate sodium 1 tab-cap PO BIDM 07/24/23 10/11/23 50 mg tablet (Senokot-S) tamsulosin 0.4 mg capsule 0.4 mg PO QAM 07/24/23 10/11/23 acetaminophen 325 mg tablet 1,000 mg PO TID Fever Or Pain 10/11/23 10/11/23 (Tylenol) potassium chloride 20 mEq 20 meq PO BID 10/11/23 10/11/23 tablet,extended release(part/cryst) Results & Data (ED) Vital Signs Vital Signs - 24 hr 10/11/23 14:20 10/11/23 14:22 10/11/23 14:36 Temperature 36.5 C Temperature Source Oral Pulse Rate 108 H 114 H 103 H Pulse Rate [Apical] Pulse Rhythm [Apical] Pulse Strength [Apical] Respiratory Rate 18 24 Respiratory Effort / Characteristics Non-Labored Spontaneous Respiratory Depth Normal Respiratory Pattern Blood Pressure 157/115 H Blood Pressure [Right Arm] Blood Pressure Mean 129 Blood Pressure Mean [Right Arm] Blood Pressure Position [Right Arm] Pulse Oximetry 92 97 Oxygen Delivery Method Room Air Room Air Sepsis Recent Fever Within 48 Hours No Sepsis New/Unexplained Change in Mental Status N/A Sepsis Action Taken by Nursing No Action Required 10/11/23 16:05 10/11/23 17:05 10/11/23 17:57 Temperature Temperature Source Pulse Rate 99 H Pulse Rate [Apical] 103 H 102 H Pulse Rhythm [Apical] Regular Regular Pulse Strength [Apical] Normal Normal Respiratory Rate 20 18 Respiratory Effort / Characteristics Non-Labored Spontaneous Non-Labored Spontaneous Respiratory Depth Normal Normal Respiratory Pattern Regular Regular Blood Pressure Blood Pressure [Right Arm] 155/94 H 144/92 H Blood Pressure Mean Blood Pressure Mean [Right Arm] 114 109 Blood Pressure Position [Right Arm] Lying Lying Pulse Oximetry 96 97 Oxygen Delivery Method Room Air Room Air Sepsis Recent Fever Within 48 Hours Sepsis New/Unexplained Change in Mental Status Sepsis Action Taken by Detention Medications Current Medication List: was personally reviewed by me Laboratory Data Attestation: I reviewed the patient's lab results. 10/11/23 14:41 10/11/23 14:41 Lab Results 10/11/23 10/11/23 Range/Units 14:35 14:41 WBC 16.34 H (4.8-10.8) K/ul RBC 4.58 L (4.70-6.10) M/uL Hgb 13.5 L (14.0-18.0) g/dl Hct 40.9 L (42.0-52.0) % MCV 89.3 (80.0-100.0) fL MCH 29.5 (25.0-34.0) pg MCHC 33.0 (32.0-36.0) g/dL RDW Std Deviation 45.1 (36.4-46.3) fL RDW Coeff of Coco 14.0 (11.5-14.5) % Plt Count 318 (130-400) K/uL MPV 9.0 L (9.4-12.4) fL Immature Gran % (Auto) 0.8 % Neut % (Auto) 90.9 % Lymph % (Auto) 4.7 % [place] % (Auto) 3.4 % Eos % (Auto) 0.0 % Baso % (Auto) 0.2 % Neut # (Auto) 14.86 H (1.40-6.50) K/uL Lymph # (Auto) 0.77 L (1.20-3.40) K/uL [place] # (Auto) 0.55 (0.11-0.59) K/uL Eos # (Auto) 0.00 (0.00-0.50) K/uL Baso # (Auto) 0.03 (0.00-0.20) K/uL Immature Gran # (Auto) 0.13 (0.01-0.20) K/uL RBC Morphology Unremarkable Sodium 137 (136-145) mmol/L Potassium 4.5 (3.5-5.1) mmol/L Chloride 105 (98-107) mmol/L Carbon Dioxide 21 (21-32) mmol/L Anion Gap 11 (3-11) BUN 23 (6-23) mg/dl Creatinine 1.03 (0.6-1.4) mg/dl Est Cr Clr Drug Dosing 61.0 ml/min Est GFR ( Amer) 80.3 ml/min Est GFR (Non-Af Amer) 69.3 ml/min BUN/Creatinine Ratio 22.3 H (10-20) Glucose 180 H (70-99(Fasting)) mg/dl Calcium 10.0 (8.6-10.3) mg/dl Total Bilirubin 0.7 (0.2-1.0) mg/dl AST 18 (13-39) U/L ALT 10 (7-52) U/L Alkaline Phosphatase 132 H (34-104) U/L Total Protein 8.0 (6.0-8.3) gm/dl Albumin 4.2 (3.4-5.0) gm/dl Globulin 3.8 (2.5-4.0) gm/dl Albumin/Globulin Ratio 1.1 (0.9-2) Urine Color Yellow Urine Appearance Clear (Clear) Urine pH 8.0 H (4.5-7.5) Ur Specific [place] 1.010 (1.000-1.030) Urine Protein Negative (Negative) Urine Glucose (UA) Negative (Negative) Urine Ketones Negative (Negative) Urine Blood Negative (Negative) Urine Nitrite Negative (Negative) Urine Bilirubin Negative (Negative) Urine Urobilinogen Negative (Negative) Ur Leukocyte Esterase Negative (Negative) Administered Medications Discontinued Medications Fentanyl Citrate (Fentanyl Citrate Pf 100 Mcg/2 Ml Vial) 25 mcg IV NOW STA Stop: 10/11/23 16:42 Last Admin: 10/11/23 20:34 Dose: Not Given Documented By: Sodium Chloride (Nss) 500 mls @ 999 mls/hr IV .Q31M JACKSON Stop: 10/11/23 15:00 Last Infusion: 10/11/23 16:34 Dose: Infused Documented By: Admin: 10/11/23 16:04 Dose: 999 mls/hr Documented By: MEGHNA Acetaminophen (Ofirmev) 1,000 mg in 100 mls @ 400 mls/hr IV NOW STA Stop: 10/11/23 16:55 Last Infusion: 10/11/23 20:11 Dose: Infused Documented By: Admin: 10/11/23 16:55 Dose: 400 mls/hr Documented By: MEGHNA Acetaminophen (Ofirmev) 1,000 mg in 100 mls @ 400 mls/hr IV NOW STA Stop: 10/11/23 20:13 Last Admin: 10/11/23 20:34 Dose: Not Given Documented By: Ioversol (Optiray 320 100ml) 90 ml IV ONCE ONE Stop: 10/11/23 19:39 Last Admin: 10/11/23 19:38 Dose: 90 ml Documented By: BUBBA Imaging Data Radiologist's Impression: Cervical Spine CT 10/11/23 14:[address] DOSE: HISTORY: trauma TECHNIQUE: Multiaxial CT images of the cervical spine were performed and reformatted in the sagittal and coronal plane without the use of contrast. A dose lowering technique was utilized adhering to the principles of ALARA. COMPARISON: None. FINDINGS: No fractures. No subluxation. Prevertebral soft tissues and the C1-C2 interval are intact. No pneumothorax. IMPRESSION: No fractures within the cervical spine. ACT 112: Negative or not required by law. Electronically signed by: Claudy Tristan M.D. 10/11/2023 3:[address] 10/11/23 14:27 CT OF THE HEAD WITHOUT CONTRAST CLINICAL HISTORY: Trauma COMPARISON STUDY: MRI of the brain March 24, 2011. Head CT July 24, 2023. CT DOSE: 1094.9 mGy.cm TECHNIQUE: Helical axial images of the head were obtained without IV contrast. Automated exposure control was utilized for the study. A dose lowering technique was utilized adhering to the principles of ALARA. FINDINGS: No acute intracranial hemorrhage, midline shift or mass effect is present. The ventricular system is stable. 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 The basal cisterns are patent. No extra-axial collections are present. There are no findings to suggest acute dural sinus thrombosis or acute territorial infarct. No significant calvarial abnormalities are present. Visualized portions of the sinuses and mastoid air cells are clear. IMPRESSION: 1. No acute intracranial findings. No change in appearance of the brain. 2. No calvarial fractures. ACT 112: Negative or not required by law. Electronically signed by: Manish Almendarez M.D. 10/11/2023 3:18 PM Hip/Pelvis X-Ray 10/11/23 14:27 SINGLE VIEW PELVIS; 2 VIEWS LEFT HIP CLINICAL HISTORY: Fall. Left leg injury. FINDINGS: An AP view of the pelvis with AP and frog-leg views of the left hip are correlated with pelvic CT dated 06/07/2022. The skeletal structures are osteopenic. There is an impacted and minimally displaced fracture of the left femoral neck. No additional acute fracture is seen involving the right hip or the bony pelvis. A right hip arthroplasty is in place. Degenerative sclerosis is noted in the sacroiliac joints. Mild lumbosacral spondylosis is partially imaged. Fecal retention is noted throughout the imaged colon. There are tiny pelvic phlebolith. IMPRESSION: Impacted fracture of the left femoral neck as above. Electronically signed by: Arsalan Valverde M.D. 10/11/2023 3:46 PM Abdomen/Pelvis CT 10/11/23 17:18 Exam(s): CT ABDOMEN + PELVIS With Contrast IV Amt: 90 ml optieray 320 EXAM: CT Abdomen and Pelvis With Intravenous Contrast CLINICAL HISTORY: Reason for exam: WBC 16, abdominal distension. TECHNIQUE: Axial computed tomography images of the abdomen and pelvis with intravenous contrast. CTDI is 24.9 mGy and DLP is 1322.32 mGy-cm. Automated exposure control was utilized for the study. A dose lowering technique was utilized adhering to the principles of ALARA. CONTRAST: Patient received 90 ml optieray 320 of IV contrast COMPARISON: CT abdomen/pelvis on 06/07/2022. FINDINGS: Lung bases: Lower lung atelectasis. ABDOMEN: Liver: Unremarkable. No mass. Gallbladder and bile ducts: Cholelithiasis. No ductal dilation. Pancreas: Unremarkable. No mass. No ductal dilation. Spleen: Unremarkable. No splenomegaly. Adrenals: Unremarkable. No mass. Kidneys and ureters: Bilateral renal cysts. No further follow-up necessary. No hydronephrosis or obstructing ureteral stone. Stomach and bowel: Evaluation of the stomach is limited by underdistention. Diverticulosis without evidence of diverticulitis. No small bowel obstruction. PELVIS: Appendix: Normal appendix. Bladder: Haley catheter in a decompressed bladder limits evaluation. Reproductive: Unremarkable as visualized. ABDOMEN and PELVIS: Intraperitoneal space: Unremarkable. No free air. No significant fluid collection. Bones/joints: Acute appearing displaced fracture of the subcapital/transcervical left femur. Age indeterminate mild superior endplate compression deformity of L3. No hip dislocation. Right hip arthroplasty. Degenerative changes of the spine. Soft tissues: Small fat-containing umbilical/periumbilical hernias. Vasculature: Atherosclerotic changes of the vasculature. No abdominal aortic aneurysm or dissection. Lymph nodes: Unremarkable. No enlarged lymph nodes. Tubes, lines and devices: Pacer wires partially visualized in the heart. IMPRESSION: 1. Acute appearing displaced fracture of the subcapital/transcervical left femur. 2. Age indeterminate mild superior endplate compression deformity of L3. 3. Cholelithiasis. 4. No evidence for bowel obstruction. Electronically signed by: Vic Cobb M.D. 10/11/23 21:02 PM Discharge Plan Visit Data Chief Complaint: Fall ED Provider: Rudy Santo Discharge Problem: Closed fracture of left hip, Dementia, Fall Patient Disposition: Admitted As Inpatient Discharge Instructions Interventions: ED Discharge Assessment Last Done: 10/11/23 21:05 Discharge Problem: Closed fracture of left hip Qualifiers: Encounter type: initial encounter Qualified Code(s): S72.002A - Fracture of unspecified part of neck of left femur, initial encounter for closed fracture Dementia Qualifiers: Dementia type: unspecified type Fall Qualifiers: Encounter type: initial encounter Qualified Code(s): W19.XXXA - Unspecified fall, initial encounter
[2023-10-11 14:55] LABS: Appearance Urine Clear (Clear); Bilirubin Urine Negative (Negative); Blood Urine Negative (Negative); Color Urine Yellow; Glucose Urine UA Negative (Negative); Ketones Urine Negative (Negative); Leukocyte Esterase Urine Negative (Negative); Nitrite Urine Negative (Negative); Protein Urine Negative (Negative); Urobilinogen Urine Negative (Negative)
[2023-10-11 15:03] LABS: Hematocrit (blood only) 40.9 % (42.0-52.0); Hemoglobin 13.5 g/dl (14.0-18.0); Mean Corpuscular Hemoglobin 29.5 pg (25.0-34.0); Mean Corpuscular Volume 89.3 fL (80.0-100.0); Platelet Count 318 K/uL (130-400); RDW Standard Deviation 45.1 fL (36.4-46.3); Red Blood Count 4.58 M/uL (4.70-6.10); White Blood Count 16.34 K/ul (4.8-10.8)
--- NOTE | 2023-10-11 15:14 | CT Scan Report ---
CERVICAL SPINE CT CT DOSE: HISTORY: trauma TECHNIQUE: Multiaxial CT images of the cervical spine were performed and reformatted in the sagittal and coronal plane without the use of contrast. A dose lowering technique was utilized adhering to th e principles of ALARA. COMPARISON: None. FINDINGS: No fractures. No subluxation. Prevertebral soft tissues and the C1-C2 interval are intact. No pneumothorax. IMPRESSION: No fractures within the cervical spine. ACT 112: Negative or not required by law. Electronically signed by: Claudy Tristan M.D. 10/11/2023 3:13 PM
[2023-10-11 15:18] LABS: Albumin Globulin Ratio 1.1 (0.9-2); Albumin Level 4.2 gm/dl (3.4-5.0); BUN Creatinine Ratio 22.3 (10-20); Bilirubin,Total 0.7 mg/dl (0.2-1.0); Est GFR (African American) 80.3 ml/min; Est GFR (Non-African American) 69.3 ml/min; Globulin 3.8 gm/dl (2.5-4.0); Potassium 4.5 mmol/L (3.5-5.1)
--- NOTE | 2023-10-11 15:20 | CT Scan Report ---
CT OF THE HEAD WITHOUT CONTRAST CLINICAL HISTORY: Trauma COMPARISON STUDY: MRI of the brain March 24, 2011. Head CT July 24, 2023. CT DOSE: 1094.9 mGy.cm TECHNIQUE: Helical axial images of the head were obtained without IV contrast. Automated exposure con trol was utilized for the study. A dose lowering technique was utilized adhering to the principles o f ALARA. FINDINGS: No acute intracranial hemorrhage, midline shift or mass effect is present. The ventricular system is stable. 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 The basal cisterns are patent. No extra -axial collections are present. There are no findings to suggest acute dural sinus thrombosis or acut e territorial infarct. No significant calvarial abnormalities are present. Visualized portions of the sinuses and mastoid air cells are clear. IMPRESSION: 1. No acute intracranial findings. No change in appearance of the brain. 2. No calvarial fractures. ACT 112: Negative or not required by law. Electronically signed by: Manish Almendarez M.D. 10/11/2023 3:18 PM
[2023-10-11 15:21] LABS: Basophils # (auto) 0.03 K/uL (0.00-0.20); Basophils % (auto) 0.2 %; Immature Granulocytes # (auto) 0.13 K/uL (0.01-0.20); Immature Granulocytes % (auto) 0.8 %; Lymphocytes # (auto) 0.77 K/uL (1.20-3.40); Lymphocytes % (auto) 4.7 %; Monocytes # (auto) 0.55 K/uL (0.11-0.59); Monocytes % (auto) 3.4 %; Neutrophils # (auto) 14.86 K/uL (1.40-6.50); Neutrophils % (auto) 90.9 %; RBC Morphology Unremarkable
--- NOTE | 2023-10-11 15:47 | XRay Report ---
SINGLE VIEW PELVIS; 2 VIEWS LEFT HIP CLINICAL HISTORY: Fall. Left leg injury. FINDINGS: An AP view of the pelvis with AP and frog-leg views of the left hip are correlated with pel xiao CT dated 06/07/2022. The skeletal structures are osteopenic. There is an impacted and minimally di splaced fracture of the left femoral neck. No additional acute fracture is seen involving the right h ip or the bony pelvis. A right hip arthroplasty is in place. Degenerative sclerosis is noted in the s acroiliac joints. Mild lumbosacral spondylosis is partially imaged. Fecal retention is noted througho ut the imaged colon. There are tiny pelvic phlebolith. IMPRESSION: Impacted fracture of the left femoral neck as above. Electronically signed by: Arsalan Valverde M.D. 10/11/2023 3:46 PM
[2023-10-11] MEDS: SODIUM CHLORIDE 0.9% 500 ML IV SCH (16:04)
[2023-10-11] MEDS: ACETAMINOPHEN 1,000 MG/100 ML VIAL IV STA ×2 (16:55→20:34)
--- NOTE | 2023-10-11 17:19 | History & Physical Report ---
Date of Service October 11, 2023 Assessment & Plan (1) Fracture of femoral neck, left: Plan: Unwitnessed fall on 10/10 Activity: Bedrest Hip and pelvic x-ray on arrival revealed an impacted fracture of the left femoral neck Head and cervical spine imaging without acute findings CT A/P with contrast ordered, pending Orthopedics consult appreciated Acetaminophen 1000mg IV scheduled q8h Will defer further pain meds at this time as patient does have a listed allergy of hallucinations with oxycodone AM CBC, BMP (2) Cardiac pacemaker in situ: Plan: Hx of complete heart block; pacemaker inserted in 12/2014 Pacemaker interrogation ordered in the ED (3) Urinary retention: Plan: Bladder scan revealed patient was retaining around 800 cc A/P CT ordered, pending Haley inserted in the ED Daily Haley catheter care (4) Dementia: Plan: reports he is around baseline (5) Fall: Plan: Plan Disposition: Admit to MedSurg DNR/DNI Heart healthy diet, minced/moist (aspiration precautions and patient will require feeding) VTE PPx: Teds (hold chemical DVT PPx in the setting of potential surgery) History of Present Illness Chief Complaint: Fall Primary Care Provider: Tacos Richardson III, Guilherme is a 78-year-old male with PMH of sinus node dysfunction, cardiac pacemaker, nocturia, GERD, dyslipidemia, prostatitis, and pulmonary embolism. He presented via EMS from [facility] care unit on 10/10 after sustaining an unwitnessed, ground-level fall out of his wheelchair around noon. Patient has dementia and nonverbal at baseline. Patient's (Monae) is at the bedside and provides history at this time. She was told he might have tried to get up out of his wheelchair on his own, and was found down in a dining area. When nursing staff got him back to the room, they reported his vitals looked okay. No LOC. Not on blood thinners. Unclear if patient struck head. Patient was not down for extended period of time. reports that there was also an episode the day prior where he became unresponsive. For these reasons, the insisted that he come into the ED. She also expresses some concern regarding his pacemaker, as they have an upcoming appointment on October 21, and she was previously told that it might need to be replaced. Patient does have remote history of a right total hip replacement in July [address] Sage; patient's reports that he was active and mobile prior to the surgery, but has been slow in recovering from the surgery. He is largely wheelchair-bound at baseline, but does work with PT/OT for standing and using walker. He is unable to ambulate with a walker independently. Patient received morning medications. Patient is hypertensive at 144/92 at time of admission; vitals otherwise stable. ED course: Acetaminophen 1000 mg IV Fentanyl 25 mcg IV NSS 500 mL IV Unable to obtain ROS at this time and patient's current state. Allergies Allergy/AdvReac Type Severity Reaction Status Date / Time Sulfa (Sulfonamide Allergy Intermediate RASH Verified 10/11/23 16:22 Antibiotics) codeine Allergy Unknown unknown Verified 10/11/23 16:22 oxycodone AdvReac Severe hallucinati Verified 10/11/23 16:22 ons donepezil AdvReac Intermediate ? sycopal Verified 10/11/23 16:22 episode Home Medications Medication Instructions Recorded Confirmed Type aluminum-mag hydroxide-simethicone 30 ml PO Q4 PRN Dyspepsia 07/24/23 10/11/23 History 400 mg-400 mg-40 mg/5 mL oral susp amlodipine 5 mg tablet 5 mg PO QAM 07/24/23 10/11/23 History amoxicillin 500 mg tablet 2,000 mg PO DIRECTED 07/24/23 10/11/23 History buspirone 5 mg tablet 5 mg PO AMHS 07/24/23 10/11/23 History cholecalciferol (vitamin D3) 25 25 mcg PO DAILY 07/24/23 10/11/23 History mcg (1,000 unit) tablet (Vitamin D3) finasteride 5 mg tablet 5 mg PO QAM 07/24/23 10/11/23 History lisinopril 20 mg tablet 20 mg PO QPM 07/24/23 10/11/23 History metoprolol tartrate 100 mg tablet 100 mg PO AMHS 07/24/23 10/11/23 History pantoprazole 40 mg granules 40 mg PO DAILY 07/24/23 10/11/23 History delayed-release for susp in packet polyethylene glycol 3350 17 gram 17 g PO BIDM 07/24/23 10/11/23 History oral powder packet (Miralax) sennosides 8.6 mg-docusate sodium 1 tab-cap PO BIDM 07/24/23 10/11/23 History 50 mg tablet (Senokot-S) tamsulosin 0.4 mg capsule 0.4 mg PO QAM 07/24/23 10/11/23 History acetaminophen 325 mg tablet 1,000 mg PO TID Fever Or Pain 10/11/23 10/11/23 History (Tylenol) potassium chloride 20 mEq 20 meq PO BID 10/11/23 10/11/23 History tablet,extended release(part/cryst) Past Med/Surg History Problem List (Updated 10/11/23 @ 17:21 by Claudy Ponce PA-C) Fracture of femoral neck, left Abrasion of elbow, right (Acute) Fall (Acute) Cardiac pacemaker in situ interrogated 02/16/20 no issues Acute metabolic encephalopathy Pulmonary emboli Left leg DVT Hypertension Dementia (Acute) Cholelithiasis History of prostatitis Abdominal pain (Acute) Abdominal distension (Acute) Elevated PSA Urinary retention Catheter-associated urinary tract infection Hypokalemia ANNAMARIA (acute kidney injury) Blood bacterial culture positive Weakness (Acute) Fall (Acute) Weakness COVID-19 (Acute) Encounter to establish care Toenail fungus Benign localized prostatic hyperplasia with lower urinary tract symptoms (LUTS) (Chronic) Dyslipidemia (Chronic) Pancreatic cyst (Chronic) Anemia (Chronic) GERD (gastroesophageal reflux disease) (Chronic) Hypoalbuminemia Anemia (Acute) Sinus node dysfunction Hearing loss (Chronic) Nocturia (Chronic) Inguinal hernia (Chronic) Medical History Closed right hip fracture Fecal impaction BPH (benign prostatic hyperplasia) COVID-19 Urinary retention IPMN (intraductal papillary mucinous neoplasm) Ileus, postoperative Acute blood loss anemia Elevated bilirubin Elevated AST (SGOT) Inguinal hernia of left side with obstruction Elevated PSA T9 vertebral fracture Pneumothorax, left CHB (complete heart block) 12/2014 s/p pacer insertion Surgical History S/P left inguinal hernia repair (04/03/20) Laparoscopic left inguinal hernia repair, incarcerated Dr. 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 Beliefs That Will Affect Care: None marital status: Current Living Situation: Personal Care Facility current occupational status: retired Feels Safe at Home: Yes Assistive Devices: None Review of Systems Review of Systems: See HPI above Physical Exam Physical Exam: General: no acute distress; non-toxic appearing; frail appearing; cooperative HEENT: normocephalic, atraumatic; no scleral icterus; PERRLA; poor dentition; unable to assess vision and hearing Neck: supple; no lymphadenopathy; trachea midline Skin: warm, dry without signs of tenting; no cyanosis; no rashes, bruising, lesions, or erythema noted CV: chest wall NTP; RRR; S1/S2 normal; no murmurs/rubs/gallops; pulses intact and symmetric at radial, DP, and PT Lungs: no acute respiratory distress; symmetrical chest wall expansion; clear breath sounds across all lung peres w/o adventitious sounds; no wheezing ABD: Soft, NTP; BS present; no rebound/guarding; no distention Left lower extremity: Mild grimacing when palpating the left hip; attempt to uncross patient's legs and move the left hip causes the patient to exhibit pain (unable to move at this time) MSK: no tics or fasciculations; no edema noted in the LEs b/l, nonerythematous Neuro: Largely non-verbal; unable to assess sensation; patient does not respond to commands, but will occasionally say "yes" Results & Data Results & Data Vital Signs (Past 12 Hours) Vital Signs Temp Pulse Pulse Resp BP BP Pulse Ox 10/11/23 17:05 102 H 18 144/92 H 97 10/11/23 16:05 103 H 20 155/94 H 96 10/11/23 14:36 103 H 24 97 10/11/23 14:22 114 H 10/11/23 14:20 36.5 C 108 H 18 157/115 H 92 O2 Del Method 10/11/23 17:05 Room Air 10/11/23 16:05 Room Air 10/11/23 14:36 Room Air 10/11/23 14:22 10/11/23 14:20 Room Air Laboratory Results Abnormal lab results 10/11/23 10/11/23 Range/Units 14:35 14:41 WBC 16.34 H (4.8-10.8) K/ul RBC 4.58 L (4.70-6.10) M/uL Hgb 13.5 L (14.0-18.0) g/dl Hct 40.9 L (42.0-52.0) % MPV 9.0 L (9.4-12.4) fL Neut # (Auto) 14.86 H (1.40-6.50) K/uL Lymph # (Auto) 0.77 L (1.20-3.40) K/uL BUN/Creatinine Ratio 22.3 H (10-20) Glucose 180 H (70-99(Fasting)) mg/dl Alkaline Phosphatase 132 H (34-104) U/L Urine pH 8.0 H (4.5-7.5) Diagnostic Findings Cervical Spine CT 10/11/23 14:[address] DOSE: HISTORY: trauma TECHNIQUE: Multiaxial CT images of the cervical spine were performed and reformatted in the sagittal and coronal plane without the use of contrast. A dose lowering technique was utilized adhering to the principles of ALARA. COMPARISON: None. FINDINGS: No fractures. No subluxation. Prevertebral soft tissues and the C1-C2 interval are intact. No pneumothorax. IMPRESSION: No fractures within the cervical spine. ACT 112: Negative or not required by law. Electronically signed by: Claudy Tristan M.D. 10/11/2023 3:[address] 10/11/23 14:27 CT OF THE HEAD WITHOUT CONTRAST CLINICAL HISTORY: Trauma COMPARISON STUDY: MRI of the brain March 24, 2011. Head CT July 24, 2023. CT DOSE: 1094.9 mGy.cm TECHNIQUE: Helical axial images of the head were obtained without IV contrast. Automated exposure control was utilized for the study. A dose lowering technique was utilized adhering to the principles of ALARA. FINDINGS: No acute intracranial hemorrhage, midline shift or mass effect is present. The ventricular system is stable. 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 The basal cisterns are patent. No extra-axial collections are present. There are no findings to suggest acute dural sinus thrombosis or acute territorial infarct. No significant calvarial abnormalities are present. Visualized portions of the sinuses and mastoid air cells are clear. IMPRESSION: 1. No acute intracranial findings. No change in appearance of the brain. 2. No calvarial fractures. ACT 112: Negative or not required by law. Electronically signed by: Manish Almendarez M.D. 10/11/2023 3:18 PM Hip/Pelvis X-Ray 10/11/23 14:27 SINGLE VIEW PELVIS; 2 VIEWS LEFT HIP CLINICAL HISTORY: Fall. Left leg injury. FINDINGS: An AP view of the pelvis with AP and frog-leg views of the left hip are correlated with pelvic CT dated 06/07/2022. The skeletal structures are osteopenic. There is an impacted and minimally displaced fracture of the left femoral neck. No additional acute fracture is seen involving the right hip or the bony pelvis. A right hip arthroplasty is in place. Degenerative sclerosis is noted in the sacroiliac joints. Mild lumbosacral spondylosis is partially imaged. Fecal retention is noted throughout the imaged colon. There are tiny pelvic phlebolith. IMPRESSION: Impacted fracture of the left femoral neck as above. Electronically signed by: Arsalan Valverde M.D. 10/11/2023 3:46 PM ECG Additional Comments: EGD revealed atrial sensed ventricular paced rhythm at 101 bpm; QTc 510 (caution use of QT prolonging agents) Code Status & VTE Plan Code Status DNR/DNI (per POLST form signed in July 2023, and reconfirm with patient's at the bedside) VTE Prophylaxis Plan VTE Prophylaxis will be ordered: Yes Supervising Physician Co-Signing Physician Notes Patient seen and examined, chart reviewed, case discussed with Claudy Ponce PA-C and I agree with the assessment and plan as above except as otherwise noted Labs and images reviewed 78-year-old female with a past medical history of dementia, DVT/PE which compl eted a course of Eliquis which was then discontinued, hypertension, and recent hospital admission 07/2023 for a unwitnessed fall who presents to the ER after a fall and he was found to have a impacted left femoral neck fracture. Strength and sensation testing is limited at bedside due to dementia, cap refill is intact bilaterally and PT pulses are intact bilaterally.Does not have a prior history of heart failure, last echo 2024 was with normal EF 60 to 65%, normal wall motion. Does have history of pacemaker placement for CHB, which is pending interrogation and for possible battery change in the near future. Interrogation ordered. No significant aortic regurg and no abnormal transaortic velocity was noted at that time. he is not on insulin at baseline, creatinine baseline is 1.03 with GFR of approximately 80. he does have a leukocytosis without left shift, suspected reactive. Urine is not infected appearing. Patient is typically nonambulatory and uses a wheelchair to get around, reportedly fell to the left side prior to admission. Patient is nearly nonverbal and very limited history is available. Did have a history of previous right hip fracture with hemiarthroplasty by Dr. Sage. Since his initial hip fracture he has not been able to stand or walk and is mostly wheelchair-bound and sometimes transfers. Her/benefits of operative intervention were discussed with patient's , and again between patient's and orthopedic services. On shared decision making we will pursue nonoperative management. Agree with above PG Care Time/CCT Total # of Minutes Spent Total Time Spent with Patient: Total time spent is greater than 50% in coordination of care (as documented) at patient's floor/unit and/or counseling patient: Coding [place] [address] INT INP/OBS CARE 3/75MIN Patient Type Established Medical Decision Making High Complexity Diagnoses Fracture of femoral neck, left S72.002A Cardiac pacemaker in situ Z95.0 Urinary retention R33.9 Dementia F03.90 Fall W19.XXXA
--- NOTE | 2023-10-11 19:04 | Orthopedic Progress Note ---
Date of Service October 11, 2023 Assessment & Plan (1) Fracture of femoral neck, left: Plan: Guilherme is 78 years old. He suffers from advanced dementia. He has been at [facility] for 1 and half years. 2 months ago he fell and broke his right hip and this was treated with a hemiarthroplasty by Dr. Sage. Patient's dementia has advanced. He has been able to stand and PT and maybe take a step but otherwise has been wheelchair-bound. is noted that the dementia has been advancing. The patient is nonverbal. He may occasionally respond with the word. He has limited ability to follow commands. He is total care in terms of dressing bathing and eating. He does not swallow pills. Apparently fell out of his wheelchair earlier today injuring left hip. He was evaluated in the emergency room found to have a left femoral neck fracture. He was to be admitted to the medical service. On evaluation the patient is awake but does not respond to commands or answer any questions. There is increased muscle tone in upper and lower extremities. There is no pain behavior with palpating the right leg or both upper extremities. He does not follow commands to wiggle toes or move any body parts. DP and PT pulses are 1+ on the left. There is no pain with palpation of the left lower extremity except for the hip area. No bruising or swelling is noted. There is pain with attempted movement of the left hip. He sits with his legs crossed at the ankles. Radiographs of the pelvis show a right hip hemiarthroplasty and a left femoral neck fracture with minimal displacement. Impression: Left femoral neck fracture. Advanced dementia Plan: My findings were discussed with the patient's who is at bedside. We talked about the pros and cons of operative and nonoperative management and the risks and benefits tendon to each. Given the patient's unfortunate advanced dementia the nature of his injury and his overall health it is my recommendation that the left hip injury be treated without surgery. I do not think that he will obtain significant benefit by having surgery. Very likely that he will be bed to chair transfer at best and unable to ambulate. With his advanced dementia ambulation likely to be unsafe anyhow. Would recommend that he be admitted for pain control and when comfortable could be transferred back to [facility]. When comfortable he can be sat upright and transferred bed to chair. Will follow-up with to answer any further questions.
[2023-10-11] MEDS: OPTIRAY 320 100ml IV ONE (19:38)
[2023-10-11] MEDS: fentaNYL citrate PF 100 MCG/2 ML VIAL IV STA (20:34)
--- NOTE | 2023-10-11 21:03 | CT Scan Report ---
Exam(s): CT ABDOMEN + PELVIS With Contrast IV Amt: 90 ml optieray 320 EXAM: CT Abdomen and Pelvis With Intravenous Contrast CLINICAL HISTORY: Reason for exam: WBC 16, abdominal distension. TECHNIQUE: Axial computed tomography images of the abdomen and pelvis with intravenous contrast. CTDI is 24.9 mGy and DLP is 1322.32 mGy-cm. Automated exposure control was utilized for the study. A dose lowering technique was utilized adhering to the principles of ALARA. CONTRAST: Patient received 90 ml optieray 320 of IV contrast COMPARISON: CT abdomen/pelvis on 06/07/2022. FINDINGS: Lung bases: Lower lung atelectasis. ABDOMEN: Liver: Unremarkable. No mass. Gallbladder and bile ducts: Cholelithiasis. No ductal dilation. Pancreas: Unremarkable. No mass. No ductal dilation. Spleen: Unremarkable. No splenomegaly. Adrenals: Unremarkable. No mass. Kidneys and ureters: Bilateral renal cysts. No further follow-up necessary. No hydronephrosis or obstructing ureteral stone. Stomach and bowel: Evaluation of the stomach is limited by underdistention. Diverticulosis without evidence of diverticulitis. No small bowel obstruction. PELVIS: Appendix: Normal appendix. Bladder: Haley catheter in a decompressed bladder limits evaluation. Reproductive: Unremarkable as visualized. ABDOMEN and PELVIS: Intraperitoneal space: Unremarkable. No free air. No significant fluid collection. Bones/joints: Acute appearing displaced fracture of the subcapital/transcervical left femur. Age indeterminate mild superior endplate compression deformity of L3. No hip dislocation. Right hip arthroplasty. Degenerative changes of the spine. Soft tissues: Small fat-containing umbilical/periumbilical hernias. Vasculature: Atherosclerotic changes of the vasculature. No abdominal aortic aneurysm or dissection. Lymph nodes: Unremarkable. No enlarged lymph nodes. Tubes, lines and devices: Pacer wires partially visualized in the heart. IMPRESSION: 1. Acute appearing displaced fracture of the subcapital/transcervical left femur. 2. Age indeterminate mild superior endplate compression deformity of L3. 3. Cholelithiasis. 4. No evidence for bowel obstruction. Electronically signed by: Vic Cbob M.D. 10/11/23 21:02 PM
[2023-10-11] MEDS ORDERED: ONDANSETRON INJ 2 MG/ML 2 ML VIAL IV PRN (21:05)
--- NOTE | 2023-10-11 21:59 | Electrocardiogram Report ---
Test Reason : Blood Pressure : */* mmHG Vent. Rate : 101 BPM Atrial Rate : 101 BPM P-R Int : 186 ms QRS Dur : 172 ms QT Int : 394 ms P-R-T Axes : 59 -83 91 degrees QTcB Int : 510 ms Atrial-sensed ventricular-paced rhythm Abnormal ECG When compared with ECG of 25-Jul-2023 00:26, Vent. rate has increased by 4 bpm Confirmed by Erickson Chadwick ([id number]) on 10/11/2023 9:59:08 PM Referred By: [facility] Confirmed By: Erickson Chadwick
[2023-10-11] MEDS: busPIRone 5 MG TAB PO SCH (22:18)
[2023-10-11] MEDS: POTASSIUM CHLORIDE CRTAB 20 MEQ TABCR PO SCH (22:18)
[2023-10-11] MEDS: METOPROLOL TARTRATE 100 MG TAB PO SCH (22:19)
[2023-10-11] MEDS: lisinopril 20 MG TAB PO SCH (22:19)
[2023-10-12] MEDS: KETOROLAC TROMETHAMINE 15 MG/ML VIAL IV ONE (00:07)
[2023-10-12] MEDS: ACETAMINOPHEN 1,000 MG/100 ML VIAL IV SCH (03:12)
[2023-10-12] MEDS: POLYETHYLENE (MIRALAX) 17 GM PACK PO SCH (08:03)
[2023-10-12] MEDS: amLODIPine BESYLATE 5 MG TAB PO SCH (08:03)
[2023-10-12] MEDS: DOCUSATE SODIUM/SENNA 50/8.6MG TAB PO SCH (08:03)
[2023-10-12] MEDS: PANTOprazole 40 MG TAB PO SCH (08:04)
[2023-10-12] MEDS: TAMSULOSIN HCL 0.4 MG CAP PO SCH (08:05)
[2023-10-12] MEDS: FINASTERIDE 5 MG TAB PO SCH (08:05)
[2023-10-12 08:10] LABS: Hematocrit (blood only) 39.6 % (42.0-52.0); Hemoglobin 12.9 g/dl (14.0-18.0); Red Blood Count 4.38 M/uL (4.70-6.10)
[2023-10-12 08:11] LABS: Basophils # (auto) 0.02 K/uL (0.00-0.20); Basophils % (auto) 0.2 %; Eosinophils # (auto) 0.09 K/uL (0.00-0.50); Eosinophils % (auto) 0.8 %; Immature Granulocytes # (auto) 0.05 K/uL (0.01-0.20); Immature Granulocytes % (auto) 0.5 %; Lymphocytes # (auto) 1.85 K/uL (1.20-3.40); Lymphocytes % (auto) 16.7 %; Mean Corpuscular Hemoglobin 29.5 pg (25.0-34.0); Mean Corpuscular Hgb Conc 32.6 g/dL (32.0-36.0); Mean Corpuscular Volume 90.4 fL (80.0-100.0); Mean Platelet Volume 9.1 fL (9.4-12.4); Monocytes # (auto) 0.78 K/uL (0.11-0.59); Neutrophils # (auto) 8.31 K/uL (1.40-6.50); Neutrophils % (auto) 74.8 %; Platelet Count 267 K/uL (130-400); RDW Coefficient of Variation 14.2 % (11.5-14.5); RDW Standard Deviation 46.6 fL (36.4-46.3)
[2023-10-12 09:42] LABS: BUN Creatinine Ratio 17.3 (10-20); Calcium 9.6 mg/dl (8.6-10.3); Creatinine Clr Calc Pharmacy 64.1 ml/min; Est GFR (African American) 85.2 ml/min; Est GFR (Non-African American) 73.6 ml/min; Potassium 4.9 mmol/L (3.5-5.1)
--- NOTE | 2023-10-12 15:10 | Orthopedic Progress Note ---
Date of Service October 12, 2023 Assessment & Plan (1) Osteoporotic hip fracture: Plan: Patient's hip fracture is likely secondary to osteoporosis. (2) Functional quadriplegia: Plan: The patient has functional quadriplegia secondary to his dementia. Admission and Anticipated Discharge Date Admission Date: October 11, 2023
--- NOTE | 2023-10-12 17:25 | Hospitalist Progress Note ---
Date of Service October 12, 2023 Assessment & Plan (1) Fracture of femoral neck, left: Plan: Patient with and unwitnessed fall on 10/10. reports that he had a witnessed syncopal event on 10/09 as well. Pacer interrogation does not show any arrhythmias and is functioning but battery replacement is indicated soon Hip and pelvic x-ray on arrival revealed an impacted fracture of the left femoral neck Head and cervical spine imaging without acute findings CT A/P with contrast again shows left hip fracture and an age-indeterminate mild superior endplate compression deformity of L3, cholelithiasis, no bowel obstruction Orthopedics consult appreciated-recommends nonoperative management given advanced dementia, being mostly wheelchair-bound as he would not obtain significant benefit with surgery and that ambulation would likely be unsafe anyhow with his advanced dementia. He recommended pain control and transfer back to [facility] when comfortable. He can be sat upright and transferred bed to chair Patient's is asking for a second opinion-I have consulted Dr. Mike and awaiting consultation Continue acetaminophen 1000mg IV scheduled [id number] defer further pain meds at this time as patient does have a listed allergy of hallucinations with oxycodone Hemoglobin remained stable but will check CBC and BMP again tomorrow to assess for any blood loss or electrolyte abnormalities Haley catheter in place (2) Cardiac pacemaker in situ: Plan: Hx of complete heart block; pacemaker inserted in 12/2014 Pacemaker interrogation reviewed and no acute events Is due for battery exchange in the near future and has an appointment with Dr. Esquivel or next week (3) Urinary retention: Plan: Bladder scan revealed patient was retaining around 800 cc-Haley catheter placed and is draining CT abdomen/pelvis negative for obstruction Continue finasteride and tamsulosin (4) Dementia: Plan: reports he is around baseline, nonverbal Does eat and take pills when fed (5) Fall: Plan: Possibly mechanical but could be syncope. Pacer interrogated as above no arrhythmias Plan Disposition: Continued stay MedSurg, awaiting second opinion from orthopedics. If no surgery to be done, can be [facility] to [facility]-would recommend hospice versus rehab but will discuss with DNR/DNI Heart healthy diet, minced/moist (aspiration precautions and patient will require feeding) VTE PPx: Teds, add Lovenox Admission and Anticipated Discharge Date Admission Date: October 11, 2023 Subjective Patient sleeping and did not wake up to gentle verbal or tactile stimulation. He is nonverbal at baseline. Nursing reports that he was awake and ate some applesauce and eggs for breakfast. He did take his oral medications. I discussed his care with his on the phone as well as with orthopedic surgery. His is requesting a second opinion on whether or not to have hip fracture repaired. Physical Exam Constitutional: + lethargic; no acute distress Respiratory: normal respiratory effort, lungs clear to auscultation Cardiovascular: RRR, no murmur, no edema Musculoskeletal: Extremities: extremities normal to inspection Psychiatric: Orientation: + not alert and + not oriented x 3 Genitourinary: Haley catheter in place draining clear yellow urine Results & Data Results & Data Vital Signs (Past 12 Hours) Vital Signs Temp Pulse Pulse Resp BP BP Pulse Ox 10/12/23 14:36 36.4 C L 74 18 127/77 94 10/12/23 11:45 36.8 C 69 19 124/73 91 10/12/23 08:19 35.3 C L 80 18 120/67 94 10/12/23 08:14 O2 Del Method 10/12/23 14:36 Room Air 10/12/23 11:45 Room Air 10/12/23 08:19 Room Air 10/12/23 08:14 Room Air Laboratory Results CBC, BMP reviewed Urine culture reviewed Diagnostic Findings Pacer interrogation reviewed-no events PG Care Time/CCT Total # of Minutes Spent Total Time Spent with Patient: Total time spent is greater than 50% in coordination of care (as documented) at patient's floor/unit and/or counseling patient: Coding Level of Care Code 26654 SUB INP/OBS CARE 2/35MIN Diagnoses Fracture of femoral neck, left S72.002A Cardiac pacemaker in situ Z95.0 Urinary retention R33.9 Dementia F03.90 Dementia type: unspecified type Fall W19.XXXA (4) Dementia Dementia type: unspecified type
[2023-10-12] MEDS: MELATONIN 3 MG TAB PO PRN (20:56)
[2023-10-12] MEDS: ENOXAPARIN INJ 40 MG/0.4 ML SYR SQ SCH (21:21)
[2023-10-13 06:57] LABS: Basophils # (auto) 0.02 K/uL (0.00-0.20); Basophils % (auto) 0.2 %; Eosinophils % (auto) 0.8 %; Hematocrit (blood only) 37.5 % (42.0-52.0); Hemoglobin 12.6 g/dl (14.0-18.0); Immature Granulocytes # (auto) 0.05 K/uL (0.01-0.20); Immature Granulocytes % (auto) 0.4 %; Lymphocytes # (auto) 1.97 K/uL (1.20-3.40); Lymphocytes % (auto) 16.6 %; Mean Corpuscular Hemoglobin 29.6 pg (25.0-34.0); Mean Corpuscular Hgb Conc 33.6 g/dL (32.0-36.0); Mean Corpuscular Volume 88.2 fL (80.0-100.0); Mean Platelet Volume 9.2 fL (9.4-12.4); Monocytes # (auto) 0.96 K/uL (0.11-0.59); Monocytes % (auto) 8.1 %; Neutrophils # (auto) 8.75 K/uL (1.40-6.50); Neutrophils % (auto) 73.9 %; Platelet Count 265 K/uL (130-400); RDW Coefficient of Variation 14.2 % (11.5-14.5); RDW Standard Deviation 45.4 fL (36.4-46.3); Red Blood Count 4.25 M/uL (4.70-6.10); White Blood Count 11.85 K/ul (4.8-10.8)
[2023-10-13 07:19] VITALS: RESP 18
[2023-10-13 07:27] LABS: BUN Creatinine Ratio 21.1 (10-20); Calcium 9.1 mg/dl (8.6-10.3); Creatinine Clr Calc Pharmacy 69.8 ml/min; Est GFR (African American) 94.5 ml/min; Est GFR (Non-African American) 81.5 ml/min; Potassium 4.3 mmol/L (3.5-5.1)
[2023-10-13 08:02] VITALS: BP 147/88; TEMP 99.1; O2SAT 95
--- NOTE | 2023-10-13 08:54 | Orthopedic Consultation ---
Date of Service October 13, 2023 Assessment & Plan (1) Osteoporotic hip fracture: I do long discussion with Winston's . We discussed the risk benefits and alternatives to a left hip hemiarthroplasty. We discussed the possible pain relief and the possible return to ambulation in the future. We also talked a bout the risks of advancing his dementia or never returning to his previous level of function that would make the surgery even worth it. At this point she says she is not having much pain in his left hip. She says he can sit up and likely get to a wheelchair. As long as he can get to a wheelchair and he is not having much pain, as long as his dementia is advanced enough that he will be nonambulatory, there is really no reason to proceed with hip replacement surgery. She is in agreement with that. Will continue to watch her closely. I told her that we could always do the hip hemiarthroplasty in the future if needed. I did offer to proceed with a hemiarthroplasty this weekend but she would rather see how he does and treated nonoperatively for now and I certainly support that. History of Present Illness Reason for Consultation: Left femoral neck fracture. Requesting Physician: . Attending Physician: Carola Cardoan MD Guilherme is a pleasant 78-year-old male who is doing with advanced dementia. He was doing with some mild dementia but was still a community ambulator at home with a walker with his before July. Unfortunately that time he fell and fractured his right hip. He underwent a right hip hemiarthroplasty by Dr. Sage. He has not done well since the surgery. His dementia has become advanced. He has not been ambulating on his right hip. He then had a fall and has been complaining of left hip pain. He came to the emergency room where radiographs demonstrated a displaced left femoral neck fracture. He was admitted to the hospitalist service. He was initially consulted by Dr. Nelda Ramos. After discussions with the family they elected to do nonoperative treatment of the left hip. I have been consulted for second opinion.. Allergies Allergy/AdvReac Type Severity Reaction Status Date / Time Sulfa (Sulfonamide Allergy Intermediate RASH Verified 10/11/23 16:22 Antibiotics) codeine Allergy Unknown unknown Verified 10/11/23 16:22 oxycodone AdvReac Severe hallucinati Verified 10/11/23 16:22 ons donepezil AdvReac Intermediate ? sycopal Verified 10/11/23 16:22 episode Home Medications Medication Instructions Recorded Confirmed Type aluminum-mag hydroxide-simethicone 30 ml PO Q4 PRN Dyspepsia 07/24/23 10/11/23 History 400 mg-400 mg-40 mg/5 mL oral susp amlodipine 5 mg tablet 5 mg PO QAM 07/24/23 10/11/23 History amoxicillin 500 mg tablet 2,000 mg PO DIRECTED 07/24/23 10/11/23 History buspirone 5 mg tablet 5 mg PO AMHS 07/24/23 10/11/23 History cholecalciferol (vitamin D3) 25 25 mcg PO DAILY 07/24/23 10/11/23 History mcg (1,000 unit) tablet (Vitamin D3) finasteride 5 mg tablet 5 mg PO QAM 07/24/23 10/11/23 History lisinopril 20 mg tablet 20 mg PO QPM 07/24/23 10/11/23 History metoprolol tartrate 100 mg tablet 100 mg PO AMHS 07/24/23 10/11/23 History pantoprazole 40 mg granules 40 mg PO DAILY 07/24/23 10/11/23 History delayed-release for susp in packet polyethylene glycol 3350 17 gram 17 g PO BIDM 07/24/23 10/11/23 History oral powder packet (Miralax) sennosides 8.6 mg-docusate sodium 1 tab-cap PO BIDM 07/24/23 10/11/23 History 50 mg tablet (Senokot-S) tamsulosin 0.4 mg capsule 0.4 mg PO QAM 07/24/23 10/11/23 History acetaminophen 325 mg tablet 1,000 mg PO TID Fever Or Pain 10/11/23 10/11/23 History (Tylenol) potassium chloride 20 mEq 20 meq PO BID 10/11/23 10/11/23 History tablet,extended release(part/cryst) Past Med/Surg History Problem List Functional quadriplegia Osteoporotic hip fracture Fall (Acute) Closed fracture of left hip (Acute) Fracture of femoral neck, left Abrasion of elbow, right (Acute) Fall (Acute) Cardiac pacemaker in situ interrogated 02/16/20 no issues Acute metabolic encephalopathy Pulmonary emboli Left leg DVT Hypertension Dementia (Acute) Cholelithiasis History of prostatitis Abdominal pain (Acute) Abdominal distension (Acute) Elevated PSA Urinary retention Catheter-associated urinary tract infection Hypokalemia ANNAMARIA (acute kidney injury) Blood bacterial culture positive Weakness (Acute) Fall (Acute) Weakness COVID-19 (Acute) Encounter to establish care Toenail fungus Benign localized prostatic hyperplasia with lower urinary tract symptoms (LUTS) (Chronic) Dyslipidemia (Chronic) Pancreatic cyst (Chronic) Anemia (Chronic) GERD (gastroesophageal reflux disease) (Chronic) Hypoalbuminemia Anemia (Acute) Sinus node dysfunction Hearing loss (Chronic) Nocturia (Chronic) Inguinal hernia (Chronic) Medical History Closed right hip fracture Fecal impaction BPH (benign prostatic hyperplasia) COVID-19 Urinary retention IPMN (intraductal papillary mucinous neoplasm) Ileus, postoperative Acute blood loss anemia Elevated bilirubin Elevated AST (SGOT) Inguinal hernia of left side with obstruction Elevated PSA T9 vertebral fracture Pneumothorax, left CHB (complete heart block) 12/2014 s/p pacer insertion Surgical History S/P left inguinal hernia repair (04/03/20) Laparoscopic left inguinal hernia repair, incarcerated Dr. 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 Physical Exam Physical examination of his left hip, I am able to do a little range of motion of his hip he seems to grimace a little bit with range of motion but is difficult to do an exam given his advanced level of dementia.. Constitutional WD/WN, vitals as above Eyes PERRL, conjunctivae normal, anicteric sclerae ENMT external ear and nose normal, oropharynx normal Neck trachea midline, no thyromegaly Respiratory normal respiratory effort Cardiovascular RRR, no murmur, no edema Gastrointestinal (Abdomen) normal bowel sounds, soft, nontender, no hepatosplenomegaly Psychiatric A+Ox3, euthymic affect Results & Data Results & Data Laboratory Results . Diagnostic Findings X-rays of the left hip do show a displaced left femoral neck fracture.. PG Care Time/CCT Total # of Minutes Spent Total Time Spent with Patient: Total time spent is greater than 50% in coordination of care (as documented) at patient's floor/unit and/or counseling patient: Coding Level of Care Code 51932 IN/OBS CONSULT LVL 4,60M Diagnoses Osteoporotic hip fracture M80.059A
--- NOTE | 2023-10-13 11:27 | Discharge Summary ---
Discharge Summary Date of Service October 13, 2023 Principal Dx & Hospital Course #1 = Principal Diagnosis (1) Fracture of femoral neck, left: Patient with and unwitnessed fall on 10/10. reports that he had a witnessed syncopal event on 10/09 as well. Pacer interrogation does not show any arrhythmias and is functioning but battery replacement is indicated soon Hip and pelvic x-ray on arrival revealed an impacted fracture of the left femoral neck Head and cervical spine imaging without acute findings CT A/P with contrast again shows left hip fracture and an age-indeterminate mild superior endplate compression deformity of L3, cholelithiasis, no bowel obstruction Orthopedics consult appreciated-recommends nonoperative management given advanced dementia, being mostly wheelchair-bound as he would not obtain significant benefit with surgery and that ambulation would likely be unsafe anyhow with his advanced dementia. He recommended pain control and transfer back to skilled nursing when comfortable. He can be sat upright and transferred bed to chair Patient's is asking for a second opinion-I have consulted Dr. Mike and he also recommended non-operative management but did offer surgery now or later if changes her mind Pain was controlled with acetaminophen 1000mg IV scheduled [id number] defer further pain meds at this time as patient does have a listed allergy of hallucinations with oxycodone. Continue APAP 1000mg po tid scheduled after discharge Hemoglobin remained stable and no electrolyte abnormalities Haley catheter in place for retention and should have trial of void in 1 week Recommend Eliquis 2.5mg po bid x 30 days for DVT prophylaxis (2) Cardiac pacemaker in situ: Hx of complete heart block; pacemaker inserted in 12/2014 Pacemaker interrogation reviewed and no acute events Is due for battery exchange in the near future and has an appointment with Dr. Esquivel or next week (3) Urinary retention: Bladder scan revealed patient was retaining around 800 cc-Haley catheter placed and is draining CT abdomen/pelvis negative for obstruction Continue finasteride and tamsulosin Trial of void at skilled nursing in 1 week (4) Dementia: reports he is around baseline, nonverbal Does eat and take pills when fed (5) Fall: Possibly mechanical but could be syncope. Pacer interrogated as above no arrhythmias maybe orthostasis from Flomax? hard to say Plan Disposition: [facility] to [facility]-discussed possibility of enrolling in hospice with and she is considering this option DNR/DNI Heart healthy diet, minced/moist (aspiration precautions and patient will require feeding) VTE PPx: Trevors, Lyndseynox while here, ELiquis on discharge Notes For Next Care Provider F/u Ortho in 1 month with hip xrays F/u cardiology as scheduled next week to plan battery exchange for pacer Consider enrolling in hospice Medication Changes From Visit Added Eliquis 2.5mg po bid x 30 days Made Tylenol 1000mg po tid scheduled Admission HPI Per Admitting Provider Guilherme is a 78-year-old male with PMH of sinus node dysfunction, cardiac pacemaker, nocturia, GERD, dyslipidemia, prostatitis, and pulmonary embolism. He presented via EMS from [facility] on 10/10 after sustaining an unwitnessed, ground-level fall out of his wheelchair around noon. Patient has dementia and nonverbal at baseline. Patient's (Monae) is at the bedside and provides history at this time. She was told he might have tried to get up out of his wheelchair on his own, and was found down in a dining area. When nursing staff got him back to the room, they reported his vitals looked okay. No LOC. Not on blood thinners. Unclear if patient struck head. Patient was not down for extended period of time. reports that there was also an episode the day prior where he became unresponsive. For these reasons, the insisted that he come into the ED. She also expresses some concern regarding his pacemaker, as they have an upcoming appointment on October 21, and she was previously told that it might need to be replaced. Patient does have remote history of a right total hip replacement in July [address] Sage; patient's reports that he was active and mobile prior to the surgery, but has been slow in recovering from the surgery. He is largely wheelchair-bound at baseline, but does work with PT/OT for standing and using walker. He is unable to ambulate with a walker independently. Patient received morning medications. Patient is hypertensive at 144/92 at time of admission; vitals otherwise stable. ED course: Acetaminophen 1000 mg IV Fentanyl 25 mcg IV NSS 500 mL IV Unable to obtain ROS at this time and patient's current state. Discharge Exam Constitutional + lethargic; no acute distress Respiratory normal respiratory effort, lungs clear to auscultation Cardiovascular RRR, no murmur, no edema Musculoskeletal Extremities: extremities normal to inspection Psychiatric Orientation: + not alert and + not oriented x 3 Discharge Plan Discharge Items Patient Disposition: Transfer [facility] Fac Reason For Visit: LEFT FEMORAL NECK FX Discharge Diagnosis: Left femoral neck/hip fracture-nonoperative management Condition on Discharge: Fair Activity: As commented below Bathing: No limitations Exercise Comment: Only bed to chair transfers after sitting upright Weightbearing: Left non-weightbearing Non-emergency contact: Primary Care Provider and Surgeon Call non-emergency contact if: you have any medication questions, your symptoms worsen and your pain is not controlled Follow-up/Referrals: Tacos Richardson III, MD [Primary Care Provider] - (Follow up within 1 week after discharge ) Jerry Mike DO [Physician] - (Follow up in 1 month with Orthopedic Surgery ) Diet: Heart Healthy Diet Comment: Minced and moist, needs to be fed Addtl Attending Provider Instructions: You were admitted after sustaining a fall with a left hip fracture. After receiving two opinions from orthopedic Surgeons, you and your have decided to opt for non-surgical management of your hip fracture as it may not provide much benefit given your mostly non-ambulatory state and severe dementia. You should remain non-weight bearing on the left leg and sit upright prior to bed to chair transfers with a lift. Please follow up with the Orthopedic Surgeon in 1 month to have repeat xrays. You can take Tylenol three times a day for pain and remain on Eliquis to prevent blood clots for 4-6 weeks. Because of your urinary retention, please keep the Haley catheter in place for at least one week and then attempt a trial of void, checking bladder scans to ensure no significant retention afterwards. As for your pacemaker, your battery needs to be exchanged. Please keep your appointment with Dr. Breaux as planned for next week to discuss this. As I discussed with your , there is a possibility of enrolling in hospice care to focus on comfort and quality of life given your severe dementia and recurrent falls. You can discuss this with your caretakers at [facility] if desired. Pending Studies at Discharge: No Stand-Alone Forms: My [facility] Skilled Items Patient informed of condition?: Yes DNR: Yes Discharge Level of Care: Skilled Communicable Disease: No Discharge Prognosis: Stable Lines: None Urinary Catheter: Yes Medications and DC Order Prescriptions: New Eliquis 2.5 mg tablet 2.5 mg PO BID Qty: 60 0RF Continued potassium chloride 20 mEq tablet,ER particles/crystals 20 meq PO BID acetaminophen 500 mg capsule 1,000 mg PO Q8H Qty: 90 0RF buspirone 5 mg tablet 5 mg PO AMHS polyethylene glycol 3350 [Miralax] 17 gram Powder In Packet 17 g PO BIDM metoprolol tartrate 100 mg tablet 100 mg PO AMHS lisinopril 20 mg tablet 20 mg PO QPM sennosides-docusate sodium [Senokot-S] 8.6-50 mg Tablet 1 tab-cap PO BIDM amlodipine 5 mg tablet 5 mg PO QAM amoxicillin 500 mg tablet 2,000 mg PO DIRECTED Rx Instructions: TAKE 1 HR PRIOR TO DENTIST APT. tamsulosin 0.4 mg capsule 0.4 mg PO QAM finasteride 5 mg tablet 5 mg PO QAM alum-mag hydroxide-simeth 400-400-40 mg/5 mL Suspension 30 ml PO Q4 PRN (Reason: Dyspepsia) cholecalciferol (vitamin D3) [Vitamin D3] 25 mcg (1,000 unit) Tablet 25 mcg PO DAILY pantoprazole [address] for susp in packet 40 mg PO DAILY Rx Instructions: MUST HAVE CRUSHABLE MED Discharge Orders: Discharge Order (Routine); Ordered 10/13/23 Ordered By: Carola Cardona Admission Data Admit Date/Time: 10/11/23 18:29 Attending Provider: Carola Cardona Admit Provider: Thiago Sorensen Primary Care Provider: Tacos Richardson III Other Providers: Thiago Sorensen; Thiago Coleman; [facility]; Jerry Mike Hospital Stay Data Consultations 10/11/23 16:41 ED Decision to Admit Stat 10/11/23 18:27 Consult Orthopedic Surgery Routine 10/12/23 12:08 Consult Orthopedic Surgery Routine Diagnostic Imagining Performed 10/11/23 14:27 CT cervical spine wo con Stat CT head/brain wo con Stat 10/11/23 17:18 CT abd pelvis IV con only Stat Pending Results Patient Have Any Pending Studies at Discharge: No Discharge Instructions Given to Patient (Per Discharging Provider) You were admitted after sustaining a fall with a left hip fracture. After receiving two opinions from orthopedic Surgeons, you and your have decided to opt for non-surgical management of your hip fracture as it may not provide much benefit given your mostly non-ambulatory state and severe dementia. You should remain non-weight bearing on the left leg and sit upright prior to bed to chair transfers with a lift. Please follow up with the Orthopedic Surgeon in 1 month to have repeat xrays. You can take Tylenol three times a day for pain and remain on Eliquis to prevent blood clots for 4-6 weeks. Because of your urinary retention, please keep the Haley catheter in place for at least one week and then attempt a trial of void, checking bladder scans to ensure no significant retention afterwards. As for your pacemaker, your battery needs to be exchanged. Please keep your appointment with Dr. Breaux as planned for next week to discuss this. As I discussed with your , there is a possibility of enrolling in hospice care to focus on comfort and quality of life given your severe dementia and recurrent falls. You can discuss this with your caretakers at [facility] if desired. Total Time Total Time Spent Total Time Spent (In Minutes): 45 min Total Time Includes: Examination of the Patient, Discharge Planning, Medication Reconciliation and Other (discussed care with on phone) Coding Level of Care Code 59740 INP/OBS DISCH >30 MIN Diagnoses Fracture of femoral neck, left S72.002A Cardiac pacemaker in situ Z95.0 Urinary retention R33.9 Dementia F03.90 Dementia type: unspecified type Fall W19.XXXA
[2023-10-13 14:32] VITALS: PULSE 69
== END 2023-10-13 16:01 | DRG 542 ==
LOC: SUATTDRO → ED 14:02 → SUATTDRO 18:29 → EDINP 18:49 → 3N 21:05